=== PATIENT | female | born 1970 | race Caucasian/White ===

== ENCOUNTER 2022-07-22 11:01 | Outpatient (CLI) | payer OTHER, SELFPAY ==
--- OUTSIDE RECORDS SUMMARY | 2022-07-22 11:04 | XMS_ITS | Encounter Summary ---
:1970 Author Organization [facility] Address [address] [place] [address] Care Team Providers Name Role Phone Unavailable Primary Care Provider Unavailable Encounter Details Date Type Department Care Team Description 06/06/2006 Hospital Encounter HX [facility] Sera Musa M.D. Social History Tobacco Use Types Packs/Day Years Used Date Smoking Tobacco: Never Assessed Sex Assigned at Date Recorded Not on file documented as of this encounter Plan of Treatment Not on filedocumented as of this encounter Visit Diagnoses Not on filedocumented in this encounter
--- OUTSIDE RECORDS SUMMARY | 2022-07-22 11:04 | XMS_ITS | Encounter Summary ---
:1970 Author Organization [facility] Address [address] [place] [address] Care Team Providers Name Role Phone Unavailable Primary Care Provider Unavailable Encounter Details Date Type Department Care Team Description 01/13/2006 Hospital Encounter HX [facility] Provider, Historic al Social History Tobacco Use Types Packs/Day Years Used Date Smoking Tobacco: Never Assessed Sex Assigned at Date Recorded Not on file documented as of this encounter Plan of Treatment Not on filedocumented as of this encounter Visit Diagnoses Not on filedocumented in this encounter
--- OUTSIDE RECORDS SUMMARY | 2022-07-22 11:04 | XMS_ITS | Encounter Summary ---
:1970 Author Organization [facility] Address [address] [place] [address] Care Team Providers Name Role Phone Elsewhere, Pcp Primary Care Provider Unavailable Reason for Visit Reason Comments COVID Nurse Line Encounter Details Date Type Department Care Team Description 08/29/2021 Clinical Communication Division of Génesis Moreno Nurse Line Formerly [facility] Internal D, R.N. [facility] [address] [facility] [place] [phone] [place] [address] [place] [address] Social History Tobacco Use Types Packs/Day Years Used Date Smoking Tobacco: Never Sex Assigned at Date Recorded Not on file documented as of this encounter Miscellaneous Notes Telephone Encounter - Alivia Flores - 08/29/2021 10:22 AM CDT Covid appt scheduled for 08/29/21. Telephone Encounter - Génesis Moreno, R.N. - 08/29/2021 9:54 AM CDT COVID-19 Nurse Line Screening ASSESSMENT PLAN Endpoint recommendation: Symptomatic testing indicated, advised to be swabbed for COVID-19 Only , sent to [facility] located at [address]. An appointment is required for testing, please call [phone] Monday- Monday 7am to 6pm and Monday & Monday 9am to 4pm to schedule an appointment. Testing hours are 8am - 4:30pm daily. You can also schedule via your [employer] account., Please avoid using public transportation per CDC recommendation. If you do not havepersonal transportation please self-quarantine until a personal transportation option is available. Standard Care Points -Get a COVID -19 vaccine as soon as you can if not fully vaccinated. -Wash hands frequently with soap and water, use hand pollution control technician if soap and water aren't available. -Wear a mask over your nose and mouth to help protect yourself and others if not fully vaccinated and having no symptoms -Stay 6 feet between yourself and others who don't live with you. -Avoid crowds and poorly ventilated indoor spaces. -Seek emergent care if any of the following occur Trouble breathing Bluish lips or face Persistent pain or pressure in the chest New confusion or inability to rouse. -Notify your regular care provider of any new or worsening symptoms. Symptomatic Carepoints: Stay home and separate yourself from others and stay in a specific sick room if able. Avoid sharing personal or household items. Rest. Hydrate. Take Acetaminophen/Ibuprofen asneeded to control fever and muscles aches. Use over the counter medications as needed for other symptoms. If you have received a negative COVID-19 test result and continue to have new or worsening symptoms after 72 hours please call the COVID Nurse Line to assess if you need repeat testing or reach out to your Primary Care Provider for guidance. Education: Patient/caregiver able to teach back Patient agreeable to plan of care: Yes The following references were used: [facility] novel coronavirus (COVID- 19) resources Nursing judgement documented in this encounter Plan of Treatment Not on filedocumented as of this encounter Visit Diagnoses Not on filedocumented in this encounter Additional Health Concerns Infection Onset Date Last Indicated Resolved Time COVID19 Pending 08/29/2021 08/29/2021 08/30/2021 10:03 PM CDT documented as of this encounter Care Teams Electronics Technician Apprentice Relationship Specialty Start Date End Date Elsewhere, Pcp PCP - General Family Medicine 06/07/21 documented as of this encounter
--- OUTSIDE RECORDS SUMMARY | 2022-07-22 11:04 | XMS_ITS | Encounter Summary ---
:1970 Author Organization [facility] Address [address] [place] [address] Care Team Providers Name Role Phone Unavailable Primary Care Provider Unavailable Encounter Details Date Type Department Care Team Description 09/11/2006 Hospital Encounter HX NO MAPPING Reyes Wood M .D. Social History Tobacco Use Types Packs/Day Years Used Date Smoking Tobacco: Never Assessed Sex Assigned at Date Recorded Not on file documented as of this encounter Plan of Treatment Not on filedocumented as of this encounter Visit Diagnoses Not on filedocumented in this encounter
--- OUTSIDE RECORDS SUMMARY | 2022-07-22 11:04 | XMS_ITS | Clinical Summary ---
:1970 Author Organization [facility] [place] [address] Care Team Providers Name Role Phone Jeanette Cortez Primary Care Provider Zulema Moore RN Unavailable Dania Navarrete RN Unavailable Ramon Menchaca MD Unavailable [phone] Jessica Catherine RN Unavailable Unavailable Allergies Active Allergy Reactions Severity Noted Date Comments Lisinopril Cough 10/26/2018 Medications Medication Sig Dispensed Refills Start End Status Date Date CPAPIndications: MAGGY CPAP machine for 1 Each 06/23/20 Active (obstructive sleep home use at 21 apnea) pressure 4-10 cmw, full face mask x1/3month with a full face cushion x1/mo triamcinolone Apply topically 80 g 1 01/19/20 Active (ARISTOCORT; to affected 22 KENALOG) 0.1 % area(s) 2 times creamIndications: daily. Up to 2 Atopic dermatitis, weeks unspecified type amLODIPine (NORVASC) Take 1 Tablet 90 Tablet 0 06/01/20 Active 10 mg (10 mg) by mouth 22 tabletIndications: once daily. Essential hypertension omeprazole Take 1 Capsule 90 Capsule 0 06/01/20 Act ryan (PRILOSEC) 40 mg (40 mg) by mouth 22 Delayed-Release once daily capsuleIndications: before a meal. Gastroesophageal reflux disease with esophagitis without hemorrhage losartan (COZAAR) 25 Take 1 Tablet 90 Tablet 0 06/08/20 Active mg (25 mg) by mouth 22 tabletIndications: once daily. Essential hypertension atorvastatin Take 1 Tablet 90 Tablet 1 06/08/20 Act ryan (Lipitor) 20 mg (20 mg) by mouth 22 tabletIndications: at bedtime. Mixed dyslipidemia Blood Pressure Diagnosis: 1 Each 0 06/08/20 Acti ve Monitor (Blood hypertension Use 22 Pressure Kit) as directed KitIndications: OMRON Essential hypertension escitalopram oxalate Take 1 Tablet 90 Tablet 3 06/08/20 Active (LEXAPRO) 10 mg (10 mg) by mouth 22 tabletIndications: every morning. Generalized anxiety disorder LORazepam (ATIVAN) Take 1 Tablet 15 Tablet 0 06/16/20 Active 0.5 mg (0.5 mg) by 22 tabIndications: mouth once daily Panic attack if needed for Anxiety. lancets (Accu-Chek Dispense item 100 Each 1 06/22/20 Active Softclix covered by pt 22 Lancets)Indications: ins. E11.9 NIDDM Type 2 diabetes type II - Test 1 mellitus without time/day complication, without long-term current use of insulin (HC) trimethoprim-sulfame Take 1 tab 30 Tablet 2 06/28/20 Active thoxazole, 160-800 Monday, 22 mg, (Bactrim DS) Monday and tabIndications: Fridays Sarcoidosis predniSONE Take 2 Tablets 112 Tablet 0 06/28/20 Act ryan (DELTASONE) 20 mg (40 mg) by mouth 22 022 tabletIndications: once daily. Sarcoidosis insulin NPH Inject 38 units 15 mL 1 06/29/20 Ac tive isophane, U-100, subcutaneous 22 (HumuLIN N NPH before bedtime. Insulin KwikPen) 100 unit/mL (3 mL) penIndications: Type 2 diabetes mellitus without complication, without long-term current use of insulin (HC) Insulin Beattie, As directed. 100 Each 0 06/29/20 Active Disposable, (Pen Remove the 2 22 Needle) 32 gauge x covers on the Indications: insulin pen Type 2 diabetes needle before mellitus without administering complication, insulin dose.Use without long-term once daily with current use of insulin insulin (HC) glucose 4 gram Chew 4 Tablets 100 Tablet 5 06/29/20 Active chewable (16 g) by mouth 22 tabletIndications: each time if Type 2 diabetes needed for Blood mellitus without Gluc < (For complication, glucose less without long-term than 70). current use of insulin (HC) insulin NPH Inject 38 units 20 mL 06/30/20 Ac tive isophane, U-100, subcutaneous 22 (NovoLIN N NPH U-100 before Insulin) 100 unit/mL breakfast. susp injectionIndications : Type 2 diabetes mellitus without complication, without long-term current use of insulin (HC) Insulin For 100 Each 06/30/20 Active Syringe-Needle U-100 administering 22 (Easy Touch) 0.3 mL insulin at home. 30 gauge x 04/04Indications: Type 2 diabetes mellitus without complication, without long-term current use of insulin (HC) FreeStyle Colleen 2 To be used to 2 Each 07/04/20 Active SensorIndications: read blood 22 Type 2 diabetes sugars per mellitus without application engineer's complication, with directions. long-term current Change every 14 use of insulin (HC) days blood sugar Dispense item 200 Each 07/06/20 Acti ve diagnostic covered by pt 22 (Accu-Chek Guide ins. - Test 4 test strips) time/day now on stripIndications: insulin Type 2 diabetes mellitus without complication, without long-term current use of insulin (HC) Dexcom G6 To be used to 1 Each 4 07/11/20 Active Transmitter for read blood 22 continuous blood sugars, follow glucose monitor application engineer (CGM)Indications: directions. Type 2 diabetes Change every 90 mellitus without days complication, unspecified whether nursing home insulin use (HC) Dexcom G6 Sensor for To be used to 9 Each 3 07/14/20 Active continuous blood read blood 22 glucose monitor sugars, follow (CGM)Indications: application engineer Type 2 diabetes directions. mellitus without Change sensor complication, every 10 days unspecified whether nursing home insulin use (HC) cefdinir (OMNICEF) Take 300 mg by 0 05/29/20 Discontinued 300 mg capsule mouth. 22 022 (*Med complete/R egime n complete/L evel of care margarito) blood sugar Dispense item 100 Each 1 06/22/20 Disc ontinued diagnostic covered by pt 22 022 (Reor angela (Accu-Chek Guide ins. E11.9 NIDDM (E-cancel not test strips) type II - Test 1 sent)) stripIndications: time/day Type 2 diabetes mellitus without complication, without long-term current use of insulin (HC) diazePAM (Valium) 5 Take 1 Tablet (5 1 Tablet 0 06/28/2007/22 mg mg) by mouth one 22 022 tabletIndications: time for 1 dose. Sarcoidosis Dexcom G6 Sensor for To be used to 9 Each 3 07/11/2007/14 Discontinued continuous blood read blood 22 022 (R eorder glucose monitor sugars, follow (E-cancel not (CGM)Indications: application engineer sent)) Type 2 diabetes directions. mellitus without Change sensor complication, every 10 days unspecified whether rn long term care insulin use (HC) Active Problems Problem Noted Date Sarcoidosis 06/29/2022 Overview: Extensive sarcoidosis. Elevated LFTs 06/01/2022 Type 2 diabetes mellitus without complication, without long-term current 06/01/2022 use of insulin Colon polyp 03/03/2022 Overview: Colonoscopy 02/2022 2-TA, repeat in 7 yea rs Mixed dyslipidemia 06/16/2021 Overview: ASCVD 10 year risk 3.3%. Hyperuricemia 06/16/2021 Overview: Patient stopped allopurinol. Generalized anxiety disorder 05/23/2021 Chronic cough 05/23/2021 Gastroesophageal reflux disease with esophagitis witho ut hemorrhage 05/23/2021 Essential hypertension 11/05/2018 Dyspepsia 03/09/2018 NADIRA III (cervical intraepithelial neoplasia grade III) with severe 05/15/2015 dysplasia Overview: 05/15/2015 LSIL cannot exclude HSIL (no follow up colp noted) 01/11/2019 ASCUS/HPV+ 02/12/2019 Total Hysterectomy, Cervix re moved: NADIRA 2-3 01/20/2020 NIL/HPV negative 06/16/2021 LSIL/HPV+, HPV 16/18 negative 01/18/22 LSIL/HPV+, 16/18 negative. [place]:n ormal, no biopsy taken Provider plan 01/18/22: Pap/HPV due 01/2023 Obesity (BMI 30-39.9) 01/17/2012 MAGGY (obstructive sleep apnea) Pelvic pain Resolved Problems Problem Noted Date Resolved Date LGSIL (low grade squamous intraepithelial dysplasia) 01/17/2019 Overview: colp advised Encounters Date Type Specialty Care Team Description 07/21/2022 Travel 07/14/2022 Refill Jeanette Cortez, Refill R equest DO 07/11/2022 Patient Outreach Jessica Catherine, RN Jhonatan s (New CGM placement) 07/11/2022 Travel 07/06/2022 Patient Outreach Jessica Catherine RN Diabete s (Colleen start) 07/06/2022 Travel 07/05/2022 Hospital Encounter Ramon Menchaca MD 07/05/2022 Travel 07/04/2022 Telephone Leyda Hess RN MRI 06/30/2022 Telephone Jeanette Cortez Medicati on Management DO 06/29/2022 Emergency Janet Adorno Hyperglyc emia (Primary Yonny, PA Dx) 06/29/2022 Patient Outreach Jessica Catherine RN Diabete s (Insulin start) 06/29/2022 Telephone NurseTee High Blood Suga r 06/29/2022 Nurse Triage Jeanette Cortez, High Blo od Sugar (260 DO mg/dL) 06/29/2022 Travel 06/29/2022 Telephone Jeanette Cortez, Diabetes DO 06/29/2022 E-Visit Diane, Provider 06/28/2022 Refill Ramon Menchaca Refill Requ est MD [place] (Prednisone) 06/27/2022 Refill Ramon Menchaca MD 06/27/2022 Telephone Dania Navarrete, RN Medicat ion Management (Black seed oil ) 06/23/2022 Office Visit Ramon Menchaca Consult (Judith zac Mets ~ MD [place] Biopsy 06/20) 06/23/2022 Travel 06/22/2022 Orders Only Lab, Appv Lab 06/22/2022 Patient Outreach Jessica Catherine, RN Diabete s (New Dx Assessment) 06/22/2022 Travel 06/22/2022 Orders Only Ramon Menchaca <No scans a ttached> MD [place] 06/20/2022 Hospital Encounter Jeanette Cortez Li ver metastasis (HC) DO 06/20/2022 Travel 06/16/2022 Travel 06/16/2022 Nurse Triage Jeanette Cortez, Chest Pa in DO 06/14/2022 Telephone Christiana Haynes Consult (Holger Dean MD up/Appointments ) 06/13/2022 Telephone Jeanette Cortez, Form (H & P form ) DO 06/10/2022 Telephone Jeanette Cortez, Referral (oncology) DO 06/10/2022 Telephone Jeanette Cortez, Results DO 06/09/2022 Hospital Encounter Jeanette Cortez, Pe lvic lymphadenopathy; DO Multiple lung n odules; Abnormal liver CT 06/08/2022 Office Visit Jeanette Cortez, Medicati on Management; DO Diabetes; Blood Pressure 06/08/2022 Travel 06/06/2022 Travel 06/01/2022 Office Visit Jeanette Cortez, ER Follo w up DO 05/31/2022 Refill Jeanette Cortez, Refill R equest DO (Omeprazole, Am lodipine) 05/31/2022 Travel from Last 3 Months Immunizations Name Administration Dates Next Due Hepatitis B (Adult) 06/24/2014, 05/19/2014 Influenza, IIV4 01/20/2020 Tdap 06/01/2022, 01/17/2012 Family History Medical History Relation Name Comments Cancer Maternal Aunt lung Cancer-breast Maternal Aunt age unknown Cancer Maternal Grandmother breast in h er 50's or 60's Cancer-breast Maternal Grandmother age unknown Heart Disease Maternal Grandmother Cancer Maternal Uncle lung CA Cancer Mother lung Good Health Sister Relation Name Status Comments Father Other unknown Maternal Aunt Maternal Grandmother Maternal Uncle Mother (Age 52) Sister Social History Tobacco Use Types Packs/Day Years Used Date Passive Smoke Exposure - Never Smoker Smokeless Tobacco: Never Used Tobacco Cessation: Counseling Given: Yes Alcohol Use Standard Drinks/Week Comments Yes 0 (1 standard drink = 0.6 oz pure alcoho l) socially Alcohol Habits Answer Date Recorded How often do you have a drink containing alcohol? 2-4 times a month 08/14/2020 How many drinks containing alcohol do you have on a 3 or 4 08/14/2020 typical day when you are drinking? How often do you have six or more drinks on one Less than mo nthly 08/14/2020 occasion? Comment: socially 08/14/2020 Sex Assigned at Date Recorded Not on file COVID-19 Exposure Response Date Recorded In the last 10 days, have you been in contact with No / Unsu re 07/21/2022 2:23 PM CDT someone who was confirmed or suspected to have Coronavirus/COVID-19? Obstetrics History Para Term AB IAB SAB Ectopic Multiple Living Live Births 2 2 Date Outcome GA Total Labor/2nd/3rd Weight Sex Delivery Anes PTL Bianka A 1 A5 Name Clin Labor Para Para Last Filed Vital Signs Vital Sign Reading Time Taken Comments Blood Pressure 149/82 06/29/2022 7:31 PM CDT Pulse 96 06/29/2022 7:31 PM CDT Temperature 36.7 ??C (98 ??F) 06/29/2022 7:31 PM CDT Respiratory Rate 18 06/29/2022 7:31 PM CDT Oxygen Saturation 92% 06/29/2022 7:31 PM CDT Inhaled Oxygen Concentration - - Weight 96.6 kg (212 lb 15.4 oz) 06/29/2022 7:31 PM CDT Height 165.1 cm (5' 5) 06/29/2022 7:31 PM CDT Body Mass Index 35.44 06/29/2022 7:31 PM CDT Plan of Treatment Upcoming Encounters Date Type Specialty Care Team Description 08/03/2022 Office Visit Dylan Obrien, OD [address] [place] [address] (Wo rk) Health Maintenance Due Date Last Done Comments Pneumococcal series for age 19-64 1976 (1 - PCV) Zoster (shingles) series for age 0112/20/1989 50+ (1 of 2) Hepatitis B series for Diabetes (3 10/24/2014 06/24/2014, 0 05/19/2014 of 3 - Risk 3-dose series) COVID-19 vaccine series (2 - 03/11/2022 02/11/2022 Moderna risk series) Influenza for age 50-64 07/21/2022 01/20/2020 Pap test for age 21-65 01/18/2023 01/18/2022, 01/18/2022, 06/16/2021, Additional history exists Mammogram for age 45-75 03/02/2023 03/02/2022, 11/05/2020, 11/04/2019, Additional history exists Depression screening for age 12+ 06/01/2023 06/01/2022, 10/2022, 06/16/2021, Additional history exists BMI (ht and wt on same day) for 06/23/2023 06/23/2022, 03/0 11/2021, age 18+ 06/23/2021, Additional history exists Lipids for age 45-75 06/01/2027 06/01/2022, 06/16/2021, 10/12/2020, Additional history exists Colonoscopy through age 75 03/01/2032 03/01/2022, 2, 03/01/2022 Tetanus booster 06/01/2032 06/01/2022, 01/17/2012 Hepatitis C screening for age Completed 06/01/2022 18-79 Tdap Completed 06/01/2022, 01/17/2012 Procedures Procedure Name Priority Date/Time Associated Diagnosis Comme nts MR CARDIAC WWO SWETHA 07/05/2022 3:46 Sarcoidosis Results fo r this PM CDT procedure are i n the results section. HEMATOCRIT/HGB,ISTAT Routine 07/05/2022 2:58 Resu lts for this PM CDT procedure are i n the results section. PATH URINE CYTOLOGY STAT 06/22/2022 11:26 Disseminated Resu lts for this AM CDT malignancy of procedure are in unknown primary (HC) the res ults section. CBC WITH AUTO Routine 06/22/2022 11:26 Disseminated Results fo r this DIFFERENTIAL AM CDT malignancy of procedure are in unknown primary (HC) the res ults section. BETA 2 Routine 06/22/2022 11:26 Disseminated Results for this MICROGLOBULIN,SER AM CDT malignancy of procedure are in unknown primary (HC) the res ults section. LD,TOTAL Routine 06/22/2022 11:26 Disseminated Results for this AM CDT malignancy of procedure are in unknown primary (HC) the res ults section. IMMUNOFIXATION,SERUM STAT 06/22/2022 11:26 Disseminated Res ults for this AM CDT malignancy of procedure are in unknown primary (HC) the res ults section. PROTEIN ELP,SERUM Routine 06/22/2022 11:26 Disseminated Result s for this AM CDT malignancy of procedure are in unknown primary (HC) the res ults section. CALCITRIOL(1 25 DI OH Routine 06/22/2022 11:26 Disseminated Re sults for this VIT D) AM CDT malignancy of procedure are in unknown primary (HC) the res ults section. VITAMIN D 25 Routine 06/22/2022 11:26 Disseminated Results for this (DEFICIENCY) AM CDT malignancy of procedure are in unknown primary (HC) the res ults section. ANGIOTENSIN CONVERTING Routine 06/22/2022 11:26 Disseminated R esults for this ENZYME AM CDT malignancy of procedure are in unknown primary (HC) the res ults section. C-REACTIVE PROTEIN Routine 06/22/2022 11:26 Disseminated Resul ts for this AM CDT malignancy of procedure are in unknown primary (HC) the res ults section. SEDIMENTATION RATE Routine 06/22/2022 11:26 Disseminated Resul ts for this AM CDT malignancy of procedure are in unknown primary (HC) the res ults section. COMP METABOLIC PANEL Routine 06/22/2022 11:26 Disseminated Res ults for this AM CDT malignancy of procedure are in unknown primary (HC) the res ults section. CBC WITH AUTO Routine 06/22/2022 11:26 Disseminated Results fo r this DIFFERENTIAL AM CDT malignancy of procedure are in unknown primary (HC) the res ults section. CA 125 Routine 06/22/2022 11:26 Disseminated Results for this AM CDT malignancy of procedure are in unknown primary (HC) the res ults section. CA 19-9 Routine 06/22/2022 11:26 Disseminated Results for this AM CDT malignancy of procedure are in unknown primary (HC) the res ults section. CEA Routine 06/22/2022 11:26 Disseminated Results for this AM CDT malignancy of procedure are in unknown primary (HC) the res ults section. US BIOPSY LIVER STAT 06/20/2022 9:05 Liver metastasis Resul ts for this AM CDT (HC) procedure are i n the results section. PATH FNA CYTOLOGY ASP Timed 06/20/2022 8:37 Res ults for this CYTOLOGY AM CDT procedure are i n the results section. HEMOGLOBIN STAT 06/20/2022 7:15 Results for this AM CDT procedure are i n the results section. PLATELET COUNT STAT 06/20/2022 7:15 Results fo r this AM CDT procedure are i n the results section. PROTIME-INR STAT 06/20/2022 7:15 Results for this AM CDT procedure are i n the results section. US ABDOMEN LIMITED SWETHA 06/09/2022 11:[address] Results for this LIVER AM CDT procedure are i n the results section. PET CT SKULL BASE TO SWETHA 06/09/2022 10:58 Pelvic Res ults for this MID THIGH INITIAL AM CDT lymphadenopath y procedure are in TREAT Multiple lung the results nodules section. URINE ALBUMIN TO Routine 06/08/2022 11:58 Type 2 diabetes Resu lts for this CREATININE RATIO, AM CDT mellitus without proced ure are in RANDOM complication, the results without long-term section. current use of insulin (HC) WI ECG ROUTINE ECG Routine 06/08/2022 12:00 Atypical chest marky n W/LEAST 12 LDS W/I&R AM CDT CBC WITH AUTO Routine 06/01/2022 9:54 Pelvic Results for this DIFFERENTIAL AM CDT lymphadenopathy procedure are in Multiple lung the results nodules section. FERRITIN Routine 06/01/2022 9:[address] Results for this AM CDT procedure are i n the results section. HBSAG (HBS) Routine 06/01/2022 9:[address] Results for this AM CDT procedure are i n the results section. ANTI HCV Routine 06/01/2022 9:[address] Results for this AM CDT procedure are i n the results section. GAMMA GT Routine 06/01/2022 9:54 Pelvic Results for this AM CDT lymphadenopathy procedure are in Abnormal liver CT the result s section. CBC WITH AUTO Routine 06/01/2022 9:54 Pelvic Results for this DIFFERENTIAL AM CDT lymphadenopathy procedure are in Multiple lung the results nodules section. HEMOGLOBIN A1C Routine 06/01/2022 9:54 Diabetes mellitus Resul ts for this SCREENING AM CDT screening procedure are i n the results section. COMP METABOLIC PANEL Routine 06/01/2022 9:54 Pelvic Resu lts for this AM CDT lymphadenopathy procedure are in Abnormal liver CT the result s section. LIPID PANEL W REFLEX Routine 06/01/2022 9:54 Mixed dyslipidemi a Results for this MEASURED LDL AM CDT procedure are i n the results section. from Last 3 Months Results MR CARDIAC WWO (07/05/2022 3:46 PM CDT) Anatomical Region Laterality Modality HEART, THORAX Magnetic Resonance Specimen (Source) Anatomical Collection Method Collection Time Re ceived Time Location / / Volume Laterality 07/05/2022 3:42 PM CDT Narrative 07/06/2022 12:30 AM CDT ?[facility] ? CMR Report ??MRN: ?[id number] ?Name: ?BRITTANY DOMINGUEZ ?: ?1971-0 1-31 ?Scan Date: ?? 2022-07-05 15:42:55 ? Electronically signed by Eduar Simpson 00:30:15 VITALS HEIGHT: 65.00 in ?(165.10 cm) WEIGHT: 214.00 lbs ?(97.07 kgs) BSA: 2.04 m^2 FINAL IMPRESSION 1. No evidence of cardiac sarcoidosis. 2. No myocardial infarction, myocarditis , focal fibrosis, or amyloidosis noted on late gadolinium enhancement imaging. ??No diffuse fibros is noted on extracellular volume (ECV) measures. No siderosis or Fabry? s disease. No edema. 3. Quantitative LVEF 75 %. LV systolic f unction is hyperdynamic. LV cavity size is normal. LV wall thickness is normal. 4. Quantitative RVEF 55 %. RV systolic f unction is normal. RV cavity size is normal. 5. No significant valve disease. ?? 6. No pericardial or pleural effusions. 7. Mediastinal and hilar adenopathy note d consistent with clinical diagnosis of sarcoidosis. Defer to prior imaging for further characterization of extracardiac pathology. SUMMARY LEFT VENTRICLE: Quantitative LVEF 75 %. LV systolic function is hyperdynamic. LV cavity size is normal. LV wall thickness is normal. VIABILITY: No evidence of cardiac sarcoi dosis. No myocardial infarction, myocarditis, focal fibrosis, or amyloidosis noted on late gadolinium enhancement ylndon ging. ??No diffuse fibrosis noted on extracellular volume (ECV) measures. No siderosis or Fabry? s disease. No edema. RIGHT VENTRICLE: Quantitative RVEF 55 %. RV systolic function is normal. RV cavity size is normal. LEFT ATRIUM: LA cavity size is normal. RIGHT ATRIUM: RA cavity size is normal. PERICARDIUM: There is no pericardial eff usion. PLEURAL EFFUSION: There is no pleural ef fusion. AORTIC VALVE: Aortic valve is trileaflet . There is no aortic regurgitation. Aortic regurgitant volume 0 ml. MITRAL VALVE: Mitral valve is mildly thi ckened. There is no mitral regurgitation. TRICUSPID VALVE: Tricuspid valve leaflet s are normal. There is no tricuspid regurgitation. AORTIC ROOT: The aortic root is normal. OTHER FINDINGS: Mediastinal and hilar ad enopathy noted consistent with clinical diagnosis of sarcoidosis. CORE EXAM MEASUREMENTS -------- ?VOLUMETRIC ANALYSIS ? . . ? LV ?? Refe rence RV ?? Reference +------+ +------+ +-- ----+ + EDV ?? ml ?110 ??(86-16 6) ??110 ??(81-166) ? ml/m^2 ? 54 ??(56- 90) ? 54 ??(53-90) ?? ESV ?? ml ? 28 ??(22-59 ) ? 49 ??(15-68) ? ml/m^2 ? 14 ??(14- 33) ? 24 ??(11-37) ?? CO ?? L/min ? 5.25 ? 3.90 ? L/min/m^2 2.58 ? 1.92 ? MASS g ? 93 ??(72-14 4) ? g/m^2 ? 46 ??(48- 78) ? SV ?? ml ? 82 ??(57-11 3) ?? 61 ??(56-108) ? ml/m^2 ? 40 ??(37- 62) ? 30 ??(36-60) ?? EF ?? % ? 75 ??(59-7 7) ? 55 ??(55-79) ?? '------+ +------+ +-- ----+ ' ?CARDIAC OUTPUT HR: ??64 BPM ?EXTRACELLULAR VOLUME MEASUREMENT ?PRE-CONTRAST T1 MYOCARDIUM: ??1022 msec ?ECV: ??23.1 % ?IRON QUANTIFICATION ?MYOCARDIAL T2*: ??32 msec ?LIVER T2*: ??31 msec 17 SEGMENT -------- . . Segments ? Wall Motion ?? Hyperenhancement Stress Perfusion Interpretation + + + + +----- + Base Anterior ? Normal/Hyper None ? Base Anteroseptal ?? Normal/Hyper N one ? Base Inferoseptal ?? Normal/Hyper N one ? Base Inferior ? Normal/Hyper None ? Base Inferolateral Normal/Hyper No ne ? Base Anterolateral Normal/Hyper No ne ? Mid Anterior ? Normal/Hyper None ? Mid Anteroseptal ?? Normal/Hyper N one ? Mid Inferoseptal ?? Normal/Hyper N one ? Mid Inferior ? Normal/Hyper None ? Mid Inferolateral ?? Normal/Hyper N one ? Mid Anterolateral ?? Normal/Hyper N one ? Apical Anterior ? Normal/Hyper None ? Apical Septal ? Normal/Hyper None ? Apical Inferior ? Normal/Hyper None ? Apical Lateral ? Normal/Hyper None ? [place] ? Normal/Hyp er None ? + + + + +----- + RV Segments ? Wall Motion ? ? Hyperenhancement Stress Perfusion Interpretation + + + + +----- + RV Basal Anterior ? RV Basal Inferior ? RV Mid ? RV Apical ? ' + + + +----- ' ?FINDINGS ?LV SCAR SIZE (17 SEGMENT): ? ?0 % SCAN INFO GENERAL -------- ?SCANNER ?ACCOUNTING SUPPORT SPECIALIST: ??SIEMENS ?MODEL: ??Avanto_fit ?CONTRAST AGENT ?GD CONCENTRATION: ??1.0 M ?VOLUME ADMINISTERED: ??10 ml ?DOSAGE: ??0.10 mmol/kg ?SETUP ?REFERRING PHYSICIAN: ??KARLA MENCHACA ?ATTENDING PHYSICIAN: ??KARLA MENCHACA BILLING Patient Account ?[id number] ICD10 Codes ?D86.9 Report generated by marcial Palacios of [employer] Procedure Note Eduar Simpson MD - 07/06/2022 ormatting of this note might be different from the original. [facility] CMR Report Name: BRITTANY DOMINGUEZ DOB: 1970 Scan Date: 2022-07-05 15:42:55 Electronically signed by Eduar Simpson 00:30:15 VITALS HEIGHT: 65.00 in (165.10 cm) WEIGHT: 214.00 lbs (97.07 kgs) BSA: 2.04 m^2 FINAL IMPRESSION 1. No evidence of cardiac sarcoidosis. 2. No myocardial infarction, myocarditis , focal fibrosis, or amyloidosis noted on late gadolinium enhancement imaging. No diffuse fibrosis noted on extracellular volume (ECV) measures. No siderosis or Fabry? s disease. No edema. 3. Quantitative LVEF 75 %. LV systolic f unction is hyperdynamic. LV cavity size is normal. LV wall thickness is normal. 4. Quantitative RVEF 55 %. RV systolic f unction is normal. RV cavity size is normal. 5. No significant valve disease. 6. No pericardial or pleural effusions. 7. Mediastinal and hilar adenopathy note d consistent with clinical diagnosis of sarcoidosis. Defer to prior imaging for further characterization of extracardiac pathology. SUMMARY LEFT VENTRICLE: Quantitative LVEF 75 %. LV systolic function is hyperdynamic. LV cavity size is normal. LV wall thickness is normal. VIABILITY: No evidence of cardiac sarcoi dosis. No myocardial infarction, myocarditis, focal fibrosis, or amyloidosis noted on late gadolinium enhancement lyndon ging. No diffuse fibrosis noted on extracellular volume (ECV) measures. No siderosis or Fabry? s disease. No edema. RIGHT VENTRICLE: Quantitative RVEF 55 %. RV systolic function is normal. RV cavity size is normal. LEFT ATRIUM: LA cavity size is normal. RIGHT ATRIUM: RA cavity size is normal. PERICARDIUM: There is no pericardial eff usion. PLEURAL EFFUSION: There is no pleural ef fusion. AORTIC VALVE: Aortic valve is trileaflet . There is no aortic regurgitation. Aortic regurgitant volume 0 ml. MITRAL VALVE: Mitral valve is mildly thi ckened. There is no mitral regurgitation. TRICUSPID VALVE: Tricuspid valve leaflet s are normal. There is no tricuspid regurgitation. AORTIC ROOT: The aortic root is normal. OTHER FINDINGS: Mediastinal and hilar ad enopathy noted consistent with clinical diagnosis of sarcoidosis. CORE EXAM MEASUREMENTS -------- VOLUMETRIC ANALYSIS ------- . . LV Reference RV Reference +------+ +------+ +-- ----+ + EDV ml 110 (86-166) 110 (81- 166) ml/m^2 54 (56-90) 54 (53-90) ESV ml 28 (22-59) 49 (15-68) ml/m^2 14 (14-33) 24 (11-37) CO L/min 5.25 3.90 L/min/m^2 2.58 1.92 MASS g 93 (72-144) g/m^2 46 (48-78) SV ml 82 (57-113) 61 (56-108 ) ml/m^2 40 (37-62) 30 (36-60) EF % 75 (59-77) 55 (55-79) '------+ +------+ +-- ----+ ' CARDIAC OUTPUT HR: 64 BPM EXTRACELLULAR VOLUME MEASUREMENT ------- PRE-CONTRAST T1 MYOCARDIUM: 1022 msec ECV: 23.1 % IRON QUANTIFICATION ------- MYOCARDIAL T2*: 32 msec LIVER T2*: 31 msec 17 SEGMENT -------- . . Segments Wall Motion Hyperenhancem ent Stress Perfusion Interpretation + + + + +----- + Base Anterior Normal/Hyper None Base Anteroseptal Normal/Hyper Non e Base Inferoseptal Normal/Hyper Non e Base Inferior Normal/Hyper None Base Inferolateral Normal/Hyper No ne Base Anterolateral Normal/Hyper No ne Mid Anterior Normal/Hyper None Mid Anteroseptal Normal/Hyper None Mid Inferoseptal Normal/Hyper None Mid Inferior Normal/Hyper None Mid Inferolateral Normal/Hyper Non e Mid Anterolateral Normal/Hyper Non e Apical Anterior Normal/Hyper None Apical Septal Normal/Hyper None Apical Inferior Normal/Hyper None Apical Lateral Normal/Hyper None [place] Normal/Hyper None + + + + +----- + RV Segments Wall Motion Hyperenhan cement Stress Perfusion Interpretation + + + + +----- + RV Basal Anterior RV Basal Inferior RV Mid RV Apical ' + + + +----- ' FINDINGS ------- LV SCAR SIZE (17 SEGMENT): 0 % SCAN INFO GENERAL -------- SCANNER ------- ACCOUNTING SUPPORT SPECIALIST: SIEMENS MODEL: Avanto_fit CONTRAST AGENT ------- GD CONCENTRATION: 1.0 M VOLUME ADMINISTERED: 10 ml DOSAGE: 0.10 mmol/kg SETUP ------- REFERRING PHYSICIAN: RAMON MENCHACA ATTENDING PHYSICIAN: RAMON MENCHACA BILLING Patient Account [id number] ICD10 Codes D86.9 Report generated by marcial Palacios of [employer] Ramon Menchaca MD MR HEMATOCRIT/HGB,ISTAT (07/05/2022 2:58 PM CDT) athologist Signature HEMATOCRIT, 44.0 33.0 - 07/05/2022 [facility] POCT 51.0 % 3:01 PM CDT LABORATORY HEMOGLOBIN, 15.0 12.0 - 07/05/2022 [facility] POCT 16.0 g/dL 3:01 PM CDT LABORATORY Specimen Anatomical Collection Method Collection Time Receive d Time (Source) Location / / Volume Laterality Blood BLOOD SPECIMEN / 07/05/2022 2:58 PM 07/05 3:01 Unknown CDT PM CDT Ramon Menchaca MD CHEMISTRY Performing Organization Address City/State/ZIP Code Phon e Number [facility] LABORATORY SENDOUT INTERNAL ZIP [place] [id number] [place] [address] (ABNORMAL) SEDIMENTATION RATE (06/22/2022 11:26 AM CDT) Patholo gist Method Time Signature SEDIMENTATION RATE 44 (H) <30 mm/hr 06/22/2022 [facility]ON[facility] L[facility] 9:19 PM CDT LABORATORY-MANDEEP TRAL LABORATORY Specimen Anatomical Collection Method / Collection Time Recei cayla Time (Source) Location / Volume Laterality Blood BLOOD SPECIMEN / Venipuncture / 06/22/2022 11:26 06/22 Unknown Unknown AM CDT 11:36 AM CDT Ramon Menchaca MD HEMATOLOGY Performing Organization Address City/State/ZIP Code Phon e Number [facility] [place] [address] [place] [address] LABORATORY-CENTRAL 2000 LABORATORY (ABNORMAL) CALCITRIOL(1 25 DI [place] VIT D) (06/22/2022 11:26 AM CDT) [facility] Time Signature Vit D 1,25 di 82.4 (H) 24.8 - 06/24/2022 [facility] [place] 81.5 pg/mL 1:09 PM CDT [facility] ESOTERIC TESTING (CET) Comment: Please note reference interv al change Specimen Anatomical Collection Method / Collection Time Recei cayla Time (Source) Location / Volume Laterality Blood BLOOD SPECIMEN / Venipuncture / 06/22/2022 11:26 06/22 Unknown Unknown AM CDT 11:36 AM CDT [facility] FOR ESOTERIC TESTING (CET) - 06/24/2022 1:09 PM CDT Performed at: ??01 - [address] ??[id number] [employer] Team Member: Luann Puente MD, Phone: ??[phone] Ramon Menchaca MD SEND OUTS Performing Organization Address City/State/ZIP Code Phon e Number [address] 2 [address] ESOTERIC TESTING (CET) (ABNORMAL) ANGIOTENSIN CONVERTING ENZYME (06/22/2022 11:26 AM CDT) athologist Signature KARSON 92 (H) 14 - 82 U/L 06/24/2022 [facility] 2:07 PM CDT [facility] FOR ESOTERIC TESTING (CET) Specimen Anatomical Collection Method / Collection Time Recei cayla Time (Source) Location / Volume Laterality Blood BLOOD SPECIMEN / Venipuncture / 06/22/2022 11:26 06/22 Unknown Unknown AM CDT 11:[address] [facility] FOR ESOTERIC TESTING (CET) - 06/24/2022 2:07 PM CDT Performed at: ??01 - [facility] [address] [place] [address] ??[id number] Flow Team Member: Luann Puente MD, Phone: ??[phone] Ramon Menchaca MD SEND OUTS Performing Organization Address City/State/ZIP Code Phon e Number [facility] FOR [address] [place] [address] 2 8315 ESOTERIC TESTING (CET) (ABNORMAL) CBC WITH AUTO DIFFERENTIAL (06/22/2022 11:26 AM CDT)Only the most recent of2 resultswithin the time period is included. Analysis Performed At Patho logist Time Signature WHITE BLOOD 8.1 4.5 - 11.0 06/22/2022 [facility] COUNT thou/cu mm 12:06 PM CDT [facility] RED BLOOD COUNT 4.88 4.00 - 06/22/2022 [facility] 5.20 12:06 PM CDT [place] [facility] mil/cu mm [facility]ICAL CLINIC HEMOGLOBIN 14.9 12.0 - 06/22/2022 [facility] 16.0 g/dL 12:06 PM CDT [facility] HEMATOCRIT 43.1 33.0 - 06/22/2022 [facility] 51.0 % 12:06 PM CDT [facility] MCV 88 80 - 100 06/22/2022 [facility] fL 12:06 PM CDT [facility] MCH 30.5 26.0 - 06/22/2022 [facility] 34.0 pg 12:06 PM CDT [facility] MCHC 34.6 32.0 - 06/22/2022 [facility] 36.0 g/dL 12:06 PM CDT [facility] RDW 12.0 11.5 - 06/22/2022 [facility] 15.5 % 12:06 PM CDT [facility] PLATELET COUNT 356 140 - 440 06/22/2022 [facility] thou/cu mm 12:06 PM CDT [facility] MPV 9.4 6.5 - 11.0 06/22/2022 [facility] fL 12:06 PM CDT [facility] NRBC 0.0 % 06/22/2022 [facility] 12:06 PM CDT [facility] ABS NRBC 0.0 thou /cu 06/22/2022 [facility] mm 12:06 PM CDT [facility] NEUTROPHILS 45.6 % 06/22/2022 [facility] 12:06 PM CDT [facility] LYMPHOCYTES 20.6 % 06/22/2022 [facility] 12:06 PM CDT [facility] MONOCYTES 10.8 % 06/22/2022 [facility] 12:06 PM CDT [facility] EOSINOPHILS 21.6 % 06/22/2022 [facility] 12:06 PM CDT [facility] BASOPHILS 0.9 % 06/22/2022 [facility] 12:06 PM CDT [facility] IMMATURE 0.5 % 06/22/2022 [facility] GRANULOCYTES(MET 12:06 PM CDT [facility] ABSOLUTE 3.7 1.7 - 7.0 06/22/2022 [facility] NEUTROPHILS thou/cu mm 12:06 PM CDT [facility] ABSOLUTE 1.7 0.9 - 2.9 06/22/2022 [facility] LYMPHOCYTES thou/cu mm 12:06 PM CDT [facility] ABSOLUTE 0.9 (H) <0.9 06/22/2022 [facility] MONOCYTES thou/cu mm 12:06 PM CDT [facility] ABSOLUTE 1.8 (H) <0.5 06/22/2022 [facility] EOSINOPHILS thou/cu mm 12:06 PM CDT [facility] ABSOLUTE 0.1 <0.3 06/22/2022 [facility] BASOPHILS thou/cu mm 12:06 PM CDT [facility] ABSOLUTE 0.0 <0.3 06/22/2022 [facility] IMMATURE thou/cu mm 12:06 PM CDT [place] GRANULOCYTES(MET MEDICAL ,MYELOS,PROS) CLINIC Specimen Anatomical Collection Method / Collection Time Recei cayla Time (Source) Location / Volume Laterality Blood BLOOD SPECIMEN / Venipuncture / 06/22/2022 11:26 06/22 Unknown Unknown AM CDT 11:36 AM CDT Narrative [facility] - 06/22/2022 12:06 PM CDT This procedure was originally ordered at [facility]. Ramon Menchaca MD HEMATOLOGY Performing Organization Address [facility]/ZIP [place] Phon e Number [facility] [address] [address] [employer], [place] [address] MEDICAL CLINIC (ABNORMAL) VITAMIN D 25 (DEFICIENCY) (06/22/2022 11:26 AM CDT) Analysis [facility] At [facility] Time Signature VITAMIN D 16.5 (L) 30.0 - 06/23/2022 [facility] TOTAL 80.0 ng/mL 10:27 PM CDT LABORATORY-MANDEEP TRAL LABORATORY Specimen Anatomical Collection Method / Collection Time Recei cayla Time (Source) Location / Volume Laterality Blood BLOOD SPECIMEN / Venipuncture / 06/22/2022 11:26 06/22 Unknown Unknown AM CDT 11:36 AM CDT Narrative [facility] LABORATORY-CENTRAL LABORAT ORY - 06/23/2022 10:27 PM CDT Deficiency: ? <20 ng/mL Insufficiency: ?20-29 ng/mL Sufficiency: ?30-80 ng/mL Possible Toxicity: ??>80 ng/mL Based on [facility] recommend ations Ramon Menchaca MD SEND OUTS Performing Organization Address City/State/ZIP Code Phon e Number [facility] [address] [place] [address] LABORATORY-CENTRAL 2000 LABORATORY PATH URINE CYTOLOGY (06/22/2022 11:26 AM CDT) Component Value Ref Test Analysis Performed At [facility] gist Range Method Time Signature Case Report Medical Cytology Report ? Case: [id number] ? 06/23/2022 [facility] Authorizing Provider: ??Christiana Killian MD ??Collected: ? 06/22/2022 1126 ? 12:46 PM HEALTH Ordering Location: ? [facility] ? Received: ?06/22/2022 1230 ? CDT LABOR ATORY-C ? [facility] ? ENTRAL Pathologist: ? Shruthi Monson ? LABORATORY ? MD Yancy ? Specimen: ?Urine Void ? Final URINE FOR 06/23/2022 [facility] Godwin mary Diagnosis CYTOLOGY: 12:46 PM HEALTH signed by Negative for CDT LABORATORY-C Roshan Abraham, high grade ENTRAL Shruthi Haines, urothelial LABORATORY on 06/23/2022 carcinoma at 12:46 P M Comment According to the 06/23/2022 [facility] system of 12:46 PM HEALTH reporting CDT LABORATORY-C urinary tract ENTRAL cytology, the LABORATORY diagnosis of negative for high grade urothelial carcinoma indicates the sample is composed of benign urothelial cells and that cells that could remotely raise the suspicion of high grade urothelial carcinoma are absent. This does not and cannot exclude the possibility of a low grade urothelial neoplasm. Clinical The patient is a 06/23/2022 [facility] 51 y.o. female 12:46 PM HEALTH with cancer of CDT LABORATORY-C unknown primary, ENTRAL blood on LABORATORY urinalysis Gross A) SOURCE: Urine, Voided 06/23/2022 [facility] Description 12:46 PM HEALTH The specimen consists of 35 cc of yellow hazy fluid from which the following is prepared: CDT LABORATORY-C ? -1 Papanicolaou stained ThinPrep slide ENTRAL LABORATORY Microscopic All slides were reviewed microscopically. 06/23/2022 [facility] Description 12:46 PM HEALTH Specimen adequacy: Adequate for interpretation. CDT LABORATORY-C ENTRAL The microscopic appearance substantiates the diagnosis. LABORATORY Additional Cytology is screened at [facility] Laboratory, Central Laboratory - [address], [place] [address] and [facility] Laboratory - [address], [place] [address] and 06/23/2022 [facility] Laboratory - [address] [place] [address] 12:46 PM HEALTH CDT LABORATORY-C ENTRAL Interpreted at [facility] Laboratory, Central Laboratory - [address], [place] [address] LABORATORY Specimen Anatomical Collection Method Collection Time Receive d Time (Source) Location / / Volume Laterality Urine URINE SPECIMEN / Non-Blood / 06/22/2022 11:26 022 Unknown Unknown AM CDT 12:30 PM CDT Comment: This procedure was originally o rdered at [facility]. Christiana Haynes MD PATHOLOGY/CYTOLOGY Performing Organization Address City/State/ZIP Code Phon e Number [facility] [address] [place] [address] LABORATORY-CENTRAL 1999 LABORATORY IMMUNOFIXATION,SERUM (06/22/2022 11:26 AM CDT) Component Value Ref Test Analysis Performed At [facility] gist Range Method Time Signature IGG 1,543.70 610.30 - 06/23/2022 [facility] 1,616.00 4:52 PM CDT LABORATORY-CE mg/dL N[facility] LABORATORY IGA 491.88 84.50 - 06/23/2022 [facility] 499.00 4:52 PM CDT LABORATORY-CE mg/dL [facility] LABORATORY IGM 109.99 35.00 - 06/23/2022 [facility] 242.00 4:52 PM CDT LABORATORY-CE mg/dL N[facility] LABORATORY IFIX Immunofixation on serum show s no monoclonal protein detected and no free light chains detected. 06/23/2022 [facility] INTERP,SERUM 4:52 PM CDT LABORATORY-CE Interpreted and electronically signed by: YNES Leggett MD LABORATORY Specimen Anatomical Collection Method / Collection Time Recei cayla Time (Source) Location / Volume Laterality Blood BLOOD SPECIMEN / Venipuncture / 06/22/2022 11:26 06/22 Unknown Unknown AM CDT 11:36 AM CDT Ramon Menchaca MD CHEMISTRY Performing Organization Address City/State/ZIP Code Phon e Number [facility] [place] [address] [place] [address] LABORATORY-CENTRAL 2000 LABORATORY LD,TOTAL (06/22/2022 11:26 AM CDT) P athologist Signature LD,TOTAL 215 125 - 220 06/24/2022 [facility] IU/L 3:06 AM CDT LABORATORY-CENTR AL LABORATORY Specimen Anatomical Collection Method / Collection Time Recei cayla Time (Source) Location / Volume Laterality Blood BLOOD SPECIMEN / Venipuncture / 06/22/2022 11:26 06/22 Unknown Unknown AM CDT 11:36 AM CDT Ramon Menchaca MD CHEMISTRY Performing Organization Address City/State/ZIP Code Phon e Number [facility] [place] [address] [place] [address] LABORATORY-CENTRAL 2000 LABORATORY (ABNORMAL) BETA 2 MICROGLOBULIN,SER (06/22/2022 11:26 AM CDT) Analysis Performed At Patho logist Time Signature Beta 2 3.30 (H) 0.80 - 06/24/2022 [facility] Microglobulin, 2.34 ug/mL 11:35 AM CDT LABORATORY- MANDEEP Serum TRAL LABORATORY Specimen Anatomical Collection Method / Collection Time Recei cayla Time (Source) Location / Volume Laterality Blood BLOOD SPECIMEN / Venipuncture / 06/22/2022 11:26 06/22 Unknown Unknown AM CDT 11:36 AM CDT Ramon Menchaca MD CHEMISTRY Performing Organization Address [facility] e Number [facility] [address] [place] [address] LABORATORY-CENTRAL 2000 LABORATORY CA 125 (06/22/2022 11:26 AM CDT) athologist Signature CA 125 25.1 <=35.0 U/mL 06/23/2022 [facility] 10:27 PM CDT LABORATORY-CENTR AL LABORATORY Specimen Anatomical Collection Method / Collection Time Recei cayla Time (Source) Location / Volume Laterality Blood BLOOD SPECIMEN / Venipuncture / 06/22/2022 11:26 06/22 Unknown Unknown AM CDT 11:36 AM CDT Narrative [facility] LABORATORY-CENTRAL LABORAT [facility] - 06/23/2022 10:27 PM CDT [employer] CA 125 assay is a Chemiluminescent Microparticle Immunoassay (CMIA). Assay values obtained with different assay methods cannot be used i nterchangeably due to differences in assay methods and reagent specificity. ?? Christiana Haynes MD CHEMISTRY Performing Organization Address [facility] e Number [facility] [address] [place] [address] LABORATORY-CENTRAL 2000 LABORATORY CA 19-9 (06/22/2022 11:26 AM CDT) athologist Signature CA 19-9 4 <=37 IU/mL 06/23/2022 [facility] 10:42 PM CDT LABORATORY-CENTR AL LABORATORY Specimen Anatomical Collection Method / Collection Time Recei cayla Time (Source) Location / Volume Laterality Blood BLOOD SPECIMEN / Venipuncture / 06/22/2022 11:26 06/22 Unknown Unknown AM CDT 11:36 AM CDT Narrative [facility] LABORATORY-CENTRAL LABORAT ORY - 06/23/2022 10:42 PM CDT [employer] CA 19-9 assay is a Chemiluminescent Microparticle Immunoassay (CMIA). Assay values obtained with the [facility] assay methods cannot be used interchangeably due to differences in as say methods and reagent specificity. Christiana Haynes MD SEND OUTS Performing Organization Address [facility]/ZIP [place] Phon e Number [employer] [address] [place] [address] LABORATORY-CENTRAL 1999 LABORATORY (ABNORMAL) C-REACTIVE PROTEIN (06/22/2022 11:26 AM CDT) Analysis Performed At [facility] Time Signature C-REACTIVE 0.67 (H) <0.50 06/24/2022 [facility] PROTEIN mg/dL 3:05 AM CDT LABORATORY-MANDEEP TRAL LABORATORY Specimen Anatomical Collection Method / Collection Time Recei cayla Time (Source) Location / Volume Laterality Blood BLOOD SPECIMEN / Venipuncture / 06/22/2022 11:26 06/22 Unknown Unknown AM CDT 11:36 AM CDT Ramon Menchaca MD CHEMISTRY Performing Organization Address [facility] Phon e Number [employer] [address] [place], [place] [address] [place] [place] [address] LABORATORY-CENTRAL 1999 LABORATORY (ABNORMAL) PROTEIN ELP,SERUM (06/22/2022 11:26 AM CDT) Component Value Ref Test Analysis Performed At [facility] gist Range Method Time Signature PROTEIN,TOT 8.0 6.0 - 06/23/2022 [facility] 8.0 2:11 PM HEALTH g/dL CDT LABORATORY-C [facility] LABORATORY ELP,ALBUMIN 4.25 3.31 - 06/23/2022 [facility] 5.31 2:11 PM HEALTH g/dL CDT LABORATORY-C [facility] LABORATORY ELP,ALPHA 1 0.30 0.19 - 06/23/2022 [facility] 0.42 2:11 PM HEALTH g/dL CDT LABORATORY-C [facility] LABORATORY ELP,ALPHA 2 0.78 0.44 - 06/23/2022 [facility] 1.03 2:11 PM HEALTH g/dL CDT LABORATORY-C [facility] LABORATORY ELP,GAMMA 1.63 (H) 0.59 - 06/23/2022 [facility] 1.46 2:11 PM HEALTH g/dL CDT LABORATORY-C ENTRNE LABORATORY ELP,BETA 1.05 0.52 - 06/23/2022 [facility] 1.05 2:11 PM HEALTH g/dL CDT LABORATORY-C [facility] LABORATORY ELP Mild polyclonal hypergammagl obulinemia may be seen in chronic liver disease, inflammatory or autoimmune disease. No monoclonal protein detected. 06/23/2022 [facility] INTERP,SERU 2:11 PM HEALTH M Interpreted and electronically signed by: CDT LABORATORY-C Miracle Leggett MD ENTRNE LABORATORY Specimen Anatomical Collection Method / Collection Time Recei cayla Time (Source) Location / Volume Laterality Blood BLOOD SPECIMEN / Venipuncture / 06/22/2022 11:26 06/22 Unknown Unknown AM CDT 11:36 AM CDT Ramon Menchaca MD CHEMISTRY Performing Organization Address City/State/ZIP Code Phon e Number [facility] [address] [place] [address] LABORATORY-CENTRAL 2000 LABORATORY CEA (06/22/2022 11:26 AM CDT) P athologist Signature CEA <2.0 ng/mL 06/24/2022 [facility] [place] 3:51 AM CDT LABORATORY-CENTR AL LABORATORY Specimen Anatomical Collection Method / Collection Time Recei cayla Time (Source) Location / Volume Laterality Blood BLOOD SPECIMEN / Venipuncture / 06/22/2022 11:26 06/22 Unknown Unknown AM CDT 11:36 AM CDT Narrative [facility] LABORATORY-CENTRAL LABORAT ORY - 06/24/2022 3:51 AM CDT ?Expected Values for: ? Healthy Non-Smoker ? (<=3. 0) ? Healthy Smoker ? (<= 5.0) [employer] CEA assay is a Chem iluminescent Microparticle Immunoassay (CMIA). Assay values obtained with different assay methods cannot be used i nterchangeably due to differences in assay methods and reagent specificity. ?Expected Values for: ? Healthy Non-Smoker ? (<=3. 0) ? Healthy Smoker ? (<= 5.0) [employer] CEA assay is a Chem iluminescent Microparticle Immunoassay (CMIA). Assay values obtained with different assay methods cannot be used i nterchangeably due to differences in assay methods and reagent specificity. Christiana Haynes MD CHEMISTRY Performing Organization Address City/State/ZIP Code Phon e Number [employer] [address] [place] [address] LABORATORY-CENTRAL 2000 LABORATORY (ABNORMAL) COMP METABOLIC PANEL (06/22/2022 11:26 AM CDT)Only the most recent of 2 resultswithin the time period is included. [facility] Method Time Signature SODIUM 139 135 - 145 06/24/2022 [facility] mmol/L 3:08 AM CDT LABORATORY-MANDEEP TRAL LABORATORY POTASSIUM 4.7 3.5 - 5.0 06/24/2022 [facility] mmol/L 3:08 AM CDT LABORATORY-MANDEEP TRAL LABORATORY CHLORIDE 104 98 - 110 06/24/2022 [facility] mmol/L 3:08 AM CDT LABORATORY-MANDEEP TRAL LABORATORY CO2,TOTAL 25 21 - 31 06/24/2022 [facility] mmol/L 3:08 AM CDT LABORATORY-MANDEEP TRAL LABORATORY ANION GAP 10 5 - 18 06/24/2022 [facility] 3:08 AM CDT LABORATORY-MANDEEP TRAL LABORATORY GLUCOSE 106 (H) 65 - 100 06/24/2022 [facility] mg/dL 3:08 AM CDT LABORATORY-MANDEEP TRAL LABORATORY CALCIUM 9.8 8.5 - 10.5 06/24/2022 [facility] mg/dL 3:08 AM CDT LABORATORY-MANDEEP TRAL LABORATORY BUN 14 8 - 25 06/24/2022 [facility] mg/dL 3:08 AM CDT LABORATORY-MANDEEP TRAL LABORATORY CREATININE 0.92 0.57 - 06/24/2022 [facility] 1.11 mg/dL 3:08 AM CDT LABORATORY-MANDEEP TRAL LABORATORY BUN/CREAT RATIO 15 10 - 20 06/24/2022 [facility] 3:08 AM CDT LABORATORY-MANDEEP TRAL LABORATORY ALBUMIN 4.3 3.5 - 5.2 06/24/2022 [facility] g/dL 3:08 AM CDT LABORATORY-MANDEEP TRAL LABORATORY PROTEIN,TOTAL 8.1 (H) 6.0 - 8.0 06/24/2022 [facility] g/dL 3:08 AM CDT LABORATORY-MANDEEP TRAL LABORATORY GLOBULIN 3.8 (H) 2.0 - 3.7 06/24/2022 [facility] g/dL 3:08 AM CDT LABORATORY-MANDEEP TRAL LABORATORY A/G RATIO 1.1 1.0 - 2.0 06/24/2022 [facility] 3:08 AM CDT LABORATORY-MANDEEP TRAL LABORATORY BILIRUBIN,TOTAL 0.6 0.2 - 1.2 06/24/2022 [facility] mg/dL 3:08 AM CDT LABORATORY-MANDEEP TRAL LABORATORY ALK PHOSPHATASE 62 50 - 136 06/24/2022 [facility] IU/L 3:08 AM CDT LABORATORY-MANDEEP TRAL LABORATORY ALT (SGPT) 37 8 - 45 06/24/2022 [facility] IU/L 3:08 AM CDT LABORATORY-MANDEEP TRAL LABORATORY AST (SGOT) 40 2 - 40 06/24/2022 [facility] IU/L 3:08 AM CDT LABORATORY-MANDEEP TRAL LABORATORY eGFR 76 (L) >90 06/24/2022 [employer] mL/min/1.7 3:08 AM CDT LABORATORY-[place] 3m2 TRAL LABORATORY Comment: As of 2022, eGFR is calcu lated by the CKD-EPI creatinine equation without race adjustment. eGFR can be inf luenced by muscle mass, exercise, and diet. The reported eGFR is an estimation only and is only applicable if the renal function is stable. Specimen Anatomical Collection Method / Collection Time Recei cayla Time (Source) Location / Volume Laterality Blood BLOOD SPECIMEN / Venipuncture / 06/22/2022 11:26 06/22 Unknown Unknown AM CDT 11:36 AM CDT Ramon Menchaca MD CHEMISTRY Performing Organization Address City/State/ZIP Code Phon e Number [employer] [address] [place] [address] LABORATORY-CENTRAL 2000 LABORATORY US BIOPSY LIVER (06/20/2022 9:05 AM CDT) Anatomical Region Laterality Modality Abdomen Ultrasound, Other Specimen (Source) Anatomical Collection Method Collection Time Re ceived Time Location / / Volume Laterality 06/20/2022 9:05 AM CDT Impressions 06/20/2022 9:15 AM CDT Status post ultrasound-guided biopsy lef t liver. Narrative 06/20/2022 9:15 AM CDT For Patients: As a result of the Cures Act, medical imaging exams and procedure reports are released immediately into your [facility] medical record. You may view this report before your referring provider. If you have questions, please contact your health care provider. EXAM: 1. PERCUTANEOUS BIOPSY LEFT LIVER 2. ULTRASOUND GUIDANCE 3. CONSCIOUS SEDATION LOCATION: [facility] MEDICAL IMAGING DATE/TIME: 06/20/2022 9:05 AM INDICATION: Liver Metastasis (hc) PROCEDURE: Planning images demonstrate d iffuse heterogeneity of liver parenchyma with a few more focal areas of hypoechogenicity in the left hepatic lobe corresponding to areas of FDG activity on PET/CT 06/09/2022. These areas were targeted fo r biopsy. Informed consent obtained. Site marked. Prior images reviewed. Required items made available. Patient identity confirmed verbally and with arm band. Pat ient reevaluated immediately before [facility] sedation. Dayhoit protocol was followed. Time out performed. The site was prepped and draped in sterile fashion. 10 mL of 1% lidocaine was infused int o the local soft tissues. Using standard technique and under direct ultrasound guidance, a 18 gauge biopsy needle was used to make 8 core biopsies. Tissue was submitted to Pathology. The patient tolerated the procedure well . No complications. SEDATION: Versed 2 mg. Fentanyl 125 mcg. The procedure was performed with administration intravenous conscious sedation with appropriate preoperative, intraoperative, and postoperative evaluation. 28 minutes of supervised face to face co nscious sedation time was provided by a radiology nurse under my direct supervision. Procedure Note Jose Martin Dawson MD - 06/20/2022Fo rmatting of this note might be different from the original. For Patients: As a result of the Cures Act, medical imaging exams and procedure reports are released immediately into your electronic medical record. You may view this report before your referring provider. If you have questions, please contact [facility] health care provider. EXAM: 1. PERCUTANEOUS BIOPSY LEFT LIVER 2. ULTRASOUND GUIDANCE 3. CONSCIOUS SEDATION LOCATION: [facility] MEDICAL IMAGING DATE/TIME: 06/20/2022 9:05 AM INDICATION: Liver Metastasis (hc) PROCEDURE: Planning images demonstrate d iffuse heterogeneity of liver parenchyma with a few more focal areas of hypoechogenicity in the left hepatic lobe corresponding to areas of FDG activity on PET/CT 06/09/2022. These areas were targeted for biopsy. In formed consent obtained. Site marked. Prior images reviewed. Required items made available. Patient identity confirmed verbally and with arm band. Patient reevaluated immediately before administering sedatio n. Dayhoit protocol was followed. Time out performed. The site was prepped and draped in sterile fashion. 10 mL of 1% lidocaine was infused into the local soft tissues. Using standard technique and under dire t ultrasound guidance, a 18 gauge biopsy needle was used to make 8 core biopsies. Tissue was submitted to Pathology. The patient tolerated the procedure well . No complications. SEDATION: Versed 2 mg. Fentanyl 125 mcg. The procedure was performed with administration intravenous conscious sedation with appropriate preoperative, intraoperative, and postoperative evaluation. 28 minutes of supervised face to face co nscious sedation time was provided by a radiology nurse under my direct supervision. IMPRESSION: Status post ultrasound-guided biopsy lef t liver. Jeanette Ashley Diego DO US PATH FNA Cytology ASP Cytology (06/20/2022 8:37 AM CDT) Component Value Ref Test Analysis Performed Pathologis t Range Method Time At Signature Case Report Medical Cytology Report ? Case: [id number] ? BEVINA Authorizing Provider: ??Jose Martin Rogers MD ??Collected: ? 06/20/2022 0837 ? 2 4:13 PM HEALTH Ordering Location: ? [facility] ?Received: ?06/20/2022 0924 ? CDT ZULEYKA MADSEN- Pathologist: ? Sarmad Carson, ? CENTRAL ? LABORATORY Specimen: ?Liver, left h epatic lobe heterogeneity / mass ? Final A) LIVER, LEFT, LESION, ULTRASOUND NEEDLE BIOPSY: [facility] Electronically Diagnosis 1. Extensive granulomatous i nflammation without significant necrosis, with fibrosis 2 4:13 PM HEALTH signed by 2. Steatohepatitis, featuring: CDT LABORATORY- Yamileth, ?? a. Moderate steatosis (35%) MARIFER Bañuelos ?? b. Mild necroinflammatory activity (grade 1 of 3) LABORATORY MD Jalen on ?? c. 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 Mild nodular regenerative hyperplasia 4:13 PM 4. Negative for malignancy 5. See comment Comment The histologic findings and negative organism stains are most suggestive of sarcoidosis, although an infectious etiology cannot be entirely excluded. [facility] 2 4:13 PM HEALTH The steatohepatitis appears separate from the granulomatous process. The presence of significant Lesa's hyaline and fibrosis may favor alcohol as the cause of steatohepatitis, but is not definitive. CDT LABORATORY- CENTRAL LABORATORY Clinical Ms. Dominguez is a 51 y.o. who presented to the ED in [place] on 05/29/22 with complaints of dysuria and flank pain. [facility] Information 2 4:[address] scan findings: CDT LABORATORY- 1. Mild circumferential wall thickening of the urinary bladder which could be seen with acute CENTRAL cystitis. No obstructing nephroureterolithiasis. LABORATORY 2. Nodular appearance of the liver concerning for underlying cirrhosis. MR elastography could be helpful for further evaluation 3. Diffuse pelvic, retroperitoneal and posterior media stinal lymphadenopathy 3. Innumerable solid pulmona ry nodules throughout both lung bases, incompletely visualized. The constellation of findings ar e concerning for a neoplastic process. Dedicated imaging of the chest, abdomen and pelvis and/or PET/CT would be helpful for furthe r evaluation. PET demonstrated hypermetabolic lesions as described above. Gross [facility] Description A) Received identified as L eft Liver Mass is a radiologic guided biopsy specimen. 2 4:13 PM [facility] CDT LABORATORY- The core biopsy sampling measures 1.0 cm x 0.7 cm in aggrega te. CENTRAL LABORATORY The specimen consists of: ? -8 Air dried slides ? -1 Formalin vial ? -1 RPMI vials The following were prepared from the specimen submitted: ? -8 Diff-Quik stained slides ? -0 Papanicolaou stained ThinPrep slides ? -2 H&E stained cell block slides The biopsy material is entirely submitted in 2 cassettes. A2- Cell block material was removed from the patient and placed directly in formalin at 0903 on 06/20/22 and fixed in formalin at least 6 hours and no more than 72 hours. A3- Cell block material was placed in formalin at 1040 on 06/20/22 and fixed in formalin at least 6 hours and no more than 72 hours. Adequacy A) CAM assessed [facility] Assessment adequacy from the 2 4:13 PM [facility] air-dried smears at CDT LABORATORY the time of the procedure with an impression of Adequate. Microscopic Specimen adequacy: Adequate for interpretation. [facility] Description 2 4:13 PM [facility] All slides were reviewed. Th e microscopic appearance substantiates the diagnosis. An iron stain is negative. Trichrome stain confirms significant steatohepatitis fibrosis, although without septae format CDT LABORATORY- ion or cirrhosis. A reticuli n stain shows early nodular regenerative hyperplasia. An AFB stain is negative. A GMS is negative. A mycobacteria immunohistochemical stain is negative. CE NTRAL Support for the interpretati on of this case may have included the use of immunohistochemistry and/or in situ hybridization tests that were performed by [facility] and whose performance LABORATORY characteristics were evaluat ed by pathologists from [facility]. These tests have not been cleared or approved by the U.S. Food and Drug Administration. The FDA has determined that suc h clearance or approval is n ot necessary. These tests are used for clinical purposes and should not be regarded as investigational or for research. This laboratory is certified under the Clinical Labora tory Improvement Amendments of 1988 (CLIA) as qualified to perform high complexity clinical laboratory testing. Additional Cytology is screened at [facility], Central Laboratory - [address] [facility] [[email or web address] [address], [place] [address] and [facility] - [address], [place] [address] and [facility] Laboratory - [address] [facility], [place] [address] 2 4:13 PM HEALTH CDT LABORATORY- Interpreted at [facility], Central Laboratory - [address] [facility] [[email or web address] [address], [place] [address] CENTRAL LABORATORY Specimen Anatomical Collection Method Collection Time Receive d Time (Source) Location / / Volume Laterality Aspirate SPECIMEN FROM 06/20/2022 8:37 AM 06/20/20 22 9:24 LIVER / Unknown CDT AM CDT Jose Martin aDwson MD PATHOLOGY/CYTOLOGY Performing Organization Address City/State/ZIP Code Phon e Number [facility] [address] [place] [address] LABORATORY-CENTRAL 2000 LABORATORY [facility] LABORATORY SENDOUT INTERNAL ZIP [place], [place] [phone] [place] [address] Platelet Count (06/20/2022 7:15 AM CDT) P athologist Signature PLATELET COUNT 351 140 - 440 06/20/2022 [facility] L thou/cu mm 7:24 AM CDT LABORATORY MPV 9.2 6.5 - 11.0 06/20/2022 [facility] fL 7:24 AM CDT LABORATORY Specimen Anatomical Collection Method / Collection Time Recei cayla Time (Source) Location / Volume Laterality Blood BLOOD SPECIMEN / Venipuncture / 06/20/2022 7:15 2021 7:15 Unknown Unknown AM CDT AM CDT Kali Andrews MD HEMATOLOGY Performing Organization Address City/State/ZIP Code Phon e Number [facility] LABORATORY [facility] INTERNAL [place] [phone] [facility] Hemoglobin (06/20/2022 7:15 AM CDT) P athologist Signature HEMOGLOBIN 14.3 12.0 - 16.0 06/20/2022 [facility] g/dL 7:24 AM CDT LABORATORY MCV 90 80 - 100 fL 06/20/2022 [facility] 7:24 AM CDT LABORATORY Specimen Anatomical Collection Method / Collection Time Recei cayla Time (Source) Location / Volume Laterality Blood BLOOD SPECIMEN / Venipuncture / 06/20/2022 7:15 2021 7:15 Unknown Unknown AM CDT AM CDT Kali Andrews MD HEMATOLOGY Performing Organization Address [facility] Phon e Number [facility] LABORATORY [facility] INTERNAL [place] [phone] [place] [address] Protime-INR (06/20/2022 7:15 AM CDT) P athologist Signature INR 1.1 <1.3 06/20/2022 [facility] 7:27 AM CDT LABORATORY PROTIME 13.6 12.0 - 13.8 06/20/2022 [facility] sec 7:27 AM CDT LABORATORY Specimen Anatomical Collection Method / Collection Time Recei cayla Time (Source) Location / Volume Laterality Blood BLOOD SPECIMEN / Venipuncture / 06/20/2022 7:15 2021 7:15 Unknown Unknown AM CDT AM CDT Narrative [facility] LABORATORY - 06/20/2022 7:27 AM CDT ?Therapeutic Range 2.0-3.0 for most anticoagulated patients 2.5-3.5 or 4.0 for high risk patients The INR is only used for patients on sta ble oral anticoagulant therapy. It makes no significant contribution to the diagnosis or treatment of patients whose Protime is prolonged f or other reasons. INR results are increased when heparin l evels exceed 1.0 U/mL, which corresponds to an aPTT >125 seconds if the patient is on UFH. Kali Andrews MD HEMATOLOGY Performing Organization Address [facility] Phon e Number [facility] LABORATORY [facility] [place] [place] [phone] [address] [facility] US ABDOMEN LIMITED LIVER (06/09/2022 11:23 AM CDT) Anatomical Region Laterality Modality LIVER Ultrasound Specimen (Source) Anatomical Collection Method Collection Time Re ceived Time Location / / Volume Laterality 06/10/2022 9:38 AM CDT Narrative 06/10/2022 9:38 AM CDT For Patients: ??As a result of the Cures Act, medical imaging exams and procedure report s are released immediately into your [facility]. ??You may view this report before your referring provider. ??If you have questions, please contact your health care provider. INDICATION: Abnormal liver CT and PET-CT. TECHNIQUE: ultrasound abdomen, limited liver. Findings : Liver texture is extremely coarse with n umerous asymmetrical hyperechoic distorting densities within the liver texture. When correlated with the PET-CT the findings would be consistent with multiple dif fuse liver metastasis. No apparent obstr uction of the bile ducts or ascites. Impression : Diffuse liver metastasis. Dictated by Lida Bustamante MD @ 06/10/2022 9:38: 56 AM (Electronically Signed) Procedure Note Jalen Bustamante MD - 06/10/2022F ormatting of this note might be different from the original. For Patients: As a result of the Cures Act, medical imaging exams and procedure reports are released immediately into your electronic medical record. You may view this report before your referring provider. If you have questions, please contact [facility] health care provider. INDICATION: Abnormal liver CT and PET-CT. TECHNIQUE: ultrasound abdomen, limited liver. Findings : Liver texture is extremely coarse with n umerous asymmetrical hyperechoic distorting densities within the liver texture. When correlated with the PET-CT the findings would be consistent with multiple diffuse liver metastasis. No apparent obstruction of t he bile ducts or ascites. Impression : Diffuse liver metastasis. Dictated by Lida Bustamante MD @ 06/10/2022 9:38: 56 AM (Electronically Signed) Jeanette Cortez DO US PET CT SKULL BASE TO MID THIGH INITIAL TREAT (06/09/2022 10:58 AM CDT) Anatomical Region Laterality Modality Positron Emission To mography (PET) Specimen (Source) Anatomical Collection Method Collection Time Re ceived Time Location / / Volume Laterality 06/10/2022 8:37 AM CDT Impressions 06/10/2022 8:37 AM CDT 1. Pattern findings are consistent with an advanced malignancy. 2. Hypermetabolic bilateral hilar/perihi lar activity is noted. 3. There are numerous abnormal pulmonary nodules some of which demonstrate increased activity consistent with pulmonary metastatic disease. 4. Hypermetabolic mediastinal lymph node s noted. 5. Extensive abnormal hypermetabolic act ivity is identified throughout the liver, greatest activity is on the left. 6. Numerous skeletal metastases identifi ed. 7. Hypermetabolic retroperitoneal and il iac lymph nodes are identified. 8. Nonspecific heterogeneous activity wi thin the spleen noted. Intermediate activity within small axillary lymph nodes noted. 9. If tissue diagnosis is desired, the b est location would either be a ultrasound-guided liver biopsy or a bronchoscopic biopsy. Dictated by Leighton Beth MD @ 06/10/2022 8:3 7:08 AM (Electronically Signed) Narrative 06/10/2022 8:37 AM CDT For Patients: ??As a result of the Cures Act, medical imaging exams and procedure report s are released immediately into your [facility] medical record. ??You may view this report before your referring provider. ??If you have questions, please contact your health care provider. INDICATION: Pelvic lymphadenopathy and pulmonary nod ules on recent CT. Exam is being performed for staging. TECHNIQUE: Patient received 11.6 millicuries of 18 FDG (18 fluorodeoxyglucose) intravenously. PET-CT imaging has been performed the mid skull to mid thigh level [address] images have been obtained for attenuation correction and localization only. Blood glucose level: 110 mg/dL. COMPARISON: Outside CT scan [facility] 05/29/2022. FINDINGS: Within the chest there are small mildly prominent mediastinal lymph nodes. There is increased activity in the right paratracheal lymph node with a SUV max of 4.7. Increased activity within a left paratr acheal lymph node near the arch of the a kristi, SUV max is 5.5. Bilateral increased activity in the hilar/perihilar region is noted. On the right the SUV max 11.3 and on the left 9.7. The lungs demonstrat e numerous small pulmonary nodules some of which are hypermetabolic. SUV max within a 0.8 cm nodule right upper lobe is 4.6. ??2 adjacent nodules in the posterior hilar region on the right are noted, STARK V max is 5.6. Numerous other scattered n odules are identified with low to intermediate activity. No significant hypermetabolic breast lesion is noted. There are small bilateral axillary lymph nodes. The re is increased activity identified in a small left axillary lymph node with an SUV max of 2.7. The neck demonstrates no suspicious hypermetabolic soft tissue metastases. The skullbase is unremarkable. Diffuse heterogeneous pattern of infiltr ative abnormal hypermetabolic activity is identified throughout the liver. Greatest activity is in the anterior left lobe of the liver with a SUV max of 12.5. Num erous other ill-defined hypermetabolic l esions throughout the right and left lobe liver are noted. The spleen has a mildly heterogeneous pattern of activity with a normal length of 10.6 cm. The SUV max is 4.8. The pancreas and bilateral adren al glands are within normal limits. Scattered hypermetabolic retroperitoneal lymph nodes are identified. The largest is 1.9 x 1.3 cm in the left periaortic region with a SUV max of 5.0. Other scattered hypermetabolic lymph nodes are identified. AP window lymph node SUV max is 5.4. Mildly prominent external iliac lymph node on the left is identified with a SUV ma x of 5.5. There are bilateral lateral pe lvic lymph nodes posteriorly with low to immediate activity. The SUV max is 2.5. Patient status post hysterectomy. Residual right ovary noted. Numerous scattered hypermetabolic skelet al lesions are noted. Multiple lesions in the proximal right femur are noted, SUV max is 6.3. Hypermetabolic lesions in the medial iliac bone on the left are note d, SUV max is 6.5. Other scattered iliac lesions noted. Scattered spinal lesions are noted greatest activity in the T7 vertebral body with a SUV max of 9.1. Hypermetabolic sternal lesion is identified, SUV max 12.6. Hypermetabolic humeral les ions are noted with a SUV max is 7.0. Hypermetabolic medial clavicle lesion on the right is noted, SUV max 7.3. Numerous other scattered hypermetabolic skeletal lesions are noted. Procedure Note Leighton Beth MD - 06/10/2022Format ting of this note might be different from the original. For Patients: As a result of the nt[place] Cures Act, medical imaging exams and procedure reports are released immediately into your electronic medical record. You may view this report before your referring provider. If you have questions, please contact yo health care provider. INDICATION: Pelvic lymphadenopathy and pulmonary nod ules on recent CT. Exam is being performed for staging. TECHNIQUE: Patient received 11.6 millicuries of 18 FDG (18 fluorodeoxyglucose) intravenously. PET-CT imaging has been performed the mid skull to mid thigh level [address] images have been obtained for attenuation correction and localizat ion only. Blood glucose level: 110 mg/dL. COMPARISON: Outside CT scan [facility] 05/29/2022. FINDINGS: Within the chest there are small mildly prominent mediastinal lymph nodes. There is increased activity in the right paratracheal lymph node with a SUV max of 4.7. Increased activity within a left paratracheal lymph node near the arch of the aorta, SUV max is 5 .5. Bilateral increased activity in the hilar/perihilar region is noted. On the right the SUV max 11.3 and on the left 9.7. The lungs demonstrate numerous small pulmonary nodules some of which are hypermetabolic. SUV ma x within a 0.8 cm nodule right upper lobe is 4.6. 2 adjacent nodules in the posterior hilar region on the right are noted, SUV max is 5.6. Numerous other scattered nodules are identified with low to intermediate acti vity. No significant hypermetabolic breast lesion is noted. There are small bilateral axillary lymph nodes. There is increased activity identified in a small left axillary lymph node with an SUV max of 2 .7. The neck demonstrates no suspicious hypermetabolic soft tissue metastases. The skullbase is unremarkable. Diffuse heterogeneous pattern of infiltr ative abnormal hypermetabolic activity is identified throughout the liver. Greatest activity is in the anterior left lobe of the liver with a SUV max of 12.5. Numerous other ill-defined hypermetabolic lesions throu ghout the right and left lobe liver are noted. The spleen has a mildly heterogeneous pattern of activity with a normal length of 10.6 cm. The SUV max is 4.8. The pancreas and bilateral adrenal glands are within norm al limits. Scattered hypermetabolic retroperitoneal lymph nodes are identified. The largest is 1.9 x 1.3 cm in the left periaortic region with a SUV max of 5.0. Other scattered hypermetabolic lymph nodes are identified. AP window lymph node SUV max is 5.4. Mildly prominent external iliac lymph node on the left is identified with a SUV max of 5.5. There are bilateral lateral pelvic lymph nodes posteriorly with low to immediate activity. The SUV max is 2.5. Patient status post hysterectomy. Residual right ovary noted. Numerous scattered hypermetabolic skelet al lesions are noted. Multiple lesions in the proximal right femur are noted, SUV max is 6.3. Hypermetabolic lesions in the medial iliac bone on the left are noted, SUV max is 6.5. Other scattered iliac lesion s noted. Scattered spinal lesions are noted greatest activity in the T7 vertebral body with a SUV max of 9.1. Hypermetabolic sternal lesion is identified, SUV max 12.6. Hypermetabolic humeral lesions are noted with a SUV max is 7.0. Hypermetabolic medial clavicle lesion on the right is noted, SUV max 7.3. Numerous other scattered hypermetabolic skeletal lesions are noted. IMPRESSION: 1. Pattern findings are consistent with an advanced malignancy. 2. Hypermetabolic bilateral hilar/perihi lar activity is noted. 3. There are numerous abnormal pulmonary nodules some of which demonstrate increased activity consistent with pulmonary metastatic disease. 4. Hypermetabolic mediastinal lymph node s noted. 5. Extensive abnormal hypermetabolic act ivity is identified throughout the liver, greatest activity is on the left. 6. Numerous skeletal metastases identifi ed. 7. Hypermetabolic retroperitoneal and il iac lymph nodes are identified. 8. Nonspecific heterogeneous activity wi thin the spleen noted. Intermediate activity within small axillary lymph nodes noted. 9. If tissue diagnosis is desired, the b est location would either be a ultrasound-guided liver biopsy or a bronchoscopic biopsy. Dictated by Leighton Beth MD @ 06/10/2022 8:3 7:08 AM (Electronically Signed) Jeanette Ashley Diego WALKER PET URINE ALBUMIN TO CREATININE RATIO, RANDOM (06/08/2022 11:58 AM CDT) P athologist Signature ALB RAND URINE 13.7 mg/L 06/08/2022 [facility] 5:29 PM CDT LABORATORY-CENT RAL LABORATORY CREATININE,URIN 1.09 g/L 06/08/2022 [facility] [place] 5:29 PM CDT LABORATORY-CENT RAL LABORATORY ALBUMIN TO 12.6 <30.0 mg/g 06/08/2022 [facility] CREATININE creat 5:29 PM CDT LABORATORY-CENT RATIO,RAND UR RAL LABORATORY Specimen Anatomical Collection Method Collection Time Receive d Time (Source) Location / / Volume Laterality Urine URINE SPECIMEN / Non-Blood / 06/08/2022 11:58 022 Unknown Unknown AM CDT 11:58 AM CDT Narrative [facility] 06/08/2022 5:29 PM CDT If Albumin to Creatinine Ratio is elevated, consider the following: ? Elevations seen with incipient nephr opathy associated ?? with diabetes mellitus or hypertensi on. Stress, exercise, ?? hematuria, and urinary tract infecti on may also produce ?? elevated results. If clinically lelia cated, confirm with ?? 24 Hour Albumin to Creatinine Ratio. Jeanette Cortez DO URINE Performing Organization Address City/State/ZIP Code Phon e Number [facility] [address] [place] [address] LABORATORY-CENTRAL [address] LAB[place]ATORY [place] ECG ROUTINE ECG W/LEAST 12 LDS W/I&R (06/08/2022 12:00 AM CDT) Narrative This result has an attachment that is no t available. Jeanette Cortez DO PB - CARDIOVASCULAR SYSTEM S ERVICES (ABNORMAL) HEMOGLOBIN A1C SCREENING (06/01/2022 9:54 AM CDT) Analysis Performed At Path logist Time Signature HEMOGLOBIN A1C 6.5 (H) <=6.4 % 06/01/2022 [facility] [place] SCREENING 6:27 PM CDT LABORATORY-MANDEEP TRAL LABORATORY Specimen Anatomical Collection Method / Collection Time Recei cayla Time (Source) Location / Volume Laterality Blood BLOOD SPECIMEN / Venipuncture / 06/01/2022 9:54 2021 9:54 Unknown Unknown AM CDT AM CDT Narrative [facility] 06/01/2022 6:27 PM CDT ? (<5.7%) ?Normal ? (5.7% to 6.4%) ? Indicates pr ediabetes ? (>=6.5%) ? Confirms diabetes Falsely low levels may be seen with: Recent Transfusion, Recent Significant B lood Loss, Hemolytic Diseases, or Falsely elevated levels may be seen with : Untreated Anemias, Splenectomy Jeanette Cortez DO CHEMISTRY Performing Organization Address City/State/ZIP Code Phon e Number [facility] [address] [place] [address] LABORATORY-CENTRAL 2000 LABORATORY (ABNORMAL) LIPID PANEL W REFLEX MEASURED LDL (06/01/2022 9:54 AM CDT) [facility] gist Method Time Signature CHOLESTEROL,TOTAL 220 (H) 100 - 199 06/01/2022 [facility] mg/dL 9:41 PM CDT LABORATORY-MANDEEP TRAL LABORATORY TRIGLYCERIDES 171 (H) <150 06/01/2022 [facility] mg/dL 9:41 PM CDT LABORATORY-MANDEEP TRAL LABORATORY HDL CHOLESTEROL 38 (L) >40 mg/dL 06/01/2022 [facility] 9:41 PM CDT LABORATORY-MANDEEP TRAL LABORATORY NON-HDL 182 (H) <145 06/01/2022 [facility] CHOLESTEROL mg/dl 9:41 PM CDT LABORATORY-MANDEEP TRAL LABORATORY CHOL/HDL RATIO 5.79 (H) <4.50 06/01/2022 [facility] 9:41 PM CDT LABORATORY-MANDEEP TRAL LABORATORY LDL CHOLESTEROL 148 (H) <=130 06/01/2022 [facility] mg/dL 9:41 PM CDT LABORATORY-MANDEEP TRAL LABORATORY VLDL CHOLESTEROL 34 (H) <=30 06/01/2022 [facility] mg/dL 9:41 PM CDT LABORATORY-MANDEEP TRAL LABORATORY PROVIDER ORDERED RANDOM 06/01/2022 [facility] STATUS 9:41 PM CDT LABORATORY-MANDEEP TRAL LABORATORY Specimen Anatomical Collection Method / Collection Time Recei cayla Time (Source) Location / Volume Laterality Blood BLOOD SPECIMEN / Venipuncture / 06/01/2022 9:54 2021 9:54 Unknown Unknown AM CDT AM CDT Jeanette Cortez DO CHEMISTRY Performing Organization Address [facility] Phon e Number [facility] [address] [place] [address] LABORATORY-CENTRAL 2000 LABORATORY HBSAG (HBS) (06/01/2022 9:54 AM CDT) [facility] Method Time Signature HBSAG Nonreactive Nonreactive 06/01/2022 [facility] 10:46 PM CDT LABORATORY-MANDEEP TRAL LABORATORY Specimen Anatomical Collection Method / Collection Time Recei cayla Time (Source) Location / Volume Laterality Blood BLOOD SPECIMEN / Venipuncture / 06/01/2022 9:54 2021 9:54 Unknown Unknown AM CDT AM CDT Jeanette Cortez DO SEND OUTS Performing Organization Address [facility] Phon e Number [facility] [address] [place] [address] LABORATORY-CENTRAL 2000 LABORATORY ANTI HCV (06/01/2022 9:54 AM CDT) [facility] Method Time Signature HEPATITIS C Non-Reacti Non-Reacti 06/01/2022 [facility] ANTIBODY ve ve 9:35 PM CDT LABORATORY-MANDEEP TRAL LABORATORY Comment: Antibodies to HCV not detected; does not exclude the possibility of exposure to HCV. Specimen Anatomical Collection Method / Collection Time Recei cayla Time (Source) Location / Volume Laterality Blood BLOOD SPECIMEN / Venipuncture / 06/01/2022 9:54 2021 9:54 Unknown Unknown AM CDT AM CDT Jeanette Cortez DO SEND OUTS Performing Organization Address [facility] Phon e Number [facility] [address] [place] [address] LABORATORY-CENTRAL 2000 LABORATORY (ABNORMAL) GAMMA GT (06/01/2022 9:54 AM CDT) athologist Signature GAMMA GT 153 (H) 9 - 36 IU/L 06/01/2022 [facility] 11:17 PM CDT LABORATORY-CENT RAL LABORATORY Specimen Anatomical Collection Method / Collection Time Recei cayla Time (Source) Location / Volume Laterality Blood BLOOD SPECIMEN / Venipuncture / 06/01/2022 9:54 2021 9:54 Unknown Unknown AM CDT AM CDT Jeanette Cortez DO CHEMISTRY Performing Organization Address City/State/ZIP Code Phon e Number [employer] [address] [place] [address] LABORATORY-CENTRAL 2000 LABORATORY FERRITIN (06/01/2022 9:54 AM CDT) P athologist Signature FERRITIN 151.4 15.0 - 06/01/2022 [facility] 205.0 ng/mL 9:38 PM CDT LABORATORY-CENTR AL LABORATORY Specimen Anatomical Collection Method / Collection Time Recei cayla Time (Source) Location / Volume Laterality Blood BLOOD SPECIMEN / Venipuncture / 06/01/2022 9:54 2021 9:54 Unknown Unknown AM CDT AM CDT Jeanette Cortez DO CHEMISTRY Performing Organization Address City/State/ZIP Code Phon e Number [employer] [address] [place] [address] LABORATORY-CENTRAL 2000 LABORATORY from Last 3 Months Insurance Payer Benefit Plan / Subscriber ID Effective Dates Phone Addre ss Type Group [facility] [id number] 2022-Present [address] [facility] [id number] [employer] [place] BL[employer]OSS OF 2015-Present [address] [place] [address] A PT 4 M (Home) [address] [phone] [employer] , [place] [address] Brittany Dominguez Personal/Family Self 1970 A PT 4 M (Home[address] [phone] [employer] , [place]) [place] [address] [place] [employer] [facility] 11/20/2000 [address] [address] (Home) [facility] [phone] [place] [address] (Work) Advance Directives Latest Code Status on File Code Status Date Activated Date Inactivated Comments Full Code 02/12/2019 6:55 AM 02/12/2019 10:02 PM Care Teams Re[employer] Tub[employer] Machine Operator Relationship Specialty Start Date End Date Jeanette Cortez, PCP - General Family Practice 12/23/19 [address] [place] [address] Zulema Moore, RN Nurse Navigator - Registered Nurse 06/14/22 [address] [place], [place] [id number] Dania Navarrete RN Nurse Navigator - Registered Nurse 06/14/[address] [place] [address] Ramon Menchaca, Oncology 06/14/[address] [place], [place] [id number] Jessica Catherine, boring machine operator helper Registered Nurse 07/07/22 [address] [place] [address]
--- OUTSIDE RECORDS SUMMARY | 2022-07-22 11:04 | XMS_ITS | Encounter Summary ---
:1970 Author Organization [facility] Address [address] [place] [address] Care Team Providers Name Role Phone Unavailable Primary Care Provider Unavailable Encounter Details Date Type Department Care Team Description 03/06/2007 Hospital Encounter HX NO MAPPING Reyes Wood M .D. Social History Tobacco Use Types Packs/Day Years Used Date Smoking Tobacco: Never Assessed Sex Assigned at Date Recorded Not on file documented as of this encounter Progress Notes Reyes Wood M.D. - 03/06/2007 12:00 [place] [address] Name: KARIN DOMINGUEZ MR#: [id number] : 70 Dictating Provider: Reyes Wood MD Serv Date: 03/06/07 CLINIC NOTE S: Karin comes in today because of dizziness which she describes as kind of being off balance. Back in November she fell down some stairs. She broke her left ankle. She banged her head. She did not lose consciousness. She was seen in the emergency department. Her ankle was diagnosed. She was on crutches. About a month later she started having this dizziness. It came out of the blue. She just feels off balance. She has not fallen. It lasts about 10 seconds and cleared. It just felt as though she was woozy. She denied any headache, nausea, vomiting. It just has not seemed to go away. It does not seem to be in relation to any type of position or turning her head. Nothing seems to bring it on. It just comes from out of the blue. O: Blood pressure 130/80. Pulse 72. Respirations 20. Temperature 36.9 C. Weight 97.7 kg. Range of motion of the had and neck are normal. Ears - Tympanic membranes normal. Canals clear. Eyes - Pupils are equal, round, and react to light and accommodation. Extraocular motions are normal. Turner full. Fundi benign. Chest - Clear to auscultation and percussion. Heart - Regular rate and rhythm, no murmur, gallop, or rub. Pulses intact. Neuro - Strength and sensation are normal. Deep tendon reflexes are intact and symmetrical. Babinski's downgoing bilaterally. Cerebellar signs negative. Cranial nerves II-XII are grossly intact. Romberg negative. A: VERTIGO. P: Meclizine 25 mg 3 times a day. If not better in 7 days, have her recheck because it seemed to happen after a fall. If it does not get any better, may want to proceed with a CT scan of the head. Reyes Wood MD /[facility] Authenticated by Reyes Wood MD on 03/11/2007 10:09:01 Authorized physician signature on file [facility] NAME: KARIN DOMINGUEZ [facility] MR#: [id number] [place] [address] : 1970 PHYSICIAN: Reyes Wood MD VISIT DATE: 03/06/2007 CLINIC PROGRESS NOTE [facility] Name: KARIN DOMINGUEZ CLINIC PROGRESS NOTE Source: [facility] ISJHXDICTAPHONESYS Document Id: [id number] Electronically signed by Conversion, [facility] Metal Bonding Press Operator [id number] at 04/24/2017 8:15 AM CDT documented in this encounter Plan of Treatment Not on filedocumented as of this encounter Visit Diagnoses Not on filedocumented in this encounter
--- OUTSIDE RECORDS SUMMARY | 2022-07-22 11:04 | XMS_ITS | Encounter Summary ---
:1970 Author Organization [facility] Address [address] [place] [address] Care Team Providers Name Role Phone Unavailable Primary Care Provider Unavailable Encounter Details Date Type Department Care Team Description 09/04/2006 Hospital Encounter HX NO MAPPING Reyes Wood M .D. Social History Tobacco Use Types Packs/Day Years Used Date Smoking Tobacco: Never Assessed Sex Assigned at Date Recorded Not on file documented as of this encounter Plan of Treatment Not on filedocumented as of this encounter Visit Diagnoses Not on filedocumented in this encounter
--- OUTSIDE RECORDS SUMMARY | 2022-07-22 11:04 | XMS_ITS | Encounter Summary ---
:1970 Author Organization [facility] Address [address] [place] [address] Care Team Providers Name Role Phone Unavailable Primary Care Provider Unavailable Encounter Details Date Type Department Care Team Description 03/02/2006 Hospital Encounter HX [facility] [address], M.D. Social History Tobacco Use Types Packs/Day Years Used Date Smoking Tobacco: Never Assessed Sex Assigned at Date Recorded Not on file documented as of this encounter Plan of Treatment Not on filedocumented as of this encounter Visit Diagnoses Not on filedocumented in this encounter
--- OUTSIDE RECORDS SUMMARY | 2022-07-22 11:04 | XMS_ITS | Encounter Summary ---
:1970 Author Organization [facility] Address [address] [place] [address] Care Team Providers Name Role Phone Unavailable Primary Care Provider Unavailable Encounter Details Date Type Department Care Team Description 03/20/2008 Hospital Encounter HX NO MAPPING Provider, Historical Social History Tobacco Use Types Packs/Day Years Used Date Smoking Tobacco: Never Assessed Sex Assigned at Date Recorded Not on file documented as of this encounter Progress Notes Conversion, Historical Provider Ser - 03/20/2008 12:00 [place] [address] Name: KARIN DOMINGUEZ MR#: [id number] : [birth year] Dictating Provider: Augusto Clarke Serv Date: 03/20/08 CLINIC NOTE S: She is a 37-year-old lady who comes in with a history of a runny nose, stuffy nose, and fever which has been going on for the last 3 weeks and has been increasingly getting worse. She also complains of cough which is worse in the morning. REVIEW OF SYSTEMS: No headaches, no difficulty with breathing. No chest pain. Mild facial pressure. PAST MEDICAL HISTORY: Noncontributory. ALLERGIES: No known drug allergies. SOCIAL HISTORY: Does not use tobacco. O: Blood pressure is 132/78. Pulse is 76. Respiratory rate is 18. Temperature is 36. She appears comfortable not in any distress. She is normocephalic and atraumatic. Pupils are equal and reactive. Mouth - Moist buccal mucosa, congested nasal mucosa, mild facial pressure. Lung sounds clear to auscultation. A: ACUTE SINUSITIS. P: Amoxicillin 500 mg 1 tablet 3 times a day No. 30. The patient verbalizes understanding and agreement to plan. Augusto Clarke MD /[facility] Authenticated by Augusto Clarke MD on 03/28/2008 08:23:04 Authorized physician signature on file Doc#: [id number] [facility] NAME: KARIN DOMINGUEZ [facility] MR#: [id number] [place] [address] : 1970 PHYSICIAN: Augusto Clarke MD VISIT DATE: 03/20/2008 CLINIC PROGRESS NOTE [facility] Name: KARIN DOMINGUEZ CLINIC PROGRESS NOTE Source: [facility] ISJHXDICTAPHONESYS Document Id: [id number] documented in this encounter Plan of Treatment Not on filedocumented as of this encounter Visit Diagnoses Not on filedocumented in this encounter
--- OUTSIDE RECORDS SUMMARY | 2022-07-22 11:04 | XMS_ITS | Encounter Summary ---
:1970 Author Organization [facility] Address [address] [place] [address] Care Team Providers Name Role Phone Elsewhere, Pcp Primary Care Provider Unavailable Encounter Details Date Type Department Care Team Description 06/08/2021 Clinical Communication Department of Family [facility], Pcp Medicine, [facility], in [address] [phone] Social History Tobacco Use Types Packs/Day Years Used Date Smoking Tobacco: Never Sex Assigned at Date Recorded Not on file documented as of this encounter Miscellaneous Notes Telephone Encounter - Morena Molina Nam - 06/08/2021 8:29 AM CDT Marcianoantonia Karin JaycechrisChristiana Pieter E, P.A.-C. has put in a request for you to schedule a POST ED VISIT with family medicine, at your earliest convenience. To secure an appointment, please respond with your appointment time preferences (e.g. day of week, time of day, etc.) that would be close to the expected date that was requested. You can also reach us at your clinics appointment line if you would prefer to schedule this over the phone between 7 am-6 pm, Monday-Monday. [place]: [phone] [place]: [phone] [place]: [phone] [place]: [phone] [place]: [phone] [place]: [phone] [facility]: [phone] Rainer Gamble [place], [place], or [facility]: [phone] [place]:[phone] [facility]: [phone] Thank you for trusting your health care to [facility]. documented in this encounter Plan of Treatment Not on filedocumented as of this encounter Visit Diagnoses Not on filedocumented in this encounter Care Teams Treer Relationship Specialty Start Date End Date Elsewhere, Pcp PCP - General Family Medicine 06/07/21 documented as of this encounter
--- OUTSIDE RECORDS SUMMARY | 2022-07-22 11:04 | XMS_ITS | Encounter Summary ---
:1970 Author Organization [facility] Address [address] [place] [address] Care Team Providers Name Role Phone Unavailable Primary Care Provider Unavailable Encounter Details Date Type Department Care Team Description 09/07/2006 Hospital Encounter HX [facility] Humera Wood M.D. Social History Tobacco Use Types Packs/Day Years Used Date Smoking Tobacco: Never Assessed Sex Assigned at Date Recorded Not on file documented as of this encounter Plan of Treatment Not on filedocumented as of this encounter Visit Diagnoses Not on filedocumented in this encounter
--- OUTSIDE RECORDS SUMMARY | 2022-07-22 11:04 | XMS_ITS | Encounter Summary ---
:1970 Author Organization [facility] Address [address] [place] [address] Care Team Providers Name Role Phone Elsewhere, Pcp Primary Care Provider Unavailable Reason for Visit Reason Comments Dysuria Encounter Details Date Type Department Care Team Description 05/29/2022 Emergency [facility] Domi Lindsey APRN, RDelNDel [address] [place] [address] Nodule Pulmonary (Primary Dx); Department Gurwinder Magallanes, C.N.P. [address] [place] [address] Lymphadenopathy; [address] [place] [address] [place] [id number] Social History Tobacco Use Types Packs/Day Years Used Date Smoking Tobacco: Never Sex Assigned at Date Recorded Not on file documented as of this encounter Last Filed Vital Signs Vital Sign Reading Time Taken Comments Blood Pressure 168/109 05/29/2022 8:00 AM CDT Pulse 81 05/29/2022 8:00 AM CDT Temperature 37.1 ??C (98.8 ??F) 05/29/2022 6:34 AM CDT Respiratory Rate 16 05/29/2022 8:00 AM CDT Oxygen Saturation 95% 05/29/2022 8:00 AM CDT Inhaled Oxygen Concentration - - Weight 101 kg (221 lb 9 oz) 05/29/2022 6:36 AM CDT Height - - Body Mass Index - - documented in this encounter Discharge Instructions Discharge InstructionsGurwinder Magallanes, C.N.P. - 05/29/2022 8:01 AM CDT The pyridium will help with your bladder pain, but will make your urine orange. This is normal. You do have incidental finding of a nodule to your liver, lung, as multiple lymph node in the pelvicarea. It is recommended you follow-up with your primary care providers in the coming weeks to consider outpatient imaging to rule out Cirrhosis or any cancerous process. I recommend decreasing or complete cessation of alcohol intake as it can cause further damage to theliver. If you develop fever, nausea vomiting that you cannot control, unable to eat or drink, increasing weakness, or worsening symptoms, go to the emergency department for further evaluation. AttachmentsThe following attachments cannot be sent through Care Everywhere. Urinary Tract Infection Adult [id number] (Citizen Of [place])Lymphadenopathy (Citizen [place]) What is a Lung Nodule? (Citizen Of [place])documented in this encounter Medications at Time of Discharge Medication Sig Dispensed Refills Start Date End Date allopurinoL (ZYLOPRIM) 100 Take 1 tablet by 0 mg tablet mouth daily. amLODIPine (NORVASC) 5 mg Take 1 tablet by 0 10/21 tablet mouth daily. cefdinir (OMNICEF) 300 mg Take 1 capsule (300 14 capsule 0 0 05/29/2022 capsule mg total) by mouth every 12 (twelve) hours. fluticasone propionate Administer 1 spray 0 05/21 (FLONASE) 50 mcg/actuation into nostril(s). nasal spray miscellaneous medical CPAP machine for 0 05/01/20 18 supply [facility] [place] home use at pressure: 5-20 cms, nasal mask with cushion x 1, humidifier chamber x 1, humidifier x 1 montelukast (SINGULAIR) 10 Take 10 mg by mouth. 0 05/21/2021 mg tablet omeprazole (PriLOSEC) 40 Take 40 mg by mouth. 0 0 05/21/[address] capsule phenazopyridine (PYRIDIUM) Take 1 tablet (100 6 tablet 0 0 05/29/2022 100 mg tablet mg total) by mouth 3 (three) times a day as needed for painful urination. triamcinolone (KENALOG) Apply topically. 0 2019 0.1 % cream documented as of this encounter ED Notes Gurwinder Magallanes C.NDelP. - 05/29/2022 6:57 AM CDT SIGN OUT NOTE Karin Dominguez is a 51 y.o. female signed out to me by Selena Calles CNP at 7:00 AM CDT. For a complete history and physical exam please see their note. In brief, this patient presented to the emergency department for flank pain and dysuria. Labs and imaging pending at this time and will be followedby myself. This is a patient presents to the ED concerning for dysuria and flank pain. Patient reports since she has been having dysuria with symptoms of urgency and frequency. The next day she developedpain to the left flank that she described as dull, 9/10. Pain has not relief. She denies any fever, chills, chest pain, shortness of breath, or abdominal pain. Does endorse having hematuria. She deniesbeing . BRIEF PHYSICAL EXAM: On exam, noted tenderness to the left flank. No abdominal tenderness on palpation. No pulsatile mass. LABORATORY: Labs Reviewed URINALYSIS WITH MICROSCOPIC - Abnormal Result Value Source Urine, Urine, Midstream Clarity Clear Color Yellow Blood Large (*) Nitrite Negative Leukocyte Esterase Small (*) Protein Negative Glucose Negative Ketones, QI(U) Negative Bilirubin Negative pH 7.0 Specific Gunpowder 1.010 Urobilinogen 0.2 White Blood Cells 21-30 (*) Red Blood Cells Occ-2 Dysmorphic Red Blood Cells <=25 Bacteria Present (*) CBC WITH DIFFERENTIAL, B - Abnormal Hemoglobin 14.6 Hematocrit 43.5 Erythrocytes 4.71 MCV 92.4 RBC Distrib Width 12.0 (*) Platelet Count 309 Leukocytes 11.6 (*) Neutrophils 7.16 (*) Lymphocytes 1.39 Monocytes 1.14 (*) Eosinophils 1.86 (*) Basophils 0.03 BASIC METABOLIC PANEL, S/P - Abnormal Potassium, P 4.1 Sodium, P 134 (*) Chloride, P 99 Bicarbonate, P 26 Anion Gap, P 9 BUN (Blood Urea Nitrogen), P 10 Creatinine, P 0.84 eGFR-Black/ >90 eGFR Non-Black/ 81 Calcium, Total, P 9.3 Glucose, P 134 BACTERIAL CULTURE, AEROBIC + SUSC, URINE INTERVENTIONS: Medications ketorolac injection 15 mg (TORADOL) (15 mg intravenous Given 05/29/22 0714) ASSESSMENT AND PLAN: I reviewed previous medical records including lab results. I personally reviewed the lab result(s) and my interpretation is abnormal. Differential diagnosis of mesenteric ischemia, abdominal aortic aneurysm, aortic dissection, acute pyelonephritis, nephrolithiasis, ureterolithiasis, cystitis, lower lobe pneumonia, pancreatitis, bowel obstruction, and others considered. On exam, noted tenderness to the left flank. Blood work does shows mild leukocytosis. Urinalysis does shows evidence of UTI. CT reassuring with no evidence of renal stone. However, incidental lymphadenopathy along with pulmonary nodule. Also nodular appearance of liver concerning for underlying cirrhosis. After considering the context of the patient's history, exam, and diagnostic results, my impression is lymphadenopathy, pulmonary nodule, liver nodule, UTI. Plan: Given the flank pain, will treat for possible pyelo with cefdinir and Pyridium for symptom relief. Discussed the incidental finding of the CT result with the patient including recommendation for outpatient follow-up to consider MR elastography and dedicated imaging of the chest abdomen pelvis. Strict return precaution given. Patient states understanding. DIAGNOSIS: Final diagnoses: [R91.1] Nodule Pulmonary [R59.1] Lymphadenopathy [N39.0] Infection Urinary Tract ED DISCHARGE MEDS: ED Prescriptions Medication Sig Dispense Start Date End Date Auth. Provider cefdinir (OMNICEF) 300 mg capsule (Status: Discontinued) Take 1 capsule (300 mg total) by mouth 2 (two) times a day before breakfast and dinner for 7 days. 14 capsule 05/29/2022 05/29/2022 Gurwinder Magallanes N, C.N.P. phenazopyridine (PYRIDIUM) 100 mg tablet (Status: Discontinued) Take 1 tablet (100 mg total) by mouth 3 (three) times a day as needed for painful urination for up to 10 days. 10 tablet 05/29/2022 05/29/2022 Gurwinder Magallanes N, C.N.P. cefdinir (OMNICEF) 300 mg capsule Take 1 capsule (300 mg total) by mouth every 12 (twelve) hours. 14 capsule 05/29/2022 Gurwinder Magallanes N, C.N.P. phenazopyridine (PYRIDIUM) 100 mg tablet Take 1 tablet (100 mg total) by mouth 3 (three) times a day as needed for painful urination. 6 tablet 05/29/2022 Gurwinder Magallanes, C.N.P. VITAL SIGNS BP (!) 168/109 Pulse 81 Temp 37.1 ??C (Temporal) Resp 16 Wt 101 kg SpO2 95% ED Course as of 05/29/22811 Sun May 29, 2022 0728 Bacteria(!): Present 0728 White Blood Cell Count(!): 11.6 0728 Leukocyte Esterase(!): Small 0728 White Blood Cells(!): 21-[address] Abdomen Pelvis without IV Contrast IMPRESSION: ?? 1. Mild circumferential wall thickening of the urinary bladder which could be seen with acute cystitis. No obstructing nephroureterolithiasis. 2. Nodular appearance of the liver concerning for underlying cirrhosis. MR elastography could be helpful for further evaluation 3. Diffuse pelvic, retroperitoneal and posterior mediastinal lymphadenopathy 3. Innumerable solid pulmonary nodules throughout both lung bases, incompletely visualized. The constellation of findings are concerning for a neoplastic process. Dedicated imaging of the chest, abdomen and pelvis and/or PET/CT would be helpful for further evaluation. Aidan Aguila M.D. Final Diagnoses: as of 05/29/22811 Nodule Pulmonary Lymphadenopathy Infection Urinary Tract Gurwinder Magallanes, C.N.P. 05/29/22 0801 Gurwinder Magallanes, C.N.P. 05/29/22 0804 Gurwinder Magallanes, C.N.P. 05/29/2212 Gurwinder Magallanes, C.N.P. 05/29/22 0816 Domi Calles APRN, RDelN. - 05/29/2022 6:35 AM CDT SUBJECTIVE CHIEF COMPLAINT/REASON FOR VISIT Dysuria HISTORY OF PRESENT ILLNESS History provided by: Patient and EMS personnel Karin Dominguez is a very pleasant 51 y.o. female with past medical history of anxiety, MAGGY, chronic cough, GERD, hypertension who arrived by private vehicle and presents for evaluation of dysuria. Patient states onset was 3 days ago when she began having dysuria, urgency and frequency. Describes a burning type sensation when she urinates. 2 days ago she felt an ache type feeling in her left flank/ back area. Today that pain has become severe. She describes it as a shooting pain from her left flank around to her left groin area. Some chills this morning but otherwise no fever. Tolerating fluids. No nausea vomiting or diarrhea. REVIEW OF SYSTEMS Constitutional: Positive for chills. Negative for fever. HENT: Negative for congestion and sore throat. Respiratory: Negative for chest tightness and shortness of breath. Cardiovascular: Negative for chest pain and palpitations. Gastrointestinal: Negative for diarrhea, nausea and vomiting. Genitourinary: Positive for dysuria, flank pain, frequency and urgency. Negative for hematuria. Musculoskeletal: Positive for back pain. Skin: Negative for rash. Neurological: Negative for dizziness and weakness. Psychiatric/Behavioral: The patient is not nervous/anxious. OBJECTIVE Initial Vitals Temperature Pulse Rate Heart Rate Resp Rate Blood Pressure SpO2 05/29/22 0634 05/29/22 0634 -- 05/29/22 0634 05/29/22 0634 05/29/22 0634 (!) 31.1 ??C 90 20 (!) 188/108 99 % Pain Score 05/29/22 0635 9 PHYSICAL EXAMINATION Constitutional: Nursing note and vitals reviewed. Non-toxic appearance. She does not have a sickly appearance. She does not appear ill. She appears distressed (crying). HENT: Head: Atraumatic. Mouth/Throat: Oropharynx is clear and moist. Mucous membranes are moist. Eyes: Conjunctivae are normal. Neck: Neck supple. No tracheal deviation present. Pulmonary/Chest: Effort normal. No respiratory distress. Abdominal: Soft. There is abdominal tenderness in the left flank. There is no CVA tenderness. Musculoskeletal: General: Normal range of motion. Cervical back: Neck supple. Neurological: Alert and oriented to person, place, and time. Skin: Skin is warm and dry. No rash noted. Psychiatric: She has a normal mood and affect. Behavior is normal. ASSESSMENT/PLAN IMPRESSION AND PLAN Karin Dominguez is a very pleasant 51 y.o. female who presents for left flank pain, dysuria, hematuria, frequency. See HPI/ED Course. DIFFERENTIAL DIAGNOSIS Ddx: cystitis, pyelonephritis, urethritis, kidney stones I reviewed previous medical records including documentation from previous visits.CPR: No CPR performed. ED Course as of 05/29/22 0701 Sun May 29, 2022 0645 Concern for kidney stone /pyelonephritis per history/exam. UA pending. Transfer of care to Gurwinder Magallanes [employer] for continued evaluation and treatment. Domi Calles APRN RDelN. 05/29/22 07 Jaden Leon R.N. - 05/29/2022 6:31 AM CDT C/O burning, ugency and frequency with urination. Associated symptoms of left flank pain and scant hematuria. Onset . Jaden Leon R.N. 05/29/22632 documented in this encounter Plan of Treatment Not on filedocumented as of this encounter Procedures Procedure Name Priority Date/Time Associated Comments Diagnosis CT ABDOMEN PELVIS RAD - Semiurgent 05/29/2022 7:27 Res ults for this WITHOUT IV CONTRAST (Fast; most ED AM CDT proced ure are in patients; some the results inpatients) section. CBC WITH STAT 05/29/2022 7:15 Results for this DIFFERENTIAL, B AM CDT procedure ar e in the results section. BASIC METABOLIC STAT 05/29/2022 7:15 Results f or this PANEL, S/P AM CDT procedure are i n the results section. BACTERIAL CULTURE, STAT 05/29/2022 6:44 Result s for this AEROBIC + SUSC, AM CDT procedure ar e in URINE the results section. URINALYSIS WITH STAT 05/29/2022 6:44 Results f or this MICROSCOPIC AM CDT procedure are i n the results section. documented in this encounter Results CT Abdomen Pelvis without IV Contrast (05/29/2022 7:27 AM CDT) Anatomical Region Laterality Modality Abdomen, Pelvis, Abdominal RST LOS, Abdominal ARZ LOS, N/A Computed Tomography Abdominal FLA LOS Specimen (Source) Anatomical Collection Method Collection Time Re ceived Time Location / / Volume Laterality 05/29/2022 7:31 AM CDT Impressions 05/29/2022 7:42 AM CDT 1. Mild circumferential wall thickening of the urinary bladder which could be seen with acute cystitis. No obstructing nephroureteroli thiasis. 2. Nodular appearance of the liver dunia rning for underlying cirrhosis. MR elastography could be helpful for further evaluation 3. Diffuse pelvic, retroperitoneal and p osterior mediastinal lymphadenopathy 3. Innumerable solid pulmonary nodules t hroughout both lung bases, incompletely visualized. The constellation of findings are concerning for a neoplastic process. Dedicated imaging of the chest, abdomen and pelvis and/or PET/CT would b e helpful for further evaluation. Narrative 05/29/2022 7:42 AM CDT EXAM: CT ABDOMEN PELVIS WITHOUT IV CONTRAST COMPARISON: None FINDINGS: Nodular contour of the liver. No obstructing nephroureterolithiasis. Diffuse hepatic steatosis. The liver, spleen, pancreas, adrenal glands and kidneys are otherwise normal. Scattered colonic diverticulosis. Hysterectomy. No drainable fluid collections. Mild surgical ventral wall thickening of the urinary bladder. Multiple enlarged pelvic and retroperito sofi lymph nodes, for example a left para-aortic node (series 2 image 155) measures 14 mm in s hort axis and a node near the diaphragmatic hiatus (series 2 image 89) measures 10 mm in short axis. Multiple enlarged posterior mediastinal lymph nodes, for example a paraesophageal node (series 2 image 38) measures 11 mm in short axis. Some of the enlarged nodes are mildly hyperdense centrally. Innumerable solid pulmonary nodules thro ughout both lower lungs, for example a 6 mm node in the left lower lobe (series 3 image 43) and a 5 m m node (series 3 image 2) in the right lower lobe. Procedure Note Aidan Aguila M.D. - 05/29/2022Form atting of this note might be different from the original. EXAM: CT ABDOMEN PELVIS WITHOUT IV CONTR AST COMPARISON: None FINDINGS: Nodular contour of the liver. No obstructing nephroureterolithiasis. Diffuse hepatic steatosis. The liver, spleen, pancreas, adrenal glands and kidneys are otherwise normal. Scattered colonic diverticulosis. Hysterectomy. No drainable fluid collections. Mild surgical ventral wall thickening of the urinary bladder. Multiple enlarged pelvic and retroperito sofi lymph nodes, for example a left para-aortic node (series 2 image 155) measures 14 mm in s hort axis and a node near the diaphragmatic hiatus (series 2 image 89) measures 10 mm in short axis. Multiple enlarged posterior mediastinal lymph nodes, for example a paraesophageal node (series 2 image 38) measures 11 mm in short axis. Some of the enlarged nodes are mildly hyperdense centrally. Innumerable solid pulmonary nodules thro ughout both lower lungs, for example a 6 mm node in the left lower lobe (series 3 image 43) and a 5 m m node (series 3 image 2) in the right lower lobe. IMPRESSION: 1. Mild circumferential wall thickening of the urinary bladder which could be seen with acute cystitis. No obstructing nephroureteroli thiasis. 2. Nodular appearance of the liver dunia rning for underlying cirrhosis. MR elastography could be helpful for further evaluation 3. Diffuse pelvic, retroperitoneal and p osterior mediastinal lymphadenopathy 3. Innumerable solid pulmonary nodules t hroughout both lung bases, incompletely visualized. The constellation of findings are concerning for a neoplastic process. Dedicated imaging of the chest, abdomen and pelvis and/or PET/CT would b e helpful for further evaluation. Purdy N Magallanes C.N.P. IMG CT PROCEDURES (ABNORMAL) Basic Metabolic Panel (05/29/2022 7:15 AM CDT) P athologist Signature Potassium, P 4.1 3.6 - 5.2 05/29/2022 CN[facility] mmol/L 7:36 AM CDT Sodium, P 134 (L) 135 - 145 05/29/2022 [facility] mmol/L 7:36 AM CDT Chloride, P 99 98 - 107 05/29/2022 [facility] mmol/L 7:36 AM CDT Bicarbonate, P 26 22 - 29 05/29/2022 [facility] mmol/L 7:36 AM CDT Anion Gap, P 9 7 - 15 05/29/2022 [facility] 7:36 AM CDT BUN (Blood Urea 10 6 - 21 05/29/2022 [facility] Nitrogen), P mg/dL 7:36 AM CDT Creatinine 0.84 0.59 - 05/29/2022 [facility] 1.04 mg/dL 7:36 AM CDT eGFR-Black/Afri >90 >=60 05/29/2022 [facility] can Israeli mL/min/BSA 7:36 AM CDT Comment: ----ADDITIONAL INFORMATION---- Estimated GFR calculated using the 2009 CKD_EPI creatinine equation. eGFR Non-Black/ 81 >=60 mL/min/BSA 7:36 AM CDT CN[facility] Comment: ----ADDITIONAL INFORMATION---- Estimated GFR calculated using the 2009 CKD_EPI creatinine equation. Calcium, Total, P 9.3 8.6 - 10.0 mg/dL 05/29/2022 7:36 AM CDT CN[facility] Glucose, P 134 70 - 140 mg/dL 05/29/2022 7:36 AM CDT C NFL Specimen Anatomical Collection Method Collection Time Receive d Time (Source) Location / / Volume Laterality Blood (Blood, 05/29/2022 7:15 AM 05/29/20 7:17 Venous) CDT AM CDT Gurwinder Magallanes C.N.PDel LAB BLOOD ADD-ON Performing Organization Address City/State/ZIP Code Phon e Number [facility] [address] [place] [phone] [facility] [place] [address] System in [address] (ABNORMAL) CBC with Differential, Blood (05/29/2022 7:15 AM CDT) [facility] Method Time Signature Hemoglobin 14.6 11.6 - 05/29/2022 [facility] 15.0 g/dL 7:25 AM CDT Hematocrit 43.5 35.5 - 05/29/2022 [facility] 44.9 % 7:25 AM CDT Erythrocytes 4.71 3.92 - 05/29/2022 CN[facility] 5.13 7:25 AM CDT x10(12)/L MCV 92.4 78.2 - 05/29/2022 [facility] 97.9 fL 7:25 AM CDT RBC Distrib Width 12.0 (L) 12.2 - 05/29/2022 [facility] 16.1 % 7:25 AM CDT Platelet Count 309 157 - 371 05/29/2022 [facility] x10(9)/L 7:25 AM CDT Leukocytes 11.6 (H) 3.4 - 9.6 05/29/2022 [facility] x10(9)/L 7:25 AM CDT Neutrophils 7.16 (H) 1.56 - 05/29/2022 CN[facility] 6.45 7:25 AM CDT x10(9)/L Lymphocytes 1.39 0.95 - 05/29/2022 CN[facility] 3.07 7:25 AM CDT x10(9)/L Monocytes 1.14 (H) 0.26 - 05/29/2022 [facility] 0.81 7:25 AM CDT x10(9)/L Eosinophils 1.86 (H) 0.03 - 05/29/2022 CN[facility] 0.48 7:25 AM CDT x10(9)/L Basophils 0.03 0.01 - 05/29/2022 CN[facility] 0.08 7:25 AM CDT x10(9)/L Specimen Anatomical Collection Method Collection Time Receive d Time (Source) Location / / Volume Laterality Blood (Blood, 05/29/2022 7:15 AM 05/29/20 7:17 Venous) CDT AM CDT Gurwinder N Magallanes C.N.P. LAB BLOOD ADD-ON Performing Organization Address City/State/[facility] Code Phon e Number [address] [id number] [facility] [place] [address] [address] (ABNORMAL) Bacterial Culture, Aerobic + Susc, Urine (05/29/2022 6:44 AM CDT) [facility] gist Method Time Signature Urine Culture ESCHERICHIA COLI 05/31/2022 ECLR 10,000-100,000 cfu/mL 7:27 AM CDT (A) Specimen Anatomical Collection Method Collection Time Receive d Time (Source) Location / / Volume Laterality Urine (Urine, 05/29/2022 6:44 AM 05/29/20 9:27 Midstream) CDT PM CDT Comment: Specimen Source Site: Urine Organism Antibiotic Method Susceptibility Escherichia coli Ampicillin SUSCEPTIBILITY, CHRISTIANO >=32 mcg/mL : Resistant (MCG/ML) Escherichia coli Ampicillin + Sulbactam SUSCEPTIBILITY, CHRISTIANO 16 m cg/mL: Intermediate (MCG/ML) Escherichia coli Piperacillin + Tazobactam SUSCEPTIBILITY, CHRISTIANO < =4 mcg/mL: Susceptible (MCG/ML) Escherichia coli Cefazolin SUSCEPTIBILITY, CHRISTIANO <=4 mcg/mL: Susceptible (MCG/ML) Comment: The interpretation applies t o uncomplicated urinary tract infections only. It al so applies to these oral cephalosporins: cefuroxime, cephalexin, and cefprozil. Escherichia coli Ceftazidime SUSCEPTIBILITY, CHRISTIANO <=1 mcg/mL: (MCG/ML) Susceptible Escherichia coli Ceftriaxone SUSCEPTIBILITY, CHRISTIANO <=1 mcg/mL: (MCG/ML) Susceptible Escherichia coli Cefepime SUSCEPTIBILITY, CHRISTIANO <=1 mcg/mL: (MCG/ML) Susceptible Escherichia coli Aztreonam SUSCEPTIBILITY, CHRISTIANO <=1 mcg/mL: (MCG/ML) Susceptible Escherichia coli Ertapenem SUSCEPTIBILITY, CHRISTIANO <=0.5 mcg/m L: (MCG/ML) Susceptible Escherichia coli Meropenem SUSCEPTIBILITY, CHRISTIANO <=0.25 mcg/ mL: (MCG/ML) Susceptible Escherichia coli Gentamicin SUSCEPTIBILITY, CHRISTIANO >=16 mcg/mL : (MCG/ML) Resistant Escherichia coli Tobramycin SUSCEPTIBILITY, CHRISTIANO 8 mcg/mL: (MCG/ML) Intermediate Escherichia coli Levofloxacin SUSCEPTIBILITY, CHRISTIANO <=0.12 mcg/ mL: (MCG/ML) Susceptible Escherichia coli Nitrofurantoin SUSCEPTIBILITY, CHRISTIANO <=16 mcg/mL : (MCG/ML) Susceptible Escherichia coli Trimethoprim + SUSCEPTIBILITY, CHRISTIANO >=320 mcg/m L: Sulfamethoxazole (MCG/ML) Resistant Gurwinder CalabreseNAlex LAB MICROBIOLOGY - GENERAL O RDERABLES Performing Organization Address City/State/ZIP Code Phon e Number [facility]- [address] [place] [phone] [facility] [place] [address] System [address] (ABNORMAL) Urinalysis with Microscopic: Urine, Midstream (05/29/2022 6:44 AM CDT) [facility] Time Signature Source Urine, Urine, 05/29/2022 CN[facility] Midstream 6:57 AM CDT Clarity Clear Clear 05/29/2022 CN[facility] 7:24 AM CDT Color Yellow 05/29/2022 CNFL 7:24 AM CDT Comment: ----REFERENCE VALUE---- Colorless Yellow Kia Blood Large (A) Negative 05/29/2022 7:24 AM CDT CNFL Nitrite Negative Negative 05/29/2022 7:24 AM CDT CN[facility] Leukocyte Esterase Small (A) Negative 05/29/2022 7:24 AM CD T CNFL Protein Negative mg/dL 05/29/2022 7:24 AM CDT CNFL Comment: ----REFERENCE VALUE---- Negative Trace Glucose Negative Negative mg/dL 05/29/2022 7:24 AM CDT CN FL Ketones, QI(U) Negative Negative mg/dL 05/29/2022 7:24 AM C DT CNFL Bilirubin Negative Negative 05/29/2022 7:24 AM CDT CNFL pH 7.0 5.0 - 8.0 05/29/2022 7:24 AM CDT CN[facility] Specific Gunpowder 1.010 1.001 - 1.035 05/29/2022 7:24 AM CDT CNFL Urobilinogen 0.2 0.2 - 1.0 mg/dL 05/29/2022 7:24 AM CD T CNFL White Blood Cells 21-30 (A) /hpf 05/29/2022 7:24 AM CDT CNFL Comment: ----REFERENCE VALUE---- Males: 0-3 Females: 0-10 Unknown: 0-10 Red Blood Cells Occ-2 0 - 2 /hpf 05/29/2022 7:24 AM CDT CNFL Dysmorphic Red Blood Cells <=25 <=25 % 05/29/2022 7: 24 AM CDT CNFL Bacteria Present (A) None Seen 05/29/2022 7:24 AM CDT CNFL Specimen Anatomical Collection Method Collection Time Receive d Time (Source) Location / / Volume Laterality Urine (Urine, 05/29/2022 6:44 AM 05/29/20 6:57 Midstream) CDT AM CDT Domi Calles APRN, R.N. LAB URINE ORDERABLES Performing Organization Address City/State/ZIP Code Phon e Number [facility]- [address] [place] [phone] [place] [address] [address] documented in this encounter Visit Diagnoses Diagnosis Nodule Pulmonary - Primary Lymphadenopathy Infection Urinary Tract documented in this encounter Administered Medications Inactive Administered Medications - up to 3 most recent administrations Medication Order MAR Action Action Date Dose Rate Site ketorolac injection 15 mg (TORADOL) Given 05/29/2022 7:14 AM CDT 15 mg 15 mg, intravenous, Once, On 05/29/22 at 0657, For 1 dose, Adult IV push rate: Over 15 seconds. Peds IV push rate: Over 1 minute. 60 mg dose only for IM, not recommended for IV. documented in this encounter Active and Recently Administered Medications Times are shown in CDT. Scheduled Medication Order 05/27/2022 05/28/2022 05/29/2022 ketorolac injection 15 mg (TORADOL) (COMPLETED) 0714 (Given - Provider: Giulia Ahmadi R.N.) 15 mg, intravenous, Once, On 05/29/22 at 0657, For 1 dose, Adult IV push rate: Over 15 seconds. Peds IV push rate: Over 1 minute. 60 mg dose only for IM, not recommended for IV. documented in this encounter Care Teams Nuclear Medicine Technician Relationship Specialty Start Date End Date Elsewhere, Pcp PCP - General Family Medicine 06/07/21 documented as of this encounter
--- OUTSIDE RECORDS SUMMARY | 2022-07-22 11:04 | XMS_ITS | Encounter Summary ---
:1970 Author Organization [facility] Address [address] [place] [address] Care Team Providers Name Role Phone Unavailable Primary Care Provider Unavailable Encounter Details Date Type Department Care Team Description 10/21/2020 Admin Visit Department of Family Medicine[facility] in [place], [place] [address] [place] [address] Social History Tobacco Use Types Packs/Day Years Used Date Smoking Tobacco: Never Assessed Sex Assigned at Date Recorded Not on file documented as of this encounter Plan of Treatment Not on filedocumented as of this encounter Visit Diagnoses Not on filedocumented in this encounter Additional Health Concerns Infection Onset Date Last Indicated Resolved Time COVID19 Pending 10/21/2020 10/21/2020 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
--- OUTSIDE RECORDS SUMMARY | 2022-07-22 11:04 | XMS_ITS | Encounter Summary ---
:1970 Author Organization [facility] Address [address] [place] [address] Care Team Providers Name Role Phone Unavailable Primary Care Provider Unavailable Encounter Details Date Type Department Care Team Description 08/21/2006 Hospital Encounter HX [facility] Pozo M.D. Social History Tobacco Use Types Packs/Day Years Used Date Smoking Tobacco: Never Assessed Sex Assigned at Date Recorded Not on file documented as of this encounter Plan of Treatment Not on filedocumented as of this encounter Visit Diagnoses Not on filedocumented in this encounter
--- OUTSIDE RECORDS SUMMARY | 2022-07-22 11:04 | XMS_ITS | Encounter Summary ---
:1970 Author Organization [facility] Address [address] [place] [address] Care Team Providers Name Role Phone Elsewhere, Pcp Primary Care Provider Unavailable Reason for Visit Reason Comments Chest Pain Pt presents to ED with left sided chest pain that started 06/03/21. Encounter Details Date Type Department Care Team Description 06/06/2021 - Emergency [facility] Akira Brice Pain Chest Atypical 06/07/2021 Emergency Department E, P.A.-C. (Primary Dx) [id number] [place] [address] [address] [place], [place] [phone] Social History Tobacco Use Types Packs/Day Years Used Date Smoking Tobacco: Never Sex Assigned at Date Recorded Not on file documented as of this encounter Last Filed Vital Signs Vital Sign Reading Time Taken Comments Blood Pressure 138/87 06/07/2021 12:20 AM CDT Pulse 72 06/07/2021 12:25 AM CDT Temperature 36 ??C (96.8 ??F) 06/06/2021 9:40 PM CDT Respiratory Rate 18 06/06/2021 10:00 PM CDT Oxygen Saturation 94% 06/07/2021 12:25 AM CDT Inhaled Oxygen Concentration - - Weight 99.1 kg (218 lb 7.6 oz) 06/06/2021 9:39 PM CDT Height - - Body Mass Index - - documented in this encounter Discharge Instructions Discharge InstructionsVer Akira Brice, P.A.-C. - 06/07/2021 12:02 AM CDT Karin Dominguez - as we discussed, - resume your amlodipine - follow up with your primary doctor in the next 5-7 days for recheck and ongoing evaluation - continue your other home medications - return for worsening symptoms, fevers, vomiting, trouble breathing or other concerns AttachmentsThe following attachments cannot be sent through Care Everywhere. Nonspecific Chest Pain Adult (Bulgarian)documented in this encounter Medications at Time of Discharge Medication Sig Dispensed Refills Start Date End Date allopurinoL (ZYLOPRIM) Take 1 tablet by mouth 0 1 12/14/2019 100 mg tablet daily. amLODIPine (NORVASC) 5 mg Take 1 tablet by mouth 0 11/12/2020 tablet daily. fluticasone propionate Administer 1 spray 0 05/21 (FLONASE) 50 into nostril(s). mcg/actuation nasal spray miscellaneous medical CPAP machine for home 0 10/2018 supply misc use at pressure: 5-20 cms, nasal mask with cushion x 1, humidifier chamber x 1, humidifier x 1 montelukast (SINGULAIR) Take 10 mg by mouth. 0 10 mg tablet omeprazole (PriLOSEC) 40 Take 40 mg by mouth. 0 0 05/21/[address] capsule triamcinolone (KENALOG) Apply topically. 0 2019 0.1 % cream documented as of this encounter ED Notes Akira Tinajero P.A.-C. - 06/06/2021 9:49 PM CDT SUBJECTIVE CHIEF COMPLAINT/REASON FOR VISIT Chest Pain (Pt presents to ED with left sided chest pain that started 06/03/21. ) HISTORY OF PRESENT ILLNESS Karin Dominguez is a 50 y.o. female with a history of gastroesophageal reflux disease, sleep apnea,seasonal allergies, hypertension who presents ambulatory to the Emergency Department by private car for evaluation of chest pain. Patient states that on she developed the chest pain which is on the left side of her chest.Intermittently radiates into the left arm. It is typically 1/10 but she can have short bouts of sharp increasing pain. She cannot identify any exacerbating or provoking factors. It is not made worse with exertion. She has not had cough or fever or chills or nausea or vomiting. She does not feel short of breath. No leg swelling calf pain or redness. No prior history DVT or PE. No recent prolonged immobilization surgeries or hospitalizations. No abdominal pain or back pain. She is nonsmoker. No changein leaning forward or positional changes. Not made worse with palpation. REVIEW OF SYSTEMS Constitutional: Negative for chills and fever. HENT: Negative for congestion, ear pain and sore throat. Eyes: Negative for pain and visual disturbance. Respiratory: Negative for cough and shortness of breath. Cardiovascular: Positive for chest pain. Negative for palpitations. Gastrointestinal: Negative for abdominal pain, blood in stool, constipation, diarrhea, nausea and vomiting. Endocrine: Negative. Genitourinary: Negative for dysuria, flank pain, frequency and urgency. Musculoskeletal: Negative for neck pain and neck stiffness. Skin: Negative for lesions and rash. Allergic/Immunologic: Negative. Neurological: Negative for dizziness, syncope, weakness and numbness. Hematological: Negative. Psychiatric/Behavioral: Negative for confusion. OBJECTIVE Initial Vitals Temperature Pulse Rate Heart Rate Resp Rate Blood Pressure SpO2 06/06/21 2140 06/06/21 2140 -- 06/06/21 2140 06/06/21 2145 06/06/21 214 36 ??C 82 20 (!) 186/113 96 % Pain Score 06/06/212140 1 PHYSICAL EXAMINATION Constitutional: Nursing note and vitals reviewed. She appears not lethargic. No distress. HENT: Head: Atraumatic. Mouth/Throat: Oropharynx is clear and moist. Mucous membranes are moist. Eyes: Conjunctivae and EOM are normal. Pupils are equal, round, and reactive to light. Neck: Neck supple. No JVD present. No tracheal deviation present. Cardiovascular: Normal rate and regular rhythm. Pulses are palpable. Capillary refill: takes less than 3 seconds, Pulmonary/Chest: Effort normal and breath sounds normal. There is normal air entry. Abdominal: Soft. exhibits no distension. There is no abdominal tenderness. There is no rebound and no guarding. Musculoskeletal: General: No edema. Normal range of motion. Cervical back: Normal range of motion and neck supple. Comments: No calf tenderness, swelling or redness bilaterally. Neurological: Alert and oriented to person, place, and time. Skin: Skin is warm and dry. She is not diaphoretic. Psychiatric: She has a normal mood and affect. Behavior is normal. ASSESSMENT/PLAN MDM: The patient is a 50 y.o. female who presents for chest pain. Given patient's history and presentation, Ddx includes but is not limited to: ACS, gerd, pneumonia, less likely PE, [place], chest wall pain, dissection, others considered. She presents with stable vitals and no acute distress. She is hypertensive but has not taken her medicine in the few days she admits. Will obtain ECG as well as labs and an x-ray. ECG indicates normal sinus rhythm with nonspecific T-wave abnormality and prolonged QT. no STEMI or equivalent. There is no old for comparison. Her serum laboratory studies are unremarkable, initial troponin less than 6. These were reviewed with the patient. We will trend her troponin. She did take aspirin prior to arrival she reports 2 full strength aspirin. We did trial GI cocktail as well. Recheck turn informed her of results. Her troponins are flat, feel this rules out ACS. Other labs within normal limits. Her pain actually was gone after GI cocktail. We discussed possible etiologies including esophageal spasm esophagitis gastroesophageal reflux disease, and less likely to be ACS with l ikelihood 1% or so. She will follow-up with her primary doctor given her paucity of risk factors foracute coronary syndrome, she will reach out for an appointment tomorrow. Patient remained stable in the ED. All questions were answered to the best of my ability. Indications to return to the emergency department were discussed with the patient and they verbalized understanding of these. IMAGING: DX Chest Portable 1 View Final Result Linear scarring in the right midlung. No focal consolidation. No pneumothorax or pleural effusion. Normal cardiac size and pulmonary vascularity. DISPOSITION: Discharge. Routine return precautions discussed in everyday language. Consults and Follow-ups to Schedule POST ED VISIT Family Medicine Jun 13, 2021 (Approximate) [facility] you to schedule an appointment. Region: [facility] ED Visit F/U Specialty?: Family Medicine Urgent: unstable condition requiring immediate care to avoid medical harm Semi urgent: stable condition but with short term risk to progress to urgent Elective: stable condition with low risk of acuity progression Proc / rad likely: patient likely to require procedure (eg. Endoscopy) or advanced imaging (eg. MRIupon return) Surgery likely: patient likely to require surgery upon return Contact Information for Follow-ups [facility] Specialty: Emergency Medicine [address] [place] [id number] Next Steps: Follow up Primary Care Provider Next Steps: Follow up in 1 week(s) Instructions: For recheck and ongoing evaluation Medications prescribed for after the encounter: ED Prescriptions None HEART Pathway Score Does this patient have STEMI, ischemic ECG changes, coronary artery disease?: No Age: 45-64 Age Score: 1 Symptoms: Pain is middle or left sided chest, Sharp pain, Non-exertional, Radiation to arms/jaw/neck, No Nausea or vomiting, No Diaphoresis Symptoms Score: 0 Risk Factors: Hypertension, BMI > 30 kg/m2 Risk Factors Score: 1 ECG: Non-specific ST changes ECG Score: 1 HEART Pathway Score: 3 Wells' Criteria PE Clinical signs and symptoms of DVT: No PE is #1 diagnosis, or equally likely: No Heart rate >100: No Immobilization at least 3 days, or surgery in the previous 4 weeks: No Previous, objectively diagnosed PE or DVT: No Hemoptysis: No Malignancy with treatment within 6 months, or palliative: No Wells' PE Points: 0 ED Course as of Jun 07 18 Sun Jun 06, [id number] She reports she has not been taking her antihypertensives lately Blood Pressure(!): 186/113 2155 Temperature: 36 ??C 2155 Pulse Rate: 94 2155 Resp Rate: 20 2155 SpO2: 96 % 2155 ECG 12 Lead 2221 Troponin T, Baseline, 5th gen: <6 2235 Lipase: Lipase, P 45 2235 Comprehensive Metabolic Panel(!): Potassium, P 3.8 Sodium, P 138 Chloride, P 103 Bicarbonate, P 24 Anion Gap, P 11 BUN (Blood Urea Nitrogen), P 16 Creatinine, P 1.05(!) eGFR-Black/ 72 eGFR Non-Black/ 62 Calcium, Total, P 9.5 Glucose, P 105 Protein, Total, P 7.7 Albumin, P 4.1 Aspartate Aminotransferase (AST), P 32 Alkaline Phosphatase, P 61 Alanine Aminotransferase (ALT), P 35 Bilirubin, Total, P 0.4 2235 CBC with Differential, Blood(!): Hemoglobin 13.2 Hematocrit 38.3 Erythrocytes 4.18 MCV 91.6 RBC Distrib Width 12.0(!) Platelet Count 341 White Blood Cell Count 7.7 Neutrophils 4.15 Lymphocytes 1.90 Monocytes 0.83(!) Eosinophils 0.80(!) Basophils 0.05 Final Diagnoses: as of Jun 07 18 Pain Chest Atypical Akira Tinajero P.A.-C. 06/07/2118 documented in this encounter Plan of Treatment Not on filedocumented as of this encounter Procedures Procedure Name Priority Date/Time Associated Comments Diagnosis TROPONIN T, 2H/6H, Timed 06/06/2021 11:52 Resul ts for 5TH GEN, P PM CDT this procedure are in the results section. DX CHEST PORTABLE 1 RAD - Semiurgent 06/06/2021 10:12 Results for VIEW (Fast; most ED PM CDT this procedur e patients; some are in the inpatients) results section. TROPONIN T, STAT 06/06/2021 9:48 Results for BASELINE, 5TH GEN, P PM CDT this pr ocedure are in the results section. CBC WITH STAT 06/06/2021 9:48 Results for DIFFERENTIAL, B PM CDT this procedu re are in the results section. LIPASE, S/P STAT 06/06/2021 9:48 Results for PM CDT this procedure are in the results section. COMPREHENSIVE STAT 06/06/2021 9:48 Results for METABOLIC PANEL, S/P PM CDT this pr ocedure are in the results section. ECG STAT 06/06/2021 9:42 Results for PM CDT this procedure are in the results section. documented in this encounter Results Troponin T, 2H/6H, 5th Gen (06/06/2021 11:52 PM CDT) P athologist Signature Troponin T, 2 <6 <=10 ng/L 06/07/2021 CNFL hr, 5th gen 12:15 AM CDT Comment: Biotin has been identified by the teetee reaves as a potential interfering substance. ??Higher concentr ations of biotin may be found in multivitamins, hair/nail supple ments, and workout supplements. ??If the result does not [facility] clinical observations, repeat testing after patient refrains fr om the use of supplements for at least 12 hours. 2H Delta 0 ng/L 06/07/2021 12:15 AM CDT CNFL 2H Delta Interp Not Changing 06/07/2021 12:15 AM C DT CNFL Troponin T, 6 hr, 5th gen CANCELED ng/L 06/07/2021 12: 15 AM CDT CNFL Comment: Result canceled by the ancmyra y. Specimen Anatomical Collection Method Collection Time Receive d Time (Source) Location / / Volume Laterality Blood (Blood, 06/06/2021 11:52 06/06/2021 Venous) PM CDT 11:54 PM CDT Narrative [facility] - 06/07/2021 12:15 AM CDT Specimen Information: Specimen ID: [id number] Specimen Type: Blood Specimen Collection Start Date: 06/06/20 11:52 PM Specimen Received Date: 06/06/2021 11:54 PM Specimen ID: [id number] Specimen Type: Blood Akira Brice P.A.-C. LAB BLOOD TROPONIN Performing Organization Address City/State/[facility] Code Phon e Number [facility]- [address] [place] [phone] [facility] [place] [address] System [address] DX Chest Portable 1 View (06/06/2021 10:12 PM CDT) Anatomical Region Laterality Modality Chest, Thoracic RST LOS, Thoracic ARZ LOS, Thoracic N/A Computed Radiography FLA LOS Specimen (Source) Anatomical Collection Method Collection Time Re ceived Time Location / / Volume Laterality 06/06/2021 10:38 PM CDT Impressions 06/06/2021 10:38 PM CDT Linear scarring in the right midlung. No focal consolidation. No pneumothorax or pleural effusion. Normal cardiac size and pulmonary vascularity. Narrative 06/06/2021 10:38 PM CDT EXAM: DX CHEST PORTABLE 1 VIEW Procedure Note Aidan Aguila M.D. - 06/06/2021Form atting of this note might be different from the original. EXAM: DX CHEST PORTABLE 1 VIEW IMPRESSION: Linear scarring in the right midlung. No focal consolidation. No pneumothorax or pleural effusion. Normal cardiac size and pulmonary vascularity. Akira Brice P.A.-C. [facility]AG[facility] PROC EDURES Troponin T, Baseline, 5th gen (06/06/2021 9:48 PM CDT) P athologist Signature Troponin T, <6 <=10 ng/L 06/06/2021 CNFL Baseline, 5th 10:20 PM CDT gen Comment: Biotin has been identified by the teetee reaves as a potential interfering substance. ??Higher concentr ations of biotin may be found in multivitamins, hair/nail supple ments, and workout supplements. ??If the result does not [facility] clinical observations, repeat testing after patient refrains fr om the use of supplements for at least 12 hours. Specimen Anatomical Collection Method Collection Time Receive d Time (Source) Location / / Volume Laterality Blood (Blood, 06/06/2021 9:48 PM 06/06/20 9:53 Venous) CDT PM CDT Akira Brice P.A.-C. LAB BLOOD TROPONIN Performing Organization Address [facility]/State/[facility] Code Phon e Number [address] LAB CNFL [place] [phone] System in [address] (ABNORMAL) CBC with Differential, Blood (06/06/2021 9:48 PM CDT) Patholo gist Method Time Signature Hemoglobin 13.2 11.6 - 06/06/2021 CNFL 15.0 g/dL 9:59 PM CDT Hematocrit 38.3 35.5 - 06/06/2021 CNFL 44.9 % 9:59 PM CDT Erythrocytes 4.18 3.92 - 06/06/2021 CNFL 5.13 9:59 PM CDT x10(12)/L MCV 91.6 78.2 - 06/06/2021 CNFL 97.9 fL 9:59 PM CDT RBC Distrib Width 12.0 (L) 12.2 - 06/06/2021 CNFL 16.1 % 9:59 PM CDT Platelet Count 341 157 - 371 06/06/2021 CNFL x10(9)/L 9:59 PM CDT Leukocytes 7.7 3.4 - 9.6 06/06/2021 CNFL x10(9)/L 9:59 PM CDT Neutrophils 4.15 1.56 - 06/06/2021 CNFL 6.45 9:59 PM CDT x10(9)/L Lymphocytes 1.90 0.95 - 06/06/2021 CNFL 3.07 9:59 PM CDT x10(9)/L Monocytes 0.83 (H) 0.26 - 06/06/2021 CNFL 0.81 9:59 PM CDT x10(9)/L Eosinophils 0.80 (H) 0.03 - 06/06/2021 CNFL 0.48 9:59 PM CDT x10(9)/L Basophils 0.05 0.01 - 06/06/2021 CNFL 0.08 9:59 PM CDT x10(9)/L Specimen Anatomical Collection Method Collection Time Receive d Time (Source) Location / / Volume Laterality Blood (Blood, 06/06/2021 9:48 PM 06/06/20 9:54 Venous) CDT PM CDT Akira Brice P.A.-C. LAB BLOOD ADD-ON Performing Organization Address City/State/ZIP Code Phon e Number [facility]- [address] [place] [phone] [facility] [place] [address] System [address] (ABNORMAL) Comprehensive Metabolic Panel (06/06/2021 9:48 PM CDT) Analysis Performed At Patho logist Time Signature Potassium, P 3.8 3.6 - 5.2 06/06/2021 CNFL mmol/L 10:24 PM CDT Sodium, P 138 135 - 145 06/06/2021 CNFL mmol/L 10:24 PM CDT Chloride, P 103 98 - 107 06/06/2021 CNFL mmol/L 10:24 PM CDT Bicarbonate, P 24 22 - 29 06/06/2021 CNFL mmol/L 10:24 PM CDT Anion Gap, P 11 7 - 15 06/06/2021 CNFL 10:24 PM CDT BUN (Blood Urea 16 6 - 21 06/06/2021 CNFL Nitrogen), P mg/dL 10:24 PM CDT Creatinine 1.05 (H) 0.59 - 06/06/2021 CNFL 1.04 mg/dL 10:24 PM CDT eGFR-Black/Afri 72 >=60 06/06/2021 CNFL can [place] mL/min/BSA 10:24 PM CDT Comment: ----ADDITIONAL INFORMATION---- Estimated GFR calculated using the 2009 CKD_EPI creatinine equation. eGFR Non-Black/ 62 >=60 mL/min/BSA 06/06/2021 10:24 PM CDT CNFL Comment: ----ADDITIONAL INFORMATION---- Estimated GFR calculated using the 2009 CKD_EPI creatinine equation. Calcium, Total, P 9.5 8.6 - 10.0 mg/dL 06/06/2021 10:2 4 PM CDT CNFL Glucose, P 105 70 - 140 mg/dL 06/06/2021 10:24 PM CDT CNFL Protein, Total, P 7.7 6.3 - 7.9 g/dL 06/06/2021 10:24 PM CDT CNFL Albumin, P 4.1 3.5 - 5.0 g/dL 06/06/2021 10:24 PM CDT CNFL Aspartate Aminotransferase 32 8 - 43 U/L 06/06/2021 1 0:24 PM CDT CNFL (AST), P Alkaline Phosphatase, P 61 35 - 104 U/L 06/06/2021 10 :24 PM CDT CNFL Alanine Aminotransferase (ALT), 35 7 - 45 U/L 021 10:24 PM CDT CNFL P Bilirubin, Total, P 0.4 <=1.2 mg/dL 06/06/2021 10:24 P M CDT CNFL Specimen Anatomical Collection Method Collection Time Receive d Time (Source) Location / / Volume Laterality Blood (Blood, 06/06/2021 9:48 PM 06/06/20 9:54 Venous) CDT PM CDT Akira Brice P.A.-C. LAB BLOOD ADD-ON Performing Organization Address City/State/ZIP Code Phon e Number [facility]- [address] [place] [address] [place] [address] [facility] [place] [address] System in [place] [address] [address] Lipase (06/06/2021 9:48 PM CDT) P athologist Signature Lipase, P 45 13 - 60 U/L 06/06/2021 CNFL 10:24 PM CDT Specimen Anatomical Collection Method Collection Time Receive d Time (Source) Location / / Volume Laterality Blood (Blood, 06/06/2021 9:48 PM 06/06/20 9:54 Venous) CDT PM CDT Akira Brice P.A.-C. LAB BLOOD ADD-ON Performing Organization Address City/[facility]/ZIP Code Phon e Number [facility]- [address] [place] [phone] [place] [address] System in [place] [address] [address] ECG 12 Lead (06/06/2021 9:42 PM CDT) P athologist Signature Ventricular Rate 87 BPM MUSE ECG/Min WV Interval 186 ms MUSE QRSD Interval 84 ms MUSE QT Interval 420 ms MUSE QTC Interval 505 ms MUSE P [place] 27 degrees MUSE R [place] -3 degrees MUSE T Wave [place] 2 degrees MUSE Specimen Anatomical Collection Method Collection Time Receive d Time (Source) Location / / Volume Laterality 06/06/2021 9:42 PM 9:45 CDT PM CDT Impressions MUSE - 06/06/2021 9:45 PM CDT Normal sinus rhythm Nonspecific T wave abnormality Prolonged QT No previous ECGs available Reviewed by GURWINDER Solis Narrative This result has an attachment that is no t available. Procedure Note Rich Dao M.D. - 06/06/2021Format ting of this note might be different from the original. IMPRESSION: Normal sinus rhythm Nonspecific T wave abnormality Prolonged QT No previous ECGs available Reviewed by GURWINDER Solis Akira Farmer-C. ECG ORDERABLES Performing Organization Address City/State/ZIP Code Phon e Number MUSE MUSE NA documented in this encounter Visit Diagnoses Diagnosis Pain Chest Atypical - Primary documented in this encounter Administered Medications Inactive Administered Medications - up to 3 most recent administrations Medication Order MAR Action Action Date Dose Rate Site lidocaine viscous 2 % 15 mL, Given 06/06/2021 9:52 PM CDT 45 mL alum-mag hydroxide-simeth 30 mL suspension 45 mL, oral, Once, On 06/06/21 at 2151, For 1 dose, Mix ingredients prior to administration documented in this encounter Active and Recently Administered Medications Times are shown in CDT. Scheduled Medication Order 06/05/2021 06/06/2021 06/07/2021 lidocaine viscous 2 % 15 mL, alum-mag hy droxide-simeth 30 mL suspension (COMPLETED) 2151 (Given - Provider: Maribell Roque) 45 mL, oral, Once, On 06/06/21 at 215 1, For 1 dose, Mix ingredients prior to administration documented in this encounter Care Teams Financial Services Professional Relationship Specialty Start Date End Date Elsewhere, Pcp PCP - General Family Medicine 06/07/21 documented as of this encounter
--- OUTSIDE RECORDS SUMMARY | 2022-07-22 11:04 | XMS_ITS | Encounter Summary ---
:1970 Author Organization [facility] Address [address] [place] [address] Care Team Providers Name Role Phone Elsewhere, Pcp Primary Care Provider Unavailable Encounter Details Date Type Department Care Team Description 08/29/2021 Admin Visit Department of Family Terrance Alarcon, Medicine, [facility] in [place], [facility] [address] [facility] [address] [place] [address] [place] [address] [phone] Social History Tobacco Use Types Packs/Day Years [...] documented as of this encounter Care Teams Apartment Assistant Manager Relationship Specialty Start Date End Date Elsewhere, Pcp PCP - General Family Medicine 06/07/21 documented as of this encounter
--- OUTSIDE RECORDS SUMMARY | 2022-07-22 11:04 | XMS_ITS | Encounter Summary ---
:1970 Author Organization [facility] Address [address] [place] [address] Care Team Providers Name Role Phone Unavailable Primary Care Provider Unavailable Reason for Visit Reason Comments COVID Inquiry Encounter Details Date Type Department Care Team Description 10/21/2020 Clinical Communication Central Appointment JEOVANNY Alatorre Office in [facility] [address] [place] [address] Social History Tobacco Use Types Packs/Day Years Used Date Smoking Tobacco: Never Assessed Sex Assigned at Date Recorded Not on file documented as of this encounter Miscellaneous Notes Telephone Encounter - Susana Medrano - 10/21/2020 2:40 PM CST COVID DOS/PASS Screening What is the patient requesting?: COVID-19 Testing Only (End screening - follow local process) Plan: Endpoint recommendation: Testing indicated, sent patient to [facility] located at [address] You must call [phone] for an appointment time. Testing hours are Daily 9 am to 7 pm. When you arrive at the testing site: Remain in your vehicle and check-in by phone using the same appointment line number. and Please avoid using public transportation per CDC recommendation. If you do nothave personal transportation please self-quarantine until a personal transportation option is available. *Reminder if sending patient for testing in T or [facility], an email notification is required. L STAMPER documented in this encounter Plan of Treatment Not on filedocumented as of this encounter Visit Diagnoses Not on filedocumented in this encounter
--- OUTSIDE RECORDS SUMMARY | 2022-07-22 11:04 | XMS_ITS | Clinical Summary ---
:1970 Author Organization [facility] Address [address] [place] [address] Care Team Providers Name Role Phone Elsewhere, Pcp Primary Care Provider Unavailable Source Comments Patient records contain information from all sites at [facility]. For routine questions regarding patient records, call [phone] during business hours, M-F 8:00 AM - 5:00 PM Central Time. Record requests for emergency care only can be directed to [phone] at any time.[facility] Allergies Active Allergy Reactions Severity Noted Date Comments Lisinopril Cough 10/26/2018 Medications Medication Sig Dispensed Refills Start Date End Date Status triamcinolone Apply topically. 0 09/14/2020 Active (KENALOG) 0.1 % cream omeprazole (PriLOSEC) Take 40 mg by 0 05/21/[address] capsule mouth. montelukast Take 10 mg by 0 05/21/2021 Act ryan (SINGULAIR) 10 mg mouth. tablet fluticasone propionate Administer 1 0 05/21/2021 Active (FLONASE) 50 spray into mcg/actuation nasal nostril(s). spray amLODIPine (NORVASC) 5 Take 1 tablet by 0 11/12/2020 Active mg tablet mouth daily. allopurinoL (ZYLOPRIM) Take 1 tablet by 0 10/14/2020 Active 100 mg tablet mouth daily. miscellaneous medical CPAP machine for 0 05/01/2018 Active supply [facility] home use at pressure: 5-20 cms, nasal mask with cushion x 1, humidifier chamber x 1, humidifier x 1 cefdinir (OMNICEF) 300 Take 1 capsule 14 capsule 0 05/29/2022 Active mg capsule (300 mg total) by mouth every 12 (twelve) hours. phenazopyridine Take 1 tablet 6 tablet 0 05/29/2022 Active (PYRIDIUM) 100 mg (100 mg total) by tablet mouth 3 (three) times a day as needed for painful urination. Active Problems Problem Noted Date Apnea Sleep Obstructive 05/29/2022 Pelvic And Perineal Pain 05/29/2022 Polyp Colon 03/03/2022 Overview: Formatting of this note might be differe nt from the original. Colonoscopy 02/2022 2-TA, repeat in 7 yea rs Dyslipidemia NOS 06/16/2021 Overview: Formatting of this note might be differe nt from the original. ASCVD 10 year risk 3.3%. Hyperuricemia 06/16/2021 Overview: Formatting of this note might be differe nt from the original. Patient stopped allopurinol. Anxiety Generalized Disorder 05/23/2021 Chronic Cough 05/23/2021 Gastro-Esophageal Reflux Disease With Esophagitis With out Bleeding 05/23/2021 Hypertension Essential Primary 11/05/2018 Dyspepsia 03/09/2018 Cancer Cervix In Situ (Severe Dysplasia) 05/15/2015 Overview: Formatting of this note might be differe nt from the original. 05/15/2015 LSIL cannot exclude HSIL (no follow up colp noted) 01/11/2019 ASCUS/HPV+ 02/12/2019 Total Hysterectomy, Cervix re moved: NADIRA 2-3 01/20/2020 NIL/HPV negative 06/16/2021 LSIL/HPV+, HPV 16/18 negative 01/18/22 LSIL/HPV+, 16/18 negative. [place]:n ormal, no biopsy taken Provider plan 01/18/22: Pap/HPV due 01/2023 Obesity Body Mass Index 30-39.9 Adult 01/17/2012 Encounters Date Type Specialty Care Team Description 05/29/2022 Emergency Emergency Medicine Domi Barreto A, Nodule Pulmonary (Primary Dx); MATERIALS AND CORROSION ENGINEER, R.N. Lymphadenopathy; Gurwinder Magallanes N, C.N.P. Infectio n Urinary Tract from Last 3 Months Immunizations Name Administration Dates Next Due HepB Adult 06/24/2014, 05/19/2014 Tdap 01/17/2012 influenza vaccine quad (FLUZONE/FLUARIX) (6 months 0 and older)(PF) Social History Tobacco Use Types Packs/Day Years Used Date Smoking Tobacco: Never Sex Assigned at Date Recorded Not on file Last Filed Vital Signs Vital Sign Reading [...] - - Body Mass Index - - Plan of Treatment Health Maintenance Due Date Last Done Comments CT Colonography 1970 Cologuard 1970 HIV Screening 1970 Hepatitis C Screening 1970 Mammogram 1970 Office Visit for Blood 1970 Pressure Check / Re-check Hepatitis B Vaccines (3 of 09/08/2014 06/24/2014, 4 3 - 3-dose series) Zoster Vaccines (1 of 2) 2020 Depression Screening 11/20/2021 (Annual PHQ-2) COVID-19 Vaccine (2 - 03/11/2022 02/11/2022 Moderna series) Influenza Vaccine (#1) 2022 01/20/2020 Lipid (Cholesterol) 06/01/2023 06/01/2022, 06/16/2021, Screening 10/12/2020 Fasting Glucose for 05/29/2025 05/29/2022, 06/06/2021, Diabetes Screening 08/14/2020, Additional history exists Colonoscopy 03/01/2027 03/01/2022 Colorectal Cancer 03/01/2027 Surveillance DTaP,Tdap,and Td Vaccines 06/01/2032 06/01/2022, 01/17/2012 (3 - Td or Tdap) Pneumococcal vaccine (0-64 Aged Out No lo nger eligible years) based on patient 's age to complete this topic Procedures Procedure Name Priority Date/Time Associated Comments Diagnosis CT ABDOMEN PELVIS RAD - Semiurgent 05/29/2022 7:27 Res ults for this WITHOUT IV CONTRAST (Fast; most ED AM CDT proced ure are in patients; some the results inpatients) section. BASIC METABOLIC STAT 05/29/2022 7:15 Results f or this PANEL, S/P AM CDT procedure are i n the results section. CBC WITH STAT 05/29/2022 7:15 Results for this DIFFERENTIAL, B AM CDT procedure ar e in the results section. URINALYSIS WITH STAT 05/29/2022 6:44 Results f or this MICROSCOPIC AM CDT procedure are i n the results section. BACTERIAL CULTURE, STAT 05/29/2022 6:44 Result s for this AEROBIC + SUSC, AM CDT procedure ar e in URINE the results section. from Last [address] Abdomen Pelvis without IV Contrast [...] helpful for further evaluation. Purdy N Magallanes C.NAlex IMG CT PROCEDURES (ABNORMAL) CBC with Differential, Blood (05/29/2022 7:15 AM CDT) [facility] Method Time Signature Hemoglobin 14.6 11.6 [...] Laterality Blood (Blood, 05/29/2022 7:15 AM 05/29/20 22 7:17 Venous) CDT AM CDT Gurwinder CalabreseNAlex LAB BLOOD ADD-ON Performing Organization Address City/State/ZIP Code Phon e Number [facility]- [address] [place] [address] [place] [address] [facility] [place] [address] System [address] (ABNORMAL) Basic Metabolic Panel (05/29/2022 7:15 AM [...] CDT eGFR-Black/Afri >90 >=60 05/29/2022 CNFL can [place] mL/min/BSA 7:36 AM CDT Comment: ----ADDITIONAL INFORMATION---- [...] 7:17 Venous) CDT AM CDT Gurwinder Magallanes C.N.P. LAB BLOOD ADD-ON Performing Organization Address City/State/ZIP Code Phon e Number [facility]- [address] [place] [phone] [facility] [address] System in [address] (ABNORMAL) Bacterial Culture, Aerobic + Susc, Urine (05/29/2022 6:44 AM CDT) Patholo gist Method Time Signature Urine Culture ESCHERICHIA [...] >=320 mcg/m L: Sulfamethoxazole (MCG/ML) Resistant Gurwinder Magallanes C.N.P. LAB MICROBIOLOGY - GENERAL O RDERABLES Performing Organization Address City/State/ZIP Code Phon e Number [facility]- [address] [place] [phone] [place] [address] System in [address] (ABNORMAL) Urinalysis with Microscopic: Urine, Midstream (05/29/2022 6:44 AM CDT) Analysis Performed At [facility] Time Signature Source Urine, Urine, 05/29/2022 CNFL [...] 8.0 05/29/2022 7:24 AM CDT CNFL Specific [place] 1.010 1.001 - 1.035 05/29/2022 7:24 AM [...] Laterality Urine (Urine, 05/29/2022 6:44 AM 05/29/20 22 6:57 Midstream) CDT AM CDT Domi Barreto APRN, R.N. LAB URINE ORDERABLES Performing Organization Address City/State/ZIP Code Phon e Number [facility]- [address] [place] [phone] [facility] [place] [address] [address] from Last 3 Months Insurance Payer Benefit Plan / Subscriber ID Effective Phone Address T ype Group Dates [facility] [id number] 2022-Prese [address] Medicaid [place] [place] [address] [place] [address] [place] [address] Care Teams Junior Project Coordinator Relationship Specialty Start Date End Date Elsewhere, Pcp PCP - General Family Medicine 06/07/21
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
--- OUTSIDE RECORDS SUMMARY | 2022-07-22 11:04 | XMS_ITS | Encounter Summary ---
:1970 Author Organization [facility] Address [address] [place] [address] Care Team Providers Name Role Phone Unavailable Primary Care Provider Unavailable Encounter Details Date Type Department Care Team Description 03/17/2021 Orders Only [facility] PCP [facility] Sa cliff Taveras M.D. [address] [place], [place] [phone] (Wo rk) Social History Tobacco Use Types Packs/Day Years Used Date Smoking Tobacco: Never Assessed Sex Assigned at Date Recorded Not on file documented as of this encounter Plan of Treatment Not on filedocumented as of this encounter Visit Diagnoses Not on filedocumented in this encounter
--- OUTSIDE RECORDS SUMMARY | 2022-07-22 11:04 | XMS_ITS | Encounter Summary ---
:1970 Author Organization [facility] Address [address] [place] [address] Care Team Providers Name Role Phone Unavailable Primary Care Provider Unavailable Encounter Details Date Type Department Care Team Description 11/27/2017 Abstract Department of Family Medicine, Provider, Historical [facility], in [address] [address] Social History Tobacco Use Types Packs/Day Years Used Date Smoking Tobacco: Never Assessed Sex Assigned at Date Recorded Not on file documented as of this encounter Plan of Treatment Not on filedocumented as of this encounter Visit Diagnoses Not on filedocumented in this encounter
--- OUTSIDE RECORDS SUMMARY | 2022-07-22 11:04 | XMS_ITS | Encounter Summary ---
:[address] [facility] Address [address] [place] [address] Care Team Providers Name Role Phone Unavailable Primary Care Provider Unavailable Encounter Details Date Type Department Care Team Description 03/25/2008 Hospital Encounter HX NO MAPPING Twin Whitten M.D. Social History Tobacco Use Types Packs/Day Years Used Date Smoking Tobacco: Never Assessed Sex Assigned at Date Recorded Not on file documented as of this encounter Progress Notes Twin Whitten M.D. - 03/25/2008 12:00 [place] [address] Name: KARIN GARCIA MR#: [id number] : [birth year] Dictating Provider: Twin Whitten Serv Date: 03/25/08 CLINIC NOTE S: She is a 37-year-old female who presents to the clinic in care of left ear plugging. No pain, positive decreased hearing. No fevers. No chills. No difficulty swallowing or sore throat. PAST MEDICAL HISTORY: Unremarkable. MEDICATIONS: Currently amoxicillin for sinusitis. ALLERGIES: No allergies to medications. No tobacco use. O: She is alert and in no acute distress. Blood pressure 120/82. Pulse 68. Respiratory rate is at 20. Temperature of 36.6. Weight of 96.8. Examination of the right ear is unremarkable. Left ear shows cerumen impaction. Ear wash was performed with a large piece of cerumen extracted. A: LEFT SIDED CERUMEN IMPACTION WITH EAR WASH. P: Standard post procedure care. Follow up as needed. Twin Whitten MD /sabino Authenticated by Twin Whitten MD on 03/31/2008 10:49:05 Authorized physician signature on file Doc#: [id number] [facility] NAME: KARIN GARCIA [facility] MR#: [id number] [place] [address] : 1970 PHYSICIAN: Twin Whitten MD VISIT DATE: 03/25/2008 CLINIC PROGRESS NOTE [facility] Name: KARIN GARCIA [facility] PROGRESS NOTE Source: [facility] ISJHXDICTAPHONESYS Document Id: [id number] Electronically signed by Conversion, [facility] Outdoor Advertising Leasing Agent [id number] at 04/24/2017 5:20 AM CDT documented in this encounter Plan of Treatment Not on filedocumented as of this encounter Visit Diagnoses Not on filedocumented in this encounter
--- OUTSIDE RECORDS SUMMARY | 2022-07-22 11:04 | XMS_ITS | Encounter Summary ---
:1970 Author Organization [facility] Address [address] [place] [address] Care Team Providers Name Role Phone Unavailable Primary Care Provider Unavailable Encounter Details Date Type Department Care Team Description 08/06/2007 Hospital Encounter HX NO MAPPING Bennett Cowan, P.A.-C. [address] [place] [phone] (Wo rk) Social History Tobacco Use Types Packs/Day Years Used Date Smoking Tobacco: Never Assessed Sex Assigned at Date Recorded Not on file documented as of this encounter Plan of Treatment Not on filedocumented as of this encounter Visit Diagnoses Not on filedocumented in this encounter
--- OUTSIDE RECORDS SUMMARY | 2022-07-22 11:04 | XMS_ITS | Encounter Summary ---
:1970 Author Organization [facility] Address [address] [place] [address] Care Team Providers Name Role Phone Unavailable Primary Care Provider Unavailable Encounter Details Date Type Department Care Team Description 11/23/2017 Nurse Triage Department of Abi Alexander, Medicine, [facility], R.N. in [place], [place] [address] [place] [address] Social History Tobacco Use Types Packs/Day Years Used Date Smoking Tobacco: Never Assessed Sex Assigned at Date Recorded Not on file documented as of this encounter Plan of Treatment Not on filedocumented as of this encounter Visit Diagnoses Not on filedocumented in this encounter
== END 2022-07-22 11:02 | disposition home or self-care (01) ==
PROVIDERS: PCP Nurse Practitioner Family; Visit Provider Nurse Practitioner Family
DX: R01.1 Cardiac murmur, unspecified (principal); I51.7 Cardiomegaly; I34.0 Nonrheumatic mitral (valve) insufficiency
CPT/HCPCS: 93306

== ENCOUNTER 2022-10-10 10:54 | Outpatient (CLI) | payer OTHER, SELFPAY ==
--- OUTSIDE RECORDS SUMMARY | 2022-10-10 10:56 | XMS_ITS | Encounter Summary ---
:1970 Author Organization [facility] Address [address] [place] [address] Care Team Providers Name Role Phone Elsewhere, Pcp Primary Care Provider Unavailable Reason for Visit Reason Comments Dysuria Encounter Details Date Type Department Care Team Description 05/29/2022 Emergency [place] [facility] de Domi Lindsey APRN, C.N.P., R.N. [address] [place] [address] Nodule Pulmonary (Primary Dx); Department Gurwinder Magallanes, C.N.P. [address] [place] [address] Lymphadenopathy; [address] [place] [address] BLVD [place] [phone] Social History Tobacco Use Types Packs/Day Years [...] through Care Everywhere. Urinary Tract Infection Adult Veew-fg-Twqa (Kazakh)Lymphadenopathy (Kazakh) What is a Lung Nodule? (Kazakh)documented in this encounter Medications at Time of [...] CPAP machine for 0 05/01/20 18 supply [facility] use at pressure: 5-20 cms, nasal [...] left flank that she described as dull, /10. Pain has not relief. She denies any [...] QI(U) Negative Bilirubin Negative pH 7.0 Specific [place] 1.010 Urobilinogen 0.2 White Blood Cells 21-30 [...] kg SpO2 95% ED Course as of 05/29/22 0812 Sun May 29, 2022 07 Bacteria(!): Present 727 White Blood Cell Count(!): 11.6 0728 Leukocyte [...] Magallanes, C.N.P. 05/29/22 0804 Gurwinder Magallanes, C.N.P. 05/29/22 0812 Gurwinder Magallanes, C.N.P. 05/29/22 0816 Domi Calles [...] pending. Transfer of care to Gurwinder Magallanes SANITARIAN AIDE for continued evaluation and treatment. Domi Calles APRN, RDelN. 05/29/22 07 Jaden Leon R.N. - 05/29/2022 6:31 AM CDT C/O burning, ugency and frequency with urination. Associated symptoms of left flank pain and scant hematuria. Onset . Jaden Leon R.N. 05/29/22 0633 documented in this encounter Plan of Treatment [...] CDT eGFR-Black/Afri >90 >=60 05/29/2022 CNFL can Kenyan mL/min/BSA 7:36 AM CDT Comment: ----ADDITIONAL INFORMATION---- [...] C.N.P. LAB BLOOD ADD-ON Performing Organization Address City/State/[facility] Code Phon e Number [address] [place] [address] System in [address] (ABNORMAL) CBC with Differential, Blood (05/29/2022 7:15 AM CDT) [facility] Method Time Signature Hemoglobin 14.6 11.6 [...] 22 7:17 Venous) CDT AM CDT Gurwinder N Magallanes C.N.P. LAB BLOOD ADD-ON Performing Organization Address City/State/ZIP Code Phon e Number [address] [address] [place] [address] System in [address] (ABNORMAL) Bacterial Culture, Aerobic + Susc, Urine (05/29/2022 6:44 AM CDT) [facility] gist Method Time Signature Urine Culture ESCHERICHIA COLI 05/31/2022 ECLR 10,000-100,000 cfu/mL 7:27 AM CDT (A) Specimen Anatomical Collection Method Collection Time Receive d Time (Source) Location / / Volume Laterality Urine (Urine, 05/29/2022 6:44 AM 05/29/20 22 9:27 Midstream) CDT PM CDT Comment: Specimen [...] >=320 mcg/m L: Sulfamethoxazole (MCG/ML) Resistant Gurwinder Faustin.N.PDel LAB MICROBIOLOGY - GENERAL O RDERABLES Performing Organization Address City/State/ZIP Code Phon e Number [facility]- [address] [place] [address] [phone] [facility] [place] [address] System [address] (ABNORMAL) Urinalysis with Microscopic: Urine, Midstream (05/29/2022 6:44 AM CDT) [facility] Source Urine, Urine, 05/29/2022 CNFL [...] 8.0 05/29/2022 7:24 AM CDT CNFL Specific [place] 1.010 1.001 - 1.035 05/29/2022 7:24 AM [...] 6:57 Midstream) CDT AM CDT Domi Calles APRN CDelN.P., R.N. LAB URINE ORDER POORNIMA Performing Organization Address City/State/ZIP Code Phon e Number [address] [address] [place] [address] System in [address] documented in this encounter Visit Diagnoses [...] IV. documented in this encounter Care Teams Crop And Soil Scientist Relationship Specialty Start Date End Date Elsewhere, Pcp PCP - General Family Medicine 06/07/21 documented as of this encounter
--- OUTSIDE RECORDS SUMMARY | 2022-10-10 10:56 | XMS_ITS | Clinical Summary ---
:1970 Author Organization [facility] Address [address] [place] [address] Care Team Providers Name Role Phone Elsewhere, Pcp Primary Care Provider Unavailable Source Comments Patient records contain information from all sites at [facility]. For routine questions regarding patient records, call [phone] during business hours, M-F 8:00 AM - 5:00 PM Central Time. Record requests for emergency care only can be directed to [phone] at any time.[facility] Allergies Active Allergy Reactions Severity Noted [...] CPAP machine for 0 05/01/2018 Active supply misc home use at pressure: 5-20 cms, nasal [...] HPV 16/18 negative 01/18/22 LSIL/HPV+, 16/18 negative. [place]:n ormal, no biopsy taken Provider plan 01/18/22: Pap/HPV due 01/2023 Obesity Body Mass Index 30-39.9 Adult 01/17/2012 Immunizations Name Administration Dates Next Due HepB [...] / Re-check Hepatitis B Vaccines (3 of 11/24/2014 06/24/2014, 4 3 - 19+ 3-dose series) Zoster Vaccines (1 of 2) 2020 Depression Screening 11/20/2021 (Annual PHQ-2) COVID-19 Vaccine (2 - 03/11/2022 02/11/2022 Moderna series) Influenza Vaccine (#1) 2022 01/20/2020 Lipid (Cholesterol) 06/01/2023 06/01/2022, 06/16/2021, Screening 10/12/2020 Fasting Glucose for 05/29/2025 05/29/2022, 06/06/2021, Diabetes Screening 08/14/2020, Additional history exists Colonoscopy 03/01/2027 03/01/2022 Colorectal Cancer 03/01/2027 Surveillance DTaP,Tdap,and Td Vaccines 06/01/2032 06/01/2022, 01/17/2012 (3 - Td or Tdap) Cervical Cancer Screening Discontinued 06/16/2021 Pneumococcal vaccine (0-64 Aged Out No lo nger eligible years) based on patient 's age to complete this topic Insurance Payer Benefit Plan / Subscriber ID Effective Phone Address T ype Group Dates [facility] [id number] 2022-Prese [address] Medicaid [place] [address] [place] [id number] [place] [id number] Care Teams Iron Miner Blasting Relationship Specialty Start Date End Date Elsewhere, Pcp PCP - General Family Medicine 06/07/21
--- OUTSIDE RECORDS SUMMARY | 2022-10-10 10:56 | XMS_ITS | Encounter Summary ---
:1970 Author Organization [facility] Address [address] [place] [address] Care Team Providers Name Role Phone Elsewhere, Pcp Primary Care Provider Unavailable Reason for Visit Reason Onset Date Comments Testing For Upper Respiratory Virus Symptoms 08/29/2021 Encounter Details Date Type Department Care Team Description 08/29/2021 External Outreach Department of [facility] Michael Alarcon ntact With And MedicineTerrance, (Suspected) Exp osure Professional and P.A.-C. To COVID-19 ([facility] in [address] [place] [address] lvd Dx) [place], [place] [address] [address] [place], [place] [phone] [address] (Work) [phone] Social History Tobacco Use Types Packs/Day Years Used Date Smoking Tobacco: Never Sex Assigned at Date Recorded Not on file documented as of this encounter Progress Notes Maria Del Carmen Alexander RYolande. - 08/29/2021 10:17 AM CDT Encounter created for symptomatic infectious disease screening with possible COVID, Influenza, RSV, and/or Group A Strep testing. documented in this encounter Miscellaneous Notes Result Encounter Note - Dylan Chand R.N. - 08/31/2021 7:57 AM CDT The patient will be contacted if they are eligible for Monoclonal Antibody Infusion (MASS 1 or greater) and/or Remote Patient Monitoring (MASS 3 or greater). The [place] Covid Care Team (MWCCT) sends general guidance about COVID-19 to all patients by letter or portal, except when a patient is hospitalized or resides in a fpc. [facility] will call all adult patients at highest risk for severe complications of COVID-19 (MASS 3 or greater), those without an online services account, and those who require an point of care technician. Any patient with a MASS score 1 or greater or a COVID-19 score 1 or greater may be at higher risk ofsevere disease. These patients will follow up directly with primary care. The primary care team willdecide if the patient needs a phone call or a follow up portal message to assess symptom severity, provide individualized guidance on symptom monitoring or symptom management, or to reinforce when to se ek care. [facility] encourages patients to follow up with their PCP with questions, worsening symptoms, or for symptom management. For questions, contact the [place] Covid Care Team ([facility]): Pager: [phone] In basket: P RST/[facility] COVID-19 POSITIVE Covid Care e-consult Components of the Monoclonal Antibody Selection Score (MASS) Compromised Immune System/Transplant = 4 points Chronic Kidney Disease on Dialysis = 4 points Age greater than or equal to 55 and chronic pulmonary disease = 3 points Age greater than or equal to 65 = 2 points Age greater than or equal to = 2 points Diabetes = 2 points Age greater than or equal to 55 AND cardiovascular disease = 2 points Age greater than or equal to 55 and hypertension = 1 point NOTE: At the time of testing, patients are instructed to obtain the result by calling the [facility] result line or by checking the online services account. documented in this encounter Plan of Treatment Not on filedocumented as of this encounter Procedures Procedure Name Priority Date/Time Associated Diagnosis Comme nts SARS CORONAVIRUS-2 Routine 08/29/2021 12:20 PM Contact With An d Results for this RNA, V CDT (Suspected) Exposure procedu re are in To COVID-19 the results section. documented in this encounter Results (ABNORMAL) SARS Coronavirus-2 RNA, V Symptomatic (08/29/2021 12:20 PM CDT) [facility] Method Time Signature SARS-CoV-2 Swab, 08/30/2021 ECLR Specimen Nasopharynx 10:03 PM Source CDT SARS CoV-2 Detected (A) Undetected 08/30/2021 ECLR RNA, TMA 10:03 PM CDT Comment: SARS-CoV-2 RNA present. ----ADDITIONAL INFORMATION---- This molecular amplification test was pe rformed using the Aptima SARS-CoV-2 assay ([employer] on the [employer] tem under emergency use authorization (EUA) by the U.S. Food and Drug Administ ration. Fact sheets for this EUA assay can be fo und at the following links: For Healthcare Providers: https://www.[employer] a.gov/media/625764/download For Patients: https://www.fda.gov/media/ 129872/download Specimen Anatomical Collection Method Collection Time Receive d Time (Source) Location / / Volume Laterality Varies 08/29/2021 12:20 08/29/2021 3:13 (Nasopharynx) PM CDT PM CDT Terrance Alarcon P.A.-C. LAB MICROBIOLOGY - GENERAL O RDERABLES Performing Organization Address City/State/ZIP Code Phon e Number [facility]- [address] [place] [phone] [facility] [place] [address] System [address] documented in this encounter Visit Diagnoses Diagnosis Contact With And (Suspected) Exposure To COVID-19 - Primary documented in this encounter Additional Health Concerns Infection Onset Date Last Indicated Resolved Time COVID19 Pending 08/29/2021 08/29/2021 08/30/2021 10:03 PM CDT documented as of this encounter Care Teams Multifocal Button Inspector Relationship Specialty Start Date End Date Elsewhere, Pcp PCP - General Family Medicine 06/07/21 documented as of this encounter
--- OUTSIDE RECORDS SUMMARY | 2022-10-10 10:57 | XMS_ITS | Encounter Summary ---
:[address] [facility] Address [address] [place] [address] Care Team Providers Name Role Phone Unavailable Primary Care Provider Unavailable Encounter Details Date Type Department Care Team Description 11/27/2017 Abstract Department of Family Medicine, Provider, Historical [facility], in [address] [address] Social History Tobacco Use Types Packs/Day Years Used Date Smoking Tobacco: Never Assessed Sex Assigned at Date Recorded Not on file documented as of this encounter Plan of Treatment Not on filedocumented as of this encounter Visit Diagnoses Not on filedocumented in this encounter
--- OUTSIDE RECORDS SUMMARY | 2022-10-10 10:57 | XMS_ITS | Encounter Summary ---
:1970 Author Organization [facility] Address [address] [place] [address] Care Team Providers Name Role Phone Unavailable [...] Wood M.D. - 03/06/2007 12:00 [place] [address] Name: KARIN DOMINGUEZ MR#: [id number] : 70 Dictating Provider: Reyes Wood MD [...] scan of the head. Reyes Wood MD /[facility] Authenticated by Reyes Wood MD on 03/11/2007 10:09:01 Authorized physician signature on file [facility] NAME: KARIN DOMINGUEZ [facility] MR#: [id number] [place] [id number] : 1970 PHYSICIAN: Reyes Wood MD VISIT DATE: 03/06/2007 CLINIC PROGRESS NOTE [facility] Name: KARIN DOMINGUEZ [facility] PROGRESS NOTE Source: [facility] ISJHXDICTAPHONESYS Document Id: [id number] documented in this encounter Plan of Treatment Not on filedocumented as of this encounter Visit Diagnoses Not on filedocumented in this encounter
--- OUTSIDE RECORDS SUMMARY | 2022-10-10 10:57 | XMS_ITS | Encounter Summary ---
:1970 Author Organization [facility] Address [address] [place] [address] Care Team Providers Name Role Phone Elsewhere, Pcp Primary Care Provider Unavailable Reason for Visit Reason Comments Chest Pain Pt presents to ED with left sided chest pain that started 06/03/21. Encounter Details Date Type Department Care Team Description 06/06/2021 - Emergency [place] [facility] Akira Brice Pain Chest Atypical 06/07/2021 Emergency Department E, P.A.-C. (Primary Dx) [address] [place] [address] [address], [place] [phone] Social History Tobacco Use Types Packs/Day Years [...] through Care Everywhere. Nonspecific Chest Pain Adult (Japanese)documented in this encounter Medications at Time of [...] 20 (!) 186/113 96 % Pain Score 06/06/21 2141 1 PHYSICAL EXAMINATION Constitutional: Nursing note and [...] Family Medicine Jun 13, 2021 (Approximate) [facility] contact you to schedule an appointment. Region: [facility] ED Visit F/U Specialty?: Family Medicine [...] surgery upon return Contact Information for Follow-ups [place] [facility] Specialty: Emergency Medicine [address] [place] [phone] Next Steps: Follow up Primary Care Provider [...] 2H/6H, 5th Gen (06/06/2021 11:52 PM CDT) athologist Signature Troponin T, 2 <6 <=10 ng/L 06/07/2021 CNFL hr, 5th gen 12:15 AM CDT Comment: Biotin has been identified by the teetee reaves as a potential interfering substance. ??Higher concentr ations of biotin may be found in multivitamins, hair/nail supple ments, and workout supplements. ??If the result does not [facility] clinical observations, repeat testing after patient refrains fr om the use of supplements for at least 12 hours. 2H Delta 0 ng/L 06/07/2021 12:15 AM CDT CNFL 2H Delta Interp Not Changing 06/07/2021 12:15 AM C DT CNFL Troponin T, 6 hr, 5th gen CANCELED ng/L 06/07/2021 12: 15 AM CDT CNFL Comment: Result canceled by the jesus yDel Specimen Anatomical Collection Method Collection Time Receive d Time (Source) Location / / Volume Laterality Blood (Blood, 06/06/2021 11:52 06/06/2021 Venous) PM CDT 11:54 PM CDT Narrative [facility] - 06/07/2021 12:15 AM CDT Specimen Information: Specimen ID: [id number] Specimen Type: Blood Specimen Collection Start Date: 06/06/20 11:52 PM Specimen Received Date: 06/06/2021 11:54 PM Specimen ID: [id number] Specimen Type: Blood Akira Brice P.A.-C. LAB BLOOD TROPONIN Performing Organization Address City/State/ZIP Code Phon e Number [facility]- [address] [place] [address] [place] [address] System [address] DX Chest Portable 1 View (06/06/2021 [...] size and pulmonary vascularity. Akira Brice P.A.-C. [facility] EDURES Troponin T, Baseline, [...] supplements. ??If the result does not [facility] clinical observations, repeat testing after patient refrains fr om the use of supplements for at least 12 hours. Specimen Anatomical Collection Method Collection Time Receive d Time (Source) Location / / Volume Laterality Blood (Blood, 06/06/2021 9:48 PM 06/06/20 9:53 Venous) CDT PM CDT Akira Brice P.A.-C. LAB BLOOD TROPONIN Performing Organization Address City/State/[facility] Code Phon e Number [address] [address] [place] [address] (ABNORMAL) CBC with Differential, Blood (06/06/2021 9:48 PM CDT) [facility] Method Time Signature Hemoglobin 13.2 11.6 [...] Organization Address City/State/ZIP Code Phon e Number [facility]- [address] [place] [address] [place] [address] System in [address] (ABNORMAL) Comprehensive Metabolic Panel (06/06/2021 9:48 [...] CDT eGFR-Black/Afri 72 >=60 06/06/2021 CNFL can Luxembourger mL/min/BSA 10:24 PM CDT Comment: ----ADDITIONAL INFORMATION---- [...] Organization Address City/State/ZIP Code Phon e Number [facility]- [address] [place] [address] [place] [address] System in [place] [address] Bl Lipase (06/06/2021 9:48 PM CDT) P athologist Signature Lipase, P 45 13 - 60 U/L 06/06/2021 [facility] 10:24 PM CDT Specimen Anatomical Collection Method Collection Time Receive d Time (Source) Location / / Volume Laterality Blood (Blood, 06/06/2021 9:48 PM 06/06/20 9:54 Venous) CDT PM CDT Akira Brice P.A.-C. LAB BLOOD ADD-ON Performing Organization Address City/State/ZIP Code Phon e Number [facility]- [address] [place] [address] [place] [address] System [address] ECG 12 Lead (06/06/2021 9:42 PM CDT) P athologist Signature Ventricular Rate 87 BPM MUSE ECG/Min SC Interval 186 ms MUSE QRSD Interval 84 ms MUSE QT Interval 420 ms MUSE QTC Interval 505 ms MUSE P [place] 27 degrees MUSE R [place] -3 degrees MUSE T Wave [place] 2 degrees MUSE Specimen Anatomical Collection Method [...] ECGs available Reviewed by GURWINDER Solis Akira WildADel-C. ECG ORDERABLES Performing Organization Address City/State/ZIP Code [...] administration documented in this encounter Care Teams Excellence Consultant Relationship Specialty Start Date End Date Elsewhere, Pcp PCP - General Family Medicine 06/07/21 documented as of this encounter
--- OUTSIDE RECORDS SUMMARY | 2022-10-10 10:57 | XMS_ITS | Encounter Summary ---
:1970 Author Organization [facility] Address [address] [place] [address] Care Team Providers Name Role Phone Unavailable Primary Care Provider Unavailable Encounter Details Date Type Department Care Team Description 09/07/2006 Hospital Encounter [facility] RADIOLOGY Humera Wood M.D. Social History Tobacco Use Types Packs/Day Years Used Date Smoking Tobacco: Never Assessed Sex Assigned at Date Recorded Not on file documented as of this encounter Plan of Treatment Not on filedocumented as of this encounter Visit Diagnoses Not on filedocumented in this encounter
--- OUTSIDE RECORDS SUMMARY | 2022-10-10 10:57 | XMS_ITS | Encounter Summary ---
:1970 Author Organization [facility] Address [address] [place] [address] Care Team Providers Name Role Phone Unavailable Primary Care Provider Unavailable Encounter Details Date Type Department Care Team Description 11/14/2018 Hospital Encounter Department of Tracey Callahan Admin istrative Purpose Laboratory Medicine E, P.A.-C. Exam in [address] [address] [facility] [phone] [place], [place] (Work) [phone] Social History Tobacco Use Types Packs/Day Years Used Date Smoking Tobacco: Never Assessed Sex Assigned at Date Recorded Not on file documented as of this encounter Medications at Time of Discharge Medication Sig Dispensed Refills Start Date End Date miscellaneous medical CPAP machine for home 0 10/2018 supply misc use at pressure: 5-20 cms, nasal mask with cushion x 1, humidifier chamber x 1, humidifier x 1 documented as of this encounter Plan of Treatment Not on filedocumented as of this encounter Visit Diagnoses Diagnosis Administrative Purpose Exam documented in this encounter
--- OUTSIDE RECORDS SUMMARY | 2022-10-10 10:57 | XMS_ITS | Encounter Summary ---
:1970 Author Organization [facility] Address [address] [place] [address] Care Team Providers Name Role Phone Elsewhere, Pcp Primary Care Provider Unavailable Encounter Details Date Type Department Care Team Description 08/29/2021 Admin Visit Department of Family Terrance Alarcon, Medicine, [facility] in [place], [facility] [address] [facility] [address] [place] [address] [place] [address] [phone] Social History Tobacco Use Types Packs/Day Years [...] documented as of this encounter Care Teams Route Rider Supervisor Relationship Specialty Start Date End Date Elsewhere, Pcp PCP - General Family Medicine 06/07/21 documented as of this encounter
--- OUTSIDE RECORDS SUMMARY | 2022-10-10 10:57 | XMS_ITS | Encounter Summary ---
:1970 Author Organization [facility] Address [address] [place] [address] Care Team Providers Name Role Phone Unavailable Primary Care Provider Unavailable Reason for Visit Reason Onset Date Comments Outpatient COVID-19 Testing 10/21/2020 Encounter Details Date Type Department Care Team Description 10/21/2020 External Outreach Department of Clau Nguyen Infection [facility] Medicine, [place] Sameera Fregoso Respiratory (Primary Clinic, in [place], [address] D[address]) [place], [place] [address] [address] [place], [place] [phone] (Work) [phone] Social History Tobacco Use Types Packs/Day Years Used Date Smoking Tobacco: Never Assessed Sex Assigned at Date Recorded Not on file documented as of this encounter Progress Notes Jose Elias Canela RYolande. - 10/21/2020 2:45 PM CST Encounter created for the drive-through COVID-19 testing. MARKER documented in this encounter Plan of Treatment Not on filedocumented as of this encounter Procedures Procedure Name Priority Date/Time Associated Diagnosis Comme nts SARS CORONAVIRUS-2 Routine 10/21/2020 2:49 PM Infection Upper Results for this RNA, V ROAD MARKER Respiratory procedure are i n the results section. documented in this encounter Results SARS Coronavirus-2 RNA, V Symptomatic (10/21/2020 2:[address]) [facility] Method Time Signature SARS-CoV-2 Swab, 10/22/2020 ECLR Specimen Nasopharynx 12:[address] MARKER SARS CoV-2 Undetected Undetected 10/22/2020 ECLR RNA, TMA 12:[address] MARK[address] Comment: SARS-CoV-2 RNA absent. This result does not rule out COVID-19 in the patient, as the sensitivity of the test depends o n the timing of the specimen collection and the quality of the specim en. Result should be correlated with patient's history and clinical presentat ion. ----ADDITIONAL INFORMATION---- This test is performed using the Aptima SARS-CoV-2 assay ([employer] which has received Emergency Use Authori zation (EUA) by the U.S. Food and Drug Administration. Fact sheets for this Emergency Use Autho rization (EUA) assay can be found at the following links: For Healthcare Providers: https://www.Yassets a.gov/media/779314/download For Patients: https://www.fda.gov/media/ 868099/download Specimen Anatomical Collection Method Collection Time Receive d Time (Source) Location / / Volume Laterality Varies 10/21/2020 2:49 PM 0 9:56 (Nasopharynx) ROAD MARKER PM ROAD MARKER Terrance Alarcon P.A.-C. LAB MICROBIOLOGY - GENERAL O RDERABLES Performing Organization Address City/State/ZIP Code Phon e Number [facility]- [address] [place] [address] 10 [address] [facility] [place] [address] [address] documented in this encounter Visit Diagnoses Diagnosis Infection Upper Respiratory - Primary documented in this encounter Additional Health Concerns Infection Onset Date Last Indicated Resolved Time COVID19 Pending 10/21/2020 10/21/2020 10/22/2020 12:[address] MARKER documented as of this encounter
--- OUTSIDE RECORDS SUMMARY | 2022-10-10 10:57 | XMS_ITS | Encounter Summary ---
:1970 Author Organization [facility] Address [address] [place] [address] Care Team Providers Name Role Phone Unavailable Primary Care Provider Unavailable Encounter Details Date Type Department Care Team Description 03/25/2008 Hospital Encounter HX NO MAPPING Tiwn Whitten M.D. Social History Tobacco Use Types Packs/Day Years Used Date Smoking Tobacco: Never Assessed Sex Assigned at Date Recorded Not on file documented as of this encounter Progress Notes Twin Whitten M.D. - 03/25/2008 12:00 [place] [address] Name: KARIN GARCIA MR#: [id number] : [birth year] Dictating Provider: Twin Whitten Serv [...] 10:49:05 Authorized physician signature on file Doc#: [id number] [facility] NAME: KARIN GARCIA [facility] MR#: [id number] [place] [address] : 1970 PHYSICIAN: Twin Whitten MD VISIT DATE: 03/25/2008 CLINIC PROGRESS NOTE [facility] Name: KARIN GARCIA [facility] PROGRESS NOTE Source: [facility] ISJHXDICTAPHONESYS Document Id: [id number] Electronically signed by Conversion, [facility] Brass Finisher [id number] at 04/24/2017 5:20 AM CDT documented in this encounter Plan of Treatment Not on filedocumented as of this encounter Visit Diagnoses Not on filedocumented in this encounter
--- OUTSIDE RECORDS SUMMARY | 2022-10-10 10:57 | XMS_ITS | Encounter Summary ---
:1970 Author Organization [facility] Address [address] [place] [address] Care Team Providers Name Role Phone Unavailable Primary Care Provider Unavailable Encounter Details Date Type Department Care Team Description 03/17/2021 Orders Only [facility] PCP [facility] Sa cliff Taveras M.D. [address] [place], [place] [phone] (Wo rk) Social History Tobacco Use Types Packs/Day Years Used Date Smoking Tobacco: Never Assessed Sex Assigned at Date Recorded Not on file documented as of this encounter Plan of Treatment Not on filedocumented as of this encounter Visit Diagnoses Not on filedocumented in this encounter
--- OUTSIDE RECORDS SUMMARY | 2022-10-10 10:57 | XMS_ITS | Encounter Summary ---
:1970 Author Organization [facility] Address [address] [place] [address] Care Team Providers Name Role Phone Unavailable Primary Care Provider Unavailable Encounter Details Date Type Department Care Team Description 01/13/2006 Hospital Encounter HX [facility] Provider, Historic al Social History Tobacco Use Types Packs/Day Years Used Date Smoking Tobacco: Never Assessed Sex Assigned at Date Recorded Not on file documented as of this encounter Plan of Treatment Not on filedocumented as of this encounter Visit Diagnoses Not on filedocumented in this encounter
--- OUTSIDE RECORDS SUMMARY | 2022-10-10 10:57 | XMS_ITS | Encounter Summary ---
:1970 Author Organization [facility] Address [address] [place] [address] Care Team Providers Name Role Phone Elsewhere, Pcp Primary Care Provider Unavailable Encounter Details Date Type Department Care Team Description 06/08/2021 Clinical Communication Department of Family [facility], Pcp Medicine, [facility] [place], in [address] [phone] Social History Tobacco Use Types Packs/Day Years Used Date Smoking Tobacco: Never Sex Assigned at Date Recorded Not on file documented as of this encounter Miscellaneous Notes Telephone Encounter - Morena Molina - 06/08/2021 8:29 AM CDT Jovani KarinChristiana Steele Pieter E, P.A.-C. has put in a [...] the phone between 7 am-6 pm, Monday-Monday. [place]: [phone] [place]: [phone] [place]: [phone] [place]: [phone] [place]: [phone] [place]: [phone] [facility]: [phone] [place], [place], or [facility]: [phone] [place]:[phone] [place]: [phone] Thank you for trusting your health care to [facility]. documented in this encounter Plan of Treatment Not on filedocumented as of this encounter Visit Diagnoses Not on filedocumented in this encounter Care Teams Flight Coordinator Relationship Specialty Start Date End Date Elsewhere, Pcp PCP - General Family Medicine 06/07/21 documented as of this encounter
--- OUTSIDE RECORDS SUMMARY | 2022-10-10 10:57 | XMS_ITS | Encounter Summary ---
:1970 Author Organization [facility] Address [address] [place] [address] Care Team Providers Name Role Phone Unavailable [...]
--- OUTSIDE RECORDS SUMMARY | 2022-10-10 10:57 | XMS_ITS | Encounter Summary ---
:1970 Author Organization [facility] Address [address] [place] [address] Care Team Providers Name Role Phone Unavailable Primary Care Provider Unavailable Encounter Details Date Type Department Care Team Description 11/23/2017 Nurse Triage Department of Abi Alexander Medicine, [facility] in [place], [place] [address] [place] [address] Social History Tobacco Use Types Packs/Day Years Used Date Smoking Tobacco: Never Assessed Sex Assigned at Date Recorded Not on file documented as of this encounter Plan of Treatment Not on filedocumented as of this encounter Visit Diagnoses Not on filedocumented in this encounter
--- OUTSIDE RECORDS SUMMARY | 2022-10-10 10:57 | XMS_ITS | Encounter Summary ---
:1970 Author Organization [facility] Address [address] [place] [address] Care Team Providers Name Role Phone Unavailable Primary Care Provider Unavailable Encounter Details Date Type Department Care Team Description 03/02/2006 Hospital Encounter HX [facility] [address], M.D. Social History Tobacco Use Types Packs/Day Years Used Date Smoking Tobacco: Never Assessed Sex Assigned at Date Recorded Not on file documented as of this encounter Plan of Treatment Not on filedocumented as of this encounter Visit Diagnoses Not on filedocumented in this encounter
--- OUTSIDE RECORDS SUMMARY | 2022-10-10 10:57 | XMS_ITS | Encounter Summary ---
:1970 Author Organization [facility] Address [address] [place] [address] Care Team Providers Name Role Phone Unavailable Primary Care Provider Unavailable Encounter Details Date Type Department Care Team Description 06/06/2006 Hospital Encounter [facility] Sera Musa M.D. Social History Tobacco Use Types Packs/Day Years Used Date Smoking Tobacco: Never Assessed Sex Assigned at Date Recorded Not on file documented as of this encounter Plan of Treatment Not on filedocumented as of this encounter Visit Diagnoses Not on filedocumented in this encounter
--- OUTSIDE RECORDS SUMMARY | 2022-10-10 10:57 | XMS_ITS | Encounter Summary ---
:1970 Author Organization [facility] Address [address] [place] [address] Care Team Providers Name Role Phone Unavailable Primary Care Provider Unavailable Reason for Visit Reason Comments COVID Inquiry Encounter Details Date Type Department Care Team Description 10/21/2020 Clinical Communication Central Appointment JEOVANNY Alatorre Office in [facility] [address] [place] [address] Social History Tobacco Use Types Packs/Day Years Used Date Smoking Tobacco: Never Assessed Sex Assigned at Date Recorded Not on file documented as of this encounter Miscellaneous Notes Telephone Encounter - Susana Medrano - 10/21/2020 2:40 PM CST COVID DOS/PASS Screening What is the patient requesting?: COVID-19 Testing Only (End screening - follow local process) Plan: Endpoint recommendation: Testing indicated, sent patient to [facility] located at [address] You must call [phone] for an appointment time. Testing hours are [...] sending patient for testing in T or [facility], an email notification is required. MANAGER documented in this encounter Plan of Treatment Not on filedocumented as of this encounter Visit Diagnoses Not on filedocumented in this encounter
--- OUTSIDE RECORDS SUMMARY | 2022-10-10 10:57 | XMS_ITS | Encounter Summary ---
:1970 Author Organization [facility] Address [address] [place] [address] Care Team Providers Name Role Phone Elsewhere, Pcp Primary Care Provider Unavailable Reason for Visit Reason Comments COVID Nurse Line Encounter Details Date Type Department Care Team Description 08/29/2021 Clinical Communication Division of Génesis Moreno Nurse Line [facility] [address] [facility] in [facility] [phone] [place] [address] [place] [phone] Social History Tobacco Use Types Packs/Day Years [...] swabbed for COVID-19 Only , sent to [facility] located at [address]. An appointment is required for testing, please call [phone] Monday- Monday 7am to 6pm and Monday [...] frequently with soap and water, use hand mason tender restoration labor if soap and water aren't available. -Wear [...] The following references were used: [facility] novel coronavirus (COVID- 19) resources Nursing judgement documented in this encounter Plan of Treatment Not on filedocumented as of this encounter Visit Diagnoses Not on filedocumented in this encounter Additional Health Concerns Infection Onset Date Last Indicated Resolved Time COVID19 Pending 08/29/2021 08/29/2021 08/30/2021 10:03 PM CDT documented as of this encounter Care Teams Compliance Attorney Relationship Specialty Start Date End Date Elsewhere, Pcp PCP - General Family Medicine 06/07/21 documented as of this encounter
--- OUTSIDE RECORDS SUMMARY | 2022-10-10 10:57 | XMS_ITS | Encounter Summary ---
:1970 Author Organization [facility] Address [address] [place] [address] Care Team Providers Name Role Phone Unavailable Primary Care Provider Unavailable Encounter Details Date Type Department Care Team Description 10/21/2020 Admin Visit Department of Family Medicine, [facility] [place] in [place], [place] [address] [place] [address] Social History Tobacco Use Types Packs/Day Years Used Date Smoking Tobacco: Never Assessed Sex Assigned at Date Recorded Not on file documented as of this encounter Plan of Treatment Not on filedocumented as of this encounter Visit Diagnoses Not on filedocumented in this encounter Additional Health Concerns Infection Onset Date Last Indicated Resolved Time COVID19 Pending 10/21/2020 10/21/2020 10/22/2020 12:45 PM CLERICAL SUPERVISOR documented as of this encounter
--- OUTSIDE RECORDS SUMMARY | 2022-10-10 10:57 | XMS_ITS | Encounter Summary ---
:1970 Author Organization [facility] Address [address] [place] [address] Care Team Providers Name Role Phone Unavailable Primary Care Provider Unavailable Encounter Details Date Type Department Care Team Description 08/06/2007 Hospital Encounter HX NO MAPPING Bennett Cowan, P.A.-C. [address] [place] [phone] (Wo rk) Social History Tobacco Use Types Packs/Day Years Used Date Smoking Tobacco: Never Assessed Sex Assigned at Date Recorded Not on file documented as of this encounter Plan of Treatment Not on filedocumented as of this encounter Visit Diagnoses Not on filedocumented in this encounter
--- OUTSIDE RECORDS SUMMARY | 2022-10-10 10:57 | XMS_ITS | Encounter Summary ---
:1970 Author Organization [facility] Address [address] [place] [address] Care Team Providers Name Role Phone Unavailable [...] Ser - 03/20/2008 12:00 [place] [address] Name: KARIN DOMINGUEZ MR#: [id number] : [birth year] Dictating Provider: Augusto Clarke Serv [...] 08:23:04 Authorized physician signature on file Doc#: [id number] [facility] NAME: KARIN DOMINGUEZ [facility] [place] [facility] MR#: [id number] [place] [address] : 1970 PHYSICIAN: Augusto Clarke MD VISIT DATE: 03/20/2008 CLINIC PROGRESS NOTE [facility] Name: KARIN DOMINGUEZ [facility] PROGRESS NOTE Source: [facility] ISJHXDICTAPHONESYS Document Id: [id number] documented in this encounter Plan of Treatment Not on filedocumented as of this encounter Visit Diagnoses Not on filedocumented in this encounter
--- OUTSIDE RECORDS SUMMARY | 2022-10-10 10:57 | XMS_ITS | Encounter Summary ---
:1970 Author Organization [facility] Address [address] [place] [address] Care Team Providers Name Role Phone Unavailable Primary Care Provider Unavailable Encounter Details Date Type Department Care Team Description 08/05/[address] [facility] ED Bennett Cowan P.A.-C. [address] [place] [phone] (Wo rk) Social History Tobacco Use Types Packs/Day Years Used Date Smoking Tobacco: Never Assessed Sex Assigned at Date Recorded Not on file documented as of this encounter ED Notes Jaspal Cowan P.A.-C. - 08/05/2007 12:00 [place] [address] Name: KARIN DOMINGUEZ MR#: [id number] : [birth year] Dictating Provider: Jaspal Cowan Adm/Serv [...] get hold of whoever was at the constitution party that night if she needed to. [...] on file rks RE: KARIN DOMINGUEZ MR#: [id number] PAGE: 2 [facility] NAME: [facility] KARIN [facility] EMERGENCY ROOM NOTE [facility] NAME: RADHA KARIN [facility] MR#: [id number] [place] [address] : 1970 AGE: 36Y PHYSICIAN: Jaspal Cowan PA-C DATE: 08/05/2007 EMERGENCY DEPARTMENT NOTE [facility] EMERGENCY ROOM NOTE [facility] Name: KARIN DOMINGUEZ EMERGENCY DEPARTMENT NOTE Source: [facility] ISJHXDICTAPHONESYS Document Id: [id number] documented in this encounter Plan of Treatment Not on filedocumented as of this encounter Visit Diagnoses Not on filedocumented in this encounter
--- OUTSIDE RECORDS SUMMARY | 2022-10-10 10:57 | XMS_ITS | Encounter Summary ---
:1970 Author Organization [facility] Address [address] [place] [address] Care Team Providers Name Role Phone Unavailable Primary Care Provider Unavailable Encounter Details Date Type Department Care Team Description 03/27/2007 Hospital Encounter HX [facility] Baeza, JUSTIN, C.N.P., [place], R.N. Social History Tobacco Use Types Packs/Day Years Used Date Smoking Tobacco: Never Assessed Sex Assigned at Date Recorded Not on file documented as of this encounter Plan of Treatment Not on filedocumented as of this encounter Visit Diagnoses Not on filedocumented in this encounter
--- OUTSIDE RECORDS SUMMARY | 2022-10-10 10:57 | XMS_ITS | Encounter Summary ---
:1970 Author Organization [facility] Address [address] [place] [address] Care Team Providers Name Role Phone Unavailable [...]
--- OUTSIDE RECORDS SUMMARY | 2022-10-10 10:57 | XMS_ITS | Encounter Summary ---
:1970 Author Organization [facility] Address [address] [place] [address] Care Team Providers Name Role Phone Unavailable Primary Care Provider Unavailable Encounter Details Date Type Department Care Team Description 05/22/2006 Hospital Encounter HX [facility] Hilton Rodriguez M.D. [address] [place], [place] [address] (Wo rk) Social History Tobacco Use Types Packs/Day Years Used Date Smoking Tobacco: Never Assessed Sex Assigned at Date Recorded Not on file documented as of this encounter Plan of Treatment Not on filedocumented as of this encounter Visit Diagnoses Not on filedocumented in this encounter
--- OUTSIDE RECORDS SUMMARY | 2022-10-10 10:57 | XMS_ITS | Encounter Summary ---
:1970 Author Organization [facility] Address [address] [place] [address] Care Team Providers Name Role Phone Unavailable [...]
[2022-10-10 14:29] LABS: SARS PCR* Negative SARS-CoV-2 (Negative)
== END 2022-10-10 10:55 | disposition home or self-care (01) ==
LOC: KYNREF 10:54
PROVIDERS: PCP Nurse Practitioner Family; Visit Provider Nurse Practitioner Family
DX: Z20.822 Contact with and (suspected) exposure to COVID-19 (principal); J06.9 Acute upper respiratory infection, unspecified
CPT/HCPCS: 87635

== ENCOUNTER 2022-11-25 11:31 | Outpatient (CLI) | payer OTHER, SELFPAY ==
[2022-11-25 16:06] LABS: Chloride* 100 mmol/L (96-114); Potassium* 3.7 mmol/L (3.6-5.1); Sodium* 140 mmol/L (135-149)
[2022-11-25 16:08] LABS: Cholesterol* 156 mg/dL (90-199)
[2022-11-25 16:09] LABS: Blood Urea Nitrogen* 17 mg/dL (7-30); Carbon Dioxide* 30 mmol/L (20-32); Glucose* 122 mg/dL (60-115)
[2022-11-25 16:10] LABS: Calcium* 10.4 mg/dL (8.4-10.6); HDL Cholesterol* 38 mg/dL (>=50); LDL Cholesterol Calculated 73 mg/dL (<100); Triglycerides* 225 mg/dL (40-149)
[2022-11-25 16:12] LABS: C Reactive Protein* 0.6 mg/dL (0.5-1.0)
[2022-11-25 16:36] LABS: NT Pro B Type NatriureticPept* < 20 pg/mL
[2022-11-25 16:44] LABS: Erythrocyte SedimentationRate* 16 mm/hr (2-20)
[2022-11-25 17:10] LABS: Creatinine* 1.1 mg/dL (0.5-1.5); Estimated Glomerular Filt Rate 61 ml/min
== END 2022-11-25 11:32 | disposition home or self-care (01) ==
PROVIDERS: PCP Nurse Practitioner Family; Visit Provider Nurse Practitioner Family
DX: M25.50 Pain in unspecified joint (principal); R60.0 Localized edema; E11.9 Type 2 diabetes mellitus without complications; E78.5 Hyperlipidemia, unspecified; I10 Essential (primary) hypertension; R79.89 Other specified abnormal findings of blood chemistry
CPT/HCPCS: 80048; 80061; 83036; 83880; 85651; 86140

== ENCOUNTER 2023-03-07 17:52 | Outpatient (CLI) | payer OTHER, SELFPAY ==
[2023-03-07 21:59] LABS: Cholesterol* 202 mg/dL (90-199); HDL Cholesterol* 58 mg/dL (>=50); LDL Cholesterol Calculated 111 mg/dL (<100); Triglycerides* 163 mg/dL (40-149)
== END 2023-03-07 17:53 | disposition home or self-care (01) ==
LOC: KYNREF 17:54
PROVIDERS: PCP Nurse Practitioner Family; Visit Provider Nurse Practitioner Family
DX: Z13.6 Encounter for screening for cardiovascular disorders (principal)
CPT/HCPCS: 80061

== ENCOUNTER 2023-06-15 15:00 | Outpatient (CLI) | payer OTHER, SELFPAY | END 2023-06-15 15:01 | disposition home or self-care (01) | PROVIDERS: PCP Nurse Practitioner Family; Visit Provider Nurse Practitioner Family | DX: R79.89 Other specified abnormal findings of blood chemistry (principal); D86.9 Sarcoidosis, unspecified | CPT/HCPCS: 85651; 86140 ==

== ENCOUNTER 2023-06-20 15:26 | Outpatient (CLI) | payer OTHER, SELFPAY ==
--- NOTE | 2023-06-20 15:20 | CRLHL7_ITS ---
For Patients: As a result of the Century Cures Act, medical imaging exams and procedure reports are released immediately into your electronic medical record. You may view this report before your referring provider. If you have questions, please contact your health care provider. BILATERAL SCREENING MAMMOGRAM WITH COMPUTER-AIDED DETECTION TECHNIQUE: CC and MLO views were obtained. These mammographic images have been obtained using full-field digital technique. These mammographic images were interpreted with the benefit of computer-aided detection. COMPARISON FILM: 06/20/23, 10/17/22, 03/02/22, 11/05/20. FINDINGS: There are scattered areas of fibroglandular density IMPRESSION: There is no radiographic evidence for malignancy. ASSESSMENT: BI-RADS Category 2: Benign RECOMMENDATION: Routine screening mammogram in 1 year. A lay language report of this examination will be provided to the patient. Micheal Harper M.D. Diagnostic Radiologist [email or web address] OXANA/delano / be/Dictated by: Micheal Harper MD @ 06/26/2023 8:16:00 AM (Electronically Signed)
== END 2023-06-20 15:27 | disposition home or self-care (01) ==
PROVIDERS: PCP Nurse Practitioner Family; Visit Provider Nurse Practitioner Family
DX: Z12.31 Encounter for screening mammogram for malignant neoplasm of breast (principal)
CPT/HCPCS: 77067

== ENCOUNTER 2023-11-07 13:05 | Outpatient (CLI) | payer BC, MEDICAID, SELFPAY | END 2023-11-07 13:06 | disposition home or self-care (01) | PROVIDERS: PCP Nurse Practitioner Family; Visit Provider Nurse Practitioner Family | DX: E11.9 Type 2 diabetes mellitus without complications (principal); I10 Essential (primary) hypertension; E78.5 Hyperlipidemia, unspecified; R79.89 Other specified abnormal findings of blood chemistry; E79.0 Hyperuricemia without signs of inflammatory arthritis and tophaceous disease; Z79.4 Long term (current) use of insulin | CPT/HCPCS: 80053; 80061; 82043; 82570; 84443 ==

== ENCOUNTER 2023-11-21 15:16 | Outpatient (CLI) | payer BC, MEDICAID, SELFPAY | END 2023-11-21 15:17 | disposition home or self-care (01) | LOC: KYNREF 15:16 | PROVIDERS: PCP Nurse Practitioner Family; Visit Provider Nurse Practitioner Family | DX: E87.6 Hypokalemia (principal) | CPT/HCPCS: 84132 ==

== ENCOUNTER 2024-02-20 16:18 | Outpatient (CLI) | payer MEDICAID, SELFPAY | END 2024-02-20 16:19 | disposition home or self-care (01) | PROVIDERS: PCP Nurse Practitioner Family; Visit Provider Nurse Practitioner Family | DX: R53.83 Other fatigue (principal); E11.9 Type 2 diabetes mellitus without complications; R39.9 Unspecified symptoms and signs involving the genitourinary system | CPT/HCPCS: 80053; 81001; 82306; 83001; 84443; 85025; 87086 ==

== ENCOUNTER 2024-08-13 10:48 | Outpatient (CLI) | payer OTHER, SELFPAY ==
--- OUTSIDE RECORDS SUMMARY | 2024-08-13 10:50 | XMS_ITS ---
Author Organization [facility] Address [address] [place] [address] Care Team Providers Care Master Ocean Name Role Phone Unavailable Unavailable Unavailable Surgery Details Not on file Complications Check Surgery Details section. Procedure Estimated Blood Loss Check Surgery Details section. Procedure Findings Check Surgery Details section. Procedure Specimens Taken Check Surgery Details section.
--- OUTSIDE RECORDS SUMMARY | 2024-08-13 10:50 | XMS_ITS | Clinical Summary ---
Author Organization [employer] [facility] Address [place], [place] [address] Care Team Providers Care Seismometer Operator Name Role Phone Zulema Moore RN Unavailable [phone] Christina Menchaca MD Unavailable [phone] Jessica Catherine RN Unavailable Unavailable Gail Souza NP Primary Care Provider [phone] Allergies Active Allergy Reactions Criticality Noted Date Comments Lisinopril Cough 10/26/2018 Medications Medication Sig Dispensed Refills Start Date End Date Status CPAPIndications:OS A (obstructive sleep apnea) CPAP machine for home use at pressure 4-10 cmw, full face mask x1/3month with a full face cushion x1/mo 1 Each 11 06/23/2021 Active triamcinolone (ARISTOCORT; KENALOG) 0.1 % creamIndications:A topic dermatitis, unspecified type Apply topically to affected area(s) 2 times daily. Up to 2 weeks 80 g 1 01/18/2022 Active atorvastatin (Lipitor) 20 mg tabletIndications: Mixed dyslipidemia Take 1 Tablet (20 mg) by mouth at bedtime. 90 Tablet 1 06/08/2022 Active Blood Pressure Monitor (Blood Pressure Kit) KitIndications:Ess ential hypertension Diagnosis: hypertension Use as directed OMRON 1 Each 06/08/2022 Active LORazepam (ATIVAN) 0.5 mg tabIndications:Damon ic attack Take 1 Tablet (0.5 mg) by mouth once daily if needed for Anxiety. 15 Tablet 06/16/2022 Active lancets (Accu-Chek Softclix Lancets)Indication s:Type 2 diabetes mellitus without complication, without long-term current use of insulin (HC) Dispense item covered by pt ins. E11.9 NIDDM type II - Test 1 time/day 100 Each 1 06/22/2022 Active trimethoprim-sulfa methoxazole, 160-800 mg, (Bactrim DS) tabIndications:Danii coidosis Take 1 tab Monday, Monday and Fridays 30 Tablet 2 06/28/2022 Active blood sugar diagnostic (Accu-Chek Guide test strips) stripIndications:T ype 2 diabetes mellitus without complication, without long-term current use of insulin (HC) Dispense item covered by pt ins. - Test 4 time/day now on insulin 200 Each 1 07/06/2022 Active Dexcom G6 Transmitter for continuous blood glucose monitor (CGM)Indications:T ype 2 diabetes mellitus without complication, unspecified whether oysterman insulin use (HC) To be used to read blood sugars, follow it instructor directions. Change every 90 days 1 Each 4 07/11/2022 Active amLODIPine (NORVASC) 10 mg tabletIndications: Essential hypertension TAKE ONE TABLET BY MOUTH EVERY DAY 90 Tablet 09/17/2022 Active predniSONE (DELTASONE) 2.5 mg tabletIndications: Sarcoidosis,Dissem inated malignancy of unknown primary (HC) Take 1 Tablet (2.5 mg) by mouth once daily with a meal. 7 Tablet 10/27/2022 Active Insulin Syringe-Needle U-100 (UltiCare) 0.5 mL 30 gauge x 1/2Indications:Ty pe 2 diabetes mellitus without complication, without long-term current use of insulin (HC) USE FOR ADMINISTERING INSULIN AT HOME 100 Each 3 11/24/2022 Active losartan (COZAAR) 25 mg tabletIndications: Essential hypertension TAKE 1 TABLET (25 MG) BY MOUTH ONCE DAILY 90 Tablet 1 11/26/2022 Active NovoLIN N NPH U-100 Insulin 100 unit/mL susp injectionIndicatio ns:Type 2 diabetes mellitus without complication, without long-term current use of insulin (HC) INJECT 38 UNITS UNDER THE SKIN ONCE DAILY BEFORE BREAKFAST 30 mL 11/26/2022 Active Lantus Solostar U-100 Insulin 100 unit/mL (3 mL) penIndications:Typ e 2 diabetes mellitus without complication, unspecified whether oysterman insulin use (HC) Inject 38 units subcutaneous before bedtime. 15 mL 5 01/05/2023 Active Insulin [place], Disposable, (Pen Needle) 32 gauge x Indications:T ype 2 diabetes mellitus without complication, unspecified whether oysterman insulin use (HC) As directed. Remove the 2 covers on the insulin pen needle before administering insulin dose. 100 Each 01/05/2023 Active Mercateo G7 Animal Damage Control Agent for continuous blood glucose monitor (CGM)Indications:T ype 2 diabetes mellitus without complication, unspecified whether alf insulin use (HC) To be used to read blood sugars follow it instructor directions. Change every 10 days 3 Each 01/06/2023 Active omeprazole (PRILOSEC) 40 mg Delayed-Release capsuleIndications :Gastroesophageal reflux disease with esophagitis without hemorrhage TAKE ONE CAPSULE BY MOUTH EVERY DAY BEFORE A MEAL 90 Capsule 06/16/2023 Active escitalopram oxalate (LEXAPRO) 10 mg tabletIndications: Generalized anxiety disorder Take 1 Tablet (10 mg) by mouth every morning. No refills 30 Tablet 07/02/2023 Active Active Problems Problem Noted Date Diagnosed Date Sarcoidosis 06/29/2022 Overview (06/29/2022): Extensive sarcoidosis. Elevated LFTs 06/01/2022 Type 2 diabetes mellitus wit hout complication, without long-term current use of insulin 06/01/2022 Colon polyp 03/03/2022 Overview (03/03/2022): Colonoscopy 02/2022 2-TA, repeat in 7 years Mixed dyslipidemia 06/16/2021 Overview (06/16/2021): ASCVD 10 year risk 3.3%. Hyperuricemia 06/16/2021 Overview (06/16/2021): Patient stopped allopurinol. Generalized anxiety disorder 05/23/2021 Chronic cough 05/23/2021 Gastroesophageal reflux dise ase with esophagitis without hemorrhage 05/23/2021 Essential hypertension 11/05/2018 Dyspepsia 03/09/2018 NADIRA III (cervical intraepith elial neoplasia grade III) with severe dysplasia 05/15/2015 Overview (01/28/2022): 05/15/2015 LSIL cannot exclude HSIL (no follow up colp noted) 01/11/2019 ASCUS/HPV+ 02/12/2019 Total Hysterectomy, Cervix removed: NADIRA 2-3 01/20/2020 NIL/HPV negative 06/16/2021 LSIL/HPV+, HPV 16/18 negative 01/18/22 LSIL/HPV+, 16/18 negative. Beccaria:normal, no biopsy taken Provider plan 01/18/22: Pap/HPV due 01/2023 Obesity (BMI 30-39.9) 01/17/2012 MAGGY (obstructive sleep apnea) Pelvic pain Resolved Problems Problem Noted Date Diagnosed Date Resolved Date LGSIL (low grade squamous in traepithelial dysplasia) 01/17/2019 Overview (05/26/2015): colp advised Encounters Date Type Department Care Team Description 06/28/2024 Refill [facility] [id number] [place] [id number] Jeanette Cortez, Refill Request (Dexcom G6 Sensor) from Last 3 Months Immunizations Name Administration Dates Next Due Hepatitis B (Adult) 06/24/2014,05/19/2014 Influenza, IIV4 01/20/2020 Tdap 06/01/2022,01/17/2012 Family History Medical History Relation Name Comments Cancer Maternal Aunt lung Cancer-breast Maternal Aunt age unknown Cancer Maternal Grandmother breast in her 50's or 60's Cancer-breast Maternal Grandmother age un known Heart Disease Maternal Grandmother Cancer Maternal Uncle lung CA Cancer Mother lung Good Health Sister Relation Name Status Comments Father Other unknown Maternal Aunt Maternal Grandmother Maternal Uncle Mother (Age 52) Sister Social History Tobacco Use Types Packs/Day Years Used Date Smoking Tobacco: Passive Smo ke Exposure - Never Smoker Smokeless Tobacco: Never Tobacco Cessation:Counseling Given: Yes Alcohol Use Standard Drinks/Week Comments Yes 0 (1 standard drink = 0.6 oz pur e alcohol) socially PHQ-2 Answer Date Recorded PHQ-2 TOTAL SCORE 0 06/01/2022 Social Connections Answer Date Recorded Frequency of Communication with Friends and Fami ly Not on file 06/01/2023 Financial Resource Strain Answer Date R ecorded Difficulty of Paying Living Expenses 3 05/31/2022 Difficulty of Paying Living Expenses Not on file 05/31/2022 Food Insecurity Answer Date Recorded Worried About Running Out of Food in the Last Ye ar 1 05/31/2022 Transportation Needs Answer Date Record ed Lack of Transportation (Medical) 1 05/31/2022 Housing Stability Answer Date Recorded Unable to Pay for Housing in the Last Year 1 05/31/2022 Sex and Gender Information Value Date Recorded Sex Assigned at Not on file Gender Identity Not on file Sexual Orientation Not on file Obstetrics History Para Term AB IAB SAB Ectopic Multiple Livin g Live Births 2 2 Date Outcome GA Total Labor Labor/2nd/3rd Weight Sex Type Anes PTL Bianka A1 A5 Name Clin Para Para Last Filed Vital Signs Vital Sign Reading Time Taken Comments Blood Pressure 123/61 10/27/2022 11:12 AM [employer] Pulse 82 10/27/2022 11:12 AM [employer] Temperature 35.8 ??C (96.4 ??F) 10/27/2022 11:[address] Respiratory Rate 16 10/27/2022 11:12 AM [employer] Oxygen Saturation 96% 10/27/2022 11:12 AM [employer] Inhaled Oxygen Concentration - - Weight 109 kg (240 lb 4.8 oz) 10/27/2022 11:12 A M [employer] Height 165.1 cm (5' 5) 06/29/2022 7:31 PM CDT Body Mass Index 39.99 06/29/2022 7:31 PM CDT Plan of Treatment Health Maintenance Due Date Last Done Comments Pneumococcal series for age 6-64 (1 of 2 - PCV) 1976 Zoster (shingles) series for age 50+ (1 of 2) 2020 Depression screening for age 12+ 06/01/2023 06/01/2022, 05/31/2022, 06/16/2021, Additional history exists BMI (ht and wt on same day) for age 18+ 06/23/2023 06/23/2022, 01/18/2022, 06/23/2021, Additional history exists Mammogram for age 45-75 10/17/2023 10/17/20 22, 03/02/2022, 11/05/2020, Additional history exists Pap test for age 21-65 04/10/2024 , 04/10/2023, 01/18/2022, Additional history exists COVID-19 vaccine series ( season) 2024 02/11/2022 Influenza for age 50-64 07/21/2024 01/20/2020 Lipids for age 45-75 06/01/2027 06/01/2022, 06/16/2021, 10/12/2020, Additional history exists Colonoscopy through age 75 03/01/203203/01, 03/01/2022, 03/01/2022 Tetanus booster 06/01/2032 06/01/2022, 01/17/2012 HIV for age 15-65 Completed 08/14/2020 Hepatitis C screening for ag e 18-79 Completed 06/01/2022 Tdap Completed 06/01/2022, 01/17/2012 Procedures Procedure Name Priority Date/Time Associated Diagnosis Comments HPV HIGH RISK Routine 04/10/2023 9:30 AM CDT XR MAMMO ARNULFO UNI DIAG LEFT SWETHA 10/17/2022 10:45 AM [employer] Mass of left breast, unspecified quadrant ANTI HCV Routine 06/01/2022 9:54 AM CDT Abnormal liver CT LIPID PANEL W REFLEX MEASURED LDL Routine 06/01/2022 9:54 AM CDT Mixed dyslipidemia COLONOSCOPY DIAGNOSTIC Routine 03/01/2022 7:28 AM CDT Positive FIT (fecal immunochemical test) ANTI HIV 1/2 Routine 08/14/2020 2:22 PM CDT Routine screening for STI (sexually transmitted infection) from Last 3 Months or Most Recently Relevant to Health Maintenance Results * (ABNORMAL) HPV HIGH RISK (04/10/2023 9:30 AM CDT) TYPE 16 Negative Negative 04/13/2023 11:33 AM CDT [facility] TYPE 18 Negative Negative 04/13/2023 11:33 AM CDT [facility] OTHER HIGH RISK TYPES Positive(A) Negative 04/13/2023 11:33 AM CDT [facility] Other VAGINAL SWAB / Unknown 04/10/2023 9:30 AM CDT 04/11/2023 11:45 AM CDT Narrative [facility] - 04/13/2023 11:33 AM CDT Specimen is positive for the DNA of any one of, or combination of, the following high risk HPV types: 31, 33, 35, 39, 45, 51, 52, 56, 58, 59, 66, 68. HPV types 16 and 18 DNA were undetectable or below the pre-set threshold. ? Methodology: [facility] 4800 HPV Test Gail Souza NP MICROBIOLOGY [facility] [address] [place] [address], [place] * XR MAMMO ARNULFO UNI DIAG LEFT (10/17/2022 10:45 AM [employer]) Anatomical Region Laterality Modality BREASTS, Breast Left Mammography , Radiographic Imaging 10/17/2022 10:4 5 AM [employer] Impressions 10/17/2022 12:10 PM [employer] ACR BI-RADS Category 2: Benign. Results given to the patient who should resume annual screening mammography. The patient has 2 adjacent masses at the 3:00 position of the left breast, 7 cm from the nipple. The more posterior mass is unchanged in size when compared with the 2018 ultrasound. The more anterior mass is unchanged when compared with the previous ultrasound from 2015. The more anterior mass is slightly more irregular but has been clearly biopsied twice. 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 At this time, given there is no difference in size and imaging characteristics of the left breast masses, no further biopsy is recommended. However, if clinically indicated, based on the PET scan, tissue sampling is recommended, given this area has already been biopsied twice and found to be benign, surgical excision would be the next most logical step. These findings were discussed at length with the patient. The patient is scheduled to see Dr. Menchaca tomorrow. PATIENTS: You will also receive a letter with your examination results in an easy to read format. If you have questions about your results, please contact your referring provider. Narrative 10/17/2022 12:10 PM [employer] For Patients: As a result of the Cures Act, medical imaging exams and procedure reports are released immediately into your electronic medical record. You may view this report before your referring provider. If you have questions, please contact your health care provider. EXAM: XR MAMMO ARNULFO UNI DIAG LEFT, US BREAST UNILATERAL LEFT LIMITED LOCATION: [facility] DATE/TIME: 10/17/2022 10:45 AM INDICATION: Mass Of Left Breast, Unspecified Quadrant. The patient has sarcoidosis. The patient had a left breast ultrasound-guided core biopsy in 2014 which demonstrated a fibroadenoma with no atypia and no malignancy. The patient had a repeat biopsy of the same mass in 2017. Again, this demonstrated fibroadenoma with no evidence of atypia or malignancy. The patient had a PET scan in May of 2022 which demonstrated no breast abnormalities. The patient had a repeat PET scan in September 2022 which demonstrated an FDG avid left breast mass. COMPARISON: Mammograms dated 03/02/2022, 11/05/2020, 11/04/2019, 04/06/2018, 05/28/2015 and 05/15/2015 MAMMOGRAPHIC FINDINGS: Left full-field digital diagnostic mammogram performed. There are scattered areas of fibroglandular density. Images evaluated with the assistance of CAD. Breast tomosynthesis was used in interpretation. Two adjacent breast masses are identified within the left breast, 7 cm from the nipple at the 3:00 position. Two tissue marker clips are identified within the mass. This is the more anterior mass. The posterior mass does not appear to have a tissue marker clip within it. When compared with the previous mammograms, the size appears to be unchanged. No new dominant masses, areas of asymmetry, or suspicious clustered calcifications are identified. ULTRASOUND FINDINGS: Comparison is made with the ultrasound dated 04/06/2018, 04/04/2018, 05/20/2015 and 05/28/2015. Ultrasound of the left breast was performed at the 3:00 position of the left breast, 7 cm from the nipple. This demonstrates 2 adjacent masses. The more posterior mass is very smoothly marginated. This is hypoechoic parallel. This measures 1.2 x 0.9 x 1.1 cm in size. When compared with the March 2018 study, this mass measured 1.3 x 0.8 x 1.3 cm in size. On the May 2015 study, this mass measured 9 x 7 x 6 mm. A second mass is identified more anterior to this measuring 9 x 8 x 8 mm in size. The second mass was not clearly measured or identified on the 2017 study. However, on the 2014 study, the smaller mass measured 7 x 6 x 9 mm. This more anterior mass is slightly more irregular. At least one tissue marker clip is identified within the more anterior mass and potentially both tissue marker clips are present. Procedure Note Rosa Downing MD - 10/17/2022 For Patients: As a result of the Cures Act, medical imagingexams and procedure reports are released immediately into your electronicmedical record. You may view this report before your referring provider.If you have questions, please contact your health care provider. EXAM: XR MAMMO ARNULFO UNI DIAG LEFT, US BREAST UNILATERAL LEFT LIMITED LOCATION: [facility] DATE/TIME: 10/17/2022 10:45 AM INDICATION: Mass Of Left Breast, Unspecified Quadrant. The patient hassarcoidosis. The patient had a left breast ultrasound-guided core biopsyin 2014 which demonstrated a fibroadenoma with no atypia and nomalignancy. The patient had a repeat biopsy of the same mass in 2017.Again, this demonstrated fibroadenoma with no evidence of atypia ormalignancy. The patient had a PET scan in May of 2022 which demonstratedno breast abnormalities. The patient had a repeat PET scan in September2022 which demonstrated an FDG avid left breast mass. COMPARISON: Mammograms dated 03/02/2022, 11/05/2020, 11/04/2019,04/06/2018, 05/28/2015 and 05/15/2015 MAMMOGRAPHIC FINDINGS: Left full-field digital diagnostic mammogramperformed. There are scattered areas of fibroglandular density. Imagesevaluated with the assistance of CAD. Breast tomosynthesis was used ininterpretation. Two adjacent breast masses are identified within the leftbreast, 7 cm from the nipple at the 3:00 position. Two tissue marker clipsare identified within the mass. This is the more anterior mass. Theposterior mass does not appear to have a tissue marker clip within it.When compared with the previous mammograms, the size appears to beunchanged. No new dominant masses, areas of asymmetry, or suspiciousclustered calcifications are identified. ULTRASOUND FINDINGS: Comparison is made with the ultrasound dated04/06/2018, 04/04/2018, 05/20/2015 and 05/28/2015. Ultrasound of the left breast was performed at the 3:00 position of theleft breast, 7 cm from the nipple. This demonstrates 2 adjacent masses. The more posterior mass is very smoothly marginated. This is hypoechoicparallel. This measures 1.2 x 0.9 x 1.1 cm in size. When compared with theMay 2018 study, this mass measured 1.3 x 0.8 x 1.3 cm in size. On the May2015 study, this mass measured 9 x 7 x 6 mm. A second mass is identifiedmore anterior to this measuring 9 x 8 x 8 mm in size. The second mass wasnot clearly measured or identified on the 2017 study. However, on the 2014study, the smaller mass measured 7 x 6 x 9 mm. This more anterior mass isslightly more irregular. At least one tissue marker clip is identifiedwithin the more anterior mass and potentially both tissue marker clips arepresent. IMPRESSION: ACR BI-RADS Category 2: Benign. Results given to the patient who should resume annual screeningmammography. The patient has 2 adjacent masses at the 3:00 position of the left breast,7 cm from the nipple. The more posterior mass is unchanged in size whencompared with the 2018 ultrasound. The more anterior mass is unchangedwhen compared with the previous ultrasound from 2014. The more anteriormass is slightly more irregular but has been clearly biopsied twice. Bothtimes this was demonstrated to be a fibroadenoma. At this time, giventhere is no difference in size and imaging characteristics of the leftbreast masses, no further biopsy is recommended. However, if clinicallyindicated, based on the PET scan, tissue sampling is recommended, giventhis area has already been biopsied twice and found to be benign, surgicalexcision would be the next most logical step. These findings werediscussed at length with the patient. The patient is scheduled to see tomorrow. PATIENTS: You will also receive a letter with your examination results inan easy to read format. If you have questions about your results, pleasecontact your referring provider. Rachna Westbrook [employer] MAMMO * (ABNORMAL) LIPID PANEL W REFLEX MEASURED LDL (06/01/2022 9:54 AM CDT) CHOLESTEROL,TOTAL 220(H) 100 - 199 mg/dL 06/01/2022 9:41 PM CDT [facility] TRIGLYCERIDES 171(H) <150 mg/dL 06/01/2022 9:41 PM CDT [facility] HDL CHOLESTEROL 38(L) >40 mg/dL 9:41 PM CDT [facility] NON-HDL CHOLESTEROL 182(H) <145 mg/dl 06/01/2022 9:41 PM CDT [facility] CHOL/HDL RATIO 5.79(H) <4.50 06/01/2022 9:41 PM CDT [facility] LDL CHOLESTEROL 148(H) <=130 mg/dL 06/01/2022 9:41 PM CDT [facility] VLDL CHOLESTEROL 34(H) <=30 mg/dL 06/01/2022 9:41 PM CDT [facility] PROVIDER ORDERED STATUS RANDOM 06/01/2022 9:41 PM CDT [facility] Blood BLOOD SPECIMEN / Unknown Venipuncture / Unknown 06/01/2022 9:54 AM CDT 06/01/2022 9:54 AM CDT Jeanette Cortez DO CHEMISTRY [facility] [address] [place] [address], [place] * ANTI HCV (06/01/2022 9:54 AM CDT) HEPATITIS C ANTIBODY Non-React ryan Non-React ryan 06/01/2022 9:35 PM CDT [facility] Comment:Antibodies to HCV no t detected; does not exclude the possibility of exposure to HCV. Blood BLOOD SPECIMEN / Unknown Venipuncture / Unknown 06/01/2022 9:54 AM CDT 06/01/2022 9:54 AM CDT Jeanette Cortez DO SEND OUTS [facility] [address] [place] [address], [place] * COLONOSCOPY (03/01/2022 7:38 AM CDT) 03/01/2022 7:38 AM CDT Narrative Transcriptions Lul Howard MD - 03/01/2022 8:41 AM CDT Patient Name: Karin Dominguez Procedure Date: 03/01/2022 Gender: Female Date of : 1970 Admit Type: Outpatient Procedure: Colonoscopy Proceduralist: Lul Howard MD , Ana Baker RN(Nurse) Referring MD: Jeanette Cortez Indications/Pre-Op Diagnosis: Positive fecal immunochemical test, This isthe patient's first colonoscopy Medications: Fentanyl 100 micrograms IV, Midazolam 4 mgIV, The level of sedation administered wasmoderate Procedure Description: The patient had risks, benefits and alternatives explained to andgave informed consent. The patient had a stable cardiopulmonary status and judged an adequate candidate for conscious sedation. The [id number] was passed through the anus and advanced tothe cecum, identified by appendiceal orifice and ileocecal valve. The colonoscopy was performed without difficulty. The patient toleratedthe procedure well. The quality of the bowel preparation was good. The ileocecal valve, appendiceal orifice, and rectum were photographed. Complications: No immediate complications. Estimated Blood Loss & Specimen: Estimated blood loss: none. Specimen collected - Yes and sent to Laboratory Findings: The perianal and digital rectal examinations were normal. A 3 mm polyp was found in the transverse colon. The polyp wassessile. The polyp was removed with a cold snare. Resection and retrieval were complete. A 5 mm polyp was found in the descending colon. The polyp was semi-pedunculated. The polyp was removed with a hot snare. Resectionand retrieval were complete. A 2 mm polyp was found in the descending colon. The polyp wassessile. The polyp was removed with a cold snare. Resection and retrieval were complete. A 3 mm polyp was found in the rectum. The polyp was sessile. Thepolyp was removed with a cold snare. Resection and retrieval werecomplete. A 3 mm polyp was found in the anus. The polyp was sessile. The polypwas removed with a cold snare. Resection and retrieval were complete. The exam was otherwise without abnormality on direct and retroflexion views. Impressions/Post-Op Diagnosis: - One 3 mm polyp in the transverse colon, removed with a cold snare. Resected and retrieved. - One 5 mm polyp in the descending colon, removed with a hot snare. Resected and retrieved. - One 2 mm polyp in the descending colon, removed with a cold snare. Resected and retrieved. - One 3 mm polyp in the rectum, removed with a cold snare. Resectedand retrieved. - One 3 mm polyp at the anus, removed with a cold snare. Resected and retrieved. - The examination was otherwise normal on direct and retroflexionviews. Recommendation: - Patient has a contact number available for emergencies. The signsand symptoms of potential delayed complications were discussed with the patient. Return to normal activities tomorrow. Written discharge instructions were provided to the patient. - Resume previous diet. - Continue present medications. - Await pathology results. - Repeat colonoscopy is recommended. The colonoscopy date will be determined after pathology results from today's exam become available for review. Moderate Sedation: Moderate (conscious) sedation was administered by the endoscopy nurse and supervised by the endoscopist. The following parameters were monitored: oxygen saturation, heart rate, respiratory rate, blood pressure, adequacy of pulmonary ventilation and reponse to care. Please refer to the patient's medical record flowsheets and nursing notes for moderate sedation details. Total physician intraservice time was 23 minutes. Lul Howard MD 03/01/2022 8:41:20 AM This report has been signed electronically. Note Initiated On: 03/01/2022 7:38 AM Scope In: 8:10:42 AM Scope Withdrawal Time 0 hours 17 minutes 9 seconds Scope Out: 8:31:20 AM Lul Howard MD PROCEDURE ORD * ANTI HIV 1/2 (08/14/2020 2:22 PM CDT) HIV-1/HIV-2 ANTIBODY Non-Reacti ve Non-Reacti ve 08/14/2020 7:16 PM CDT [facility] Comment:HIV-1 p24 and HIV-1/ HIV-2 Ab not detected. Blood BLOOD SPECIMEN / Unknown Venipuncture / Unknown 08/14/2020 2:22 PM CDT 08/14/2020 2:23 PM CDT Ruby ROGERS SEND OUTS [facility] [address] [place] [address], [place] from Last 3 Months or Most Recently Relevant to Health Maintenance Advance Directives * Full Code (Latest Code Status on File) Date Activated Date Inactivated Comments 02/12/2019 6:55 AM 02/12/2019 10:02 PM Care Teams Seismometer Operator Relationship Specialty Start Date End Date Gail Souza, TOWER CLEANER [address] [place] [id number] PCP - General Emergency Medicine 12/28/22 Zulema Moore, MIKE Nurse Navigator - Oncology Registered Nurse 06/14/22 Christina Menchaca MD [address] [facility] [address] [place] [address] Oncology 06/14/22 Jessica Catherine, RN [address] [facility] [address] Commissioning Specialist Registered Nurse 07/07/22
--- OUTSIDE RECORDS SUMMARY | 2024-08-13 10:50 | XMS_ITS | Encounter Summary ---
Author Organization [facility] Address [address] [place] [address] Care Team Providers Care Internet Programmer Name Role Phone Elsewhere, Pcp Primary Care Provider Unavailabl e Encounter Details Date Type Department Care Team (Late st Contact Info) Description 08/12/2024 12:15 AM CDT Ancillary Procedure Department of Nursing Arrived Social History Tobacco Use Types Packs/Day Years Used Date Smoking Tobacco: Never [facility] Utilities Answer Date Recorded In the past 12 months has th e electric, gas, oil, or water company threatened to shut off services in your home? No 08/11/2024 Humiliation, Afraid, Rape, and Kick questionnair e Answer Date Recorded Within the last year, have y ou been afraid of your partner or ex-partner? No 08/11/2024 Within the last year, have y ou been humiliated or emotionally abused in other ways by your partner or ex-partner? No Within the last year, have y ou been kicked, hit, slapped, or otherwise physically hurt by your partner or ex-partner? No 08/11/2024 Within the last year, have y ou been raped or forced to have any kind of sexual activity by your partner or ex-partner? No 08/11/2024 Hunger Vital Sign Answer Date Recorded Within the past 12 months, y ou worried that your food would run out before you got the money to buy more. Never true 08/11/20 24 Within the past 12 months, t he food you bought just didn't last and you didn't have money to get more. Never true 08/11/2024 PRAPARE - Transportation Answer Date Re corded In the past 12 months, has l ack of transportation kept you from medical appointments or from getting medications? No 07/22 In the past 12 months, has l ack of transportation kept you from meetings, work, or from getting things needed for daily living? No 08/11/2024 Nutrition Answer Date Recorded Nutrition: EVOO Fat Source 13 06/16 Nutrition: Servings of Fruits/Vegetables per Day Not on file 06/16/2020 Dental Answer Date Recorded Dental: Regular Dentist Unknown 01/22/20 21 Housing Stability Answer Date Recorded What is your living situation today? I have a [facility] to live 08/11/2024 Sex and Gender Information Value Date Recorded Sex Assigned at Not on file Gender Identity Not on file Sexual Orientation Not on file documented as of this encounter Plan of Treatment Not on file documented as of this encounter Procedures Procedure Name Priority Date/Time Associated Diagnosis Comments NURSING IMAGE EXAM Routine 08/12/2024 12 :13 AM CDT documented in this encounter Results * Hands-Nursing Image Exam (08/12/2024 12:13 AM CDT) 08/12/2024 12:1 1 AM CDT Narrative [facility] - 08/12/2024 12:13 AM CDT This order has been created and auto-finalized to support the import of images acquired without order. The clinical documentation to support these images can be found on the encounter that produced images. Provider Not In System IMG NON RAD IMAGI NG PROCEDURES [facility] NA documented in this encounter Visit Diagnoses Not on filedocumented in this encounter Additional Health Concerns Infection Onset Date Last Indicated Resolved Time Protective Environment 08/11/2024 08/11/2024 documented as of this encounter Care Teams Internet Programmer Relationship Specialty Start Date End Date Elsewhere, Pcp PCP - General Family Medicine 06/07/21 documented as of this encounter
--- OUTSIDE RECORDS SUMMARY | 2024-08-13 10:50 | XMS_ITS | Clinical Summary ---
Author Organization [facility] er Address [address] [place] [address] Care Team Providers Care Compliance Manager Name Role Phone Unavailable Primary Care Provider Unavailabl e Social History Tobacco Use Types Packs/Day Years Used Date Smoking Tobacco: Never Assessed Sex and Gender Information Value Date Recorded Sex Assigned at Not on file Gender Identity Not on file Sexual Orientation Not on file Plan of Treatment Upcoming Encounters Date Type Department Care Team (Late Contact Info) Description 08/23/2024 8:30 AM CDT Office Visit [facility] [address] [place] [address] [phone] Kyra Parsons MD [address] [place], [place] [id number] Health Maintenance Due Date Last Done Comments CT Colonography 1970 Colonoscopy 1970 Colorectal Cancer Screening 1970 FIT-DNA 1970 Mammogram 1970 Pap Smear 1970 Sigmoidoscopy 1970 iFOBT 1970 Zoster Vaccines (1 of 2) 2020 COVID-19 Vaccine (2 - 2023-2 5 season) 2024 02/11/2022 Influenza Vaccine (#1) 2024 01/20/2020 DTaP,Tdap,and Td Vaccines (3 - Td or Tdap) 06/01/2032 06/01/2022, 01/17/2012 HPV Vaccines Aged Out No longer eligi ble based on patient's age to complete this topic Pneumococcal Vaccine: Pediatrics (0 to 5 Years) and At-Risk Patients (6 to 64 Years) Aged Out No longer eligible b ased on patient's age to complete this topic
--- OUTSIDE RECORDS SUMMARY | 2024-08-13 10:50 | XMS_ITS | Encounter Summary ---
Author Organization [facility] Address [address] [place] [address] Care Team Providers Care Cloth Sponger Name Role Phone Elsewhere, Pcp Primary Care Provider Unavailabl e Encounter Details Date Type Department Care Team (Late st Contact Info) Description 08/12/2024 12:20 AM CDT Ancillary Procedure Department of Nursing Arrived Social History Tobacco Use Types Packs/Day Years Used Date Smoking Tobacco: Never [facility] Utilities Answer Date Recorded In the past [...] your living situation today? I have a [facility] place to live 08/11/2024 Sex and Gender [...] CDT documented in this encounter Results * Leg, left-Nursing Image Exam (08/12/2024 12:13 AM CDT) 08/12/2024 [...] documented as of this encounter Care Teams Cloth Sponger Relationship Specialty Start Date End Date Elsewhere, Pcp PCP - General Family Medicine 06/07/21 documented as of this encounter
--- OUTSIDE RECORDS SUMMARY | 2024-08-13 10:50 | XMS_ITS | Clinical Summary ---
Author Organization [facility] Address [address] [place] [address] Care Team Providers Care [employer] Name Role Phone Elsewhere, Pcp Primary Care Provider Unavailabl e Source Comments Patient records contain information from all sites at [facility]. For routine questions regarding patient records, call [phone] during business hours, M-F 8:00 AM - 5:00 PM Central Time. Record requests for emergency care only can be directed to [phone] at any time.[facility] Allergies Active Allergy Reactions Criticality Noted Date Comments Lisinopril Cough Low 10/26/2018 [place] Pollen Itching Medium 08/11/2024 Seasonal Allergies: Allergic Rhinitis, Itchy watery eyes, Sneezing Medications Medication Sig Dispensed Refills Start Date End Date Status miscellaneous medical supply misc CPAP machine for home use at pressure: 5-20 cms, nasal mask with cushion x 1, humidifier chamber x 1, humidifier x 1 8 Active amLODIPine (Norvasc) 10 mg tablet Take 10 mg by mouth at bedtime. 4 Active atorvastatin (Lipitor) 20 mg tablet Take 20 mg by mouth at bedtime. 4 Active albuterol 90 mcg/actuation inhaler Inhale 2 puffs every 4 (four) hours as needed for shortness of breath. 3 Active escitalopram (Lexapro) 10 mg tablet Take 10 mg by mouth at bedtime. 3 Active losartan (Cozaar) 25 mg tablet Take 25 mg by mouth at bedtime. 4 Active omeprazole (PriLOSEC) [address] capsule Take 40 mg by mouth daily before morning meal. 3 Active predniSONE (Deltasone) 2.5 mg tablet Take 7.5 mg by mouth daily. 2 Active insulin detemir U-100 (Levemir FlexPen) 100 unit/mL (3 mL) pen Inject 30 Units under the skin at bedtime. Active ondansetron ODT (Zofran-ODT) 4 mg disintegrating tablet Dissolve 4 mg in the mouth every 8 (eight) hours as needed for nausea or vomiting. Active traMADoL (Ultram) 50 mg tablet Take 25 mg by mouth every 6 (six) hours as needed for pain. 25-50 mg c0utmht PRN Active triamcinolone (Kenalog) 0.1 % cream Apply 1 Application topically as needed for rash. 2 Active Dexcom G6 Transmitter device 1 each as directed. 4 Active Dexcom G6 Sensor device Place 1 each on the skin every 10 (ten) days. 4 Active folic acid 1 mg tablet Take 1 mg by mouth at bedtime. 4 Active hydroxychloroquine (PlaqueniL) 200 mg tablet Take 200 mg by mouth 2 (two) times a day. 4 Active predniSONE (Deltasone) 5 mg tablet Take 5 mg by mouth daily. With 2.5 mg = 7.5 mg 4 Active Ozempic 2 mg/dose (8 mg/3 mL) injection Inject 2 mg under the skin every 7 (seven) days. 4 Active methotrexate (TrexalL) 2.5 mg tablet Take 20 mg by mouth once a week. 4 Active chlorthalidone (Hygroton) 50 mg tablet Take 1 tablet (50 mg total) by mouth daily. Hold till seen by PCP 4 Active potassium chloride (K-Tab) 20 mEq ER tablet Take 2 tabs twice daily x 2 days then 1 tab twice daily 4 Active triamcinolone (KENALOG) 0.1 % cream Apply 1 Application topically 2 (two) times a day as needed for irritation or rash. 0 024 Discontinued(Du plicate order) omeprazole (PriLOSEC) [address] capsule Take 40 mg by mouth. 1 024 Discontinued(Du plicate order) montelukast (SINGULAIR) 10 mg tablet Take 10 mg by mouth. 1 Discontinued(Di scontinued by another clinician) fluticasone propionate (FLONASE) 50 mcg/actuation nasal spray Administer 1 spray into nostril(s). 1 024 Discontinued(Di scontinued by another clinician) amLODIPine (NORVASC) 5 mg tablet Take 1 tablet by mouth daily. 0 024 Discontinued(Du plicate order) allopurinoL (ZYLOPRIM) 100 mg tablet Take 1 tablet by mouth daily. 0 024 Discontinued(Di scontinued by another clinician) cefdinir (OMNICEF) 300 mg capsule Take 1 capsule (300 mg total) by mouth every 12 (twelve) hours. 14 capsule 2 Discontinued(Di scontinued by another clinician) phenazopyridine (PYRIDIUM) 100 mg tablet Take 1 tablet (100 mg total) by mouth 3 (three) times a day as needed for painful urination. 6 tablet 2 Discontinued(Di scontinued by another clinician) chlorthalidone (Hygroton) 50 mg tablet Take 50 mg by mouth daily. 4 Discontinued mupirocin 2 % ointment kit Apply 1 Application topically 3 (three) times a day as needed. 3 Discontinued(Th erapy completed) semaglutide (Ozempic) 0.25 mg or 0.5 mg (2 mg/3 mL) injection Inject 2 mg under the skin every 7 (seven) days. 4 Discontinued(Do se adjustment) cyclobenzaprine (FlexeriL) 10 mg tablet Take 10 mg by mouth 3 (three) times a day as needed for muscle spasms. Discontinued(Th erapy completed) potassium chloride (K-Tab) 20 mEq ER tablet Take 20 mEq by mouth daily. 4 Discontinued insulin glargine U-300 conc (Toujeo Max SoloStar) 300 unit/mL (3 mL) injection Inject 44 Units under the skin every morning. 4 024 Discontinued(Al ternate therapy) sulfamethoxazole-t rimethoprim (Bactrim DS) 800-160 mg per tablet Take 1 tablet by mouth 3 (three) times a week. Mon-Mon-Mon 2 024 Discontinued( erapy completed) Ozempic 1 mg/dose (4 mg/3 mL) injection Inject 1 mg under the skin every 7 (seven) days. 4 024 Discontinued(Do se adjustment) azaTHIOprine (Imuran) 50 mg tablet Take 50 mg by mouth daily. 3 024 Discontinued(Al ternate therapy) insulin NPH (NovoLIN N NPH U-100 Insulin) 100 unit/mL vial Inject 38 Units under the skin every morning. 3 024 Discontinued(Al ternate therapy) Active Problems Problem Noted Date Diagnosed Date Hypokalemia 08/12/2024 Failure Renal Acute (Acute Kidney Injury) 2023 Infectious Gastroenteritis And Colitis Unspecifi ed 08/11/2024 Sarcoidosis 06/29/2022 Overview (08/11/2024): Extensive sarcoidosis. Apnea Sleep Obstructive 05/29/2022 Pelvic And Perineal Pain 05/29/2022 Polyp Colon 03/03/2022 Overview (05/29/2022): Colonoscopy 02/2022 2-TA, repeat in 7 years Dyslipidemia NOS 06/16/2021 Overview (05/29/2022): ASCVD 10 year risk 3.3%. Anxiety Generalized Disorder 05/23/2021 Chronic Cough 05/23/2021 Gastro-Esophageal Reflux Dis ease With Esophagitis Without Bleeding 05/23/2021 Hypertension Essential Primary 11/05/2018 Dyspepsia 03/09/2018 Cancer Cervix In Situ (Severe Dysplasia) 06/26/2 015 Overview (05/29/2022): 05/15/2015 LSIL cannot exclude HSIL (no follow up colp noted) 01/11/2019 ASCUS/HPV+ 02/12/2019 Total Hysterectomy, Cervix removed: NADIRA 2-3 01/20/2020 NIL/HPV negative 06/16/2021 LSIL/HPV+, HPV 16/18 negative 01/18/22 LSIL/HPV+, 16/18 negative. [place]:normal, no biopsy taken Provider plan 01/18/22: Pap/HPV due 01/2023 Obesity Body Mass Index 30-39.9 Adult 01/17/2012 Resolved Problems Problem Noted Date Diagnosed Date Resolved Date Prolonged QT Interval 08/11/20242023 Hyperuricemia 06/16/2021 08/11/2024 Overview (05/29/2022): Patient stopped allopurinol. Encounters Date Type Department Care Team Description 08/12/2024 12:25 AM CDT Ancillary Procedure Department of Nursing Arrived 08/12/2024 12:20 AM CDT Ancillary Procedure Department of Nursing Arrived 08/12/2024 12:15 AM CDT Ancillary Procedure Department of Nursing Arrived 08/11/2024 3:34 PM CDT - 08/12/2024 4:57 PM CDT Emergency [facility], Second Floor [address] [place] [phone] Micheal Dimas APRN, C.N.P., D.N.P. Gurwinder Magallanes APRN, C.N.P., M.S.N. Yulisa Mcduffie M.D. Prolonged QT Interval (Primary Dx); Nausea And Vomiting; Diarrhea; Dehydration; Colitis; Failure Renal Acute (Acute Kidney Injury) (HCC); Alkalosis Respiratory; Hypokalemia Discharge Disposition: Home or Self Care 06/14/2024 [facility] [address] [place] [address] Gail Souza, C.N.P. from Last 3 Months Immunizations Name Administration Dates Next Due HepB Adult 06/24/2014,05/19/2014 Tdap 01/17/2012 influenza vaccine quad (FLUZ ONE/FLUARIX) (6 months and older)(PF) 01/20/2020 Social History Tobacco Use Types Packs/Day Years Used Date Smoking Tobacco: Never [facility] Utilities Answer Date Recorded In the past 12 months has e [employer], gas, oil, or water company threatened to [...] your living situation today? [facility] live 08/11/2024 Sex and Gender Information Value Date Recorded Sex Assigned at Not on file Gender Identity Not on file Sexual Orientation Not on file Last Filed Vital Signs Vital Sign Reading Time Taken Comments Blood Pressure 117/76 08/12/2024 4:20 PM CDT Pulse 94 08/12/2024 4:20 PM CDT Temperature 36.8 ??C (98.2 ??F) 08/12/2024 4:20 PM CD T Respiratory Rate 16 08/12/2024 4:20 PM CDT Oxygen Saturation 96% 08/12/2024 4:20 PM CDT Inhaled Oxygen Concentration - - Weight 96.4 kg (212 lb 8.4 oz) 08/11/2024 9:00 P M CDT Height 165.1 cm (5' 5) 08/11/2024 9:00 PM CDT Body Mass Index 35.37 08/11/2024 9:00 PM CDT Plan of Treatment Health Maintenance Due Date Last Done Comments CT Colonography 1970 Cologuard 1970 HIV Screening 1970 Hepatitis C Screening 1970 Office Visit for Blood Press ure Check / Re-check 1970 Pneumococcal vaccine (0-64 y ears) (1 of 2 - PCV) 1976 Zoster Vaccines (1 of 2) 1989 Hepatitis B Vaccines (3 of 3 - 19+ 3-dose series) 11/18/2014 06/24/2014, 05/19/2014 COVID-19 Vaccine (2 - Modern a risk series) 03/11/2022 02/11/2022 Mammogram 10/17/2023 10/17/2022, 09/21, 03/02/2022 Depression Screening (Annual PHQ-2) 11/20/2023 Influenza Vaccine (#1) 2024 01/20/2020 Creatinine Level (Kidney Fun ction Test) 08/12/2025 08/12/2024, 08/12/2024, 08/11/2024, Additional history exists Potassium Level 08/12/2025 08/12/2024, 07/22, 08/11/2024, Additional history exists Sodium Level 08/12/2025 08/12/2024, 07/22, 08/11/2024, Additional history exists Colonoscopy 03/01/2027 03/01/2022 Colorectal Cancer Surveillance 03/01/2027 Lipid (Cholesterol) Screening 06/01/2027, 06/16/2021, 10/12/2020 Fasting Glucose for Diabetes Screening 08/12/2027 08/12/2024, 08/12/2024, 08/12/2024, Additional history exists DTaP,Tdap,and Td Vaccines (3 - Td or Tdap) 06/01/2032 06/01/2022, 01/17/2012 Cervical Cancer Screening Discontinued 2020, 05/15/2015, 01/17/2012 Procedures Procedure Name Priority Date/Time Associated Diagnosis Comments BASIC METABOLIC PANEL, S/P Routine 08/12/2024 3:04 PM CDT GLUCOSE POCT, B Routine 08/12/2024 12:16 PM CDT GLUCOSE POCT, B Routine 08/12/2024 11:38 AM CDT GLUCOSE POCT, B Routine 08/12/2024 7:49 AM CDT GLUCOSE POCT, B Routine 08/12/2024 7:35 AM CDT CBC WITH DIFFERENTIAL, B Routine 08/12/2024 6:45 AM CDT BASIC METABOLIC PANEL, S/P Routine 08/12/2024 6:45 AM CDT NURSING IMAGE EXAM Routine 08/12/2024 12 :13 AM CDT NURSING IMAGE EXAM Routine 08/12/2024 12 :13 AM CDT NURSING IMAGE EXAM Routine 08/12/2024 12 :13 AM CDT GLUCOSE POCT, B Routine 08/11/2024 11:45 PM CDT POTASSIUM, S/P Timed 08/11/2024 8:15 PM CDT LACTATE, B/P STAT 08/11/2024 6:49 PM CDT BACTERIA / ALICIA CULTURE, BLOOD STAT 08/11/2024 6:49 PM CDT METHOTREXATE LEVEL, S Timed 08/11/2024 6:48 PM CDT VBG (VENOUS BLOOD GAS), POCT, B STAT 08/11/2024 6:20 PM CDT ETHANOL, S STAT 08/11/2024 6:20 PM CDT BETA-HYDOXYBUTYRATE, POCT, B STAT 08/11/2024 6:20 PM CDT MAGNESIUM, S STAT 08/11/2024 6:20 PM CDT BACTERIA / ALICIA CULTURE, BLOOD STAT 08/11/2024 6:20 PM CDT ECG STAT 08/11/2024 5:[address] ABDOMEN PELVIS WITH IV CONTRAST RAD - Semiurgent (Fast; most ED patients; some inpatients) 08/11/2024 4:58 PM CDT CBC WITH DIFFERENTIAL, B STAT 08/11/2024 4:09 PM CDT LIPASE, S/P STAT 08/11/2024 3:54 PM CDT LACTATE, B/P STAT 08/11/2024 3:54 PM CDT C-REACTIVE PROTEIN (CRP), S/P STAT 08/11/2024 3:54 PM CDT COMPREHENSIVE METABOLIC PANEL, S/P STAT 08/11/2024 3:54 PM CDT CBC WITHOUT DIFFERENTIAL, B STAT 08/11/2024 3:54 PM CDT HC URINALYSIS AUTO W MICRO STAT 08/11/2024 3:52 PM CDT URINALYSIS WITH MICROSCOPIC IF INDICATED, U STAT 08/11/2024 3:52 PM CDT IFLU A, B, SARS COV-2, PCR, RAPID,V STAT 08/11/2024 3:52 PM CDT from Last 3 Months Results * (ABNORMAL) Basic Metabolic Panel (08/12/2024 3:04 PM CDT) Only the most recent of2 resultswithin the time period is included. Potassium, P 3.1(L) 3.6 - 5.2 mmol/L 08/12/2024 3:30 PM CDT CNFL Sodium, P 134(L) 135 - 145 mmol/L 08/12/2024 3:30 PM CDT CNFL Chloride, P 100 98 - 107 mmol/L 08/12/2024 3:30 PM CDT CNFL Bicarbonate, P 22 22 - 29 mmol/L 08/12/2024 3:30 PM CDT CNFL Anion Gap, P 12 7 - 15 08/12/2024 3:30 PM CDT CNFL BUN (Blood Urea Nitrogen), P 12 6 - 21 mg/dL 08/12/2024 3:30 PM CDT CNFL Creatinine 1.16(H) 0.59 - 1.04 mg/dL 08/12/2024 3:30 PM CDT CNFL Estimated GFR (eGFR) 56(L) >=60 mL/min/BSA 08/12/2024 3:30 PM CDT CNFL Comment: Estimated GFR calculated using the 2020 CKD_EPI creatinine equation. Calcium, Total, P 9.0 8.6 - 10.0 mg/dL 08/12/2024 3:30 PM CDT CNFL Glucose, P 95 70 - 140 mg/dL 08/12/2024 3:30 PM CDT CNFL Blood (Blood, Venous) 08/12/2024 3:04 PM CDT 08/12/2024 3:09 PM CDT Yulisa Mcduffie M.D. LAB BLOOD ADD-ON [facility] [address] [place] [id number], [place] [address] * Glucose, POCT (08/12/2024 12:16 PM CDT) Only the most recent of5 resultswithin the time period is included. Glucose, POCT, B 99 70 - 140 mg/dL 08/12/2024 12:16 PM CDT CNFL Blood 08/12/2024 12:1 6 PM CDT 08/12/2024 12:23 PM CDT Generic Rals LAB POCT ORDERABLES- MANUAL Performing Organization Address City/[facility]/ZIP Co de Phone Number [facility] [address] [place] [phone], [address] [address] * (ABNORMAL) CBC with Differential, Blood (08/12/2024 6:45 AM CDT) Only the most recent of2 resultswithin the time period is included. Hemoglobin 12.6 11.6 - 15.0 g/dL 08/12/2024 7:22 AM CDT CNFL Hematocrit 34.8(L) 35.5 - 44.9 % 08/12/2024 7:22 AM CDT CNFL Erythrocytes 3.69(L) 3.92 - 5.13 x10(12)/L 08/12/2024 7:22 AM CDT CNFL MCV 94.3 78.2 - 97.9 fL 08/12/2024 7:22 AM CDT CNFL RBC Distrib Width 13.1 12.2 - 16.1 % 08/12/2024 7:22 AM CDT CNFL Platelet Count 343 157 - 371 x10(9)/L 08/12/2024 7:22 AM CDT CNFL Leukocytes 7.2 3.4 - 9.6 x10(9)/L 08/12/2024 7:22 AM CDT CNFL Neutrophils 3.81 1.56 - 6.45 x10(9)/L 08/12/2024 7:22 AM CDT CNFL Lymphocytes 2.00 0.95 - 3.07 x10(9)/L 08/12/2024 7:22 AM CDT CNFL Monocytes 1.10(H) 0.26 - 0.81 x10(9)/L 08/12/2024 7:22 AM CDT CNFL Eosinophils 0.23 0.03 - 0.48 x10(9)/L 08/12/2024 7:22 AM CDT CNFL Basophils 0.04 0.01 - 0.08 x10(9)/L 08/12/2024 7:22 AM CDT CNFL Blood (Blood, Venous) 08/12/2024 6:45 AM CDT 08/12/2024 7:06 AM CDT Yulisa Mcduffie M.D. LAB BLOOD ADD-ON [facility] [address] [place] [address], [facility] CNFL [facility] [place] [address] * Feet-Nursing Image Exam (08/12/2024 12:13 AM CDT) Only the most recent of3 resultswithin the time period is included. 08/12/2024 12:1 1 AM CDT Narrative IIMS - 08/12/2024 12:13 AM CDT This order has been created and auto-finalized to support the import of images acquired without order. The clinical documentation to support these images can be found on the encounter that produced images. Provider Not In System IMG NON RAD IMAGI NG PROCEDURES IIMS NA * (ABNORMAL) Potassium (08/11/2024 8:15 PM CDT) Potassium, P 3.1(L) 3.6 - 5.2 mmol/L 08/11/2024 8:38 PM CDT CNFL Blood (Blood, Venous) 08/11/2024 8:15 PM CDT 08/11/2024 8:26 PM CDT Guanakito Quezada APRNNPatrick., M.S.N. LAB BLOO D ADD-ON [facility] [address] [place] [address], [facility] [place] [address] * (ABNORMAL) Lactate (08/11/2024 6:49 PM CDT) Only the most recent of2 resultswithin the time period is included. Lactate, P 2.4(H) 0.5 - 2.2 mmol/L 08/11/2024 7:10 PM CDT CNFL Blood (Blood, Venous) 08/11/2024 6:49 PM CDT 08/11/2024 6:52 PM CDT Guanakito Quezada APRNN.Jas., M.S.N. LAB BLOO D NON ADD-ON Performing Organization Address City/[facility]/ZIP Co de Phone Number [facility] [address] [place] [phone], [facility] in [address] [address] * Methotrexate Level (08/11/2024 6:48 PM CDT) Methotrexate, S <0.04 <0.10 mcmol/L 08/12/2024 3:08 PM CDT ECLR Blood (Blood, Venous) 08/11/2024 6:48 PM CDT 08/12/2024 2:36 PM CDT Guanakito Quezada APRNJt, M.S.N. LAB BLOO D ADD-ON [facility] [address] [place] [address], [facility] ECLR [facility] in [place] [address] [place] [address] * Beta-hydroxybutyrate, Point of Care Testing, Blood (08/11/2024 6:20 PM CDT) Beta-hydroxybut yrate, POCT, B 0.3 0.0 - 0.5 mmol/L 08/11/2024 6:25 PM CDT CNFL Blood (Blood, Venous) 08/11/2024 6:20 PM CDT 08/11/2024 6:22 PM CDT Gurwinder Magallanes APRN, C.N.P., M.S.N. LAB BLOO D NON ADD-ON [facility] [address] [place] [address], [facility] CNFL [facility] in [address] [address] * Ethanol Level, Serum (08/11/2024 6:20 PM CDT) Ethanol, P <10 <10 mg/dL 08/11/2024 6:3 5 PM CDT CNFL Blood (Blood, Venous) 08/11/2024 6:20 PM CDT 08/11/2024 6:22 PM CDT Gurwinder Magallanes APRN, C.N.P., M.S.N. LAB BLOO D NON ADD-ON [address] [address], [facility] CNFL [facility] in [address] [address] * (ABNORMAL) Blood Gas, Venous, POCT, Blood (08/11/2024 6:20 PM CDT) pH, Venous, POCT, B 7.61(CH) 7.32 - 7.43 08/11/2024 6:28 PM CDT CNFL pCO2, Venous, POCT, B 23(L) 41 - 51 mm Hg 08/11/2024 6:28 PM CDT CNFL pO2, Venous, POCT, B 87 Not applicable mm Hg 08/11/2024 6:28 PM CDT CNFL HCO3, Venous, POCT, B 24 Not applicable mmol/L 08/11/2024 6:28 PM CDT CNFL Base Excess, Venous, POCT, B 2 Not applicable mmol/L 08/11/2024 6:28 PM CDT CNFL O2 Saturation, Venous, POCT, B 98 Not applicable % 08/11/2024 6:28 PM CDT CNFL Sample Type, Blood Gas, POCT ARELI 08/11/2024 6:28 PM CDT CNFL Blood (Blood, Venous) 08/11/2024 6:20 PM CDT 08/11/2024 6:22 PM CDT Guanakito Quezada APRNN.Jsa., M.S.N. LAB POCT ORDERABLES - DEVICE Performing Organization Address [facility] Co de Phone Number [facility] [address] [place] [address], [facility] in [address] [address] * Magnesium (08/11/2024 6:20 PM CDT) Magnesium, P 1.8 1.7 - 2.3 mg/dL 08/11/2024 6:35 PM CDT CNFL Blood (Blood, Venous) 08/11/2024 6:20 PM CDT 08/11/2024 6:22 PM CDT Roxie Quezada APRN.NAlex, M.S.N. LAB BLOO D ADD-ON Performing Organization Address City/[facility] Co de Phone Number [facility] [address] [place] [phone], [facility] CNFL [facility] in [address] [address] * ECG 12 Lead (08/11/2024 5:47 PM CDT) Ventricular Rate ECG/Min 88 BPM MUSE NC Interval 162 ms MUSE QRSD Interval 88 ms MUSE QT Interval 440 ms MUSE QTC Interval 532 ms MUSE P [place] -5 degrees MUSE R [place] 12 degrees MUSE T Wave [place] 0 degrees MUSE 08/11/2024 5:47 PM CDT 08/11/2024 5:55 PM CDT Impressions MUSE - 08/11/2024 5:55 PM CDT Sinus rhythm Nonspecific T wave abnormality Prolonged QT When compared with ECG of 06-Jun-2021 21:42, No significant change was found Reviewed by GURWINDER Peralta Narrative Procedure Note Jorge Luis Javier M.D., Ph.D. - 08/11/2024 IMPRESSION: Sinus rhythm Nonspecific T wave abnormality Prolonged QT When compared with ECG of 06-Jun-2021 21:42, No significant change was found Reviewed by GURWINDER Peralta Purdy N Guanakito Magallanes APRNN.P., M.S.N. ECG ALEXANDRAE SONIA Performing Organization Address [facility] Co de Phone Number MUSE NA * CT Abdomen Pelvis with IV Contrast (08/11/2024 4:58 PM CDT) Anatomical Region Laterality Modality Abdomen, Pelvis, Abdominal R ST LOS, Abdominal ARZ LOS, Abdominal FLA LOS N/A Computed Tomography 08/11/2024 4:59 PM CDT Impressions 08/11/2024 5:35 PM CDT A few mildly prominent, fluid-filled loops of small bowel throughout the abdomen without a transition point suggesting acute infectious/inflammatory enteritis. Narrative 08/11/2024 5:35 PM CDT EXAM: CT ABDOMEN PELVIS WITH IV CONTRAST COMPARISON: CT of the abdomen and pelvis without IV contrast from 05/29/2022. FINDINGS: Nodular contour of the liver. The liver, spleen, pancreas, adrenal glands and kidneys are otherwise normal. A few mildly prominent, fluid-filled loops of small bowel throughout the abdomen without a transition point. Normal caliber large bowel. No drainable fluid collections. Hysterectomy. The lung bases are clear. Scattered degenerative disc space narrowing throughout the lumbar spine. Posterior disc osteophyte complexes at L2-3 and L4-5 and L5-S1 mildly narrows the spinal canal. Procedure Note Aidan Aguila M.D. - 08/11/2024 EXAM: CT ABDOMEN PELVIS WITH IV CONTRAST COMPARISON: CT of the abdomen and pelvis without IV contrast from05/29/2022. FINDINGS: Nodular contour of the liver. The liver, spleen, pancreas,adrenal glands and kidneys are otherwise normal. A few mildly prominent,fluid-filled loops of small bowel throughout the abdomen without atransition point. Normal caliber large bowel. No drainable fluid collections. Hysterectomy. The lung bases are clear.Scattered degenerative disc space narrowing throughout the lumbar spine.Posterior disc osteophyte complexes at L2-3 and L4-5 and L5-S1 mildlynarrows the spinal canal. IMPRESSION: A few mildly prominent, fluid-filled loops of small bowel throughout theabdomen without a transition point suggesting acuteinfectious/inflammatory enteritis. Roxie Sanon APRN.N.P., D.N.P. IMG CT PROCEDURES * CBC without Differential (08/11/2024 3:54 PM CDT) Pathologist [facility] Hemoglobin CANCELED 11.6 - 15.0 g/dL 08/11/2024 5:31 PM CDT CNFL Comment: REVISED RESULTS ----PREVIOUSLY REPORTED ---- 15.1, Flagged as: Abnormal_High (Reported 08/11/2024 16:02) Hematocrit CANCELED 35.5 - 44.9 % 08/11/2024 5:31 PM CDT CNFL Comment: REVISED RESULTS ----PREVIOUSLY REPORTED ---- 40.4, Flagged as: Normal (Reported 08/11/2024 16:02) Erythrocytes CANCELED 3.92 - 5.13 x10(12)/L 08/11/2024 5:31 PM CDT CNFL Comment: REVISED RESULTS ----PREVIOUSLY REPORTED ---- 4.48, Flagged as: Normal (Reported 08/11/2024 16:02) MCV CANCELED 78.2 - 97.9 fL 08/11/2024 5:31 PM CDT CNFL Comment: REVISED RESULTS ----PREVIOUSLY REPORTED ---- 90.2, Flagged as: Normal (Reported 08/11/2024 16:02) RBC Distrib Width CANCELED 12.2 - 16.1 % 08/11/2024 5:31 PM CDT CNFL Comment: REVISED RESULTS ----PREVIOUSLY REPORTED ---- 12.4, Flagged as: Normal (Reported 08/11/2024 16:02) Platelet Count CANCELED 157 - 371 x10(9)/L 08/11/2024 5:31 PM CDT CNFL Comment: REVISED RESULTS ----PREVIOUSLY REPORTED ---- 493, Flagged as: Abnormal_High (Reported 08/11/2024 16:02) Leukocytes CANCELED 3.4 - 9.6 x10(9)/L 08/11/2024 5:31 PM CDT CNFL Comment: REVISED RESULTS ----PREVIOUSLY REPORTED ---- 16.9, Flagged as: Abnormal_High (Reported 08/11/2024 16:02) Blood (Blood, Venous) 08/11/2024 3:54 PM CDT 08/11/2024 3:57 PM CDT Narrative [facility] - 08/11/2024 5:31 PM CDT CBC without Differential was cancelled on 08/11/2024 at 17:31; Per provider's request. Micheal Dimas APRN, C.N.P., D.N.P. LAB BLOOD ADD-ON [facility] [address] [address], [facility] CNFL [facility] [place] [address] [address] * CRP (C-Reactive Protein) (08/11/2024 3:54 PM CDT) C-Reactive Protein (CRP), P <3.0 <5.0 mg/L 08/11/2024 4:46 PM CDT CNFL Blood (Blood, Venous) 08/11/2024 3:54 PM CDT 08/11/2024 3:57 PM CDT Roxie Sanon APRN.N.P., D.N.P. LAB BLOOD ADD-ON [facility] [address] [place] [id number], [facility] CNFL [address] [id number] * Lipase (08/11/2024 3:54 PM CDT) Lipase, P 57 13 - 60 U/L 08/11/2024 4: 46 PM CDT CNFL Blood (Blood, Venous) 08/11/2024 3:54 PM CDT 08/11/2024 3:57 PM CDT Roxie Sanon APRN.N.P., D.N.P. LAB BLOOD ADD-ON [facility] [address] [place] [id number], [facility] [address] [id number] * (ABNORMAL) Comprehensive Metabolic Panel (08/11/2024 3:54 PM CDT) Potassium, P 2.5(CL) 3.6 - 5.2 mmol/L 08/11/2024 4:49 PM CDT CNFL Sodium, P 132(L) 135 - 145 mmol/L 08/11/2024 4:46 PM CDT CNFL Chloride, P 93(L) 98 - 107 mmol/L 08/11/2024 4:46 PM CDT CNFL Bicarbonate, P 21(L) 22 - 29 mmol/L 08/11/2024 4:46 PM CDT CNFL Anion Gap, P 18(H) 7 - 15 08/11/2024 4:46 PM CDT CNFL BUN (Blood Urea Nitrogen), P 15 6 - 21 mg/dL 08/11/2024 4:46 PM CDT CNFL Creatinine 1.23(H) 0.59 - 1.04 mg/dL 08/11/2024 4:46 PM CDT CNFL Estimated GFR (eGFR) 53(L) >=60 mL/min/BS A 08/11/2024 4:46 PM CDT CNFL Comment: Estimated GFR calculated using the 2020 CKD_EPI creatinine equation. Calcium, Total, P 10.1(H) 8.6 - 10.0 mg/dL 08/11/2024 4:46 PM CDT CNFL Glucose, P 145(H) 70 - 140 mg/dL 08/11/2024 4:46 PM CDT CNFL Protein, Total, P 7.5 6.3 - 7.9 g/dL 08/11/2024 4:46 PM CDT CNFL Albumin, P 4.7 3.5 - 5.0 g/dL 08/11/2024 4:46 PM CDT CNFL Aspartate Aminotransferase (AST), P 21 8 - 43 U/L 08/11/2024 4:46 PM CDT CNFL Alkaline Phosphatase, P 42 35 - 104 U/L 08/11/2024 4:46 PM CDT CNFL Alanine Aminotransferase (ALT), P 34 7 - 45 U/L 08/11/2024 4:46 PM CDT CNFL Bilirubin, Total, P 1.4(H) 0.0 - 1.2 mg/dL 08/11/2024 4:46 PM CDT CNFL Blood (Blood, Venous) 08/11/2024 3:54 PM CDT 08/11/2024 3:57 PM CDT Micheal Dimas APRN, C.N.P., D.N.P. LAB BLOOD ADD-ON [facility] [address] [place] [address], [facility] in [address] [address] * Influenza A/B, SARS CoV-2, PCR, Rapid Symptomatic (08/11/2024 3:52 PM CDT) Influenza A, PCR, Rapid, V Negative Negative 08/11/2024 4:00 PM CDT CNFL Influenza B, PCR, Rapid, V Negative Negative 08/11/2024 4:00 PM CDT CNFL SARS CoV-2, PCR, Rapid, V Undetected Undetected 08/11/2024 4:00 PM CDT CNFL Infl A/B, SARS CoV-2, PCR, Source Swab, Nasopharynx 08/11/2024 3:57 PM CDT CNFL Swab (Nasopharynx) 08/11/2024 3:52 PM CDT 08/11/2024 3:57 PM CDT Micheal Dimas APRN C.N.P., D.N.P. LAB MICROBIOLOGY - GENERAL ORDERABLES [facility] [address] [place] [address], [facility] in [address] [address] * (ABNORMAL) Urinalysis with Microscopic if Indicated (08/11/2024 3:52 PM CDT) Source Urine, Urine, Midstream 08/11/2024 6:25 PM CDT CNFL Clarity Clear Clear 08/11/2024 6:28 PM CDT CNFL Color Yellow 08/11/2024 6:28 PM CDT CNFL Comment: ----REFERENCE VALUE---- Colorless Yellow Kia Blood Negative Negative 08/11/2024 6:28 PM CDT CNFL Nitrite Negative Negative 08/11/2024 6:28 PM CDT CNFL Leukocyte Esterase Negative Negative 08/11/2024 6:28 PM CDT CNFL Protein 30(A) mg/dL 08/11/2024 6:28 PM CDT CNFL Comment: ----REFERENCE VALUE---- Negative Trace Glucose Negative Negative mg/dL 08/11/2024 6:28 PM CDT CNFL Ketones, QI(U) Negative Negative mg/dL 08/11/2024 6:28 PM CDT CNFL Bilirubin Negative Negative 08/11/2024 6:28 PM CDT CNFL pH 7.0 5.0 - 8.0 08/11/2024 6:28 PM CDT CNFL Specific [place] 1.010 1.001 - 1.035 08/11/2024 6:28 PM CDT CNFL Urobilinogen 0.2 0.2 - 1.0 mg/dL 08/11/2024 6:28 PM CDT CNFL Urine (Urine, Midstream) 08/11/2024 3:52 PM CDT 08/11/2024 6:25 PM CDT Roxie Sanon APRN.N.P., D.N.P. LAB URINE ORDERABLES Performing Organization Address [facility]/State/[facility] Co de Phone Number [facility] [address] [place] [address], [facility] [place] [address] * Microscopic Manual (08/11/2024 3:52 PM CDT) White Blood Cells None Seen /hpf 08/11/2024 6:45 PM CDT CNFL Comment: ----REFERENCE VALUE---- Males: 0-3 Females: 0-10 Unknown: 0-10 Red Blood Cells Occ-2 0 - 2 /hpf 08/11/2024 6:45 PM CDT CNFL Squamous Cells 11-20 /hpf 08/11/2024 6:45 PM CDT CNFL Urine 08/11/2024 3:52 PM CDT 08/11/2024 6:25 PM CDT Micheal Dimas APRN, Roxie.N.P., D.N.P. LAB URINE ORDERABLES [facility] [address] [address], [facility] CNFL [facility] in [place] [address] [facility] [address] [place] [address] from Last 3 Months Additional Health Concerns Infection Onset Date Last Indicated Protective Environment 08/11/2024 Advance Directives For more information, please contact: [phone] * Full Code (Latest Code Status on File) Date Activated Date Inactivated Comments 08/11/2024 10:11 PM 08/12/2024 7:03 PM Question Answer Comments Full Code: Not Discussed Due to: Patient not available Care Teams [employer] Relationship Specialty Start Date End Date Elsewhere, Pcp PCP - General Family Medicine 06/07/21
--- OUTSIDE RECORDS SUMMARY | 2024-08-13 10:50 | XMS_ITS | Referral Summary ---
Author Organization [facility] Address [address] [place] [address] Care Team Providers Care Creche Attendant Name Role Phone Elsewhere, Pcp Primary Care Provider Unavailabl e Source Comments Patient records contain information from all sites at [facility]. For routine questions regarding patient records, call [phone] during business hours, M-F 8:00 AM - 5:00 PM Central Time. Record requests for emergency care only can be directed to [phone] at any time.[facility] Encounters Date Type Department Care Team Description 08/12/2024 12:25 AM CDT Ancillary Procedure Department of Nursing Arrived 08/12/2024 12:20 AM CDT Ancillary Procedure Department of Nursing Arrived 08/12/2024 12:15 AM CDT Ancillary Procedure Department of Nursing Arrived 08/11/2024 3:34 PM CDT - 08/12/2024 4:57 PM CDT Emergency [facility], [facility], Second Floor [address] [place] [phone] Micheal Dimas APRN, C.N.P., D.N.P. Gurwinder Magallanes APRN, C.N.P., M.S.N. Yulisa Mcduffie M.D. Prolonged QT Interval (Primary Dx); Nausea And Vomiting; Diarrhea; Dehydration; Colitis; Failure Renal Acute (Acute Kidney Injury) (HCC); Alkalosis Respiratory; Hypokalemia Discharge Disposition: Home or Self Care 06/14/2024 [facility] [address] [place] [address] Gail Souza, C.N.P. from Last 3 Months Allergies Active Allergy Reactions Criticality Noted Date Comments Lisinopril Cough Low 10/26/2018 Milfay Pollen Itching Medium 08/11/2024 Seasonal Allergies: Allergic Rhinitis, Itchy watery eyes, Sneezing Medications Medication Sig Dispensed Refills Start Date End Date Status miscellaneous medical supply [facility] CPAP machine for home use at pressure: [...] hours as needed for pain. 25-50 mg q1esdpy PRN Active triamcinolone (Kenalog) 0.1 % cream [...] capsule Take 40 mg by mouth. 1 Discontinued(Du plicate order) montelukast (SINGULAIR) 10 mg [...] every 12 (twelve) hours. 14 capsule 2 024 Discontinued(Di scontinued by another clinician) phenazopyridine (PYRIDIUM) [...] (three) times a day as needed. 3 Discontinued( erapy completed) semaglutide (Ozempic) 0.25 mg or 0.5 mg (2 mg/3 mL) injection Inject 2 mg under the skin every 7 (seven) days. 4 Discontinued(Do se adjustment) cyclobenzaprine (FlexeriL) 10 mg tablet Take 10 mg by mouth 3 (three) times a day as needed for muscle spasms. Discontinued( erapy completed) potassium chloride (K-Tab) 20 mEq ER tablet Take 20 mEq by mouth daily. 4 Discontinued insulin glargine U-300 conc (Toujeo Max SoloStar) 300 unit/mL (3 mL) injection Inject 44 Units under the skin every morning. 4 Discontinued(Al ternate therapy) sulfamethoxazole-t rimethoprim (Bactrim DS) 800-160 mg per tablet Take 1 tablet by mouth 3 (three) times a week. Mon-Mon-Mon 2 Discontinued( erapy completed) Ozempic 1 mg/dose (4 mg/3 mL) injection Inject 1 mg under the skin every 7 (seven) days. 4 Discontinued(Do se adjustment) azaTHIOprine (Imuran) 50 mg tablet Take 50 mg by mouth daily. 3 Discontinued(Al ternate therapy) insulin NPH (NovoLIN N NPH U-100 Insulin) 100 unit/mL vial Inject 38 Units under the skin every morning. 3 Discontinued(Al ternate therapy) Active Problems Problem Noted [...] 03/09/2018 Cancer Cervix In Situ (Severe Dysplasia) 015 Overview (05/29/2022): 05/15/2015 LSIL cannot exclude HSIL (no follow up colp noted) 01/11/2019 ASCUS/HPV+ 02/12/2019 Total Hysterectomy, Cervix removed: NADIRA 2-3 01/20/2020 NIL/HPV negative 06/16/2021 LSIL/HPV+, HPV 16/18 negative 01/18/22 LSIL/HPV+, 16/18 negative. Carver:normal, no biopsy taken Provider plan 01/18/22: Pap/HPV due 01/2023 Obesity Body Mass Index 30-39.9 Adult 01/17/2012 Resolved Problems Problem Noted Date Diagnosed Date Resolved Date Prolonged QT Interval 08/11/20242023 Hyperuricemia 06/16/2021 08/11/2024 Overview (05/29/2022): Patient stopped allopurinol. Immunizations Name Administration Dates Next Due HepB Adult 06/24/2014,05/19/2014 Tdap 01/17/2012 influenza vaccine quad (FLUZ ONE/FLUARIX) (6 months and older)(PF) 01/20/2020 Social History Tobacco Use Types Packs/Day Years Used Date Smoking Tobacco: Never [facility] Utilities Answer Date Recorded In the past 12 months has [facility] [employer], gas, oil, or water company threatened to [...] your living situation today? I have a [facility] place to live 08/11/2024 Sex and [...] 08/11/2024 9:00 PM CDT Plan of Treatment Not on file Procedures Procedure Name Priority Date/Time Associated Diagnosis [...] CDT Yulisa Mcduffie M.D. LAB BLOOD ADD-ON Performing Organization Address City/[facility]/ZIP Co de Phone Number [facility] [address] [place] [address], [place] [address] * Glucose, POCT (08/12/2024 12:16 PM CDT) Only the most recent of5 resultswithin the time period is included. Pathologist [facility] Glucose, POCT, B 99 70 - 140 mg/dL 08/12/2024 12:16 PM CDT [facility] Blood 08/12/2024 12:1 6 PM CDT 08/12/2024 12:23 PM CDT Generic Rals LAB POCT ORDERABLES- MANUAL Performing Organization Address City/[facility] Co de Phone Number [facility] [address] [place] [address], [place] [address] * (ABNORMAL) CBC with Differential, Blood (08/12/2024 [...] CDT Yulisa Mcduffie M.D. LAB BLOOD ADD-ON [facility] [address] [place] [address], [facility] CNFL [facility] [place] [address] * Feet-Nursing Image Exam (08/12/2024 12:13 AM [...] 8:15 PM CDT 08/11/2024 8:26 PM CDT Gurwinder Magallanes APRN, C.N.P., M.S.N. LAB BLOO D ADD-ON Performing Organization Address City/[facility]/[place] [address], [place] [address] * (ABNORMAL) Lactate (08/11/2024 6:49 PM CDT) Only the most recent of2 resultswithin the time period is included. Pathologist [facility] Lactate, P 2.4(H) 0.5 - 2.2 mmol/L 08/11/2024 7:10 PM CDT CNFL Blood (Blood, Venous) 08/11/2024 6:49 PM CDT 08/11/2024 6:52 PM CDT Gurwinder Magallanes APRN, C.N.P., M.S.N. LAB BLOO D NON ADD-ON [facility] [address] [place] [address], [place] [address] * Methotrexate Level (08/11/2024 6:48 PM CDT) Methotrexate, S <0.04 <0.10 mcmol/L 08/12/2024 3:08 PM CDT ECLR Blood (Blood, Venous) 08/11/2024 6:48 PM CDT 08/12/2024 2:36 PM CDT Gurwinder Magallanes APRN, C.N.P., M.S.N. LAB BLOO D ADD-ON [facility] [address] [place] [address], [facility] ECLR [facility] [place] [address] * Beta-hydroxybutyrate, Point of Care Testing, Blood (08/11/2024 6:20 PM CDT) Beta-hydroxybut yrate, POCT, B 0.3 0.0 - 0.5 mmol/L 08/11/2024 6:25 PM CDT CNFL Blood (Blood, Venous) 08/11/2024 6:20 PM CDT 08/11/2024 6:22 PM CDT Gurwinder Magallanes APRN, C.N.P., M.S.N. LAB BLOO D NON ADD-ON Performing Organization Address City/[facility]/ZIP Co de Phone Number [address] [address], [facility] CNFL [facility] in [address] [address] * Ethanol Level, Serum (08/11/2024 6:20 PM CDT) Ethanol, P <10 <10 mg/dL 08/11/2024 6:3 5 PM CDT CNFL Blood (Blood, Venous) 08/11/2024 6:20 PM CDT 08/11/2024 6:22 PM CDT Gurwinder Magallanes APRN, C.N.P., M.S.N. LAB BLOO D NON ADD-ON [address] [place] [address], [facility] CNFL [facility] in [address] [address] * (ABNORMAL) Blood Gas, Venous, POCT, Blood [...] CDT 08/11/2024 6:22 PM CDT Roxie Quezada APRN.N.P., M.S.N. LAB POCT ORDERABLES - DEVICE [facility] [address] [place] [address], [facility] CNFL [facility] in [address] [address] * Magnesium (08/11/2024 6:20 PM CDT) Magnesium, P 1.8 1.7 - 2.3 mg/dL 08/11/2024 6:35 PM CDT CNFL Blood (Blood, Venous) 08/11/2024 6:20 PM CDT 08/11/2024 6:22 PM CDT Gurwinder Magallanes APRN, C.N.P., M.S.N. LAB BLOO D ADD-ON Performing Organization Address City/[facility] Co de Phone Number [facility] [address] [place] [address], [facility] CNFL [facility] in [address] [address] * ECG 12 Lead (08/11/2024 5:47 PM CDT) Ventricular Rate ECG/Min 88 BPM MUSE MT Interval 162 ms MUSE QRSD Interval 88 ms MUSE QT Interval 440 ms MUSE QTC Interval 532 ms MUSE P [place] -5 degrees MUSE R [place] 12 degrees MUSE T Wave [place] 0 degrees MUSE 08/11/2024 5:47 PM CDT [...] change was found Reviewed by GURWINDER Peralta Gurwinder Magallanes APRN, C.N.P., M.S.N. ECG ORDE RABLES Performing Organization Address City/[facility]/ZIP Co de Phone Number MUSE NA * [...] without a transition point suggesting acuteinfectious/inflammatory enteritis. Micheal Dimas APRN, C.N.P., D.N.P. IMG CT PROCEDURES * CBC without Differential (08/11/2024 3:54 PM CDT) Hemoglobin CANCELED 11.6 - 15.0 g/dL 08/11/2024 [...] PM CDT 08/11/2024 3:57 PM CDT Narrative [facility] - 08/11/2024 5:31 PM CDT CBC without Differential was cancelled on 08/11/2024 at 17:31; Per provider's request. Micheal Dimas APRN, C.N.P., D.N.P. LAB BLOOD ADD-ON [address] [address], [address] [address] * CRP (C-Reactive Protein) (08/11/2024 3:54 PM CDT) C-Reactive Protein (CRP), P <3.0 <5.0 mg/L 08/11/2024 4:46 PM CDT CNFL Blood (Blood, Venous) 08/11/2024 3:54 PM CDT 08/11/2024 3:57 PM CDT Roxie Sanon APRN.N.P., D.N.P. LAB BLOOD ADD-ON Performing Organization Address City/[facility]/ZIP Co de Phone Number [address] [address], [address] [address] * Lipase (08/11/2024 3:54 PM CDT) Lipase, P 57 13 - 60 U/L 08/11/2024 4: 46 PM CDT CNFL Blood (Blood, Venous) 08/11/2024 3:54 PM CDT 08/11/2024 3:57 PM CDT Roxie Sanon APRN.N.P., D.N.P. LAB BLOOD ADD-ON [address] [address], [address] [address] * (ABNORMAL) Comprehensive Metabolic Panel (08/11/2024 3:54 [...] Dimas APRN, C.N.P., D.N.P. LAB BLOOD ADD-ON Performing Organization Address City/[facility]/ZIP Co de Phone Number [address] [address], [facility] in [address] [address] * Influenza A/B, SARS CoV-2, PCR, Rapid [...] CDT Micheal Dimas APRN, C.N.P., D.N.P. LAB MICROBIOLOGY - GENERAL ORDERABLES Performing Organization Address [facility] Co de Phone Number [address] [address], [facility] in [address] [address] * (ABNORMAL) Urinalysis with Microscopic if Indicated [...] 8.0 08/11/2024 6:28 PM CDT CNFL Specific [place] 1.010 1.001 - 1.035 08/11/2024 6:28 PM CDT CNFL Urobilinogen 0.2 0.2 - 1.0 mg/dL 08/11/2024 6:28 PM CDT CNFL Urine (Urine, Midstream) 08/11/2024 3:52 PM CDT 08/11/2024 6:25 PM CDT Micheal Dimas APRN C.N.P., D.N.P. LAB URINE ORDERABLES Performing Organization Address [facility]/State/[facility] Co de Phone Number [facility] [address] [place] [address], [facility] CNFL [facility] [place] [address] * Microscopic Manual (08/11/2024 3:52 PM CDT) White Blood Cells None Seen /hpf 08/11/2024 6:45 PM CDT CNFL Comment: ----REFERENCE VALUE---- Males: 0-3 Females: 0-10 Unknown: 0-10 Red Blood Cells Occ-2 0 - 2 /hpf 08/11/2024 6:45 PM CDT CNFL Squamous Cells 11-20 /hpf 08/11/2024 6:45 PM CDT CNFL Urine 08/11/2024 3:52 PM CDT 08/11/2024 6:25 PM CDT Guanakito Sanon APRNNDelP., D.N.P. LAB URINE ORDERABLES [facility] [address] [place] [address], [facility] CNFL [facility] in [address] [address] from Last 3 Months Additional Health Concerns Infection Onset Date Last Indicated Protective Environment 08/11/2024 Advance Directives For more information, please contact: [phone] * Full Code (Latest Code Status on File) Date Activated Date Inactivated Comments 08/11/2024 10:11 PM 08/12/2024 7:03 PM Question Answer Comments Full Code: Not Discussed Due to: Patient not available Care Teams Creche Attendant Relationship Specialty Start Date End Date Elsewhere, Pcp PCP - General Family Medicine 06/07/21
--- OUTSIDE RECORDS SUMMARY | 2024-08-13 10:50 | XMS_ITS | Encounter Summary ---
Author Organization [facility] Address [address] [place] [address] Care Team Providers Care Radioisotope Technologist Name Role Phone Elsewhere, Pcp Primary Care Provider Unavailabl e Encounter Details Date Type Department Care Team (Late st Contact Info) Description 08/12/2024 12:25 AM CDT Ancillary Procedure Department of Nursing Arrived Social History Tobacco Use Types Packs/Day Years Used Date Smoking Tobacco: Never [facility] Utilities Answer Date Recorded In the past [...] your living situation today? I have a [facility] place to live 08/11/2024 Sex and [...] CDT documented in this encounter Results * Feet-Nursing Image Exam (08/12/2024 12:13 AM CDT) 08/12/2024 [...] documented as of this encounter Care Teams Radioisotope Technologist Relationship Specialty Start Date End Date Elsewhere, Pcp PCP - General Family Medicine 06/07/21 documented as of this encounter
--- OUTSIDE RECORDS SUMMARY | 2024-08-13 10:51 | XMS_ITS | Encounter Summary ---
Author Organization [facility] Address [address] [place] [address] Care Team Providers Care Wire Hanger Name Role Phone Elsewhere, Pcp Primary Care Provider Unavailabl e Encounter Details Date Type Department Care Team (Late st Contact Info) Description 06/14/2024 [facility] [address] [place] [address] Gail Souza, C.N.P. [address] [place] [phone] Social History Tobacco Use Types Packs/Day Years Used Date Smoking Tobacco: Never Nutrition Answer Date Recorded Nutrition: EVOO Fat Source 13 06/16 Nutrition: Servings of Fruits/Vegetables per Day Not on file 06/16/2020 Dental Answer Date Recorded Dental: Regular Dentist Unknown 01/22/20 Sex and Gender Information Value Date Recorded Sex Assigned at Not on file Gender Identity Not on file Sexual Orientation Not on file documented as of this encounter Plan of Treatment Not on file documented as of this encounter Visit Diagnoses Not on filedocumented in this encounter Care Teams Wire Hanger Relationship Specialty Start Date End Date Elsewhere, Pcp PCP - General Family Medicine 06/07/21 documented as of this encounter
--- OUTSIDE RECORDS SUMMARY | 2024-08-13 10:51 | XMS_ITS | Encounter Summary ---
Author Organization [facility] Address [address] [place] [address] Care Team Providers Care First Cook Name Role Phone Elsewhere, Pcp Primary Care Provider Unavailabl e Reason for Referral * Outpatient (Routine) - Authorized Specialty Diagnoses / Procedures Referred By Sree nevarez Referred To Contact Yulisa Mcduffie M.D. [address] [place] [address] [facility] Referral ID Status Reason Start Date Expiration Date V isits Requested Visits Authorized [id number] Authorized 08/12/2024 02/11/2026 1 1 Scheduling Instructions We will be contacting you with more information on this referral. An appointment will be scheduled for you. More information is listed below. Reason for Visit * Reason Comments Vomiting * Auth/Cert (Routine) Specialty Diagnoses / Procedures Referred By Sree nevarez Referred To Contact Diagnoses Alkalosis Respiratory Hypokalemia Failure Renal Acute (Acute Kidney Injury) (HCC) Nausea And Vomiting Diarrhea Colitis Prolonged QT Interval Dehydration Procedures INPT Referral ID Status Reason Start Date Expiration Date Visits Re quested Visits Authorized [id number] 1 1 Encounter Details Date Type Department Care Team (Late st Contact Info) Description 08/11/2024 3:34 PM CDT - 08/12/2024 4:57 PM CDT Emergency [facility], [facility], Second Floor [address] [place] [phone] Micheal Dimas APRN, C.N.P., D.N.P. [address] [place] [address] Gurwinder Magallanes, JUSTIN, CDelNDelP., M.S.N. [address] [place] [address] Yulisa Mcduffie M.D. [address] [place] [address] Prolonged QT Interval (Primary Dx); Nausea And Vomiting; Diarrhea; Dehydration; Colitis; Failure Renal Acute (Acute Kidney Injury) (HCC); Alkalosis Respiratory; Hypokalemia Discharge Disposition: Home or Self Care Social History Tobacco Use Types Packs/Day Years Used Date Smoking Tobacco: Never [facility] [employer] Answer Date Recorded In the past 12 months has [facility] [employer], gas, oil, or water [employer] threatened to shut off services in your [...] your living situation today? I have a [facility] place to live 08/11/2024 Sex and [...] Mass Index 35.37 08/11/2024 9:00 PM CDT documented in this encounter Discharge Summaries * Yulisa Mcduffie M.D. - 08/12/2024 4:07 PM CDT Karin Dominguez [phone] DATE OF ADMISSION: 08/11/2024 LOS: 0 days DATE OF DISCHARGE: 08/12/24 ADMITTING PROVIDER: Yulisa Mcduffie M.D. ADMITTING DIAGNOSES (All present on admission): PRINCIPAL DIAGNOSIS Infectious Gastroenteritis And Colitis Unspecified SECONDARY DIAGNOSES Principal Problem: Infectious Gastroenteritis And Colitis Unspecified Active Problems: Hypokalemia Failure Renal Acute (Acute Kidney Injury) (HCC) Anxiety Generalized Disorder Apnea Sleep Obstructive Dyslipidemia NOS Gastro-Esophageal Reflux Disease With Esophagitis Without Bleeding Hypertension Essential Primary Obesity Body Mass Index 30-39.9 Adult Resolved Problems: Hyperuricemia Prolonged QT Interval DISCHARGE DIAGNOSIS: #1 Infectious Gastroenteritis And Colitis Unspecified #2 Hypokalemia #3 Failure Renal Acute (Acute Kidney Injury) (HCC) #4 Anxiety Generalized Disorder #5 Apnea Sleep Obstructive #6 Dyslipidemia NOS #7 Gastro-Esophageal Reflux Disease With Esophagitis Without Bleeding #8 Hypertension Essential Primary #9 Obesity Body Mass Index 30-39.9 Adult CODE STATUS: Full Code CONSULTS DURING HOSPITALIZATION: none FOR HISTORY OF PRESENT ILLNESS, PAST MEDICAL HISTORY, ALLERGIES, MEDICATIONS ON ADMISSION, SOCIAL HISTORY AND FAMILY HISTORY: See admission History and Physical. HOSPITAL COURSE : Patient is a 53-year-old white female with history of hypertension ,hyperlipidemia, generalized anxiety disorder, gastroesophageal reflux disease,sarcoidosis on immunosuppressive therapy and obesity presented with nausea vomiting and diarrhea associated with abdominal pain. She describes the pain as periumbilical with not much of radiation. She notes this nausea vomiting and diarrhea has lasted for 4 days and she was getting concerned that she is getting dehydrated. She has had multiple abdominal surgeries including oophorectomy tubal ligation and hysterectomy. She denies any exposure to anybody else who is sick. She says it started with constipation then later leading into this intense diarrhea. Patient was started on IV and orally supplementation of potassium in the ER as well as IV fluids. Patient's nausea, vomiting and diarrhea subsided following admission. Patient also received cefepime and Flagyl for inflammation/colitis of the bowel. 12 hours after admission when I evaluated the patient in the morning, her diarrhea, nausea ,vomiting and patient's abdominal pain had also resolved. Patient felt she was doing well enough to go home and tolerating an oral diet. At this point, I discontinue her antibiotics and continued with the supplementation of potassium as it had not returned tobaseline. Patient also had a mild DYLAN that was improving at discharge. Since her potassium was stable at 3.1 ,I recommended patient increase her oral supplements over the next 2 days and then have itrechecked when she follows up with her PCP. Patient was asymptomatic with no nausea, vomiting, diarrhea or abdominal pain and tolerating a regular diet at discharge. Patient was recommended to avoid fried and fatty foods and cheesy foods for another few days till things improve. During her stay here her hydro chlorthalidone was on hold and I recommended she hold it till she sees her PCP. Patient discharged in a stable state DISCHARGE EXAM BP 111/77 Pulse 88 Temp 37 ??C Resp 16 Ht 165.1 cm Wt 96.4 kg SpO2 98% BMI 35.37 kg/m?? GENERAL: Patient is in no distress. Capable of full communication without difficulty. Patient is polite and cooperative. HEENT: Normocephalic. EOMI, PERRLA, Canals patent, TMs normal. Oropharynx without lesion of mucosa.Pharyngeal rises symmetrically without exudate. NECK: No nodes, no thyromegaly. No bruit auscultated. HEART: Regular rate and rhythm. No murmurs, gallops or rubs noted. LUNGS: Clear to auscultation bilaterally. No expiratory wheeze. No accessary muscles of respirationnoted. EXTREMITIES: No neurovascular compromise. No cyanosis, clubbing or edema Imaging: CT Abdomen Pelvis with IV Contrast Result Date: 08/11/2024 Impression: A few mildly prominent, fluid-filled loops of small bowel throughout the abdomen without a transition point suggesting acute infectious/inflammatory enteritis. Labs: Lab Results Component Value Date WBC 7.2 08/12/2024 HGB 12.6 08/12/2024 HCT 34.8 (L) 08/12/2024 MCV 94.3 08/12/2024 PLT 343 08/12/2024 Lab Results Component Value Date NA 134 (L) 08/12/2024 CL 100 08/12/2024 CREATININE 1.16 (H) 08/12/2024 EGFR 56 (L) 08/12/2024 BUN 12 08/12/2024 ANIONGAP 12 08/12/2024 GLUCOSE 95 08/12/2024 CALCIUM 9.0 08/12/2024 Lab Results Component Value Date INR 1.1 06/20/2022 PT 13.6 06/20/2022 DISCHARGE MEDICATIONS: Refer to AVS Discharge Condition stable DISPOSITION: home ACTIVITY: Up as Tolerated Outpatient Orders Follow-up with ELSEWHERE, PCP IN 3-5 DAYS Follow Up Labs:Labs to be done Prior to appointment :BMP TIME SPENT DISCHARGING PATIENT: More than 30 min On day of discharge I saw and examined the patient and we discussed the follow up plan. The patientexpressed understanding and agreement of it. On the date of discharge I spent more than 30 minutes on a face to face encounter with the patient and answer all the questions to her satisfaction. Discharge instructions were provided to the patient and caregiver(s). Yulisa Mcduffie M.D. 44:07 PM CDT documented in this encounter Discharge Instructions * Attachments The following attachments cannot be sent through Care Everywhere. * Action Plan to Manage Nausea (Vietnamese) documented in this encounter Medications at Time of Discharge Medication Sig Dispensed Refills Start Date End Date amLODIPine (Norvasc) 10 mg tablet Take 10 mg by mouth at bedtime. 11/30/2023 atorvastatin (Lipitor) 20 mg tablet Take 20 mg by mouth at bedtime. 11/21/2023 chlorthalidone (Hygroton) 50 mg tablet Take 1 tablet (50 mg total) by mouth daily. Hold till seen by PCP 08/12/[address] 1 each on the skin every 10 (ten) days. 07/30/2024 Dexcom G6 Transmitter device 1 each as directed. 05/16/2024 escitalopram (Lexapro) 10 mg tablet Take 10 mg by mouth at bedtime. 06/30/2023 folic acid 1 mg tablet Take 1 mg by mouth at bedtime. 07/10/2024 hydroxychloroquine (PlaqueniL) 200 mg tablet Take 200 mg by mouth 2 (two) times a day. 07/18/2024 insulin detemir U-100 (Levemir FlexPen) 100 unit/mL (3 mL) pen Inject 30 Units under the skin at bedtime. losartan (Cozaar) 25 mg tablet Take 25 mg by mouth at bedtime. 11/27/2023 methotrexate (TrexalL) 2.5 mg tablet Take 20 mg by mouth once a week. 07/24/2024 omeprazole (PriLOSEC) [address] capsule Take 40 mg by mouth daily before morning meal. 06/14/2023 ondansetron ODT (Zofran-ODT) 4 mg disintegrating tablet Dissolve 4 mg in the mouth every 8 (eight) hours as needed for nausea or vomiting. Ozempic 2 mg/dose (8 mg/3 mL) injection Inject 2 mg under the skin every 7 (seven) days. 08/07/2024 potassium chloride (K-Tab) 20 mEq ER tablet Take 2 tabs twice daily x 2 days then 1 tab twice daily 08/12/2024 predniSONE (Deltasone) 2.5 mg tablet Take 7.5 mg by mouth daily. 10/27/2022 predniSONE (Deltasone) 5 mg tablet Take 5 mg by mouth daily. With 2.5 mg = 7.5 mg 07/18/2024 triamcinolone (Kenalog) 0.1 % cream Apply 1 Application topically as needed for rash. 07/12/2022 albuterol 90 mcg/actuation inhaler Inhale 2 puffs every 4 (four) hours as needed for shortness of breath. 11/07/2023 miscellaneous medical supply [facility] CPAP machine for home use at pressure: 5-20 cms, nasal mask with cushion x 1, humidifier chamber x 1, humidifier x 1 05/01/2018 traMADoL (Ultram) 50 mg tablet Take 25 mg by mouth every 6 (six) hours as needed for pain. 25-50 mg [id number] PRN documented as of this encounter Progress Notes * Jalen Mahmood RDN, DANYA - 08/12/2024 1:48 PM CDT Nutrition Note: Patient admitted with GI issues. Asking questions about Ozempic and dietary interventions for continued weight loss efforts. Reports losing about 40 lbs since December with help of Ozempic. Dosage was increased. May also be experiencing side effects from the medication. Patient has never met with a dietitian. Plans to DC today after some electrolyte corrections. Intervention: Materials reviewed in-depth and provided. Eat Well: Use Plate Method, My Weight Loss Solutions, Increasing Fiber in the Diet; Mediterranean Diet Meal Planning Guide. * Jessica Lopez, Pharm.D., R.Ph., [facility] - 08/12/2024 7:39 AM CDT Images from the original note were not included. Admission Pharmacist Progress Note Reason for admission: Alkalosis Respiratory [E87.3] Hypokalemia [E87.6] Failure Renal Acute (Acute Kidney Injury) (HCC) [N17.9] Nausea And Vomiting [R11.2] Diarrhea [R19.7] Colitis [K52.9] Prolonged QT Interval [R94.31] Dehydration [E86.0] PMH: Past Medical History: Diagnosis Date Hyperuricemia 06/16/2021 Patient stopped allopurinol. Prolonged QT Interval 08/11/2024 OBJECTIVE New Hospital orders - Home medications changed and stopped by provider medication reconciliation: New benzonatate capsule 100 mg (Tessalon Perles) bisacodyL suppository 10 mg (Dulcolax) calcium carbonate chewable tablet 200 mg of calcium (Tums) carboxymethylcellulose 1 % ophthalmic solution 1 drop (Refresh LiquigeL) diphenhydrAMINE capsule 25 mg (BenadryL) enoxaparin injection 40 mg (Lovenox) insulin aspart U-100 injection 0-13 Units (NovoLOG FlexPen) insulin glargine injection 30 Units ipratropium-albuteroL 0.5-2.5 mg/3 mL nebulizer solution 3 mL (DuoNeb) melatonin tablet 6 mg metroNIDAZOLE tablet 500 mg (FlagyL) polyethylene glycol powder packet 1 packet (Miralax) saliva stimulant mucosal spray 1 Application (Biotene Moisturizing Mouth) sennosides-docusate sodium 8.6-50 mg per tablet 2 tablet (Senokot-S) simethicone chewable tablet 80 mg sodium chloride 0.9 % injection 10 mL sodium chloride 0.9 % injection 10 mL sodium chloride 0.9 % injection 3 mL sodium chloride 0.9 % injection 3 mL traZODone tablet 50 mg (DesyreL) Changed pantoprazole DR tablet 40 mg (Protonix) - Medication details are different. potassium chloride ER tablet 20 mEq (Klor-Con M) - Medication details are different. predniSONE tablet 7.5 mg (Deltasone) - Frequency changed from Daily to Daily with morning meal. Stopped albuterol 90 mcg/actuation inhaler chlorthalidone (Hygroton) 50 mg tablet Dexcom G6 Sensor device Dexcom G6 Transmitter device insulin detemir U-100 (Levemir FlexPen) 100 unit/mL (3 mL) pen methotrexate (TrexalL) 2.5 mg tablet miscellaneous medical supply misc Ozempic 2 mg/dose (8 mg/3 mL) injection predniSONE (Deltasone) 5 mg tablet traMADoL (Ultram) 50 mg tablet triamcinolone (Kenalog) 0.1 % cream Medications stopped during pharmacy medication history interview: Discontinued Medications Reason for Discontinue omeprazole (PriLOSEC) [address] capsule Duplicate order amLODIPine (NORVASC) 5 mg tablet Duplicate order allopurinoL (ZYLOPRIM) 100 mg tablet Discontinued by another clinician cefdinir (OMNICEF) 300 mg capsule Discontinued by another clinician fluticasone propionate (FLONASE) 50 mcg/actuation nasal spray Discontinued by another clinician montelukast (SINGULAIR) 10 mg tablet Discontinued by another clinician phenazopyridine (PYRIDIUM) 100 mg tablet Discontinued by another clinician azaTHIOprine (Imuran) 50 mg tablet Alternate therapy cyclobenzaprine (FlexeriL) 10 mg tablet Therapy completed insulin glargine U-300 conc (Toujeo Max SoloStar) 300 unit/mL (3 mL) injection Alternate therapy insulin NPH (NovoLIN N NPH U-100 Insulin) 100 unit/mL vial Alternate therapy mupirocin 2 % ointment kit Therapy completed Ozempic 1 mg/dose (4 mg/3 mL) injection Dose adjustment semaglutide (Ozempic) 0.25 mg or 0.5 mg (2 mg/3 mL) injection Dose adjustment sulfamethoxazole-trimethoprim (Bactrim DS) 800-160 mg per tablet Therapy completed triamcinolone (KENALOG) 0.1 % cream Duplicate order VTE PPX: Lovenox GI PPX: pantoprazole ASSESSMENT / PLAN Infectious Gastroenteritis and Colitis Unspecified * possibly viral, antibiotics discontinued Hypertension- resume amlodipine, losartan DYLAN - creatinine 1.35, Estimated Creatinine Clearance: 55.4 mL/min (A) (by C-G formula based on SCrof 1.35 mg/dL (H)). 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 * Rodger Marquez R.Ph. - 08/11/2024 10:41 PM CDT Images from the original note were not included. Admission Medication History Note Prior to Admission Medications Med List Status: Pharmacy Complete Set By: Rodger Marquez R.Ph. 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 Taking? Last Dose Informant Start Date End Date LT albuterol 90 mcg/actuation inhaler Unknown at PRN Self 11/07/23 -- Inhale 2 puffs every 4 (four) hours as needed for shortness of breath. amLODIPine (Norvasc) 10 mg tablet 08/10/2024 at 1999 Self 11/30/23 -- Take 10 mg by mouth at bedtime. atorvastatin (Lipitor) 20 mg tablet 08/10/2024 at 1999 Self 11/21/23 -- Take 20 mg by mouth at bedtime. chlorthalidone (Hygroton) 50 mg tablet 08/10/2024 at 0800 Self 02/20/24 -- Take 50 mg by mouth daily. Dexcom G6 Sensor device 08/08/2024 at 0800 Self 07/30/24 -- Place 1 each on the skin every 10 (ten) days. Dexcom G6 Transmitter device -- Self 05/16/24 -- 1 each as directed. escitalopram (Lexapro) 10 mg tablet 08/10/2024 at 1999 Self 06/30/23 -- Take 10 mg by mouth at bedtime. folic acid 1 mg tablet 08/10/2024 at 1999 Self 07/10/24 -- Take 1 mg by mouth at bedtime. hydroxychloroquine (PlaqueniL) 200 mg tablet 08/10/2024 at 1999 Self 07/18/24 -- Take 200 mg by mouth 2 (two) times a day. insulin detemir U-100 (Levemir FlexPen) 100 unit/mL (3 mL) pen 08/10/2024 at 1999 Self -- -- Inject 30 Units under the skin at bedtime. losartan (Cozaar) 25 mg tablet 08/10/2024 at 1999 Self 11/27/23 -- Take 25 mg by mouth at bedtime. methotrexate (TrexalL) 2.5 mg tablet 08/05/2024 at 0800 Self 07/24/24 -- Take 20 mg by mouth once a week. Notes: Mondays miscellaneous medical supply [facility] -- Self 05/01/18 -- CPAP machine for home use at pressure: 5-20 cms, nasal mask with cushion x 1, humidifier chamber x 1, humidifier x 1 omeprazole (PriLOSEC) [address] capsule 08/11/2024 at 0700 Self 06/14/23 -- Take 40 mg by mouth daily before morning meal. ondansetron ODT (Zofran-ODT) 4 mg disintegrating tablet 08/09/2024 Self -- -- Dissolve 4 mg in the mouth every 8 (eight) hours as needed for nausea or vomiting. Ozempic 2 mg/dose (8 mg/3 mL) injection 08/09/2024 at 0800 Self 08/07/24 -- Inject 2 mg under the skin every 7 (seven) days. potassium chloride (K-Tab) 20 mEq ER tablet 08/10/2024 at 1999 Self 11/23/23 -- Take 20 mEq by mouth daily. predniSONE (Deltasone) 2.5 mg tablet 08/10/2024 at 1999 Self 10/27/22 -- Take 7.5 mg by mouth daily. predniSONE (Deltasone) 5 mg tablet 08/10/2024 at 1999 Self 07/18/24 -- Take 5 mg by mouth daily. With 2.5 mg = 7.5 mg traMADoL (Ultram) 50 mg tablet Unknown at PRN Self -- -- Take 25 mg by mouth every 6 (six) hours as needed for pain. 25-50 mg [id number] PRN triamcinolone (Kenalog) 0.1 % cream Past Week at PRN Self 07/12/22 -- Apply 1 Application topically as needed for rash. . 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 Medications Discontinued During This Encounter Medication Reason potassium bicarb-citric acid disintegrating tablet 40 mEq (Effer-K) potassium bicarb-citric acid disintegrating tablet 40 mEq (Effer-K) potassium bicarb-citric acid disintegrating tablet 60 mEq (Effer-K) omeprazole (PriLOSEC) [address] capsule Duplicate order amLODIPine (NORVASC) 5 mg tablet Duplicate order allopurinoL (ZYLOPRIM) 100 mg tablet Discontinued by another clinician cefdinir (OMNICEF) 300 mg capsule Discontinued by another clinician fluticasone propionate (FLONASE) 50 mcg/actuation nasal spray Discontinued by another clinician montelukast (SINGULAIR) 10 mg tablet Discontinued by another clinician phenazopyridine (PYRIDIUM) 100 mg tablet Discontinued by another clinician droPERidoL injection 1.875 mg (Inapsine) azaTHIOprine (Imuran) 50 mg tablet Alternate therapy cyclobenzaprine (FlexeriL) 10 mg tablet Therapy completed insulin glargine U-300 conc (Toujeo Max SoloStar) 300 unit/mL (3 mL) injection Alternate therapy insulin NPH (NovoLIN N NPH U-100 Insulin) 100 unit/mL vial Alternate therapy mupirocin 2 % ointment kit Therapy completed Ozempic 1 mg/dose (4 mg/3 mL) injection Dose adjustment semaglutide (Ozempic) 0.25 mg or 0.5 mg (2 mg/3 mL) injection Dose adjustment sulfamethoxazole-trimethoprim (Bactrim DS) 800-160 mg per tablet Therapy completed triamcinolone (KENALOG) 0.1 % cream Duplicate order Rodger Marquez R.Ph. The information and recommendations contained in this note are based on information available at the time of documentation. documented in this encounter H&P Notes * Yulisa Mcduffie M.D. - 08/12/2024 7:23 AM CDT Images from the original note were not included. SUBJECTIVE CHIEF COMPLAINT/REASON FOR VISIT Abdominal Pain HISTORY OF PRESENT ILLNESS Patient is a 53-year-old white female with history of hypertension ,hyperlipidemia, generalized anxiety disorder, gastroesophageal reflux disease,sarcoidosis on immunosuppressive therapy and obesity presented with nausea vomiting and diarrhea associated with abdominal pain. She describes the pain as periumbilical with not much of radiation. She notes this nausea vomiting and diarrhea has lasted for 4 days and she was getting concerned that she is getting dehydrated. She has had multiple abdominal surgeries including oophorectomy tubal ligation and hysterectomy. She denies any exposure to anybody else who is sick. She says it started with constipation then later leading into this intense diarrhea. This a.m. patient notes she is feeling a lot better. She has not had any nausea vomiting and diarrhea since she has been hospitalized. She has been tolerating a general diet this morning and feels that she is ready to be discharged. CURRENT MEDICATIONS Current Outpatient Medications on File Prior to Encounter Medication Sig Last Dose amLODIPine (Norvasc) 10 mg tablet Take 10 mg by mouth at bedtime. 08/10/2024 at 1999 atorvastatin (Lipitor) 20 mg tablet Take 20 mg by mouth at bedtime. 08/10/2024 at 1999 chlorthalidone (Hygroton) 50 mg tablet Take 50 mg by mouth daily. 08/10/2024 at [address] 1 each on the skin every 10 (ten) days. 08/08/2024 at 0800 Dexcom G6 Transmitter device 1 each as directed. escitalopram (Lexapro) 10 mg tablet Take 10 mg by mouth at bedtime. 08/10/2024 at 1999 folic acid 1 mg tablet Take 1 mg by mouth at bedtime. 08/10/2024 at 1999 hydroxychloroquine (PlaqueniL) 200 mg tablet Take 200 mg by mouth 2 (two) times a day. 08/10/2024 [id number] insulin detemir U-100 (Levemir FlexPen) 100 unit/mL (3 mL) pen Inject 30 Units under the skin at bedtime. 08/10/2024 at 1999 losartan (Cozaar) 25 mg tablet Take 25 mg by mouth at bedtime. 08/10/2024 at 1999 methotrexate (TrexalL) 2.5 mg tablet Take 20 mg by mouth once a week. 08/05/2024 at 0800 omeprazole (PriLOSEC) [address] capsule Take 40 mg by mouth daily before morning meal. 08/11/2024 at 0700 ondansetron ODT (Zofran-ODT) 4 mg disintegrating tablet Dissolve 4 mg in the mouth every 8 (eight) hours as needed for nausea or vomiting. 08/09/2024 Ozempic 2 mg/dose (8 mg/3 mL) injection Inject 2 mg under the skin every 7 (seven) days. 08/09/2024 at 0800 potassium chloride (K-Tab) 20 mEq ER tablet Take 20 mEq by mouth daily. 08/10/2024 at 1999 predniSONE (Deltasone) 2.5 mg tablet Take 7.5 mg by mouth daily. 08/10/2024 at 1999 predniSONE (Deltasone) 5 mg tablet Take 5 mg by mouth daily. With 2.5 mg = 7.5 mg 08/10/2024 at 1999 triamcinolone (Kenalog) 0.1 % cream Apply 1 Application topically as needed for rash. Past Week at PRN albuterol 90 mcg/actuation inhaler Inhale 2 puffs every 4 (four) hours as needed for shortness of breath. Unknown at PRN miscellaneous medical supply [facility] CPAP machine for home use at pressure: 5-20 cms, nasal mask with cushion x 1, humidifier chamber x 1, humidifier x 1 traMADoL (Ultram) 50 mg tablet Take 25 mg by mouth every 6 (six) hours as needed for pain. 25-50 glu3lcyyd PRN Unknown at PRN The following portions of the patient's history were reviewed and updated as appropriate: allergies, current medications, family history, medical history, social history, surgical history and problemlist REVIEW OF SYSTEMS GENERAL: No weight gain, no weight loss, no fever in past month, no chills, no sweats. EENT: No vision changes, no eye pain, no sinus problems, no difficulty swallowing, no hearing difficulty. PULMONARY: No shortness of breath, no cough, no wheezing, no sputum, no hemoptysis. CARDIAC: no chest pain, no chest pressure, no rapid beating, no irregular beating. GI: No abdominal pain, nausea, vomiting, diarrhea, constipation, black or bloody stools. : No burning/pain with urination, no difficulty starting stream, no difficulty emptying bladder, no urgency, no hematuria. MUSCULOSKELETAL: No joint pain or swelling. SKIN: No skin rashes. NEURO: No significant headaches, no slurred speech, no seizures, no dizziness, no loss of consciousness, no memory loss. ENDOCRINE: No excessive thirst, no excessive bruising. OBJECTIVE VITAL SIGNS Vitals: 08/12/24 0447 BP: 111/76 Pulse: 79 Resp: 20 Temp: 36.7 ??C SpO2: 99% PHYSICAL EXAM GENERAL: Patient is in no distress. Alert and oriented. HEENT: Normocephalic. Trachea midline. Oropharynx pink, moist. Sclera white. PERRL. HEART: Regular rate and rhythm. S1S2. No murmurs, gallops or rubs noted. LUNGS: Respirations easy and unlabored. Clear to auscultation bilaterally. No expiratory wheeze. Noaccessory muscles of respiration noted. ABDOMEN: Soft, no abdominal tenderness with palpation. No peritonitis. No mass. Active bowel soundsin all 4 quadrants. NEURO: Cranial nerves II-XII intact. Face symmetrical, speech clear. 5/5 dorsi/plantar flexion. Strong grasp bilaterally. Light touch sensation intact and symmetrical in all extremities. EXTREMITIES: No neurovascular compromise. No cyanosis, clubbing or edema. SKIN: Warm, dry. No rash, bruising, or ulceration. LAB RESULTS Lab Results Component Value Date WBC 7.2 08/12/2024 HGB 12.6 08/12/2024 HCT 34.8 (L) 08/12/2024 MCV 94.3 08/12/2024 PLT 343 08/12/2024 Lab Results Component Value Date NA 132 (L) 08/11/2024 CL 93 (L) 08/11/2024 CREATININE 1.23 (H) 08/11/2024 EGFR 53 (L) 08/11/2024 BUN 15 08/11/2024 ANIONGAP 18 (H) 08/11/2024 GLUCOSE 145 (H) 08/11/2024 CALCIUM 10.1 (H) 08/11/2024 Lab Results Component Value Date URINESOURCE Urine, Urine, Midstream 08/11/2024 CLARITYU Clear 08/11/2024 COLORU Yellow 08/11/2024 NITRITEU Negative 08/11/2024 LEUKOCYTESU Negative 08/11/2024 PROTEINQUALU 30 (A) 08/11/2024 GLUCOSEU Negative 08/11/2024 KETONESU Negative 08/11/2024 BILIRUBINU Negative 08/11/2024 PHURINE 7.0 08/11/2024 SPECGRAV 1.010 08/11/2024 UROBILINOGEN 0.2 08/11/2024 Lab Results Component Value Date ALT 34 08/11/2024 AST 21 08/11/2024 GGT 153 (H) 06/01/2022 ALKPHOS 42 08/11/2024 BILITOT 1.4 (H) 08/11/[address] Abdomen Pelvis with IV Contrast Result Date: 08/11/2024 Impression: A few mildly prominent, fluid-filled loops of small bowel throughout the abdomen without a transition point suggesting acute infectious/inflammatory enteritis. ASSESSMENT / PLAN IMPRESSION: #1 Infectious Gastroenteritis And Colitis Unspecified #2 Hypokalemia #3 Failure Renal Acute (Acute Kidney Injury) (HCC) #4 Anxiety Generalized Disorder #5 Apnea Sleep Obstructive #6 Dyslipidemia NOS #7 Gastro-Esophageal Reflux Disease With Esophagitis Without Bleeding #8 Hypertension Essential Primary #9 Obesity Body Mass Index 30-39.9 Adult PLAN: #1 Infectious Gastroenteritis And Colitis Unspecified Could possibly self limited Viral infection. N,V and Diarrhea- resolved since admission Tolerating a general diet. #2 Anxiety Generalized Disorder Resume meds #3 Apnea Sleep Obstructive #4 Dyslipidemia NOS Resume meds #5 Gastro-Esophageal Reflux Disease With Esophagitis Without Bleeding Resume meds #6 Hypertension Essential Primary Resume Anti HTN meds Monitor BP and adjust meds as needed Low salt diet Monitor Lytes and Creatinine #7 Obesity Body Mass Index 30-39.9 Adult #8 DYLAN- secondary to N,V and D Will trend Correct with IVF #9 Hypokalemia Secondary to Diarrhea Correct with IV and oral supplementation Expected Discharge Date: 08/12/24 . Projected disposition: Home - self care. HOSPITAL CARE ISSUES Code status: Full Code IV fluids: IV and Feeding Tubes Active Currently Name Placement date Placement time Site Days Peripheral IV 08/11/24 20 G Left Antecubital 08/11/24 1556 Antecubital 1 Diet:Current Diet Adult Diet Regular; 60 gm Carbs (per meal) starting at 08/11 2207 VTE PPX: AntiCoag AntiPlatelet Meds IP/OP Low Molecular Weight Heparins Refills Start End enoxaparin injection 40 mg (Lovenox) -- 08/12/2024 -- 40 mg, subcutaneous, Every 24 hours scheduled GI PPX:Pantoprazole PAIN:Tylenol Total time spent with the patient 75 minutes. documented in this encounter Nursing Notes * Flores Willoughby R.N. - 08/12/2024 4:27 PM CDT Shift Goals: Problem: PAIN - ADULT Goal: PT VERBALIZES/DEMONSTRATES ADEQUATE COMFORT LEVEL OR BASELINE Outcome: Completed Problem: KNOWLEDGE DEFICIT Goal: Patient/family/caregiver demonstrates understanding of disease process, treatment plan, medications, and discharge instructions Outcome: Completed Problem: INFECTION - ADULT Goal: Absence of infection during hospitalization Outcome: Completed Problem: SKIN/TISSUE INTEGRITY Goal: Skin/Tissue integrity maintained or improved Outcome: Completed Goal: Oral and Nasal mucous membranes remain intact Outcome: Completed Problem: SAFETY ADULT Goal: Maintain a safe environment Outcome: Completed Problem: DISCHARGE PLANNING Goal: Patient discharge needs identified Outcome: Completed Identify possible barriers to meeting goals/advancing plan of care: End of Shift Summary: Pt discharged this afternoon. She will be going home with support from family. IV was removed. AVS was printed and reviewed with pt. Pt was vitally stable for discharge. * Taryn Foss R.N. - 08/12/2024 5:41 AM CDT Shift Goals: Problem: PAIN - ADULT Goal: PT VERBALIZES/DEMONSTRATES ADEQUATE COMFORT LEVEL OR BASELINE 08/12/2024 05 by Taryn Foss R.N. Outcome: Progressing 08/12/2024 05 by Taryn Foss R.N. Outcome: Progressing 08/12/2024 0541 by Taryn Foss R.N. Outcome: Progressing Problem: SAFETY ADULT Goal: Maintain a safe environment 08/12/2024 05 by Taryn Foss R.N. Outcome: Progressing 08/12/2024 05 by Taryn Foss R.N. Outcome: Progressing Identify possible barriers to meeting goals/advancing plan of care: None End of Shift Summary: Karin arrived on our floor around 2100. Room orientation provided. A&Ox3.Allowed to be up ind in her room. Her daughter came and visited shortly after and brought her some belongings from home. Pt had a lot of questions regarding plan of care, diagnosis, and medications. All questions and concerns addressed. Trousseau Consultant consult placed. Chicken broth and lemon ice offered and accepted. BG stable. She usually wears a dexcom meter, but removed it for her CT scan. Pt deniespain. She mentioned she uses medical marijuana at HS, but understands this will not be an option here tonight. PIV intact. VSS. Uses the call light appropriately. Requesting to shower in the am. documented in this encounter ED Notes * Micheal Dimas, JUSTIN, C.N.P., D.N.P. - 08/11/2024 3:44 PM CDT Images from the original note were not included. CHIEF COMPLAINT/REASON FOR VISIT Vomiting HISTORY OF PRESENT ILLNESS Patient presents to the emergency department with complaints of diffuse abdominal pain but more specifically around the periumbilical area, nausea, vomiting, diarrhea for the last 4 days. Patient states he has felt extremely hot, sweaty, cold. She has not actually checked her temperature but I do not think I have a fever. Patient states she has had a lot of abdominal surgery over the years including oophorectomy, tubal ligation, and hysterectomy. Nobody else is Homans sick. She denies any chest pain, shortness of breath. Again endorses nausea vomiting diarrhea. She was constipated prior to this starting. She does have a history of sarcoidosis, she is on Remicade, prednisone, methotrexate and folate. She is also diabetic. She has had decreased urine output the last few days, and states she is I feel very dehydrated. Patient stAtes she has not kept anything down REVIEW OF SYSTEMS Constitutional: Positive for activity change, appetite change, chills and diaphoresis. Negative forfatigue and fever. HENT: Negative for sinus pressure and sore throat. Respiratory: Negative for cough, chest tightness and shortness of breath. Cardiovascular: Negative for chest pain. Gastrointestinal: Positive for abdominal pain, constipation, diarrhea, nausea and vomiting. Genitourinary: Negative for dysuria, frequency and urgency. Musculoskeletal: Negative for arthralgias and myalgias. Skin: Negative for rash. Allergic/Immunologic: Positive for immunocompromised state. Neurological: Negative for dizziness, weakness and headaches. Hematological: Negative for adenopathy. Does not bruise/bleed easily. All other systems reviewed and are negative. Allergies Reviewed in medical record Current Medications Reviewed in Medical Record. PAST HISTORY Medical History reviewed. No pertinent past medical history. Patient Active Problem List Diagnosis Anxiety Generalized Disorder Apnea Sleep Obstructive Cancer Cervix In Situ (Severe Dysplasia) Chronic Cough Dyslipidemia NOS Dyspepsia Gastro-Esophageal Reflux Disease With Esophagitis Without Bleeding Hypertension Essential Primary Hyperuricemia Obesity Body Mass Index 30-39.9 Adult Pelvic And Perineal Pain Polyp Colon Sarcoidosis Prolonged QT Interval Surgical History reviewed. No pertinent surgical history. Family Reviewed in Medical Record Social History Social History Tobacco Use Smoking status: Never Smokeless tobacco: Not on file Substance Use Topics Alcohol use: Not on file Social History Substance and Sexual Activity Drug Use Yes Types: Marijuana Comment: THC OBJECTIVE Initial Vital Signs / Weights Initial Vitals Temperature 08/11/24 1537 36.5 ??C Pulse Rate 08/11/24 1537 109 Heart Rate 08/11/24 1900 85 Resp Rate 08/11/24 1537 20 Blood Pressure 08/11/24 1537 (!) 139/102 SpO2 08/11/24 1537 98 % Pain Score 08/11/24 1539 4 Wt Readings from Last 3 Encounters: 08/11/24 87.6 kg 05/29/22 101 kg 06/06/21 99.1 kg PHYSICAL EXAMINATION Constitutional: Nursing note and vitals reviewed. She appears distressed (mild distress with tachycardia to 109 range.). HENT: Mouth/Throat: Oropharynx is clear and moist. Mucous membranes are dry. No tonsillar exudate. Eyes: Conjunctivae and EOM are normal. Pupils are equal, round, and reactive to light. Neck: Neck supple. Cardiovascular: Normal rate, regular rhythm, S1 normal, S2 normal and normal heart sounds. Pulses are strong and palpable. No murmur heard.Capillary refill: takes less than 3 seconds Pulmonary/Chest: Effort normal and breath sounds normal. There is normal air entry. No respiratory distress. Abdominal: Soft. Bowel sounds are decreased. There is abdominal tenderness (Periumbilical region.).There is no rebound and no guarding. Musculoskeletal: General: Normal range of motion. Cervical back: Normal range of motion and neck supple. Lymphadenopathy: She has no cervical adenopathy. Neurological: Alert and oriented to person, place, and time. No cranial nerve deficit. Skin: Skin is warm and intact. She is diaphoretic. Psychiatric: She has a normal mood and affect. DIAGNOSTICS Labs Labs Reviewed CBC WITHOUT DIFFERENTIAL, B - Abnormal Result Value Hemoglobin 15.1 (*) Hematocrit 40.4 Erythrocytes 4.48 MCV 90.2 RBC Distrib Width 12.4 Platelet Count 493 (*) Leukocytes 16.9 (*) COMPREHENSIVE METABOLIC PANEL, S/P - Abnormal Potassium, P 2.5 (*) Sodium, P 132 (*) Chloride, P 93 (*) Bicarbonate, P 21 (*) Anion Gap, P 18 (*) BUN (Blood Urea Nitrogen), P 15 Creatinine 1.23 (*) Estimated GFR (eGFR) 53 (*) Calcium, Total, P 10.1 (*) Glucose, P 145 (*) Protein, Total, P 7.5 Albumin, P 4.7 Aspartate Aminotransferase (AST), P 21 Alkaline Phosphatase, P 42 Alanine Aminotransferase (ALT), P 34 Bilirubin, Total, P 1.4 (*) LACTATE, B/P - Abnormal Lactate, P 2.7 (*) CBC WITH DIFFERENTIAL, B - Abnormal Hemoglobin 15.2 (*) Hematocrit 40.7 Erythrocytes 4.51 MCV 90.2 RBC Distrib Width 12.4 Platelet Count 502 (*) Leukocytes 16.9 (*) Neutrophils 12.28 (*) Lymphocytes 2.61 Monocytes 1.87 (*) Eosinophils 0.08 Basophils 0.04 IFLU A, B, SARS COV-2, PCR, RAPID,V Influenza A, PCR, Rapid, V Negative Influenza B, PCR, Rapid, V Negative SARS CoV-2, PCR, Rapid, V Undetected Infl A/B, SARS CoV-2, PCR, Source Swab, Nasopharynx C-REACTIVE PROTEIN (CRP), S/P C-Reactive Protein (CRP), P <3.0 LIPASE, S/P Lipase, P 57 URINALYSIS WITH MICROSCOPIC IF INDICATED, U Radiology CT Abdomen Pelvis with IV Contrast (Results Pending) ED COURSE ED Course as of 08/11/241926 Sun Aug 11, 2024 9595 I performed my initial evaluation of the patient. We discussed Emergency Department course including testing, treatment, and potential disposition based on findings. 1603 Hemoglobin(!): 15.1 Previous hgb 14.6 slight hemoconcentration as compared to past 1604 Leukocytes(!): 16.9 Will add diff 1609 Lab showed me the differential from the machine and there was a left shift. Lab states it will crossover 1620 Influenza A, PCR, Rapid, V: Negative 1621 Influenza B, PCR, Rapid, V: Negative 1621 SARS CoV-2, PCR, Rapid, V: Undetected 1621 Neutrophils(!): 12.28 1630 Hr down from 110 to 80s 1644 Difficulty with labs Crossing over today, total bilirubin is 1.39, rest of her liver function tests are with in normal limits. Her CRP is 2.4, lipase is 57, glucose 144, sodium 132, potassium 2.5, creatinine is 1.23 with a calculated GFR of 45, BUN is 15, CO2 is 21, calcium is 10.1, lactate is2.6 and we will give a 2 L of fluid total. Will also replace her potassium. 1650 Potassium, P(!!): 2.5 Replacing with 60 meq potassium with plan for recheck after fluids and rechecking of lactate 1730 Patient crying again with severe nausea after the potassium. She now thinks she might need to be admitted. Will give her a dose of droperidol for nausea. Report was given to Gurwinder Magallanes CNP at change of shift. See his documentation for further information. Final Diagnoses: as of 08/11/241926 PENDING AT THIS WRITING INTERVENTIONS Medications sodium chloride 0.9 % injection 2-10 mL (has no administration in time range) sodium chloride 0.9 % injection 10 mL (10 mL intravenous Given 08/11/241699) metroNIDAZOLE in NaCl (iso osm) IVPB 500 mg (FlagyL) (500 mg intravenous New Bag 08/11/241925) ondansetron (PF) injection 4 mg (Zofran) (4 mg intravenous Given 08/11/241556) ketorolac injection 15 mg (ToradoL) (15 mg intravenous Given 08/11/241556) NaCl 0.9 % bolus 1,000 mL (0 mL intravenous Stopped 08/11/24 174) iohexoL 300 mg iodine/mL solution 130 mL (Omnipaque) (130 mL intravenous Given 08/11/24 170) sodium chloride 0.9 % flush 83 mL (83 mL intravenous Given 08/11/241700) NaCl 0.9 % bolus 1,000 mL (0 mL intravenous Stopped 08/11/241931) potassium bicarb-citric acid disintegrating tablet 60 mEq (Effer-K) (60 mEq oral Given 08/11/241704) metoclopramide injection 10 mg (Reglan) (10 mg intravenous Given 08/11/241817) potassium chloride IVPB 10 mEq (0 mEq intravenous Stopped 08/11/241930) ceFEPIme injection 2 g (Maxipime) (2 g intravenous Given 08/11/241920) MEDICAL DECISION MAKING Assessment and Plan Patient presents to the emergency department with complaints of nausea, vomiting, diarrhea and periumbilical abdominal pain. Symptoms been present for 4 days. Patient states she is feeling very dehydrated, has not been able to keep anything down. She has decreased urine output. Patient has immunocompromised from sarcoid. Previous abdominal surgeries as listed in the history. DDx includes for patient's symptoms includes but is not limited to the following: gastritis, enteritis, colitis, viral gastroenteritis, or bacterial diarrhea to include C diff, E. Coli, Shigella or others. CBC, CMP, CRP, lactate, UA lipase, COVID and influenza testing were performed in the emergency department. We will get a CT scan of the abdomen. Nausea will be treated with Zofran, her pain will be treated with ketorolac. We will give her a least a L of fluid. Disposition pending workup. Please see ED course. Labs pertinent positives patient has pretty significant hypokalemia, mild hyponatremia, hypochloremia, mild elevation in her calcium all secondary to dehydration as a result of vomiting and diarrhea.Patient's lactate is elevated at 2.7. White count is elevated at 16.9 with a left shift. CRP is normal which is more reassuring. Labs will be replaced with 2 L of fluid, she will be given 60 mEq of effervescent potassium, will recheck her BMP and lactate after fluid resuscitation as complete. Imaging studies show PENDING at a sign out. Stool studies NONE OBTAINED at sign out Most likely cause of patients nausea/vomiting/diarrhea is viral process but with elevated wbc can'trule out bacterial cause at this point. WBC could be from prednisone use but this would be low on differential. \Patient will be signed out to Gurwinder Magallanes CNP at change of shift patient initially hoped to be discharged but it is tenuous at this point. Disposition is pending but patient will probably need ongoing fluids with electrolyte replacement.. DIFFERENTIAL DIAGNOSES As above. PROBLEMS ADDRESSED THIS VISIT As above. Care is significantly affected by the following Social Determinants of Health: none. I reviewed the following external records: primary care records, prior outpatient labs, prior outpatient radiology tests and inpatient records. The following tests were considered but ultimately not performed: none. Escalation of care, including admission/observation, considered: none. DIAGNOSIS PENDING FINAL WORKUP Provisional Diagnosis Hypokalemia Hyponatremia Hypochloremia Lactic acidosis Diarrhea Nausea and vomiting DISPOSITION PENDING Micheal Dimas, L[facility], TRAILER MECHANIC, DRIVER/[employer] WORK[employer]-C, AGACNP-BC, ENP-C Emergency Medicine Micheal Dimas APRN, C.N.P., D.N.P. 08/11/241932 documented in this encounter Plan of Treatment Pending Results Name Type Priority Associated Diagnoses Date /Time Bacteria / Kassandra Culture, Blood #1 Microbiology STAT 08/11/2024 6:2 0 PM CDT Bacteria / Kassandra Culture, Blood #2 Microbiology STAT 08/11/2024 6:4 9 PM CDT Scheduled Referrals Name Type Priority Associated Diagnoses Orde r Schedule Post Hospital Visit Primary Care Outpatient Referral Routine Expected: 08/17/2024 (Approximate), Expires: 08/12/2027 documented as of this encounter Procedures Procedure [...] PANEL, S/P Routine 08/12/2024 6:45 AM CDT GLUCOSE POCT, B Routine 08/11/2024 11:45 PM CDT POTASSIUM, S/P Timed 08/11/2024 8:15 PM CDT BACTERIA / KASSANDRA CULTURE, BLOOD STAT 08/11/2024 6:49 PM CDT LACTATE, B/P STAT 08/11/2024 6:49 PM CDT METHOTREXATE LEVEL, S Timed 08/11/2024 6:48 PM CDT BETA-HYDOXYBUTYRATE, POCT, B STAT 08/11/2024 6:20 PM CDT ETHANOL, S STAT 08/11/2024 6:20 PM CDT VBG (VENOUS BLOOD GAS), POCT, B STAT 08/11/2024 6:20 PM CDT BACTERIA / KASSANDRA CULTURE, BLOOD STAT 08/11/2024 6:20 PM CDT MAGNESIUM, S STAT 08/11/2024 6:20 PM CDT ECG STAT 08/11/2024 5:[address] ABDOMEN PELVIS WITH IV CONTRAST RAD - Semiurgent (Fast; most ED patients; some inpatients) 08/11/2024 4:58 PM CDT CBC WITH DIFFERENTIAL, B STAT 08/11/2024 4:09 PM CDT CBC WITHOUT DIFFERENTIAL, B STAT 08/11/2024 3:54 PM CDT C-REACTIVE PROTEIN (CRP), S/P STAT 08/11/2024 3:54 PM CDT LIPASE, S/P STAT 08/11/2024 3:54 PM CDT LACTATE, B/P STAT 08/11/2024 3:54 PM CDT COMPREHENSIVE METABOLIC PANEL, S/P STAT 08/11/2024 3:54 PM CDT IFLU A, B, SARS COV-2, PCR, RAPID,V STAT 08/11/2024 3:52 PM CDT URINALYSIS WITH MICROSCOPIC IF INDICATED, U STAT 08/11/2024 3:52 PM CDT HC URINALYSIS AUTO W MICRO STAT 08/11/2024 3:52 PM CDT documented in this encounter Results * (ABNORMAL) Basic Metabolic Panel (08/12/2024 3:04 PM CDT) Potassium, P 3.1(L) 3.6 - [...] CDT Yulisa Mcduffie M.D. LAB BLOOD ADD-ON [address] [address], [address] [address] * Glucose, POCT (08/12/2024 12:16 PM CDT) Glucose, POCT, B 99 70 - 140 mg/dL 08/12/2024 12:16 PM CDT CNFL Blood 08/12/2024 12:1 6 PM CDT 08/12/2024 12:23 PM CDT Generic [facility] LAB POCT ORDERABLES- MANUAL [address] [address], [facility] in [address] [address] * Glucose, POCT (08/12/2024 11:38 AM CDT) Glucose, POCT, B 78 70 - 140 mg/dL 08/12/2024 11:38 AM CDT CNFL Blood 08/12/2024 11:3 8 AM CDT 08/12/2024 11:55 AM CDT Generic [facility] LAB POCT ORDERABLES- MANUAL [address] [address], [facility] in [address] [address] * Glucose, POCT (08/12/2024 7:49 AM CDT) Glucose, POCT, B 85 70 - 140 mg/dL 08/12/2024 7:49 AM CDT CNFL Blood 08/12/2024 7:49 AM CDT 08/12/2024 7:58 AM CDT Generic Rals LAB POCT ORDERABLES- MANUAL [facility] [address] [place] [address], [facility] in [address] [address] * Glucose, POCT (08/12/2024 7:35 AM CDT) Glucose, POCT, B 77 70 - 140 mg/dL 08/12/2024 7:35 AM CDT CNFL Blood 08/12/2024 7:35 AM CDT 08/12/2024 7:58 AM CDT Generic [facility] LAB POCT ORDERABLES- MANUAL Performing Organization Address City/[facility]/ZIP Co de Phone Number [address] [address], [address] [address] * (ABNORMAL) CBC with Differential, Blood (08/12/2024 6:45 AM CDT) Hemoglobin 12.6 11.6 - 15.0 g/dL 08/12/2024 [...] M.D. LAB BLOOD ADD-ON Performing Organization Address [facility]/State/[facility] Co de Phone Number [facility] [address] [place] [id number], [facility] in [address] [address] * (ABNORMAL) Basic Metabolic Panel (08/12/2024 6:45 AM CDT) Potassium, P 3.1(L) 3.6 - 5.2 mmol/L 08/12/2024 7:33 AM CDT CNFL Sodium, P 136 135 - 145 mmol/L 08/12/2024 7:33 AM CDT CNFL Chloride, P 99 98 - 107 mmol/L 08/12/2024 7:33 AM CDT CNFL Bicarbonate, P 29 22 - 29 mmol/L 08/12/2024 7:33 AM CDT CNFL Anion Gap, P 8 7 - 15 08/12/2024 7:33 AM CDT CNFL BUN (Blood Urea Nitrogen), P 13 6 - 21 mg/dL 08/12/2024 7:33 AM CDT CNFL Creatinine 1.35(H) 0.59 - 1.04 mg/dL 08/12/2024 7:33 AM CDT CNFL Estimated GFR (eGFR) 47(L) >=60 mL/min/BSA 08/12/2024 7:33 AM CDT CNFL Comment: Estimated GFR calculated using the 2020 CKD_EPI creatinine equation. Calcium, Total, P 8.8 8.6 - 10.0 mg/dL 08/12/2024 7:33 AM CDT CNFL Glucose, P 84 70 - 140 mg/dL 08/12/2024 7:33 AM CDT CNFL Blood (Blood, Venous) 08/12/2024 6:45 AM CDT 08/12/2024 7:05 AM CDT Yulisa Mcduffie M.D. [place] [address], [address] [address] * Glucose, POCT (08/11/2024 11:45 PM CDT) Glucose, POCT, B 90 70 - 140 mg/dL 08/11/2024 11:45 PM CDT CNFL Blood 08/11/2024 11:4 5 PM CDT 08/11/2024 11:52 PM CDT Generic [facility] LAB POCT ORDERABLES- MANUAL [address] [address], [address] [address] * (ABNORMAL) Potassium (08/11/2024 8:15 PM CDT) [facility] Potassium, P 3.1(L) 3.6 - 5.2 mmol/L 08/11/2024 8:38 PM CDT CNFL Blood (Blood, Venous) 08/11/2024 8:15 PM CDT 08/11/2024 8:26 PM CDT Guanakito Quezada APRNNPatrick., M.S.N. [place] [address], [address] [address] * (ABNORMAL) Lactate (08/11/2024 6:49 PM CDT) [facility] Lactate, P 2.4(H) 0.5 - 2.2 mmol/L 08/11/2024 7:10 PM CDT CNFL Blood (Blood, Venous) 08/11/2024 6:49 PM CDT 08/11/2024 6:52 PM CDT Guanakito Quezada APRNNPatrcik., M.S.N. LAB BLOO D NON ADD-ON [address] [address], [address] [address] * Methotrexate Level (08/11/2024 6:48 PM CDT) [facility] Methotrexate, S <0.04 <0.10 mcmol/L 08/12/2024 3:08 PM CDT ECLR Blood (Blood, Venous) 08/11/2024 6:48 PM CDT 08/12/2024 2:36 PM CDT Gurwinder Magallanes APRN, C.N.P., M.S.N. LAB BLOO D ADD-ON [facility] [address] [place] [address], [facility] ECLR [facility] [place] [address] * Ethanol Level, Serum (08/11/2024 6:20 PM CDT) Ethanol, P <10 <10 mg/dL 08/11/2024 6:3 5 PM CDT CNFL Blood (Blood, Venous) 08/11/2024 6:20 PM CDT 08/11/2024 6:22 PM CDT Gurwinder Magallanes APRN, C.N.P., M.S.N. LAB BLOO D NON ADD-ON [facility] [address] [place] [address], [place] [address] * Beta-hydroxybutyrate, Point of Care Testing, Blood (08/11/2024 6:20 PM CDT) Beta-hydroxybut yrate, POCT, B 0.3 0.0 - 0.5 mmol/L 08/11/2024 6:25 PM CDT CNFL Blood (Blood, Venous) 08/11/2024 6:20 PM CDT 08/11/2024 6:22 PM CDT Gurwinder Magallanes APRN, C.N.P., M.S.N. [place] [address], [facility] CNFL [facility] in [address] [address] * (ABNORMAL) Blood Gas, Venous, POCT, Blood [...] CDT 08/11/2024 6:22 PM CDT Guanakito Quezada APRNN.P., M.S.N. LAB POCT ORDERABLES - DEVICE [facility] [address] [place] [address], [facility] CNFL [facility] in [address] [address] * Magnesium (08/11/2024 6:20 PM CDT) Magnesium, P 1.8 1.7 - 2.3 mg/dL 08/11/2024 6:35 PM CDT CNFL Blood (Blood, Venous) 08/11/2024 6:20 PM CDT 08/11/2024 6:22 PM CDT Gurwinder Magallanes APRN, C.N.P., M.S.N. LAB BLOO D ADD-ON Performing Organization Address [facility] Co de Phone Number [facility] [facility] [address] [place] [id number], [facility] CNFL [facility] in [address] [address] * ECG 12 Lead (08/11/2024 5:47 PM CDT) Ventricular Rate ECG/Min 88 BPM MUSE HI Interval 162 ms MUSE QRSD Interval 88 ms MUSE QT Interval 440 ms MUSE QTC Interval 532 ms MUSE P [place] -5 degrees MUSE R [place] 12 degrees MUSE T Wave [place] 0 degrees MUSE 08/11/2024 5:47 PM CDT [...] M.S.N. ECG ORDE RABLES Performing Organization Address City/[facility]/ZIP Co de Phone Number MUSE NA * [...] APRN, C.N.P., D.N.P. IMG CT PROCEDURES * (ABNORMAL) CBC with Differential, Blood (08/11/2024 4:09 PM CDT) Hemoglobin 15.2(H) 11.6 - 15.0 g/dL 08/11/2024 4:15 PM CDT CNFL Hematocrit 40.7 35.5 - 44.9 % 08/11/2024 4:15 PM CDT CNFL Erythrocytes 4.51 3.92 - 5.13 x10(12)/L 08/11/2024 4:15 PM CDT CNFL MCV 90.2 78.2 - 97.9 fL 08/11/2024 4:15 PM CDT CNFL RBC Distrib Width 12.4 12.2 - 16.1 % 08/11/2024 4:15 PM CDT CNFL Platelet Count 502(H) 157 - 371 x10(9)/L 08/11/2024 4:15 PM CDT CNFL Leukocytes 16.9(H) 3.4 - 9.6 x10(9)/L 08/11/2024 4:15 PM CDT CNFL Neutrophils 12.28(H) 1.56 - 6.45 x10(9)/L 08/11/2024 4:15 PM CDT CNFL Lymphocytes 2.61 0.95 - 3.07 x10(9)/L 08/11/2024 4:15 PM CDT CNFL Monocytes 1.87(H) 0.26 - 0.81 x10(9)/L 08/11/2024 4:15 PM CDT CNFL Eosinophils 0.08 0.03 - 0.48 x10(9)/L 08/11/2024 4:15 PM CDT CNFL Basophils 0.04 0.01 - 0.08 x10(9)/L 08/11/2024 4:15 PM CDT CNFL Blood (Blood, Venous) 08/11/2024 4:09 PM CDT 08/11/2024 4:09 PM CDT Micheal Dimas APRN C.N.P., D.N.P. LAB BLOOD ADD-ON [facility] [address] [place] [id number], [facility] CN[facility] in [address] [address] * Lipase (08/11/2024 3:54 PM CDT) Lipase, P 57 13 - 60 U/L 08/11/2024 4: 46 PM CDT CNFL Blood (Blood, Venous) 08/11/2024 3:54 PM CDT 08/11/2024 3:57 PM CDT Micheal Dimas APRN, C.N.P., D.N.P. LAB BLOOD ADD-ON [address] [address], [address] [address] * (ABNORMAL) Lactate (08/11/2024 3:54 PM CDT) Lactate, P 2.7(H) 0.5 - 2.2 mmol/L 08/11/2024 4:46 PM CDT CNFL Blood (Blood, Venous) 08/11/2024 3:54 PM CDT 08/11/2024 3:57 PM CDT Guanakito Sanon APRNN.Jas., D.N.P. LAB BLOOD NON ADD-ON [address] [address], [place] [address] [address] * CRP (C-Reactive Protein) (08/11/2024 3:54 PM CDT) C-Reactive Protein (CRP), P <3.0 <5.0 mg/L 08/11/2024 4:46 PM CDT CNFL Blood (Blood, Venous) 08/11/2024 3:54 PM CDT 08/11/2024 3:57 PM CDT Roxie Sanon APRN.N.P., D.N.P. LAB BLOOD ADD-ON [address] [address], [facility] in [address] [address] * (ABNORMAL) Comprehensive Metabolic Panel (08/11/2024 3:54 PM CDT) [facility] Potassium, P 2.5(CL) 3.6 - 5.2 mmol/L [...] Dimas APRN, C.N.P., D.N.P. LAB BLOOD ADD-ON [facility] [address] [place] [address], [facility] in [address] [address] * CBC without Differential (08/11/2024 3:54 PM [...] PM CDT 08/11/2024 3:57 PM CDT Narrative [facility] - 08/11/2024 5:31 PM CDT CBC without Differential was cancelled on 08/11/2024 at 17:31; Per provider's request. Roxie Sanon APRN.N.P., D.N.P. LAB BLOOD ADD-ON [facility] [address] [place] [address], [facility] [place] [address] * Microscopic Manual (08/11/2024 3:52 PM CDT) White Blood Cells None Seen /hpf 08/11/2024 6:45 PM CDT CNFL Comment: ----REFERENCE VALUE---- Males: 0-3 Females: 0-10 Unknown: 0-10 Red Blood Cells Occ-2 0 - 2 /hpf 08/11/2024 6:45 PM CDT CNFL Squamous Cells 11-20 /hpf 08/11/2024 6:45 PM CDT CNFL Urine 08/11/2024 3:52 PM CDT 08/11/2024 6:25 PM CDT Micheal Dimas APRN, C.N.P., D.N.P. LAB URINE ORDERABLES Performing Organization Address [facility]/ZIP Co de Phone Number [address] [address], [address] [address] * Influenza A/B, SARS CoV-2, PCR, Rapid [...] MICROBIOLOGY - GENERAL ORDERABLES Performing Organization Address [facility] Co de Phone Number [address] [address], [address] [address] * (ABNORMAL) Urinalysis with Microscopic if Indicated [...] 8.0 08/11/2024 6:28 PM CDT CNFL Specific [place] 1.010 1.001 - 1.035 08/11/2024 6:28 PM CDT CNFL Urobilinogen 0.2 0.2 - 1.0 mg/dL 08/11/2024 6:28 PM CDT CNFL Urine (Urine, Midstream) 08/11/2024 3:52 PM CDT 08/11/2024 6:25 PM CDT Mciheal Dimas APRN, C.N.P., D.N.P. LAB URINE ORDERABLES [facility] [address] [place] [address], [facility] [place] [address] documented in this encounter Visit Diagnoses Diagnosis Infectious Gastroenteritis And Colitis Unspecified- Primary Prolonged QT Interval Nausea And Vomiting Diarrhea Dehydration Colitis Failure Renal Acute (Acute Kidney Injury) (HCC) Alkalosis Respiratory Hypokalemia Prolonged QT Interval Anxiety Generalized Disorder Apnea Sleep Obstructive Hypertension Essential Primary Gastro-Esophageal Reflux Disease With Esophagitis Without Bleeding Obesity Body Mass Index 30-39.9 Adult Hyperuricemia Dyslipidemia NOS Hypokalemia Failure Renal Acute (Acute Kidney Injury) (HCC) documented in this encounter Admitting Diagnoses Diagnosis Prolonged QT Interval Infectious Gastroenteritis And Colitis Unspecified Hypokalemia Failure Renal Acute (Acute Kidney Injury) (HCC) documented in this encounter Administered Medications Inactive Administered Medications - up to 3 most recent administrations Medication Order MAR Action Action Date Dose Rate Site amLODIPine tablet 10 mg (Norvasc) 10 mg, oral, Daily at bedtime, First dose on 08/11/24 at 2300 Given 08/11/2024 11:49 PM CDT 10 mg benzonatate capsule 100 mg (Tessalon Perles) 100 mg, oral, 3 times daily PRN, cough, Starting on 08/11/24 at 2325, Swallow whole. Do NOT crush, chew or open capsule. calcium carbonate chewable tablet 200 mg of calcium (Tums) 200 mg of calcium, oral, Daily PRN, heartburn, indigestion, Starting on 08/11/24 at 2325, Doses listed are in mg of elemental calcium. Take with food. 500 mg calcium carbonate contains 200 mg of elemental calcium. carboxymethylcellulose 1 % ophthalmic solution 1 drop (Refresh LiquigeL) 1 drop, both eyes, 3 times daily PRN, dry eyes, Starting on 08/11/24 at 2325 ceFEPIme injection 2 g (Maxipime) 2 g, intravenous, Once, On Mon08/11/24 at 1848, For 1 dose, If needed, reconstitute vial per package insert instructions. See IVAG for administration guidelines., Drug Monitoring Program: Pharmacist to adjust medication dosing based on indication and drug clearance factors., Indications: colitis Given 08/11/2024 7:21 PM CDT 2 g dextrose 40% gel 15 g of dextrose (Glutose) 15 g of dextrose, oral, As needed, low blood sugar, For glucose 54-70 mg/dL, Starting on 08/12/24 at 1152, If patient is conscious and able to swallow safely and has a fuctioning gastrointestinal tract or on Acarbose (Precose??) or Miglitol (Glyset??). May use tablets or gel. For hypoglycemia treatment. 1 g dextrose 40% gel = 0.4 g of dextrose (Example: 37.5 g dextrose 40% gel = 15 g of dextrose). dextrose 40% gel 30 g of dextrose (Glutose) 30 g of dextrose, oral, As needed, low blood sugar, For glucose less than 54 mg/dL, Starting on 08/12/24 at 1152, If no intravenous access is available and the patient is conscious and able to swallow safely and has a fuctioning gastrointestinal tract or on Acarbose (Precose??) or Miglitol (Glyset??). May use tablets or gel. For hypoglycemia treatment. 1 g dextrose 40% gel = 0.4 g of dextrose (Example: 37.5 g dextrose 40% gel = 15 g of dextrose). dextrose 50 % injection 12.5 g 12.5 g, intravenous, As needed, low blood sugar, For glucose 71-90 mg/dL, Starting on Mon08/12/24 at 1152, If the patient has intravenous access available, is not able to take oral feeding safely, does not have a functioning gastrointestinal tract or feeding tube, or is NPO, administer D50W intravenously for hypoglycemia prevention. dextrose 50 % injection 12.5 g 12.5 g, intravenous, As needed, low blood sugar, For glucose 54-70 mg/dL, Starting on Mon08/12/24 at 1152, If the patient has intravenous access available, is not able to take oral feeding safely, does not have a functioning gastrointestinal tract or feeding tube, or is NPO, administer D50W intravenously for hypoglycemia treatment. dextrose 50 % injection 25 g 25 g, intravenous, As needed, low blood sugar, For glucose less than 54 mg/dL, Starting on Mon08/12/24 at 1152, If intravenous access is available, administer D50W intravenously for hypoglycemia treatment. diphenhydrAMINE capsule 25 mg (BenadryL) 25 mg, oral, Every 6 hours PRN, itching, Starting on 08/11/24 at 2325 escitalopram tablet 10 mg (Lexapro) 10 mg, oral, Daily at bedtime, First dose on Mon08/11/24 at 2300 Given 08/11/2024 11:49 PM CDT 10 mg folic acid tablet 1 mg 1 mg, oral, Daily at bedtime, First dose on 08/11/24 at 2300 Given 08/11/2024 11:49 PM CDT 1 mg glucagon injection 1 mg (GlucaGen) 1 mg, subcutaneous, As needed, low blood sugar, For glucose 71-90 mg/dL, Starting on Mon08/12/24 at 1152, If patient is not able to take oral feeding safely, does not have a functioning gastrointestinal tract or feeding tube, or is NPO. Following treatment with Glucagon, a source of glucose should be started to maintain blood glucose level (e.g., patient should eat oral carbohydrates if allowed or prescriber should be contacted to consider starting fluids containing dextrose) Glucagon may only be given once per hypoglycemia prevention episode. glucagon injection 1 mg (GlucaGen) 1 mg, subcutaneous, Once as needed, low blood sugar, For glucose 54-70 mg/dL, Starting on Mon08/12/24 at 1152, For 1 dose, If patient does not have intravenous access available and is not able to take oral feeding safely, does not have a functioning gastrointestinal tract or feeding tube, or is NPO. Following treatment with Glucagon, a source of glucose should be started to maintain blood glucose level (e.g., patient should eat oral carbohydrates if allowed or prescriber should be contacted to consider starting fluids containing dextrose) Glucagon may only be given once per hypoglycemia treatment episode. glucagon injection 1 mg (GlucaGen) 1 mg, subcutaneous, Once as needed, low blood sugar, For glucose less than 54 mg/dL, Starting on Mon08/12/24 at 1152, For 1 dose, If intravenous access not available and patient is not able to take oral feeding safely, does not have a functioning gastrointestinal tract or feeding tube. Following treatment with glucagon a source of glucose should be started to maintain blood glucose level (e.g. patient should eat oral carbohydrates if allowed or prescriber should be contacted to consider starting fluids containing dextrose). Glucagon may only be given once per hypoglycemic treatment episode. glucose chewable tablet 16 g 16 g, oral, As needed, low blood sugar, For glucose 54-70 mg/dL, Starting on Mon08/12/24 at 1152, If patient is conscious and able to swallow safely and has a functioning gastrointestinal tract or on Acarbose (Precose??) or Miglitol (Glyset??). Administer 4 tablets to total 16 grams. May use tablets or gel. For hypoglycemia treatment. glucose chewable tablet 32 g 32 g, oral, As needed, low blood sugar, For glucose less than 54 mg/dL, Starting on Mon08/12/24 at 1152, If no intravenous access is available and the patient is conscious and able to swallow safely and has a functioning gastrointestinal tract or on Acarbose (Precose??) or Miglitol (Glyset??). Administer 8 tablets to total 32 grams. May use tablets or gel. For hypoglycemia treatment. hydroxychloroquine tablet 200 mg (PlaqueniL) 200 mg, oral, 2 times daily, First dose on 08/11/24 at 2300, Indication for use (see above prescribing guidelines for details): Rheumatologic condition Given 08/12/2024 8:39 AM CDT 200 mg Given 08/11/2024 11:49 PM CDT 200 mg insulin glargine injection 30 Units 30 Units, subcutaneous, Daily at bedtime, First dose on 08/11/24 at 2345 Given 08/11/2024 11:50 PM CDT 30 Units Right Upper Abdomen iohexoL 300 mg iodine/mL solution 130 mL (Omnipaque) 130 mL, intravenous, Once in imaging, contrast, Starting on 08/11/24 at 1617, For 1 dose Given 08/11/2024 5:00 PM CDT 130 mL ketorolac injection 15 mg (ToradoL) 15 mg, intravenous, Once, On 08/11/24 at 1547, For 1 dose, Adult IV push rate: Over 15 seconds. Peds IV push rate: Over 1 minute. Doses > 15 mg IV/IM are discouraged due to lack of additional analgesic benefit. Given 08/11/2024 3:57 PM CDT 15 mg melatonin tablet 6 mg 6 mg, oral, Daily at bedtime, First dose on 08/11/24 at 2345 Given 08/11/2024 11:49 PM CDT 6 mg metoclopramide injection 10 mg (Reglan) 10 mg, intravenous, Once, On 08/11/24 at 1756, For 1 dose Given 08/11/2024 6:18 PM CDT 10 mg metroNIDAZOLE in NaCl (iso osm) IVPB 500 mg (FlagyL) 500 mg, intravenous, at 200 mL/hr, Administer over 30 Minutes, Once, On 08/11/24 at 1848, For 1 dose, Drug Monitoring Program: Pharmacist to adjust medication dosing based on indication and drug clearance factors., Indications: colitis New Bag 08/11/2024 7:26 PM CDT 500 mg 200 mL/hr metroNIDAZOLE tablet 500 mg (FlagyL) 500 mg, oral, 3 times daily, First dose on 08/12/24 at 0900, Drug Monitoring Program: Pharmacist to adjust medication dosing based on indication and drug clearance factors., Indications: Intra-abdominal infection, community acquired, Obstetric or gynecological infection Given 08/12/2024 8:39 AM CDT 500 mg NaCl 0.9 % bolus 1,000 mL 1,000 mL, intravenous, at 1,000 mL/hr, Administer over 1 Hours, Once, On Mon08/11/24 at 1558, For 1 dose New Bag 08/11/2024 3:57 PM CDT 1,000 mL 1000 mL/hr NaCl 0.9 % bolus 1,000 mL 1,000 mL, intravenous, at 1,000 mL/hr, Administer over 1 Hours, Once, On Mon08/11/24 at 1647, For 1 dose New 08/11/2024 5:30 PM CDT 1,000 mL 1000 mL/hr NaCl 0.9% infusion 100 mL/hr, intravenous, Continuous, Starting on Mon08/12/24 at 0915 New 08/12/2024 9:22 AM CDT 100 mL/hr 100 mL/hr ondansetron (PF) injection 4 mg (Zofran) 4 mg, intravenous, Once, On Mon08/11/24 at 1547, For 1 dose Given 08/11/2024 3:57 PM CDT [address] tablet 40 mg (Protonix) 40 mg, oral, Daily before morning meal, First dose on Mon08/12/24 at 0700, pantoprazole 40 mg oral daily was interchanged for omeprazole 20 or 40 mg oral daily Swallow whole. Do NOT crush, chew, or split tablet. Given 08/12/2024 6:33 AM CDT 40 mg potassium bicarb-citric acid disintegrating tablet 60 mEq (Effer-K) 60 mEq, oral, Once, On Mon08/11/24 at 1649, For 1 dose, Dissolve per filter helper recommendations. Do NOT chew or swallow tablet. Given 08/11/2024 5:05 PM CDT 60 mEq potassium chloride ER tablet 20 mEq (Klor-Con M) 20 mEq, oral, 2 times daily with meals, First dose on Mon08/12/24 at 0800, potassium chloride orderable was interchanged for potassium chloride tablet/capsule Depending on the filter helper this tablet may be split on score and give as partial tablets, or added to an ounce of water and dispersed into a slurry for drinking. It is not recommended that the microburst tablet be crushed as it may cause stomach upset. Given 08/12/2024 8:39 AM CDT 20 mEq potassium chloride ER tablet 40 mEq (Klor-Con M) 40 mEq, oral, 2 times daily with meals, First dose on Mon08/12/24 at 1100, Depending on the filter helper this tablet may be split on score and give as partial tablets, or added to an ounce of water and dispersed into a slurry for drinking. It is not recommended that the microburst tablet be crushed as it may cause stomach upset. Given 08/12/2024 10:56 AM CDT 40 mEq potassium chloride IVPB 10 mEq 10 mEq, intravenous, at 100 mL/hr, Administer over 60 Minutes, Once, On Mon08/11/24 at 1759, For 1 dose, Peripheral Line: 10 mEq per bag over 1 hour each. New Bag 08/11/2024 6:22 PM CDT 10 mEq 100 mL/hr potassium chloride IVPB 10 mEq 10 mEq, intravenous, at 100 mL/hr, Administer over 60 Minutes, Every 1 hour, First dose on Mon08/12/24 at 0945, For 4 doses, For K 3-3.4 mEq/L - give total of 40 mEq, Monitor the following for replacement: Potassium, Replace Potassium per: Standard Schedule New Bag 08/12/2024 10:12 AM CDT 10 mEq 100 mL/hr predniSONE tablet 7.5 mg (Deltasone) 7.5 mg, oral, Daily with morning meal, First dose on Mon08/12/24 at 0800 Given 08/12/2024 8:39 AM CDT 7.5 mg saliva stimulant mucosal spray 1 Application (Biotene Moisturizing Mouth) 1 Application, mouth/throat, As needed, dry mouth, Starting on Mon08/11/24 at 2325 sennosides-docusate sodium 8.6-50 mg per tablet 2 tablet (Senokot-S) 2 tablet, oral, Bedtime PRN, constipation, Starting on Mon08/11/24 at 2325 simethicone chewable tablet 80 mg 80 mg, oral, 4 times daily PRN, flatulence, Starting on Mon08/11/24 at 2325 sodium chloride 0.9 % flush 83 mL 83 mL, intravenous, Once in imaging, line care, Starting on Mon08/11/24 at 1617, For 1 dose Given 08/11/2024 5:01 PM CDT 83 mL sodium chloride 0.9 % injection 10 mL 10 mL, intravenous, As needed, line care, Starting on Mon08/11/24 at 1617 Given 08/11/2024 5:00 PM CDT 10 mL sodium chloride 0.9 % injection 2-10 mL 2-10 mL, intravenous, As needed, line care, Starting on Mon08/11/24 at 1544 sodium chloride 0.9 % injection 3 mL 3 mL, intravenous, Every 12 hours scheduled, First dose on Mon08/12/24 at 0900, Peripheral Intravenous Catheter and Rapid Infusion Catheter, when no infusion to maintain patency Given 08/12/2024 8:40 AM CDT 3 mL traZODone tablet 50 mg (DesyreL) 50 mg, oral, Bedtime PRN, sleep, Starting on Mon08/11/24 at 2325 documented in this encounter Active and Recently Administered Medications Times are shown in CDT. Scheduled Medication Order 08/10/2024 08/11/2024 08/12/2024 amLODIPine tablet 10 mg (Norvasc) 10 mg, oral, Daily at bedtime, First dose on Mon08/11/24 at 2300 2349 (Given - Provider: Taryn Foss R.N.) atorvastatin tablet 20 mg (Lipitor) 20 mg, oral, Daily at bedtime, First dose on Mon08/12/24 at 2100 ceFEPIme injection 2 g (Maxipime) (COMPLETED) 2 g, intravenous, Once, On Mon08/11/24 at 1848, For 1 dose, If needed, reconstitute vial per package insert instructions. See IVAG for administration guidelines., Drug Monitoring Program: Pharmacist to adjust medication dosing based on indication and drug clearance factors., Indications: colitis 1920 (Given - Provider: Patricia Bailey RCoty) enoxaparin injection 40 mg (Lovenox) 40 mg, subcutaneous, Every 24 hours scheduled, First dose on Mon08/12/24 at 0900 0833 (Not Given - Provider: Eun Maki R.N. - Reason: Patient/family refused - Comment: Ambulatory) escitalopram tablet 10 mg (Lexapro) 10 mg, oral, Daily at bedtime, First dose on Mon08/11/24 at 2300 2349 (Given - Provider: Taryn Foss R.N.) folic acid tablet 1 mg 1 mg, oral, Daily at bedtime, First dose on 08/11/24 at 2300 2349 (Given - Provider: Taryn Foss R.N.) hydroxychloroquine tablet 200 mg (PlaqueniL) 200 mg, oral, 2 times daily, First dose on 08/11/24 at 2300, Indication for use (see above prescribing guidelines for details): Rheumatologic condition 2349 (Given - Provider: Taryn Foss R.N.) 0839 (Given - Provider: Eun Maki R.N.) insulin aspart U-100 injection 0-13 Units (NovoLOG FlexPen) 0-13 Units, subcutaneous, 3 times daily, First dose on Mon08/12/24 at 0800, Insulin Scale: Moderate Correction Scale, 140 - 179: 2 units, 180 - 219: 4 units, 220 - 259: 6 units, 260 - 299: 8 units, 300 - 339: 10 units, 340 - 379: 12 units, 380 - 399: 13 units, Greater than 399: Call service writing Insulin orders 0832 (Not Given - Provider: Eun Maki R.N. - Reason: Order parameters not met)1149 (Not Given - Provider: Flores Willoughby R.N. - Reason: Order parameters not met) insulin glargine injection 30 Units 30 Units, subcutaneous, Daily at bedtime, First dose on 08/11/24 at 2345 2350 (Given - Provider: Taryn Foss R.N.) ketorolac injection 15 mg (ToradoL) (COMPLETED) 15 mg, intravenous, Once, On 08/11/24 at 1547, For 1 dose, Adult IV push rate: Over 15 seconds. Peds IV push rate: Over 1 minute. Doses > 15 mg IV/IM are discouraged due to lack of additional analgesic benefit. 1557 (Given - Provider: Kavitha Faust R.N.) losartan tablet 25 mg (Cozaar) 25 mg, oral, Daily at bedtime, First dose on Mon08/12/24 at 2100 melatonin tablet 6 mg 6 mg, oral, Daily at bedtime, First dose on 08/11/24 at 2345 2349 (Given - Provider: Taryn Foss R.N.) metoclopramide injection 10 mg (Reglan) (COMPLETED) 10 mg, intravenous, Once, On 08/11/24 at 1756, For 1 dose 1818 (Given - Provider: Kavitha Faust R.N.) metroNIDAZOLE in NaCl (iso osm) IVPB 500 mg (FlagyL) (COMPLETED) 500 mg, intravenous, at 200 mL/hr, Administer over 30 Minutes, Once, On 08/11/24 at 1848, For 1 dose, Drug Monitoring Program: Pharmacist to adjust medication dosing based on indication and drug clearance factors., Indications: colitis 192 (New Bag - Provider: Patricia Bailey R.N.)2022 (Stopped - Provider: Patricia Bailey R.N.) metroNIDAZOLE tablet 500 mg (FlagyL) (CANCELED) 500 mg, oral, 3 times daily, First dose on Mon08/12/24 at 0900, Drug Monitoring Program: Pharmacist to adjust medication dosing based on indication and drug clearance factors., Indications: Intra-abdominal infection, community acquired, Obstetric or gynecological infection 0839 (Given - Provid er: Eun Maki R.N.) NaCl 0.9 % bolus 1,000 mL (COMPLETED) 1,000 mL, intravenous, at 1,000 mL/hr, Administer over 1 Hours, Once, On 08/11/24 at 1558, For 1 dose 1557 (New Bag - Provider: Kavitha Faust R.N.)1744 (Stopped - Provider: Kavitha Faust R.N.) NaCl 0.9 % bolus 1,000 mL (COMPLETED) 1,000 mL, intravenous, at 1,000 mL/hr, Administer over 1 Hours, Once, On 08/11/24 at 1647, For 1 dose 1730 (New Bag - Provider: Kavitha Faust R.N.)1932 (Stopped - Provider: Patricia Bailey R.N.) ondansetron (PF) injection 4 mg (Zofran) (COMPLETED) 4 mg, intravenous, Once, On 08/11/24 at 1547, For 1 dose 1557 (Given - Provider: Kavitha Faust R.N.) pantoprazole DR tablet 40 mg (Protonix) 40 mg, oral, Daily before morning meal, First dose on Mon08/12/24 at 0700, pantoprazole 40 mg oral daily was interchanged for omeprazole 20 or 40 mg oral daily Swallow whole. Do NOT crush, chew, or split tablet. 0633 (Given - Provid er: Taryn Foss R.N.) potassium bicarb-citric acid disintegrating tablet 60 mEq (Effer-K) (COMPLETED) 60 mEq, oral, Once, On Mon08/11/24 at 1649, For 1 dose, Dissolve per filter helper recommendations. Do NOT chew or swallow tablet. 1705 (Given - Provider: Kavitha Faust R.N.) potassium chloride ER tablet 20 mEq (Klor-Con M) (CANCELED) 20 mEq, oral, 2 times daily with meals, First dose on Mon08/12/24 at 0800, potassium chloride orderable was interchanged for potassium chloride tablet/capsule Depending on the filter helper this tablet may be split on score and give as partial tablets, or added to an ounce of water and dispersed into a slurry for drinking. It is not recommended that the microburst tablet be crushed as it may cause stomach upset. 0839 (Given - Provid er: Eun Maki RDelN.) potassium chloride ER tablet 40 mEq (Klor-Con M) 40 mEq, oral, 2 times daily with meals, First dose on Mon08/12/24 at 1100, Depending on the filter helper this tablet may be split on score and give as partial tablets, or added to an ounce of water and dispersed into a slurry for drinking. It is not recommended that the microburst tablet be crushed as it may cause stomach upset. 1056 (Given - Provid er: Flores Willoughby R.N.) potassium chloride IVPB 10 mEq (COMPLETED) 10 mEq, intravenous, at 100 mL/hr, Administer over 60 Minutes, Once, On 08/11/24 at 1759, For 1 dose, Peripheral Line: 10 mEq per bag over 1 hour each. 1821 (New Bag - Provider: Kavitha Faust R.N.)1930 (Stopped - Provider: Patricia Bailey R.N.) potassium chloride IVPB 10 mEq (CANCELED) 10 mEq, intravenous, at 100 mL/hr, Administer over 60 Minutes, Every 1 hour, First dose on Mon08/12/24 at 0945, For 4 doses, For K 3-3.4 mEq/L - give total of 40 mEq, Monitor the following for replacement: Potassium, Replace Potassium per: Standard Schedule 1012 (New Bag - Provider: Flores Willoughby R.N.) predniSONE tablet 7.5 mg (Deltasone) 7.5 mg, oral, Daily with morning meal, First dose on Mon08/12/24 at 0800 0839 (Given - Provid er: Eun Maki R.N.) sodium chloride 0.9 % injection 3 mL 3 mL, intravenous, Every 12 hours scheduled, First dose on Mon08/12/24 at 0900, Peripheral Intravenous Catheter and Rapid Infusion Catheter, when no infusion to maintain patency 0840 (Given - Provid er: Eun Maki R.N.) Continuous Medication Order 08/10/2024 08/11/2024 08/12/2024 NaCl 0.9% infusion 100 mL/hr, intravenous, Continuous, Starting on Mon08/12/24 at 0915 0922 (New Bag - Prov ider: Eun Maki R.N.)1612 (Stopped - Provider: Flores Willoughby R.N.) PRN Medication Order 08/10/2024 08/11/2024 08/12/2024 benzonatate capsule 100 mg (Tessalon Perles) 100 mg, oral, 3 times daily PRN, cough, Starting on 08/11/24 at 2325, Swallow whole. Do NOT crush, chew or open capsule. bisacodyL suppository 10 mg (Dulcolax) 10 mg, rectal, Daily PRN, constipation, Starting on 08/11/24 at 2206, Ordered sequence of administration: polyethylene glycol, then bisacodyl until BM achieved. calcium carbonate chewable tablet 200 mg of calcium (Tums) 200 mg of calcium, oral, Daily PRN, heartburn, indigestion, Starting on 08/11/24 at 2325, Doses listed are in mg of elemental calcium. Take with food. 500 mg calcium carbonate contains 200 mg of elemental calcium. carboxymethylcellulose 1 % ophthalmic solution 1 drop (Refresh LiquigeL) 1 drop, both eyes, 3 times daily PRN, dry eyes, Starting on Mon08/11/24 at 2325 dextrose 40% gel 15 g of dextrose (Glutose) 15 g of dextrose, oral, As needed, low blood sugar, For glucose 54-70 mg/dL, Starting on Mon08/12/24 at 1152, If patient is conscious and able to swallow safely and has a fuctioning gastrointestinal tract or on Acarbose (Precose??) or Miglitol (Glyset??). May use tablets or gel. For hypoglycemia treatment. 1 g dextrose 40% gel = 0.4 g of dextrose (Example: 37.5 g dextrose 40% gel = 15 g of dextrose). dextrose 40% gel 30 g of dextrose (Glutose) 30 g of dextrose, oral, As needed, low blood sugar, For glucose less than 54 mg/dL, Starting on Mon08/12/24 at 1152, If no intravenous access is available and the patient is conscious and able to swallow safely and has a fuctioning gastrointestinal tract or on Acarbose (Precose??) or Miglitol (Glyset??). May use tablets or gel. For hypoglycemia treatment. 1 g dextrose 40% gel = 0.4 g of dextrose (Example: 37.5 g dextrose 40% gel = 15 g of dextrose). dextrose 50 % injection 12.5 g 12.5 g, intravenous, As needed, low blood sugar, For glucose 71-90 mg/dL, Starting on Mon08/12/24 at 1152, If the patient has intravenous access available, is not able to take oral feeding safely, does not have a functioning gastrointestinal tract or feeding tube, or is NPO, administer D50W intravenously for hypoglycemia prevention. dextrose 50 % injection 12.5 g 12.5 g, intravenous, As needed, low blood sugar, For glucose 54-70 mg/dL, Starting on Mon08/12/24 at 1152, If the patient has intravenous access available, is not able to take oral feeding safely, does not have a functioning gastrointestinal tract or feeding tube, or is NPO, administer D50W intravenously for hypoglycemia treatment. dextrose 50 % injection 25 g 25 g, intravenous, As needed, low blood sugar, For glucose less than 54 mg/dL, Starting on Mon08/12/24 at 1152, If intravenous access is available, administer D50W intravenously for hypoglycemia treatment. diphenhydrAMINE capsule 25 mg (BenadryL) 25 mg, oral, Every 6 hours PRN, itching, Starting on Mon08/11/24 at 2325 glucagon injection 1 mg (GlucaGen) 1 mg, subcutaneous, As needed, low blood sugar, For glucose 71-90 mg/dL, Starting on Mon08/12/24 at 1152, If patient is not able to take oral feeding safely, does not have a functioning gastrointestinal tract or feeding tube, or is NPO. Following treatment with Glucagon, a source of glucose should be started to maintain blood glucose level (e.g., patient should eat oral carbohydrates if allowed or prescriber should be contacted to consider starting fluids containing dextrose) Glucagon may only be given once per hypoglycemia prevention episode. glucagon injection 1 mg (GlucaGen) 1 mg, subcutaneous, Once as needed, low blood sugar, For glucose 54-70 mg/dL, Starting on Mon08/12/24 at 1152, For 1 dose, If patient does not have intravenous access available and is not able to take oral feeding safely, does not have a functioning gastrointestinal tract or feeding tube, or is NPO. Following treatment with Glucagon, a source of glucose should be started to maintain blood glucose level (e.g., patient should eat oral carbohydrates if allowed or prescriber should be contacted to consider starting fluids containing dextrose) Glucagon may only be given once per hypoglycemia treatment episode. glucagon injection 1 mg (GlucaGen) 1 mg, subcutaneous, Once as needed, low blood sugar, For glucose less than 54 mg/dL, Starting on Mon08/12/24 at 1152, For 1 dose, If intravenous access not available and patient is not able to take oral feeding safely, does not have a functioning gastrointestinal tract or feeding tube. Following treatment with glucagon a source of glucose should be started to maintain blood glucose level (e.g. patient should eat oral carbohydrates if allowed or prescriber should be contacted to consider starting fluids containing dextrose). Glucagon may only be given once per hypoglycemic treatment episode. glucose chewable tablet 16 g 16 g, oral, As needed, low blood sugar, For glucose 54-70 mg/dL, Starting on Mon08/12/24 at 1152, If patient is conscious and able to swallow safely and has a functioning gastrointestinal tract or on Acarbose (Precose??) or Miglitol (Glyset??). Administer 4 tablets to total 16 grams. May use tablets or gel. For hypoglycemia treatment. glucose chewable tablet 32 g 32 g, oral, As needed, low blood sugar, For glucose less than 54 mg/dL, Starting on 08/12/24 at 1152, If no intravenous access is available and the patient is conscious and able to swallow safely and has a functioning gastrointestinal tract or on Acarbose (Precose??) or Miglitol (Glyset??). Administer 8 tablets to total 32 grams. May use tablets or gel. For hypoglycemia treatment. iohexoL 300 mg iodine/mL solution 130 mL (Omnipaque) (COMPLETED) 130 mL, intravenous, Once in imaging, contrast, Starting on Mon08/11/24 at 1617, For 1 dose 1700 (Given - Provider: Kecia Ernandez(R)(CT), RMichael(R)) ipratropium-albuteroL 0.5-2.5 mg/3 mL nebulizer solution 3 mL (DuoNeb) 3 mL, nebulization, Every 6 hours PRN, wheezing, shortness of breath, Starting on Mon08/11/24 at 2206 ondansetron ODT disintegrating tablet 4 mg (Zofran-ODT) 4 mg, oral, Every 8 hours PRN, nausea, vomiting, Starting on Mon08/11/24 at 2204, When splitting ODT at bedside, handle with gloves and a pill splitter to prevent moisture contact. polyethylene glycol powder packet 1 packet (Miralax) 1 packet, oral, Daily PRN, constipation, Starting on Mon08/11/24 at 2206, Ordered sequence of administration: polyethylene glycol, then bisacodyl until BM achieved. Avoid mixing with starch-based thickened liquids. saliva stimulant mucosal spray 1 Application (Biotene Moisturizing Mouth) 1 Application, mouth/throat, As needed, dry mouth, Starting on Mon08/11/24 at 2325 sennosides-docusate sodium 8.6-50 mg per tablet 2 tablet (Senokot-S) 2 tablet, oral, Bedtime PRN, constipation, Starting on Mon08/11/24 at 2325 simethicone chewable tablet 80 mg 80 mg, oral, 4 times daily PRN, flatulence, Starting on Mon08/11/24 at 2325 sodium chloride 0.9 % flush 83 mL (COMPLETED) 83 mL, intravenous, Once in imaging, line care, Starting on 08/11/24 at 1617, For 1 dose 1701 (Given - Provider: Kecia Enrandez(Donna)(CT), RDelTDel(R)) sodium chloride 0.9 % injection 10 mL 10 mL, intravenous, As needed, line care, Starting on 08/11/24 at 1617 1700 (Given - Provider: Kecia Ernandez(R)(CT), R.TDel(R)) sodium chloride 0.9 % injection 10 mL 10 mL, intravenous, As needed, line care, Starting on 08/11/24 at 2207, Peripheral Intravenous Catheter and Rapid Infusion Catheter, prior to blood sampling, post blood transfusion or post blood sampling sodium chloride 0.9 % injection 2-10 mL(Linked Group 1) 2-10 mL, intravenous, As needed, line care, Starting on 08/11/24 at 1544 sodium chloride 0.9 % injection 3 mL 3 mL, intravenous, As needed, line care, Starting on 08/11/24 at 2207, Prior to and following infusion and between multiple consecutive infusions: sodium chloride 0.9 % injection traZODone tablet 50 mg (DesyreL) 50 mg, oral, Bedtime PRN, sleep, Starting on 08/11/24 at 2325 Linked Groups Order Group 1: Place peripheral IV: No upper extremity site restrictions (COMPLETED) Upper extremity site restriction: No upper extremity site restrictions, Quantity of PIVs requested: One, STAT, Once, On 08/11/24 at 1545, For 1 occurrence And sodium chloride 0.9 % injection 2-10 mLJump to med 2-10 mL, intravenous, As needed, line care, Starting on 08/11/24 at 1544 documented in this encounter Additional Health Concerns Infection Onset Date Last Indicated Resolved Time COVID19 Pending 08/11/2024 08/11/2024 08/11/2024 4 :20 PM CDT Protective Environment 08/11/2024 08/11/2024 documented as of this encounter Care Teams First Cook Relationship Specialty Start Date End Date Elsewhere, Pcp PCP - General Family Medicine 06/07/21 documented as of this encounter
== END 2024-08-13 10:49 | disposition home or self-care (01) ==
LOC: KYNREF 10:48
PROVIDERS: PCP Nurse Practitioner Family; Visit Provider Nurse Practitioner Family
DX: E87.6 Hypokalemia (principal)
CPT/HCPCS: 80048

== ENCOUNTER 2024-08-22 16:00 | Outpatient (CLI) | payer OTHER, SELFPAY ==
--- OUTSIDE RECORDS SUMMARY | 2024-08-23 08:57 | XMS_ITS | Clinical Summary ---
Author Organization [facility] er Address [address] [place] [address] Care Team Providers Care Geothermal Technician Name Role Phone Unavailable Primary Care Provider Unavailabl e Allergies Active Allergy Reactions Criticality Noted Date Comments Lisinopril Cough Low 10/26/2018 Medications Medication Sig Dispensed Refills Start Date End Date Status amLODIPine (NORVASC) 10 MG tablet Take 1 tablet (10 mg total) by mouth 11/30/2023 Active atorvastatin (LIPITOR) 20 MG tablet Take 1 tablet (20 mg total) by mouth 11/21/2023 Active Blood Glucose Monitoring Suppl (Accu-Chek Guide Me) w/Device kit See administration instructions 08/13/2024 Active docusate sodium (COLACE) 100 MG capsule Take 1 capsule (100 mg total) by mouth 1 (one) time each day 08/13/2024 Active escitalopram (LEXAPRO) 10 MG tablet 1 tablet (10 mg total) 05/31/2024 Ac tive folic acid (FOLVITE) 1 MG tablet Take 1 tablet (1 mg total) by mouth daily 07/10/2024 Active Hospital, Clinic, or Other Facility Administered Medication Ordered Dose Route Frequency Start Date End Date Status lidocaine-EPINEPHrin e (XYLOCAINE W/EPI) 1 %-1:109143 injection 5 mLIndications:Rash 5 mL INFILTRATION Once 08/23/2024 08/23/2025 Acti ve Encounters Date Type Department Care Team Description 08/23/2024 8:30 AM CDT Office Visit [facility] [address] [place] [address] Kyra Parsons MD Rash (Primary Dx) from Last 3 Months Social History Tobacco Use Types Packs/Day Years Used Date Smoking Tobacco: Never Assessed Sex and Gender Information Value Date Recorded Sex Assigned at Not on file Gender Identity Not on file Sexual Orientation Not on file Last Filed Vital Signs Vital Sign Reading Time Taken Comments Blood Pressure 111/71 08/23/2024 8:07 AM CDT Pulse 83 08/23/2024 8:07 AM CDT Temperature 36.2 ??C (97.2 ??F) 08/23/2024 8:07 AM CD T Respiratory Rate 16 08/23/2024 8:07 AM CDT Oxygen Saturation - - Inhaled Oxygen Concentration - - Weight - - Height - - Body Mass Index - - Plan of Treatment Health Maintenance Due Date Last Done Comments CT Colonography 1970 FIT-DNA 1970 Sigmoidoscopy 1970 iFOBT 1970 Zoster Vaccines (1 of 2) 2020 Mammogram 10/17/2023 10/17/2022, 10/17/2022, 03/02/2022 COVID-19 Vaccine (2 - 2023-2 5 season) 2024 02/11/2022 Influenza Vaccine (#1) 2024 01/20/2020 Pap Smear 04/10/2026 04/10/2023, 06/16/2021 Colonoscopy 03/01/2032 03/01/2022 Colorectal Cancer Screening 03/01/2032 DTaP,Tdap,and Td Vaccines (3 - Td or Tdap) 06/01/2032 06/01/2022, 01/17/2012 HPV Vaccines Aged Out No longer eligi ble based on patient's age to complete this topic Pneumococcal Vaccine: Pediatrics (0 to 5 Years) and At-Risk Patients (6 to 64 Years) Aged Out No longer eligible b ased on patient's age to complete this topic
--- OUTSIDE RECORDS SUMMARY | 2024-08-23 08:57 | XMS_ITS | Encounter Summary ---
Author Organization [facility] er Address [address] [place] [address] Care Team Providers Care Commercial Airline Pilot Name Role Phone Unavailable Primary Care Provider Unavailabl e Reason for Visit * Reason Comments Skin Problem Encounter Details Date Type Department Care Team (Late st Contact Info) Description 08/23/2024 8:30 AM CDT Office Visit [facility] [address] [place] [address] [id number] Kyra Parsons MD [address] [place], [place] [id number] Rash (Primary Dx) Social History Tobacco Use Types Packs/Day Years [...] Index - - documented in this encounter Patient Instructions * Patient Instructions* Sunday Castorena, AMELIA - 08/23/2024 8:30 AM CDT Inc[facility] wound care Keep your wound dry for 24-48 hours. Then remove the bandage. Clean your wound with mild soap and water twice a day. Put on petroleum jelly ointment and a new bandage. Continue doing this twice a day until it is time for your stitches to be removed. If your wound starts to bleed, put gentle but firm continuous pressure for 10-15 minutes. If the bleeding does not stop, call the dermatology department at [phone]. If it is after hours, call the emergency department at [phone]. If you have pain, redness, or drainage that gets worse, call the dermatology department at [phone]. documented in this encounter Plan of Treatment Scheduled Orders Name Type Priority Associated Diagnoses Orde r Schedule [facility] Routine Rash Ordered: 08/23/2024 documented as of this encounter Visit Diagnoses Diagnosis Rash- Primary Rash and other nonspecific skin eruption documented in this encounter
--- OUTSIDE RECORDS SUMMARY | 2024-08-23 08:58 | XMS_ITS | Clinical Summary ---
Author Organization [facility] Address [address] [place] [address] Care Team Providers Care Manager Of Customer Billing Name Role Phone Elsewhere, Pcp Primary Care Provider Unavailabl e Source Comments Patient records contain information from all sites at [facility]. For routine questions regarding patient records, call [phone] during business hours, M-F 8:00 AM - 5:00 PM Central Time. Record requests for emergency care only can be directed to [phone] at any time.[facility] Allergies Active Allergy Reactions Criticality Noted Date Comments Lisinopril Cough Low 10/26/2018 [place] Pollen Itching Medium 08/11/2024 Seasonal Allergies: Allergic [...] hours as needed for pain. 25-50 mg [id number] PRN Active triamcinolone (Kenalog) 0.1 % cream [...] HPV 16/18 negative 01/18/22 LSIL/HPV+, 16/18 negative. [place]:normal, no biopsy taken Provider plan 01/18/22: Pap/HPV due 01/2023 Obesity Body Mass Index 30-39.9 Adult 01/17/2012 Resolved Problems Problem Noted Date Diagnosed Date Resolved Date Prolonged QT Interval 08/11/20242023 Hyperuricemia 06/16/2021 08/11/2024 Overview (05/29/2022): Patient stopped allopurinol. Encounters Date Type Department Care Team Description 08/12/2024 12:25 AM CDT Ancillary Procedure Department of Nursing 08/12/2024 12:20 AM CDT Ancillary Procedure Department of Nursing 08/12/2024 12:15 AM CDT Ancillary Procedure Department of Nursing 08/11/2024 3:34 PM CDT - 08/12/2024 4:57 PM CDT Emergency [facility], [facility], Second Floor [address] [place] [phone] Micheal Dimas APRN, C.N.P., D.N.P. Gurwinder Magallanes APRN, C.N.P., M.S.N. Yulisa Mcduffie M.D. Prolonged QT Interval (Primary Dx); Nausea And Vomiting; Diarrhea; Dehydration; Colitis; Failure Renal Acute (Acute Kidney Injury) (HCC); Alkalosis Respiratory; Hypokalemia Discharge Disposition: Home or Self Care 06/14/2024 [facility] [address] [place] [address] Gail Souza, C.N.P. from Last 3 Months Immunizations Name Administration Dates Next Due HepB Adult 06/24/2014,05/19/2014 Tdap 01/17/2012 influenza vaccine quad (FLUZ ONE/FLUARIX) (6 months and older)(PF) 01/20/2020 Social History Tobacco Use Types Packs/Day Years Used Date Smoking Tobacco: Never [facility] Utilities Answer Date Recorded In the past 12 months has e [employer], gas, oil, or water company threatened to [...] your living situation today? I have a [facility] place to live 08/11/2024 Sex and [...] STAT 08/11/2024 6:49 PM CDT BACTERIA / KASSANDRA CULTURE, BLOOD [...] CDT Yulisa Mcduffie M.D. LAB BLOOD ADD-ON [facility] [address] [place] [address], [facility] CNFL [facility] in [address] [address] * Glucose, POCT (08/12/2024 12:16 PM CDT) Only the most recent of5 resultswithin the time period is included. Glucose, POCT, B 99 70 - 140 mg/dL 08/12/2024 12:16 PM CDT CNFL Blood 08/12/2024 12:1 6 PM CDT 08/12/2024 12:23 PM CDT Generic Rals LAB POCT ORDERABLES- MANUAL Performing Organization Address City/[facility]/ZIP Co de Phone Number [facility] [address] [place] [address], [place] [address] * (ABNORMAL) CBC with Differential, Blood (08/12/2024 [...] CDT Yulisa Mcduffie M.D. LAB BLOOD ADD-ON [facility] [address] [place] [address], [facility] CNFL [facility] [place] [address] * Feet-Nursing Image Exam (08/12/2024 12:13 AM [...] - 5.2 mmol/L 08/11/2024 8:38 PM CDT [facility] Blood (Blood, Venous) 08/11/2024 8:15 PM CDT 08/11/2024 8:26 PM CDT Gurwinder Magallanes APRN, C.N.P., M.S.N. LAB BLOO D ADD-ON Performing Organization Address City/[facility] Co de Phone Number [facility] [address] [place] [address], [facility] in [address] [address] * Bacteria / Kassandra Culture, Blood #2 (08/11/2024 6:49 PM CDT) Only the most recent of2 resultswithin the time period is included. [facility] Bacteria/Lina da Culture, Blood No growth after 5 day/s of incubation. 08/16/2024 8:02 PM CDT [facility] Blood (Blood, Peripheral Draw) 08/11/2024 6:49 PM CDT 08/11/2024 6:53 PM CDT Comment:Specimen Source Site : Blood Gurwinder Magallanes APRN, C.N.P., M.S.N. LAB MICR OBIOLOGY - GENERAL ORDERABLES Performing Organization Address [facility] Co de Phone Number [facility] [address] [place] [address], [facility] in [address] [address] * (ABNORMAL) Lactate (08/11/2024 6:49 PM CDT) Only the most recent of2 resultswithin the time period is included. Lactate, P 2.4(H) 0.5 - 2.2 mmol/L 08/11/2024 7:10 PM CDT [facility] Blood (Blood, Venous) 08/11/2024 6:49 PM CDT 08/11/2024 6:52 PM CDT Gurwinder Magallanes APRN, C.N.P., M.S.N. LAB BLOO D NON ADD-ON [facility] [address] [place] [address], [facility] CNFL [facility] in [address] [address] * Methotrexate Level (08/11/2024 6:48 PM CDT) Methotrexate, S <0.04 <0.10 mcmol/L 08/12/2024 3:08 PM CDT [facility] Blood (Blood, Venous) 08/11/2024 6:48 PM CDT 08/12/2024 2:36 PM CDT Gurwinder Magallanes APRN, C.N.P., M.S.N. LAB BLOO D ADD-ON Performing Organization Address City/[facility]/ZIP Co de Phone Number [facility] [address] [place] [address], [facility] ECLR [facility] [place] [address] * Beta-hydroxybutyrate, Point of Care Testing, Blood (08/11/2024 6:20 PM CDT) Beta-hydroxybut yrate, POCT, B 0.3 0.0 - 0.5 mmol/L 08/11/2024 6:25 PM CDT CNFL Blood (Blood, Venous) 08/11/2024 6:20 PM CDT 08/11/2024 6:22 PM CDT Gurwinder Magallanes APRN, C.N.P., M.S.N. LAB BLOO D NON ADD-ON [address] [address], [facility] CNFL [facility] in [address] [address] * Ethanol Level, Serum (08/11/2024 6:20 PM CDT) Ethanol, P <10 <10 mg/dL 08/11/2024 6:3 5 PM CDT CNFL Blood (Blood, Venous) 08/11/2024 6:20 PM CDT 08/11/2024 6:22 PM CDT Gurwinder Magallanes APRN, C.N.P., M.S.N. LAB BLOO D NON ADD-ON [address] [address], [facility] CNFL [facility] in [address] [address] * (ABNORMAL) Blood Gas, Venous, POCT, Blood [...] 6:20 PM CDT 08/11/2024 6:22 PM CDT Guwrinder Magallanes APRN, C.N.P., M.S.N. LAB POCT ORDERABLES - DEVICE Performing Organization Address [facility] Co de Phone Number [address] [address], [address] [address] * Magnesium (08/11/2024 6:20 PM CDT) Magnesium, P 1.8 1.7 - 2.3 mg/dL 08/11/2024 6:35 PM CDT [facility] Blood (Blood, Venous) 08/11/2024 6:20 PM CDT 08/11/2024 6:22 PM CDT Gurwinder Magallanes APRN, C.N.P., M.S.N. LAB BLOO D ADD-ON Performing Organization Address [facility] Co de Phone Number [address] [address], [address] [address] * ECG 12 Lead (08/11/2024 5:47 PM CDT) Ventricular Rate ECG/Min 88 BPM MUSE [place] Interval 162 ms MUSE QRSD Interval 88 ms MUSE QT Interval 440 ms MUSE QTC Interval 532 ms MUSE P [place] -5 degrees MUSE R [place] 12 degrees MUSE T Wave [place] 0 degrees MUSE 08/11/2024 5:47 PM CDT [...] was found Reviewed by GURWINDER Peralta Purdy Deni Magallanes APRN, C.N.P., M.S.N. ECG ORDE [facility] MUSE NA * CT Abdomen Pelvis with [...] without a transition point suggesting acuteinfectious/inflammatory enteritis. Guanakito Sanon APRNNAlex, ElenaNDelP. IMG CT PROCEDURES * CBC without Differential [...] - 9.6 x10(9)/L 08/11/2024 5:31 PM CDT [place] Comment: REVISED RESULTS ----PREVIOUSLY REPORTED ---- 16.9, Flagged as: Abnormal_High (Reported 08/11/2024 16:02) Blood (Blood, Venous) 08/11/2024 3:54 PM CDT 08/11/2024 3:57 PM CDT Narrative [facility] - 08/11/2024 5:31 PM CDT CBC without Differential was cancelled on 08/11/2024 at 17:31; Per provider's request. Roxie Sanon APRN.N.P., D.N.P. LAB BLOOD ADD-ON Performing Organization Address [facility] Co de Phone Number [facility] [address] [place] [address], [place] [address] * CRP (C-Reactive Protein) (08/11/2024 3:54 PM CDT) [facility] C-Reactive Protein (CRP), P <3.0 <5.0 mg/L 08/11/2024 4:46 PM CDT [facility] Blood (Blood, Venous) 08/11/2024 3:54 PM CDT 08/11/2024 3:57 PM CDT Roxie Sanon APRN.N.P., D.N.P. LAB BLOOD ADD-ON Performing Organization Address City/[facility]/ZIP Co de Phone Number [facility] [address] [place] [address], [address] [address] * Lipase (08/11/2024 3:54 PM CDT) [facility] Lipase, P 57 13 - 60 U/L 08/11/2024 4: 46 PM CDT CNFL Blood (Blood, Venous) 08/11/2024 3:54 PM CDT 08/11/2024 3:57 PM CDT Guanakito Sanon APRNNDelP., D.N.P. LAB BLOOD ADD-ON [facility] [address] [place] [address], [facility] CNFL [facility] [place] [address] * (ABNORMAL) Comprehensive Metabolic Panel (08/11/2024 3:54 [...] Roxie Sanon APRN.N.P., D.N.P. LAB BLOOD ADD-ON [facility] [address] [place] [address], [place] [address] * Influenza A/B, SARS CoV-2, PCR, Rapid [...] 3:52 PM CDT 08/11/2024 3:57 PM CDT Roxie Sanon APRN.N.P., D.N.P. LAB MICROBIOLOGY - GENERAL ORDERABLES [facility] [address] [place] [address], [facility] CNFL [facility] in [address] [address] * (ABNORMAL) Urinalysis with Microscopic if Indicated [...] 8.0 08/11/2024 6:28 PM CDT CNFL Specific [place] 1.010 1.001 - 1.035 08/11/2024 6:28 PM CDT CNFL Urobilinogen 0.2 0.2 - 1.0 mg/dL 08/11/2024 6:28 PM CDT CNFL Urine (Urine, Midstream) 08/11/2024 3:52 PM CDT 08/11/2024 6:25 PM CDT Roxie Sanon APRN.N.P., D.N.P. LAB URINE ORDERABLES Performing Organization Address City/[facility]/ZIP Co de Phone Number [facility] [address] [place] [address], [facility] CNFL [facility] in [address] [address] * Microscopic Manual (08/11/2024 3:52 PM CDT) [...] D.N.P. LAB URINE ORDERABLES Performing Organization Address City/[facility]/ZIP Co de Phone Number [facility] [address] [place] [address], [facility] CNFL [facility] in [address] [address] from Last 3 Months Additional Health Concerns Infection Onset Date Last Indicated Protective Environment 08/11/2024 Advance Directives For more information, please contact: [phone] * Full Code (Latest Code Status on File) Date Activated Date Inactivated Comments 08/11/2024 10:11 PM 08/12/2024 7:03 PM Question Answer Comments Full Code: Not Discussed Due to: Patient not available Care Teams Manager Of Customer Billing Relationship Specialty Start Date End Date Elsewhere, Pcp PCP - General Family Medicine 06/07/21
--- OUTSIDE RECORDS SUMMARY | 2024-08-23 08:58 | XMS_ITS | Referral Summary ---
Author Organization [facility] Address [address] [place] [address] Care Team Providers Care Vibrating Screen Operator Name Role Phone Elsewhere, Pcp Primary Care Provider Unavailabl e Source Comments Patient records contain information from all sites at [facility]. For routine questions regarding patient records, call [phone] during business hours, M-F 8:00 AM - 5:00 PM Central Time. Record requests for emergency care only can be directed to [phone] at any time.[facility] Encounters Date Type Department Care Team Description 08/12/2024 12:25 AM CDT Ancillary Procedure Department of Nursing 08/12/2024 12:20 AM CDT Ancillary Procedure Department of Nursing 08/12/2024 12:15 AM CDT Ancillary Procedure Department of Nursing 08/11/2024 3:34 PM CDT - 08/12/2024 4:57 PM CDT Emergency [facility], [facility], Second Floor [address] [place] [phone] Micheal Dimas APRN, C.N.P., D.N.P. Gurwinder Magallanes APRN, C.N.P., M.S.N. Yulisa Mcduffie M.D. Prolonged QT Interval (Primary Dx); Nausea And Vomiting; Diarrhea; Dehydration; Colitis; Failure Renal Acute (Acute Kidney Injury) (HCC); Alkalosis Respiratory; Hypokalemia Discharge Disposition: Home or Self Care 06/14/[address] [facility] [address] [place] [address] Gail Souza, C.N.P. from Last 3 Months Allergies Active Allergy Reactions Criticality Noted Date Comments Lisinopril Cough Low 10/26/2018 [place] Pollen Itching Medium 08/11/2024 Seasonal Allergies: Allergic Rhinitis, Itchy watery eyes, Sneezing Medications Medication Sig Dispensed Refills Start Date End Date Status miscellaneous medical supply [facility] CPAP machine for home use at pressure: [...] hours as needed for pain. 25-50 mg [id number] PRN Active triamcinolone (Kenalog) 0.1 % cream [...] HPV 16/18 negative 01/18/22 LSIL/HPV+, 16/18 negative. [place]:normal, no biopsy taken Provider plan 01/18/22: Pap/HPV [...] Packs/Day Years Used Date Smoking Tobacco: Never [facility] Utilities Answer Date Recorded In the past 12 months has e [employer], gas, oil, or water company threatened to [...] your living situation today? I have a [facility] place to live 08/11/2024 Sex and [...] M.D. LAB BLOOD ADD-ON Performing Organization Address City/[facility]/ZIP Co de Phone Number [facility] [address] [place] [address], [place] [address] * Glucose, POCT (08/12/2024 12:16 PM CDT) Only the most recent of5 resultswithin the time period is included. Glucose, POCT, B 99 70 - 140 mg/dL 08/12/2024 12:16 PM CDT [facility] Blood 08/12/2024 12:1 6 PM CDT 08/12/2024 12:23 PM CDT Generic Rals LAB POCT ORDERABLES- MANUAL Performing Organization Address [facility] Co de Phone Number [facility] [address] [place] [address], [address] [address] * (ABNORMAL) CBC with Differential, Blood (08/12/2024 [...] CDT Yulisa Mcduffie M.D. LAB BLOOD ADD-ON [facility] [address] [place] [address], [facility] [address] [address] * Feet-Nursing Image Exam (08/12/2024 12:13 AM [...] * (ABNORMAL) Potassium (08/11/2024 8:15 PM CDT) Pathologist [facility] Potassium, P 3.1(L) 3.6 - 5.2 mmol/L 08/11/2024 8:38 PM CDT [facility] Blood (Blood, Venous) 08/11/2024 8:15 PM CDT 08/11/2024 8:26 PM CDT Gurwinder Magallanes APRN, C.N.P., M.S.N. LAB BLOO D ADD-ON Performing Organization Address City/[facility] Co de Phone Number [address] [place] [address] * Bacteria / Kassandra Culture, Blood #2 (08/11/2024 6:49 PM CDT) Only the most recent of2 resultswithin the time period is included. [facility] Bacteria/Lina da Culture, Blood No growth after 5 day/s of incubation. 08/16/2024 8:02 PM CDT [facility] Blood (Blood, Peripheral Draw) 08/11/2024 6:49 PM CDT 08/11/2024 6:53 PM CDT Comment:Specimen Source Site : Blood Gurwinder Magallanes APRN, C.N.P., M.S.N. LAB MICR OBIOLOGY - GENERAL ORDERABLES Performing Organization Address [facility] [place] [address], [facility] [place] [address] * (ABNORMAL) Lactate (08/11/2024 6:49 PM CDT) Only the most recent of2 resultswithin the time period is included. Pathologist [facility] Lactate, P 2.4(H) 0.5 - 2.2 mmol/L 08/11/2024 7:10 PM CDT CNFL Blood (Blood, Venous) 08/11/2024 6:49 PM CDT 08/11/2024 6:52 PM CDT Gurwinder Magallanes APRN, C.N.P., M.S.N. LAB BLOO D NON ADD-ON Performing Organization Address City/[facility]/ZIP Co de Phone Number [facility] [address] [place] [address], [facility] CNFL [place] [address] * Methotrexate Level (08/11/2024 6:48 PM CDT) Pathologist [facility] Methotrexate, S <0.04 <0.10 mcmol/L 08/12/2024 3:08 PM CDT [facility] Blood (Blood, Venous) 08/11/2024 6:48 PM CDT 08/12/2024 2:36 PM CDT Gurwinder Magallanes APRN, C.N.P., M.S.N. LAB BLOO D ADD-ON Performing Organization Address [facility]/ZIP Co de Phone Number [facility] [address] [place] [address], [facility] ECLR [place] [address] * Beta-hydroxybutyrate, Point of Care Testing, Blood (08/11/2024 6:20 PM CDT) Pathologist [facility] Beta-hydroxybut yrate, POCT, B 0.3 0.0 - 0.5 mmol/L 08/11/2024 6:25 PM CDT CN[facility] Blood (Blood, Venous) 08/11/2024 6:20 PM CDT 08/11/2024 6:22 PM CDT Gurwinder Magallanes APRN, C.N.P., M.S.N. LAB BLOO D NON ADD-ON [address] [address], [facility] CNFL [facility] in [address] [address] * Ethanol Level, Serum (08/11/2024 6:20 PM CDT) Ethanol, P <10 <10 mg/dL 08/11/2024 6:3 5 PM CDT CN[facility] Blood (Blood, Venous) 08/11/2024 6:20 PM CDT 08/11/2024 6:22 PM CDT Gurwinder Magallanes APRN, C.N.P., M.S.N. LAB BLOO D NON ADD-ON Performing Organization Address City/[facility]/ZIP Co de Phone Number [address] [address], [place] [address] * (ABNORMAL) Blood Gas, Venous, POCT, Blood [...] CDT Gurwinder Magallanes APRN, C.N.P., M.S.N. LAB POCT ORDERABLES - DEVICE Performing Organization Address [facility] Co de Phone Number [address] [address], [address] [address] * Magnesium (08/11/2024 6:20 PM CDT) Magnesium, P 1.8 1.7 - 2.3 mg/dL 08/11/2024 6:35 PM CDT [facility] Blood (Blood, Venous) 08/11/2024 6:20 PM CDT 08/11/2024 6:22 PM CDT Gurwinder Magallaens APRN, C.N.P., M.S.N. LAB BLOO D ADD-ON Performing Organization Address [facility] Co de Phone Number [address] [address], [address] [address] * ECG 12 Lead (08/11/2024 5:47 PM CDT) Ventricular Rate ECG/Min 88 BPM MUSE [place] Interval 162 ms MUSE QRSD Interval 88 ms MUSE QT Interval 440 ms MUSE QTC Interval 532 ms MUSE P [place] -5 degrees MUSE R [place] 12 degrees MUSE T Wave [place] 0 degrees MUSE 08/11/2024 5:47 PM CDT 08/11/2024 5:55 PM CDT Impressions MUSE - 08/11/2024 5:55 PM CDT Sinus rhythm Nonspecific T wave abnormality Prolonged QT When compared with ECG of 18-Jason-2021 21:42, No significant change was found Reviewed by GURWINDER Peralta Narrative Procedure Note Jorge Luis Javier M.D., Ph.D. - 08/11/2024 IMPRESSION: Sinus rhythm Nonspecific T wave abnormality Prolonged QT When compared with ECG of 06-Jun-2021 21:42, No significant change was found Reviewed by GURWINDER Peralta Purdy N Sona ANDERSON C.N.P., M.S.N. ECG ORDE [facility] Organization Address City/State/ZIP Co de Phone Number MUSE NA * [...] PM CDT 08/11/2024 3:57 PM CDT Narrative [facility] - 08/11/2024 5:31 PM CDT CBC without Differential was cancelled on 08/11/2024 at 17:31; Per provider's request. Roxie Sanon APRN.N.P., D.N.P. LAB BLOOD ADD-ON Performing Organization Address City/[facility] Co de Phone Number [facility] [address] [place] [address], [place] [address] * CRP (C-Reactive Protein) (08/11/2024 3:54 PM CDT) C-Reactive Protein (CRP), P <3.0 <5.0 mg/L 08/11/2024 4:46 PM CDT CNFL Blood (Blood, Venous) 08/11/2024 3:54 PM CDT 08/11/2024 3:57 PM CDT Roxie Sanon APRN.N.P., D.N.P. LAB BLOOD ADD-ON Performing Organization Address City/[facility]/[place]IP [place] [address], [facility] CNFL [address] [place] [address] * Lipase (08/11/2024 3:54 PM CDT) Lipase, P 57 13 - 60 U/L 08/11/2024 4: 46 PM CDT CNFL Blood (Blood, Venous) 08/11/2024 3:54 PM CDT 08/11/2024 3:57 PM CDT Micheal Dimas APRN, C.N.P., D.N.P. LAB BLOOD ADD-ON [facility] [address] [place] [address], [facility] CNFL [place] [address] * (ABNORMAL) Comprehensive Metabolic Panel (08/11/2024 3:54 [...] D.N.P. LAB BLOOD ADD-ON Performing Organization Address City/State/[facility] Co de Phone Number [facility] [address] [place] [address], [facility] in [address] [address] * Influenza A/B, SARS CoV-2, PCR, Rapid [...] 3:52 PM CDT 08/11/2024 3:57 PM CDT Guanakito Sanon APRNNDelP., D.N.P. LAB MICROBIOLOGY - GENERAL ORDERABLES [facility] [address] [place] [address], [facility] CNFL [facility] in [address] [address] * (ABNORMAL) Urinalysis with Microscopic if Indicated [...] 8.0 08/11/2024 6:28 PM CDT CNFL Specific [place] 1.010 1.001 - 1.035 08/11/2024 6:28 PM CDT CNFL Urobilinogen 0.2 0.2 - 1.0 mg/dL 08/11/2024 6:28 PM CDT CNFL Urine (Urine, Midstream) 08/11/2024 3:52 PM CDT 08/11/2024 6:25 PM CDT Roxie Sanon APRN.N.Jas., D.N.P. LAB URINE ORDERABLES Performing Organization Address [facility] Co de Phone Number [address] [address], [address] [address] * Microscopic Manual (08/11/2024 3:52 PM CDT) [...] Dimas APRN, Roxie.N.P., D.N.P. LAB URINE ORDERABLES Performing Organization Address [facility] Co de Phone Number [address] [address], [facility] in [address] [address] from Last 3 Months Additional Health Concerns Infection Onset Date Last Indicated Protective Environment 08/11/2024 Advance Directives For more information, please contact: [phone] * Full Code (Latest Code Status on File) Date Activated Date Inactivated Comments 08/11/2024 10:11 PM 08/12/2024 7:03 PM Question Answer Comments Full Code: Not Discussed Due to: Patient not available Care Teams Vibrating Screen Operator Relationship Specialty Start Date End Date Elsewhere, Pcp PCP - General Family Medicine 06/07/21
--- OUTSIDE RECORDS SUMMARY | 2024-08-23 08:58 | XMS_ITS | Encounter Summary ---
Author Organization [facility] Address [address] [place] [address] Care Team Providers Care Multimedia Production Assistant Name Role Phone Elsewhere, Pcp Primary Care Provider Unavailabl e Encounter Details Date Type Department Care Team (Late st Contact Info) Description 08/12/2024 12:20 AM CDT Ancillary Procedure Department of Nursing Social History Tobacco Use Types Packs/Day Years Used Date Smoking Tobacco: Never [facility] Utilities Answer Date Recorded In [...] your living situation today? [facility] 08/11/2024 Sex and Gender [...] documented as of this encounter Care Teams Multimedia Production Assistant Relationship Specialty Start Date End Date Elsewhere, Pcp PCP - General Family Medicine 06/07/21 documented as of this encounter
--- OUTSIDE RECORDS SUMMARY | 2024-08-23 08:58 | XMS_ITS ---
Author Organization [facility] Address [address] [place] [address] Care Team Providers Care Circular Clerk Name Role Phone Unavailable Unavailable Unavailable Surgery Details Not on file Complications Check Surgery Details section. Procedure Estimated Blood Loss Check Surgery Details section. Procedure Findings Check Surgery Details section. Procedure Specimens Taken Check Surgery Details section.
--- OUTSIDE RECORDS SUMMARY | 2024-08-23 08:58 | XMS_ITS | Clinical Summary ---
Author Organization [facility] Address [place], [place] [address] Care Team Providers Care Elementary [employer] Band Director Name Role Phone Zulema Moore RN Unavailable [phone] Christina Menchaca MD Unavailable [phone] Jessica Catherine RN Unavailable Unavailable Gail Souza NP Primary Care Provider [phone] Allergies Active Allergy Reactions Criticality Noted Date [...] 2 diabetes mellitus without complication, unspecified whether terminal supervisor insulin use (HC) To be used to read blood sugars, follow director market intelligence directions. Change every 90 days 1 Each [...] 2 diabetes mellitus without complication, unspecified whether terminal supervisor insulin use (HC) Inject 38 units subcutaneous before bedtime. 15 mL 5 01/05/2023 Active Insulin Independence, Disposable, (Pen Needle) 32 gauge x Indications:T ype 2 diabetes mellitus without complication, unspecified whether intermediate insulin use (HC) As directed. Remove the 2 covers on the insulin pen needle before administering insulin dose. 100 Each 01/05/2023 Active Cartagenia G7 Special Education Inclusion Teacher for continuous blood glucose monitor (CGM)Indications:T ype 2 diabetes mellitus without complication, unspecified whether terminal supervisor insulin use (HC) To be used to read blood sugars follow director market intelligence directions. Change every 10 days 3 Each [...] HPV 16/18 negative 01/18/22 LSIL/HPV+, 16/18 negative. 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) 01/17/2019 Overview (05/26/2015): colp advised Encounters Date Type Department Care Team Description 06/28/2024 Refill [facility] [id number] [phone] Jeanette Cortez, Refill Request (Dexcom G6 [...] Comments Blood Pressure 123/61 10/27/2022 11:12 AM SUPERVISOR QUALITY CONTROL Pulse 82 10/27/2022 11:12 AM SUPERVISOR QUALITY CONTROL Temperature 35.8 ??C (96.4 ??F) 10/27/2022 11:[address] Respiratory Rate 16 10/27/2022 11:12 AM SUPERVISOR QUALITY CONTROL Oxygen Saturation 96% 10/27/2022 11:12 AM SUPERVISOR QUALITY CONTROL Inhaled Oxygen Concentration - - Weight 109 kg (240 lb 4.8 oz) 10/27/2022 11:12 A M SUPERVISOR QUALITY CONTROL Height 165.1 cm (5' 5) 06/29/2022 7:31 [...] UNI DIAG LEFT SWETHA 10/17/2022 10:45 AM SUPERVISOR QUALITY CONTROL Mass of left breast, unspecified quadrant ANTI [...] 16 Negative Negative 04/13/2023 11:33 AM CDT [facility] TYPE 18 Negative Negative 04/13/2023 11:33 AM [facility] OTHER HIGH RISK TYPES Positive(A) Negative 04/13/2023 11:33 AM CDT [facility] Other VAGINAL SWAB / Unknown 04/10/2023 9:30 AM CDT 04/11/2023 11:45 AM CDT Narrative [facility] - 04/13/2023 11:33 AM CDT Specimen is positive for the DNA of any one of, or combination of, the following high risk HPV types: 31, 33, 35, 39, 45, 51, 52, 56, 58, 59, 66, 68. HPV types 16 and 18 DNA were undetectable or below the pre-set threshold. ? Methodology: BrightTALK Jordi 4800 HPV Test Gail Souza NP MICROBIOLOGY [facility] [address] [place] [address], [place] * XR MAMMO ARNULFO UNI DIAG LEFT (10/17/2022 10:45 AM SUPERVISOR QUALITY CONTROL) Anatomical Region Laterality Modality BREASTS, Breast Left Mammography , Radiographic Imaging 10/17/2022 10:4 5 AM SUPERVISOR QUALITY CONTROL Impressions 10/17/2022 12:10 PM SUPERVISOR QUALITY CONTROL ACR BI-RADS Category 2: Benign. Results given [...] your referring provider. Narrative 10/17/2022 12:10 PM SUPERVISOR QUALITY CONTROL For Patients: As a result of the [...] your health care provider. EXAM: XR MAMMO RANULFO UNI DIAG LEFT, US BREAST UNILATERAL LEFT LIMITED LOCATION: [facility] DATE/TIME: 10/17/2022 10:45 AM INDICATION: Mass Of [...] results, pleasecontact your referring provider. Rachna Westbrook CONSULTANT TEACHER MAMMO * (ABNORMAL) LIPID PANEL W REFLEX MEASURED LDL (06/01/2022 9:54 AM CDT) CHOLESTEROL,TOTAL 220(H) 100 - 199 mg/dL 06/01/2022 9:41 PM CDT [facility] TRIGLYCERIDES 171(H) <150 mg/dL 06/01/2022 9:41 PM CDT [facility] HDL CHOLESTEROL 38(L) >40 mg/dL 9:41 PM CDT [facility] NON-HDL CHOLESTEROL 182(H) <145 mg/dl 06/01/2022 9:41 PM CDT [facility] CHOL/HDL RATIO 5.79(H) <4.50 06/01/2022 9:41 PM CDT [facility] LDL CHOLESTEROL 148(H) <=130 mg/dL 06/01/2022 9:41 PM CDT [facility] VLDL CHOLESTEROL 34(H) <=30 mg/dL 06/01/2022 9:41 PM CDT [facility] PROVIDER ORDERED STATUS RANDOM 06/01/2022 9:41 PM CDT [facility] Blood BLOOD SPECIMEN / Unknown Venipuncture / Unknown 06/01/2022 9:54 AM CDT 06/01/2022 9:54 AM CDT Jeanette Cortez DO CHEMISTRY [facility] [address] [place] [address], [place] * ANTI HCV (06/01/2022 9:54 AM CDT) HEPATITIS C ANTIBODY Non-React ryan Non-React ryan 06/01/2022 9:35 PM CDT [facility] Comment:Antibodies to HCV no t detected; does not exclude the possibility of exposure to HCV. Blood BLOOD SPECIMEN / Unknown Venipuncture / Unknown 06/01/2022 9:54 AM CDT 06/01/2022 9:54 AM CDT Jeanette Cortez DO SEND OUTS [facility] [address] [place] [address], [place] * COLONOSCOPY (03/01/2022 7:38 AM CDT) [...] adequate candidate for conscious sedation. The [id number] was passed through the anus and advanced [...] ve Non-Reacti ve 08/14/2020 7:16 PM CDT [facility] Comment:HIV-1 p24 and HIV-1/ HIV-2 Ab not detected. Blood BLOOD SPECIMEN / Unknown Venipuncture / Unknown 08/14/2020 2:22 PM CDT 08/14/2020 2:23 PM CDT Ruby ROGERS S[facility]S [facility] [address] [place] [address], [place] from Last 3 Months or Most Recently Relevant to Health Maintenance Advance Directives * Full Code (Latest Code Status on File) Date Activated Date Inactivated Comments 02/12/2019 6:55 AM 02/12/2019 10:02 PM Care Teams [employer] Band Director Relationship Specialty Start Date End Date Gail Souza, CONSULTANT TEACHER [address] [place] [id number] PCP - General Emergency Medicine 12/28/22 Zulema Moore, MIKE Nurse Navigator - Oncology Registered Nurse 06/14/22 Christina Menchaca MD [address] [facility] [address] [place] [address] Oncology 06/14/22 Jessica Catherine, RN [address] [facility] [place] [address] Administrative Fellow Registered Nurse 07/07/22
--- OUTSIDE RECORDS SUMMARY | 2024-08-23 08:58 | XMS_ITS | Encounter Summary ---
Author Organization [facility] Address [address] [place] [address] Care Team Providers Care Mule Packer Name Role Phone Elsewhere, Pcp Primary Care Provider Unavailabl e Encounter Details Date Type Department Care Team (Late st Contact Info) Description 08/12/2024 12:15 AM CDT Ancillary Procedure Department of Nursing Social History Tobacco Use Types Packs/Day Years Used Date Smoking Tobacco: Never [facility] Utilities Answer Date Recorded In [...] your living situation today? I have a [facility] place to live 08/11/2024 Sex and Gender [...] documented as of this encounter Care Teams Mule Packer Relationship Specialty Start Date End Date Elsewhere, Pcp PCP - General Family Medicine 06/07/21 documented as of this encounter
--- OUTSIDE RECORDS SUMMARY | 2024-08-23 08:58 | XMS_ITS | Encounter Summary ---
Author Organization [facility] Address [address] [place] [address] Care Team Providers Care Riveter Portable Machine Name Role Phone Elsewhere, Pcp Primary Care Provider Unavailabl e Encounter Details Date Type Department Care Team (Late st Contact Info) Description 08/12/2024 12:25 AM CDT Ancillary Procedure Department of Nursing Social History Tobacco Use Types Packs/Day Years Used Date Smoking Tobacco: Never [facility] Utilities Answer Date Recorded In the [...] documented as of this encounter Care Teams Riveter Portable Machine Relationship Specialty Start Date End Date Elsewhere, Pcp PCP - General Family Medicine 06/07/21 documented as of this encounter
--- OUTSIDE RECORDS SUMMARY | 2024-08-23 08:59 | XMS_ITS | Encounter Summary ---
Author Organization [facility] Address [address] [place] [address] Care Team Providers Care Neurocritical Care Physician Name Role Phone Elsewhere, Pcp Primary Care Provider Unavailabl e Encounter Details Date Type Department Care Team (Late st Contact Info) Description 06/14/2024 [facility] [address] [place] [address] Gail Souza, C.N.P. [address] [place] [phone] Social History Tobacco Use Types Packs/Day Years [...] on filedocumented in this encounter Care Teams Neurocritical Care Physician Relationship Specialty Start Date End Date Elsewhere, Pcp PCP - General Family Medicine 06/07/21 documented as of this encounter
--- OUTSIDE RECORDS SUMMARY | 2024-08-23 08:59 | XMS_ITS | Encounter Summary ---
Author Organization [facility] Address [address] [place] [address] Care Team Providers Care Property Insurance Agent Name Role Phone Elsewhere, Pcp Primary Care Provider Unavailabl e Reason for Referral * Outpatient (Routine) - Authorized Specialty Diagnoses / Procedures Referred By Sree nevarez Referred To Contact Yulisa Mcduffie M.D. [address] [place] [address] [facility] Referral ID Status Reason Start Date Expiration Date V isits Requested Visits Authorized [id number] Authorized 08/12/2024 02/11/2026 1 1 Scheduling Instructions [...] Expiration Date Visits Re quested Visits Authorized [id number] 1 1 Encounter Details Date Type Department Care Team (Late st Contact Info) Description 08/11/2024 3:34 PM CDT - 08/12/2024 4:57 PM CDT Emergency [facility], [employer], Second Floor [address] [place] [phone] Micheal Dimas APRN, C.N.P., D.N.P. [address] [place] [address] Gurwinder Magallanes, JUSTIN, CDelNDelP., M.S.N. [address] [place] [address] Yulisa Mcduffie M.D. [address] [place] [address] Prolonged QT Interval (Primary Dx); Nausea And Vomiting; Diarrhea; Dehydration; Colitis; Failure Renal Acute (Acute Kidney Injury) (HCC); Alkalosis Respiratory; Hypokalemia Discharge Disposition: Home or Self Care Social History Tobacco Use Types Packs/Day Years Used Date Smoking Tobacco: Never [facility] [employer] Answer Date Recorded In the past 12 months has [facility] [employer], gas, oil, or water [employer] threatened to shut off services in your [...] your living situation today? I have a [facility] place to live 08/11/2024 Sex and [...] Everywhere. * Action Plan to Manage Nausea (Persian) documented in this encounter Medications at Time [...] shortness of breath. 11/07/2023 miscellaneous medical supply [facility] CPAP machine for home use at pressure: 5-20 cms, nasal mask with cushion x 1, humidifier chamber x 1, humidifier x 1 05/01/2018 traMADoL (Ultram) 50 mg tablet Take 25 mg by mouth every 6 (six) hours as needed for pain. 25-50 mg [id number] PRN documented as of this encounter Progress [...] Planning Guide. * Jessica Lopez, Pharm.D., R.Ph., [facility] - 08/12/2024 7:39 AM CDT Images from [...] improving- K 3.1 , replacing per protocol FIBER LOCKING SUPERVISOR medications reconciled Hold: chlorthalidone, Levemir, Ozempic, tramadol, [...] 10:36 PM Status Comment 08/11/2024 10:40 PM FIBER LOCKING SUPERVISOR Med Rec completed with patient via Phone. [...] a week. Notes: Mondays miscellaneous medical supply [facility] -- Self 05/01/18 -- CPAP machine for [...] hours as needed for pain. 25-50 mg [id number] PRN triamcinolone (Kenalog) 0.1 % cream Past Week at PRN Self 07/12/22 -- Apply 1 Application topically as needed for rash. . Adherence issues: No concerns: FIBER LOCKING SUPERVISOR Med Rec completed with patient via Phone. [...] mouth 2 (two) times a day. 08/10/2024 [id number] insulin detemir U-100 (Levemir FlexPen) 100 unit/mL [...] breath. Unknown at PRN miscellaneous medical supply [facility] CPAP machine for home use at pressure: 5-20 cms, nasal mask with cushion x 1, humidifier chamber x 1, humidifier x 1 traMADoL (Ultram) 50 mg tablet Take 25 mg by mouth every 6 (six) hours as needed for pain. 25-50 [id number] PRN Unknown at PRN The following portions [...] and medications. All questions and concerns addressed. Mortician Helper consult placed. Chicken broth and lemon ice [...] documented in this encounter ED Notes * Gurwinder Magallanes, JUSTIN, C.N.P., M.S.N. - 08/11/2024 5:51 PM CDT Care of patient transferred to mi by ADRIANE Burton. Disposition pending lab and reassessment. Briefly patient presents concerning for 4 days symptoms of nausea, vomiting, and diarrhea. Subsequently also developed periumbilical pain. No fever. No rectal bleeding. Currently is on Remicade, prednisone, as well as methotrexate for sarcoidosis. On lab work, noted electrolyte derangement with a potassium of 2.5, sodium 132, chloride of 93. In addition, elevated creatinine of 1.2 suggestive for acute kidney injury. Mild elevation in gap of 18. She denies any alcohol use. Glucose mildly elevated at 145. Her symptoms could be suggestive for a viral cause. However, given the abnormal leukocyte and lactate, systemic inflammatory response syndrome is a consideration. In addition, she is also on methotrexate, so toxicity is a consideration as well. Plan: She would benefit from admission for IV hydration and electrolyte monitoring. In addition, will start on cefepime and metronidazole for possible infectious colitis. Dr. Hopkins kindly accepting for admission. VITAL SIGNS BP 136/79 (BP Location: Right arm, Patient Position: Lying) Pulse 84 Temp 37.5 ??C (Temporal) Resp 18 Wt 87.6 kg SpO2 99% ED Course as of 08/15/24 1516 Sun Aug 11, 2024 1757 Pulse Rate: 109 1801 Leukocytes(!): 16.9 While this could be due to her being prednisone, infectious colitis is a consideration, especially with elevated lactate. 1810 Creatinine(!): 1.23 Acute kidney injury suspect from volume depletion 1831 Beta-hydroxybutyrate, POCT, B: 0.3 1832 pH, Venous, POCT, B(!!): 7.61 Respiratory alkalosis 1911 Lactate(!): 2.4 Final Diagnoses: as of 08/15/24 1516 Prolonged QT Interval Nausea And Vomiting Diarrhea Dehydration Colitis Failure Renal Acute (Acute Kidney Injury) (HCC) Alkalosis Respiratory Hypokalemia Gurwinder Magallanes APRN, C.NAlex, M.S.N. 08/15/24 1516 * Micheal Dimas APRN, C.N.Torri, D.N.P. - 08/11/2024 3:44 PM CDT Images [...] ED COURSE ED Course as of 08/11/241926 [place] Aug 11, 2024 4274 I performed my initial evaluation of the [...] injection 10 mL (10 mL intravenous Given 08/11/24 170) metroNIDAZOLE in NaCl (iso osm) IVPB 500 mg (FlagyL) (500 mg intravenous New Bag 08/11/241925) ondansetron (PF) injection 4 mg (Zofran) (4 mg intravenous Given 08/11/241556) ketorolac injection 15 mg (ToradoL) (15 mg intravenous Given 08/11/24 155) NaCl 0.9 % bolus 1,000 mL (0 mL intravenous Stopped 08/11/24 174) iohexoL 300 mg iodine/mL solution 130 mL (Omnipaque) (130 mL intravenous Given 08/11/24 1700) sodium chloride 0.9 % flush 83 mL [...] and vomiting DISPOSITION PENDING Micheal Dimas, [facility], CLERICAL CLERK, CERTIFIED COURT INTERPRETER-C, AGACNP-BC, ENP-C Emergency Medicine Micheal Dimas APRN, C.N.P., D.N.P. 08/11/241932 documented in this encounter Plan of Treatment Scheduled Referrals Name Type Priority Associated Diagnoses [...] - 140 mg/dL 08/12/2024 3:30 PM CDT [place] Blood (Blood, Venous) 08/12/2024 3:04 PM CDT 08/12/2024 3:09 PM CDT Yulisa Mcduffie M.D. LAB BLOOD ADD-ON [address] [address], [address] [address] * Glucose, POCT (08/12/2024 12:16 PM CDT) Glucose, POCT, B 99 70 - 140 mg/dL 08/12/2024 12:16 PM CDT CNAZ Blood 08/12/2024 12:1 6 PM CDT 08/12/2024 12:23 PM CDT Generic [facility] LAB POCT ORDERABLES- MANUAL [address] [address], [address] [address] * Glucose, POCT (08/12/2024 11:38 AM CDT) Glucose, POCT, B 78 70 - 140 mg/dL 08/12/2024 11:38 AM CDT [facility] Blood 08/12/2024 11:3 8 AM CDT 08/12/2024 11:55 AM CDT Generic [facility] LAB POCT ORDERABLES- MANUAL [facility] [address] [place] [address], [address] [address] * Glucose, POCT (08/12/2024 7:49 AM CDT) Glucose, POCT, B 85 70 - 140 mg/dL 08/12/2024 7:49 AM CDT CNFL Blood 08/12/2024 7:49 AM CDT 08/12/2024 7:58 AM CDT Generic [facility] LAB POCT ORDERABLES- MANUAL [address] [address], [address] [address] * Glucose, POCT (08/12/2024 7:35 AM CDT) Glucose, POCT, B 77 70 - 140 mg/dL 08/12/2024 7:35 AM CDT CNFL Blood 08/12/2024 7:35 AM CDT 08/12/2024 7:58 AM CDT Generic [facility] LAB POCT ORDERABLES- MANUAL Performing Organization Address City/[facility] Co de Phone Number [address] [address], [place] [address] * (ABNORMAL) CBC with Differential, Blood (08/12/2024 [...] M.D. LAB BLOOD ADD-ON Performing Organization Address [facility]/State/[facility] Co de Phone Number [facility] [address] [place] [address], [facility] [place] [address] * (ABNORMAL) Basic Metabolic Panel (08/12/2024 6:45 [...] CDT Yulisa Mcduffie M.D. LAB BLOOD ADD-ON [facility] [address] [place] [address], [address] [address] * Glucose, POCT (08/11/2024 11:45 PM CDT) Glucose, POCT, B 90 70 - 140 mg/dL 08/11/2024 11:45 PM CDT CNFL Blood 08/11/2024 11:4 5 PM CDT 08/11/2024 11:52 PM CDT Generic [facility] LAB POCT ORDERABLES- MANUAL Performing Organization Address [facility]/ZIP Co de Phone Number [facility] [address] [place] [address], [place] [address] * (ABNORMAL) Potassium (08/11/2024 8:15 PM CDT) Potassium, P 3.1(L) 3.6 - 5.2 mmol/L 08/11/2024 8:38 PM CDT CNFL Blood (Blood, Venous) 08/11/2024 8:15 PM CDT 08/11/2024 8:26 PM CDT Gurwinder Magallanes APRN, C.N.P., M.S.N. [place] [address], [place] [address] * (ABNORMAL) Lactate (08/11/2024 6:49 PM CDT) Lactate, P 2.4(H) 0.5 - 2.2 mmol/L 08/11/2024 7:10 PM CDT CNFL Blood (Blood, Venous) 08/11/2024 6:49 PM CDT 08/11/2024 6:52 PM CDT Gurwinder Magallanes APRN, C.N.P., M.S.N. LAB BLOO D NON ADD-ON Performing Organization Address City/[facility]/ZIP Co de Phone Number [facility] [address] [place] [address], [place] [address] * Bacteria / Kassandra Culture, Blood #2 (08/11/2024 6:49 PM CDT) Bacteria/Lina da Culture, Blood No growth after 5 day/s of incubation. 08/16/2024 8:02 PM CDT CNFL Blood (Blood, Peripheral Draw) 08/11/2024 6:49 PM CDT 08/11/2024 6:53 PM CDT Comment:Specimen Source Site : Blood Gurwinder Magallanes APRN, C.N.P., M.S.N. LAB MICR OBIOLOGY - GENERAL ORDERABLES [address] [address], [facility] in [address] [address] * Methotrexate Level (08/11/2024 6:48 PM CDT) Methotrexate, S <0.04 <0.10 mcmol/L 08/12/2024 3:08 PM CDT ECLR Blood (Blood, Venous) 08/11/2024 6:48 PM CDT 08/12/2024 2:36 PM CDT Gurwinder Magallanes APRN, C.N.P., M.S.N. LAB BLOO D ADD-ON Performing Organization Address City/[facility]/ZIP Co de Phone Number [facility] [address] [place] [address], [facility] ECLR [facility] [place] [address] * Bacteria / Kassandra Culture, Blood #1 (08/11/2024 6:20 PM CDT) Bacteria/Lina da Culture, Blood No growth after 5 day/s of incubation. 08/16/2024 7:02 PM CDT [facility] Blood (Blood, Peripheral Draw) 08/11/2024 6:20 PM CDT 08/11/2024 6:27 PM CDT Comment:Specimen Source Site : Blood Gurwinder Magallanes APRN, C.N.P., M.S.N. LAB MICR OBIOLOGY - GENERAL ORDERABLES Performing Organization Address City/[facility]/ZIP Co de Phone Number [facility] [address] [place] [address], [address] [address] * Ethanol Level, Serum (08/11/2024 6:20 PM CDT) Ethanol, P <10 <10 mg/dL 08/11/2024 6:3 5 PM CDT [facility] Blood (Blood, Venous) 08/11/2024 6:20 PM CDT 08/11/2024 6:22 PM CDT Gurwinder Magallanes APRN, C.N.P., M.S.N. LAB BLOO D NON ADD-ON [address] [address], [facility] in [address] [address] * Beta-hydroxybutyrate, Point of Care Testing, Blood (08/11/2024 6:20 PM CDT) Beta-hydroxybut yrate, POCT, B 0.3 0.0 - 0.5 mmol/L 08/11/2024 6:25 PM CDT [facility] Blood (Blood, Venous) 08/11/2024 6:20 PM CDT 08/11/2024 6:22 PM CDT Guanakito Quezada APRNNPatrick., M.S.N. LAB BLOO D NON ADD-ON [address] [address], [facility] in [address] [address] * (ABNORMAL) Blood Gas, Venous, POCT, Blood [...] CDT 08/11/2024 6:22 PM CDT Guanakito Quezada APRNNPatrick., M.S.N. LAB POCT ORDERABLES - DEVICE Performing Organization Address City/[facility] Co de Phone Number [facility] [address] [place] [address], [address] [address] * Magnesium (08/11/2024 6:20 PM CDT) Magnesium, P 1.8 1.7 - 2.3 mg/dL 08/11/2024 6:35 PM CDT CNFL Blood (Blood, Venous) 08/11/2024 6:20 PM CDT 08/11/2024 6:22 PM CDT Guanakito Quezada APRNN.Jas., M.S.N. LAB BLOO D ADD-ON [facility] [address] [place] [address], [place] [address] * ECG 12 Lead (08/11/2024 5:47 PM CDT) Ventricular Rate ECG/Min 88 BPM MUSE IN Interval 162 ms MUSE QRSD Interval 88 ms MUSE QT Interval 440 ms MUSE QTC Interval 532 ms MUSE P [place] -5 degrees MUSE R [place] 12 degrees MUSE T Wave [place] 0 degrees MUSE 08/11/2024 5:47 PM CDT [...] Purdy N Guanakito Magallanes APRNN.P., M.S.N. ECG [facility] Organization Address City/State/ZIP Co de Phone Number [...] narrows the spinal canal. Procedure Note Aidan Agulia M.D. - 08/11/2024 EXAM: CT ABDOMEN PELVIS [...] with Differential, Blood (08/11/2024 4:09 PM CDT) [facility] Hemoglobin 15.2(H) 11.6 - 15.0 g/dL 08/11/2024 [...] CDT 08/11/2024 4:09 PM CDT Micheal Dimas APRN, Roxie.N.P., D.N.P. [place] [address], [place] [address] * Lipase (08/11/2024 3:54 PM CDT) Lipase, P 57 13 - 60 U/L 08/11/2024 4: 46 PM CDT CNFL Blood (Blood, Venous) 08/11/2024 3:54 PM CDT 08/11/2024 3:57 PM CDT Micheal Dimas APRN, Roxie.N.P., D.N.P. [place] [address], [place] [address] [address] * (ABNORMAL) Lactate (08/11/2024 3:54 PM CDT) Lactate, P 2.7(H) 0.5 - 2.2 mmol/L 08/11/2024 4:46 PM CDT CNFL Blood (Blood, Venous) 08/11/2024 3:54 PM CDT 08/11/2024 3:57 PM CDT Roxie Sanon APRN.N.P., D.N.P. LAB BLOOD NON ADD-ON [address] [address], [address] [address] * CRP (C-Reactive Protein) (08/11/2024 3:54 PM CDT) [facility] Signature C-Reactive Protein (CRP), P <3.0 <5.0 mg/L 08/11/2024 4:46 PM CDT CNFL Blood (Blood, Venous) 08/11/2024 3:54 PM CDT 08/11/2024 3:57 PM CDT Roxie Sanon APRN.N.P., D.N.P. LAB BLOOD ADD-ON [address] [address], [address] [address] * (ABNORMAL) Comprehensive Metabolic Panel (08/11/2024 3:54 [...] 3:57 PM CDT Micheal Dimas APRN, C.N.P., Linda LAB BLOOD ADD-ON [facility] [address] [place] [address], [facility] CNFL [facility] in [address] [address] * CBC without Differential (08/11/2024 3:54 PM [...] PM CDT 08/11/2024 3:57 PM CDT Narrative [facility] - 08/11/2024 5:31 PM CDT CBC without Differential was cancelled on 08/11/2024 at 17:31; Per provider's request. Roxie Sanon APRN.N.Jas., D.N.P. LAB BLOOD ADD-ON Performing Organization Address [facility] [place] [address], [place] [address] * Microscopic Manual (08/11/2024 3:52 PM CDT) [...] D.N.P. LAB URINE ORDERABLES Performing Organization Address [facility] Co de Phone Number [address] [address], [place] [address] * Influenza A/B, SARS CoV-2, PCR, Rapid Symptomatic (08/11/2024 3:52 PM CDT) Pathologist [facility] Influenza A, PCR, Rapid, V Negative Negative [...] MICROBIOLOGY - GENERAL ORDERABLES Performing Organization Address City/State/[facility] Co de Phone Number [facility] [address] [place] [address], [facility] CNFL [facility] in [address] [address] * (ABNORMAL) Urinalysis with Microscopic if Indicated (08/11/2024 3:52 PM CDT) Pathologist [facility] Source Urine, Urine, Midstream 08/11/2024 6:25 PM [...] 8.0 08/11/2024 6:28 PM CDT CNFL Specific [place] 1.010 1.001 - 1.035 08/11/2024 6:28 PM CDT CNFL Urobilinogen 0.2 0.2 - 1.0 mg/dL 08/11/2024 6:28 PM CDT CNFL Urine (Urine, Midstream) 08/11/2024 3:52 PM CDT 08/11/2024 6:25 PM CDT Micheal Dimas APRN, C.N.P., D.N.P. LAB URINE ORDERABLES Performing Organization Address City/State/[facility] Co de Phone Number [facility] [address] [place] [address], [facility] CNFL [facility] in [address] [address] documented in this encounter Visit Diagnoses Diagnosis [...] oral, Daily PRN, heartburn, indigestion, Starting on Mon08/11/24 at 2325, Doses listed are in mg of elemental calcium. Take with food. 500 mg calcium carbonate contains 200 mg of elemental calcium. carboxymethylcellulose 1 % ophthalmic solution 1 drop (Refresh LiquigeL) 1 drop, both eyes, 3 times daily PRN, dry eyes, Starting on Mon08/11/24 at 2325 ceFEPIme injection 2 g (Maxipime) [...] PRN, itching, Starting on Mon08/11/24 at 2325 escitalopram tablet 10 mg (Lexapro) [...] mg (ToradoL) 15 mg, intravenous, Once, On Mon08/11/24 at 1547, For 1 dose, Adult IV push rate: Over 15 seconds. Peds IV push rate: Over 1 minute. Doses > 15 mg IV/IM are discouraged due to lack of additional analgesic benefit. Given 08/11/2024 3:57 PM CDT 15 mg melatonin tablet 6 mg 6 mg, oral, Daily at bedtime, First dose on Mon08/11/24 at 2345 Given 08/11/2024 11:49 PM CDT 6 mg metoclopramide injection 10 mg (Reglan) 10 mg, intravenous, Once, On Mon08/11/24 at 1756, For 1 dose Given 08/11/2024 6:18 PM CDT 10 mg metroNIDAZOLE in NaCl (iso osm) IVPB 500 mg (FlagyL) 500 mg, intravenous, at 200 mL/hr, Administer over 30 Minutes, Once, On Mon08/11/24 at 1848, For 1 dose, Drug Monitoring [...] Mon08/11/24 at 1647, For 1 dose New Bag 08/11/2024 5:30 PM CDT 1,000 mL 1000 mL/hr NaCl 0.9% infusion 100 mL/hr, intravenous, Continuous, Starting on Mon08/12/24 at 0915 New Bag 08/12/2024 9:22 AM CDT 100 mL/hr 100 [...] at 1649, For 1 dose, Dissolve per freight broker agent recommendations. Do NOT chew or swallow tablet. Given 08/11/2024 5:05 PM CDT 60 mEq potassium chloride ER tablet 20 mEq (Klor-Con M) 20 mEq, oral, 2 times daily with meals, First dose on Mon08/12/24 at 0800, potassium chloride orderable was interchanged for potassium chloride tablet/capsule Depending on the freight broker agent this tablet may be split on score [...] on Mon08/12/24 at 1100, Depending on the freight broker agent this tablet may be split on score [...] intravenous, As needed, line care, Starting on 9/22/24 at 1544 sodium chloride 0.9 % injection 3 mL 3 mL, intravenous, Every 12 hours scheduled, First dose on Mon08/12/24 at 0900, Peripheral Intravenous Catheter and Rapid Infusion Catheter, when no infusion to maintain patency Given 08/12/2024 8:40 AM CDT 3 mL traZODone tablet 50 mg (DesyreL) 50 mg, oral, Bedtime PRN, sleep, Starting on 08/11/24 at 2325 documented in this encounter Active [...] (Maxipime) (COMPLETED) 2 g, intravenous, Once, On 08/11/24 at 1848, For 1 dose, If needed, [...] (ToradoL) (COMPLETED) 15 mg, intravenous, Once, On Mon08/11/24 at 1547, For 1 dose, Adult IV [...] (Reglan) (COMPLETED) 10 mg, intravenous, Once, On Mon08/11/24 at 1756, For 1 dose 1818 (Given - Provider: Kavitha Faust R.N.) metroNIDAZOLE in NaCl (iso osm) IVPB 500 mg (FlagyL) (COMPLETED) 500 mg, intravenous, at 200 mL/hr, Administer over 30 Minutes, Once, On Mon08/11/24 at 1848, For 1 dose, Drug Monitoring [...] On Mon08/11/24 at 1558, For 1 dose 1557 (New Bag - Provider: Kavitha Faust R.N.)1744 (Stopped - Provider: Kavitha Faust R.N.) NaCl 0.9 % bolus 1,000 mL (COMPLETED) 1,000 mL, intravenous, at 1,000 mL/hr, Administer over 1 Hours, Once, On Mon08/11/24 at 1647, For 1 dose 1730 (New Bag - Provider: Kavitha Faust R.N.)1932 (Stopped - Provider: Patricia Bailey R.N.) ondansetron (PF) injection 4 mg (Zofran) (COMPLETED) 4 mg, intravenous, Once, On Mon08/11/24 at 1547, For 1 dose 1557 (Given [...] at 1649, For 1 dose, Dissolve per freight broker agent recommendations. Do NOT chew or swallow tablet. 1705 (Given - Provider: Kavitha Faust RDelN.) potassium chloride ER tablet 20 mEq (Klor-Con M) (CANCELED) 20 mEq, oral, 2 times daily with meals, First dose on Mon08/12/24 at 0800, potassium chloride orderable was interchanged for potassium chloride tablet/capsule Depending on the freight broker agent this tablet may be split on score and give as partial tablets, or added to an ounce of water and dispersed into a slurry for drinking. It is not recommended that the microburst tablet be crushed as it may cause stomach upset. 0839 (Given - Provid er: Eun Maki RYolande.) potassium chloride ER tablet 40 mEq (Klor-Con M) 40 mEq, oral, 2 times daily with meals, First dose on Mon08/12/24 at 1100, Depending on the freight broker agent this tablet may be split on score [...] 1821 (New Bag - Provider: Kavitha Faust RYolande.)1930 (Stopped - Provider: Patricia Bailey RDelN.) potassium chloride IVPB 10 mEq (CANCELED) 10 mEq, intravenous, at 100 mL/hr, Administer over 60 Minutes, Every 1 hour, First dose on Mon08/12/24 at 0945, For 4 doses, For K 3-3.4 mEq/L - give total of 40 mEq, Monitor the following for replacement: Potassium, Replace Potassium per: Standard Schedule 1012 (New Bag - Provider: Flores Willoughby RYolande.) predniSONE tablet 7.5 mg (Deltasone) 7.5 mg, [...] 3 times daily PRN, cough, Starting on Mon08/11/24 at 2325, Swallow whole. Do NOT crush, chew or open capsule. bisacodyL suppository 10 mg (Dulcolax) 10 mg, rectal, Daily PRN, constipation, Starting on Mon08/11/24 at 2206, Ordered sequence of administration: polyethylene glycol, then bisacodyl until BM achieved. calcium carbonate chewable tablet 200 mg of calcium (Tums) 200 mg of calcium, oral, Daily PRN, heartburn, indigestion, Starting on Mon08/11/24 at 2325, Doses listed are in mg [...] on 08/11/24 at 1617, For 1 dose 1700 (Given - Provider: Kecia Ernandez(R)(CT), R.T.(R)) ipratropium-albuteroL 0.5-2.5 mg/3 mL nebulizer solution 3 mL (DuoNeb) 3 mL, nebulization, Every 6 hours PRN, wheezing, shortness of breath, Starting on 08/11/24 at 2206 ondansetron ODT disintegrating tablet 4 mg (Zofran-ODT) 4 mg, oral, Every 8 hours PRN, nausea, vomiting, Starting on 08/11/24 at 2204, When splitting ODT at bedside, handle with gloves and a pill splitter to prevent moisture contact. polyethylene glycol powder packet 1 packet (Miralax) 1 packet, oral, Daily PRN, constipation, Starting on 08/11/24 at 2206, Ordered sequence of administration: polyethylene glycol, then bisacodyl until BM achieved. Avoid mixing with starch-based thickened liquids. saliva stimulant mucosal spray 1 Application (Biotene Moisturizing Mouth) 1 Application, mouth/throat, As needed, dry mouth, Starting on 08/11/24 at 2325 sennosides-docusate sodium 8.6-50 mg per tablet 2 tablet (Senokot-S) 2 tablet, oral, Bedtime PRN, constipation, Starting on 08/11/24 at 2325 simethicone chewable tablet 80 mg 80 mg, oral, 4 times daily PRN, flatulence, Starting on 08/11/24 at 2325 sodium chloride 0.9 % flush 83 mL (COMPLETED) 83 mL, intravenous, Once in imaging, line care, Starting on 08/11/24 at 1617, For 1 dose 1701 (Given - Provider: Kecia Ernandez(R)(CT), RDelTDel(R)) sodium chloride 0.9 % injection 10 mL 10 mL, intravenous, As needed, line care, Starting on 08/11/24 at 1617 1700 (Given - Provider: Kecia Ernandez(R)(CT), Kecia(R)) sodium chloride 0.9 % injection 10 mL [...] documented as of this encounter Care Teams Property Insurance Agent Relationship Specialty Start Date End Date Elsewhere, Pcp PCP - General Family Medicine 06/07/21 documented as of this encounter
== END 2024-08-22 16:01 | disposition home or self-care (01) ==
LOC: NFLDREF 08-23 08:51
PROVIDERS: PCP Nurse Practitioner Family; Referring Provider Nurse Practitioner Family; Visit Provider Nurse Practitioner Family
DX: E87.6 Hypokalemia (principal); E11.9 Type 2 diabetes mellitus without complications; Z79.4 Long term (current) use of insulin
CPT/HCPCS: 80048

== ENCOUNTER 2024-08-26 12:55 | Outpatient (CLI) | payer OTHER, SELFPAY ==
--- OUTSIDE RECORDS SUMMARY | 2024-08-30 04:37 | XMS_ITS | Clinical Summary ---
Author Organization [facility] er Address [address] [place] [address] Care Team Providers Care Polymer Chemist Name Role Phone Unavailable Primary Care Provider [...] Date Status lidocaine-EPINEPHrin e (XYLOCAINE W/EPI) 1 %-1:346127 injection 5 mLIndications:Rash 5 mL INFILTRATION Once 08/23/2024 08/23/2024 Ende d Encounters Date Type Department Care Team Description 08/23/2024 9:00 AM CDT Lab SE Lab [address] [place] [address] Rash 08/23/2024 8:30 AM CDT Office Visit SE Dermatology [address] [place] [address] Kyra Parsons MD Rash (Primary Dx) from [...] on patient's age to complete this topic Procedures Procedure Name Priority Date/Time Associated Diagnosis Comments CUTANEOUS DIRECT IMMUNOFLUORESCENCE (IFA), BIOPSY Routine 08/23/2024 9:21 AM CDT Rash BP 180 AND 230, S Routine 08/23/2024 9:1 0 AM CDT Rash ALLERGEN GLUTEN IGE Routine 08/23/2024 9 :10 AM CDT Rash TISSUE TRANSGLUTAMINASE, IGA Routine 08/23/2024 9:10 AM CDT Rash TISSUE TRANSGLUTAMINASE, IGG Routine 08/23/2024 9:10 AM CDT Rash from Last 3 Months Results * Cutaneous Direct Immunofluorescence (IFA), Biopsy (08/23/2024 9:21 AM CDT) Interpretation - 08/29/2024 8:34 AM CDT [facility] Comment: A. ??Left posterior thigh, skin punch biopsy, Immunofluorescence: IgG: Negative IgG4: Negative IgM: Negative IgA: Negative C3: Negative Fibrinogen: Negative Impression: Negative study (see comment) Comment: There is no direct immunofluorescence evidence for a specific dermatosis. A final definitive diagnosis should be based on correlation ofthe direct immunofluorescence findings with the clinical presentation, histopathological findings on examination of sections from formalin-fixed, paraffin-embedded tissue and other diagnostic tests. ADDITIONAL INFORMATION This test was developed using an analyte specific reagent. Its performance characteristics were determined by [facility] in a manner consistent with CLIA requirements. This test has not been cleared or approved by the U.S. Food and Drug Administration. CIB Report Electronically signed by SEE BELOW 08/29/2024 8:34 AM CDT [facility] Comment: Kaela Henderson M.D. [facility] 090 08/29/2024 8:34 AM CDT [facility] Comment: Test Performed by: [facility] - [address] [address] Supervisor Sunglasses: Amalia Blackwood Ph.D.; CLIA# [id number] Tissue 08/23/2024 9:21 AM CDT 08/23/2024 12:40 PM CDT Kyra Parsons MD LAB PATHOLOGY ORD ERABLES Performing Organization Address [facility] Co de Phone Number [facility] see result attachment for specific address * BP 180 and 230, Serum (08/23/2024 9:10 AM CDT) BP 180, S <2 <20 RU/mL 08/27/2024 2:30 PM CDT [facility] BP 230, S <2 <20 RU/mL 08/27/2024 2:30 PM CDT [facility] Comment: ADDITIONAL INFORMATION BP180 and BP230 are intended for in vitro diagnostic use as an aid in the diagnosis of pemphigoid and related entities, and should be interpreted in conjunction with other laboratory and clinical findings. This test has been modified from the curling machine operator's instructions. Its performance characteristics were determined by [facility] in a manner consistent with CLIA requirements. This test has not been cleared or approved by the U.S. Food and Drug Administration. Test Performed by: [facility] - [address] [address] Supervisor Sunglasses: Amalia Blackwood Ph.D.; CLIA# [id number] Blood (Blood, Venous) 08/23/2024 9:10 AM CDT 08/23/2024 12:40 PM CDT Kyra Parsons MD LAB BLOOD ORDERAB LES Performing Organization Address [facility]/ZIP Co de Phone Number [facility] see result attachment for specific address * Tissue transglutaminase, IgA (08/23/2024 9:10 AM CDT) Tiss.Transglutami nase Ab, S (IgA) <1.2 <4.0 (Negative ) U/mL 08/26/2024 1:10 PM CDT [facility] Comment: Test Performed by: [facility] - [facility] [address] [place] [address] Supervisor Sunglasses: Amalia Blackwood Ph.D.; CLIA# [id number] (IgA) Blood (Blood, Venous) 08/23/2024 9:10 AM CDT 08/23/2024 12:40 PM CDT Kyra Parsons MD LAB BLOOD ORDERAB LES Performing Organization Address City/[facility]/ZIP Co de Phone Number [facility] see result attachment for specific address * Tissue transglutaminase, IgG (08/23/2024 9:10 AM CDT) Tiss.Transglutami nase Ab, S (IgG) 1.9 <6.0 (Negative ) U/mL 08/26/2024 5:23 PM CDT [facility] Comment: Test Performed by: [place] [address] Supervisor Sunglasses: Amalia Blackwood Ph.D.; CLIA# [id number] Blood (Blood, Venous) 08/23/2024 9:10 AM CDT 08/23/2024 12:40 PM CDT Kyra Parsons MD LAB BLOOD ORDERAB LES Performing Organization Address [facility] de Phone Number [facility] see result attachment for specific address * Gluten IgE (08/23/2024 9:10 AM CDT) Pathologist [facility] Gluten IgE <0.10 <0.70 kU/L 08/26/2024 12:36 PM CDT [facility] Comment: Class 0 (Negative <0.10) Test Performed by: [place] [address] Supervisor Sunglasses: Amalia Blackwood Ph.D.; CLIA# [id number] Blood (Blood, Venous) 08/23/2024 9:10 AM CDT 08/23/2024 12:40 PM CDT Kyra Parsons MD LAB BLOOD ORDERAB LES Performing Organization Address City/[facility]/ZIP Co de Phone Number [facility] see result attachment for specific address from Last 3 Months
--- OUTSIDE RECORDS SUMMARY | 2024-08-30 04:37 | XMS_ITS | Encounter Summary ---
Author Organization [facility] er Address [address] [place] [address] Care Team Providers Care Early Childhood Worker Name Role Phone Unavailable Primary Care Provider Unavailabl e Encounter Details Date Type Department Care Team (Late st Contact Info) Description 08/23/2024 9:00 AM CDT Lab SE Lab [address] [place] [address] Rash Social History Tobacco Use Types Packs/Day Years Used Date Smoking Tobacco: Never Assessed Sex and Gender Information Value Date Recorded Sex Assigned at Not on file Gender Identity Not on file Sexual Orientation Not on file documented as of this encounter Plan of Treatment Not on file documented as of this encounter Procedures Procedure Name Priority Date/Time Associated Diagnosis Comments BP 180 AND 230, S Routine 08/23/2024 9:1 0 AM CDT Rash TISSUE TRANSGLUTAMINASE, IGA Routine 08/23/2024 9:10 AM CDT Rash TISSUE TRANSGLUTAMINASE, IGG Routine 08/23/2024 9:10 AM CDT Rash ALLERGEN GLUTEN IGE Routine 08/23/2024 9 :10 AM CDT Rash documented in this encounter Results * BP 180 and 230, Serum (08/23/2024 9:10 AM CDT) BP 180, S <2 <20 RU/mL 08/27/2024 2:30 PM CDT [facility] BP 230, S <2 <20 RU/mL 08/27/2024 2:30 PM CDT [facility] Comment: ADDITIONAL INFORMATION BP180 and BP230 are intended for in vitro diagnostic use as an aid in the diagnosis of pemphigoid and related entities, and should be interpreted in conjunction with other laboratory and clinical findings. This test has been modified from the completion supervisor's instructions. Its performance characteristics were determined by [facility] in a manner consistent with CLIA requirements. This test has not been cleared or approved by the U.S. Food and Drug Administration. Test Performed by: [facility] [place] [address] Gas Regulator Repairer Helper: Amalia Blackwood Ph.D.; CLIA# [id number] Blood (Blood, Venous) 08/23/2024 9:10 AM CDT 08/23/2024 12:40 PM CDT Kyra Parsons MD LAB BLOOD ORDERAB LES Performing Organization Address City/[facility]/ZIP Co de Phone Number [facility] see result attachment for specific address * Gluten IgE (08/23/2024 9:10 AM CDT) Gluten IgE <0.10 <0.70 kU/L 08/26/2024 12:36 PM CDT [facility] Comment: Class 0 (Negative <0.10) Test Performed by: [facility] [address] [place] [id number] Gas Regulator Repairer Helper: Amalia Blackwood Ph.D.; CLIA# [id number] Blood (Blood, Venous) 08/23/2024 9:10 AM CDT 08/23/2024 12:40 PM CDT Kyra Parsons MD LAB BLOOD ORDERAB LES Performing Organization Address City/[facility]/ZIP Co de Phone Number [facility] see result attachment for specific address * Tissue transglutaminase, IgA (08/23/2024 9:10 AM CDT) Pathologist [facility] Tiss.Transglutami nase Ab, S (IgA) <1.2 <4.0 (Negative ) U/mL 08/26/2024 1:10 PM CDT [facility] Comment: Test Performed by: [facility] [place] [address] Gas Regulator Repairer Helper: Amalia Blackwood Ph.D.; CLIA# [id number] (IgA) Blood (Blood, Venous) 08/23/2024 9:10 AM CDT 08/23/2024 12:40 PM CDT Kyra Parsons MD LAB BLOOD ORDERAB LES [facility] [employer] see result attachment for specific address * Tissue transglutaminase, IgG (08/23/2024 9:10 AM CDT) [facility] Tiss.Transglutami nase Ab, S (IgG) 1.9 <6.0 (Negative ) U/mL 08/26/2024 5:23 PM CDT [facility] Comment: Test Performed by: [facility] [place] [address] Gas Regulator Repairer Helper: Amalia Blackwood Ph.D.; CLIA# [id number] Blood (Blood, Venous) 08/23/2024 9:10 AM CDT 08/23/2024 12:40 PM CDT Kyra Parsons MD LAB BLOOD ORDERAB LES [facility] [employer] see result attachment for specific address documented in this encounter Visit Diagnoses Diagnosis Rash Rash and other nonspecific skin eruption documented in this encounter
--- OUTSIDE RECORDS SUMMARY | 2024-08-30 04:38 | XMS_ITS | Clinical Summary ---
Author Organization [facility] Address [place], [place] [address] Care Team Providers Care Hoisting Pile Driving Engineer Name Role Phone Zulema Moore RN Unavailable [phone] Christina Menchaca MD Unavailable [phone] Jessica Catherine RN Unavailable Unavailable Gail Souza NP Primary Care Provider [phone] Allergies Active Allergy Reactions Criticality Noted Date [...] 2 diabetes mellitus without complication, unspecified whether equipment operator intermodal yard insulin use (HC) To be used to read blood sugars, follow fox raiser directions. Change every 90 days 1 Each [...] 2 diabetes mellitus without complication, unspecified whether group home insulin use (HC) Inject 38 units subcutaneous before bedtime. 15 mL 5 01/05/2023 Active Insulin Jackson, Disposable, (Pen Needle) 32 gauge x Indications:T ype 2 diabetes mellitus without complication, unspecified whether equipment operator intermodal yard insulin use (HC) As directed. Remove the 2 covers on the insulin pen needle before administering insulin dose. 100 Each 01/05/2023 Active ISVS G7 Sewer Pipe Press Operator for continuous blood glucose monitor (CGM)Indications:T ype 2 diabetes mellitus without complication, unspecified whether group home insulin use (HC) To be used to read blood sugars follow fox raiser directions. Change every 10 days 3 Each [...] HPV 16/18 negative 01/18/22 LSIL/HPV+, 16/18 negative. 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8 oz) 10/27/2022 11:12 A M COMMISSARY STEWARD Height 165.1 cm (5' 5) 06/29/2022 7:31 [...] UNI DIAG LEFT SWETHA 10/17/2022 10:45 AM COMMISSARY STEWARD Mass of left breast, unspecified quadrant ANTI [...] 16 Negative Negative 04/13/2023 11:33 AM CDT [facility] LAB[facility] TYPE 18 Negative Negative 04/13/2023 11:33 AM CDT [facility] OTHER HIGH RISK TYPES Positive(A) Negative 04/13/2023 11:33 AM CDT [facility] Other VAGINAL SWAB / Unknown 04/10/2023 9:30 AM CDT 04/11/2023 11:45 AM CDT Narrative [facility] - 04/13/2023 11:33 AM CDT Specimen is positive for the DNA of any one of, or combination of, the following high risk HPV types: 31, 33, 35, 39, 45, 51, 52, 56, 58, 59, 66, 68. HPV types 16 and 18 DNA were undetectable or below the pre-set threshold. ? Methodology: [employer] Jordi 4800 HPV Test Gail Souza NP MICROBIOLOGY [facility] [address] [place] [address], [place] * XR MAMMO ARNULFO UNI DIAG LEFT (10/17/2022 10:45 AM COMMISSARY STEWARD) Anatomical Region Laterality Modality BREASTS, Breast Left Mammography , Radiographic Imaging 10/17/2022 10:4 5 AM COMMISSARY STEWARD Impressions 10/17/2022 12:10 PM COMMISSARY STEWARD ACR BI-RADS Category 2: Benign. Results given [...] your referring provider. Narrative 10/17/2022 12:10 PM COMMISSARY STEWARD For Patients: As a result of the [...] LEFT, US BREAST UNILATERAL LEFT LIMITED LOCATION: [facility] DATE/TIME: 10/17/2022 10:45 AM INDICATION: Mass [...] results, pleasecontact your referring provider. Rachna Westbrook COATING MACHINE HELPER MAMMO * (ABNORMAL) LIPID PANEL W REFLEX MEASURED LDL (06/01/2022 9:54 AM CDT) CHOLESTEROL,TOTAL 220(H) 100 - 199 mg/dL 06/01/2022 9:41 PM CDT [facility] TRAL LABORATORY TRIGLYCERIDES 171(H) <150 mg/dL 06/01/2022 9:41 PM CDT [facility] TRAL LABORATORY HDL CHOLESTEROL 38(L) >40 mg/dL 9:41 PM CDT [facility] TRAL LABOR[facility]ORY NON-HDL CHOLESTEROL 182(H) <145 mg/dl 06/01/2022 9:41 PM CDT [facility] TRAL LABORATORY CHOL/HDL RATIO 5.79(H) <4.50 06/01/2022 9:41 PM CDT [facility] TR[facility] LAB[facility] LDL CHOLESTEROL 148(H) <=130 mg/dL 06/01/2022 9:41 PM CDT [facility] TRAL LAB[facility]ORY VLDL CHOLESTEROL 34(H) <=30 mg/dL 06/01/2022 9:41 PM CDT [facility] TRAL LABORATORY PROVIDER ORDERED STATUS RANDOM 06/01/2022 9:41 PM CDT [facility] TRAL LAB[facility]ATORY Blood BLOOD SPECIMEN / Unknown Venipuncture / Unknown 06/01/2022 9:54 AM CDT 06/01/2022 9:54 AM CDT Jeanette Cortez DO CHEMISTRY [facility] [address] [place] [address], [place] * ANTI HCV (06/01/2022 9:54 AM CDT) HEPATITIS C ANTIBODY Non-React ryan Non-React ryan 06/01/2022 9:35 PM CDT [facility] Comment:Antibodies to HCV no t detected; does not exclude the possibility of exposure to HCV. Blood BLOOD SPECIMEN / Unknown Venipuncture / Unknown 06/01/2022 9:54 AM CDT 06/01/2022 9:54 AM CDT Jeanette Cortez DO SEND OUTS [facility] [address] [place] [address], [place] * COLONOSCOPY (03/01/2022 7:38 AM CDT) [...] adequate candidate for conscious sedation. The [id number]-[id number] was passed through the anus and advanced [...] ve Non-Reacti ve 08/14/2020 7:16 PM CDT [facility] Comment:HIV-1 p24 and HIV-1/ HIV-2 Ab not detected. Blood BLOOD SPECIMEN / Unknown Venipuncture / Unknown 08/14/2020 2:22 PM CDT 08/14/2020 2:23 PM CDT Ruby ROGERS SEND OUTS [facility] [address] [place] [address], [place] from Last 3 Months or Most Recently Relevant to Health Maintenance Advance Directives * Full Code (Latest Code Status on File) Date Activated Date Inactivated Comments 02/12/2019 6:55 AM 02/12/2019 10:02 PM Care Teams Hoisting Pile Driving Engineer Relationship Specialty Start Date End Date Gail Souza, COATING MACHINE HELPER [address] [place] [id number] PCP - General Emergency Medicine 12/28/22 Zulema Moore, MIKE Nurse Navigator - Oncology Registered Nurse 06/14/22 Christina Menchaca MD [address] [facility] [address] [place] [address] Oncology 06/14/22 Jessica Catherine, RN [address] [facility] [place] [address] Client Application Support Engineer Registered Nurse 07/07/22
--- OUTSIDE RECORDS SUMMARY | 2024-08-30 04:38 | XMS_ITS | Encounter Summary ---
Author Organization [facility] Address [address] [place] [address] Care Team Providers Care Etcher Apprentice Photoengraving Name Role Phone Unavailable Primary Care Provider Unavailabl e Reason for Visit * Reason Comments Skin Problem Encounter Details Date Type Department Care Team (Late st Contact Info) Description 08/23/2024 8:30 AM CDT Office Visit [facility] [address] [place] [id number] Kyra Parsons MD [address] [place], [place] [id number] Rash (Primary Dx) Social History Tobacco Use [...] not stop, call the dermatology department at [phone]. If it is after hours, call the emergency department at [phone]. If you have pain, redness, or drainage that gets worse, call the dermatology department at [phone]. documented in this encounter Progress Notes * Kyra Parsons MD - 08/23/2024 8:30 AM CDT CHIEF COMPLAINT / REASON FOR VISIT Lesions on the skin HISTORY OF PRESENT ILLNESS Ms. Karin Dominguez is a 53 y.o. female who presents today for lesions on the lower extremities. The patient reports a history of sarcoidosis, diagnosed in June 2022 following a PET scan that revealed lesions in the liver and lungs initially concerning for malignancy but later confirmed as sarcoidosis. After diagnosis, she was started on prednisone, methotrexate, and Remicade infusions, and she has been on this regimen since then. Approximately 1.5 years ago, the patient began developing very itchy lesions, primarily involving her lower extremities and occasionally her upper extremities, but not the trunk or face. She has beenusing topical steroids, which help alleviate the itching but do not fully resolve the lesions. The p atient denies starting any new medications apart from her sarcoidosis treatment and has no known sensitivity to gluten. She also denies any blistering. Her sql developer expressed concern that the rash might represent skin sarcoidosis and referred her to dermatology for evaluation. The patient does not believe that her current sarcoidosis medications are addressing her rash. The patient denies any other new or changing lesions. No other specific concerns. The following portions of the patient's chart were reviewed in this encounter and updated as appropriate: Tobacco Allergies Meds Problems Med Hx Surg Hx Fam Hx PHYSICAL EXAM General: Awake, alert, in no acute distress, and with appropriate affect. Skin: Focused skin exam was done per patient request. Have examined the patient's bilateral upper and lower extremities abdomen and back. Scattered on the patient's lower extremities especially the feet are excoriated papules. On the patient's left thigh are healing excoriated papules. ASSESSMENT / PLAN Excoriated papules Pruritus History of sarcoidosis on Remicade infusion, methotrexate and prednisone On today's examination, I observed excoriated papules primarily scattered across the lower and upper extremities, as well as the posterior thighs. We discussed several differential diagnoses, including dermatitis herpetiformis, prurigo nodularis, bullous pemphigoid, and sarcoidosis, among others. To further evaluate the patient's rash, we obtained labs including BP 180 and 230, as well as tissue transglutaminase IgA and IgG. Recent labs from outside providers were unremarkable concerning the patient? s pruritus. We also performed two punch biopsies: one for H&E and the other for DIF (direct immunofluorescence). In the meantime, I advised the patient to continue using topical triamcinolone for itch relief and suggested a scheduled antihistamine to help manage the itching. I will follow up with the patient once the lab results and pathology reports are available Biopsies of 2 lesions on the left posterior thigh x2 CONSENT Discussed the risks, benefits, alternatives, and the necessity of other members of the healthcare team participating in the procedure. All questions answered and consent given. UNIVERSAL [employer]OTOCOL Procedural pause conducted to verify: correct patient identity, procedure to be performed, and as applicable, correct side and site, correct patient position, and availability of implants, special equipment, or special requirements. PROCEDURE INFORMATION Punch biopsy. We explained the potential diagnosis and recommended that we obtain a biopsy. The risks and benefits of the procedure were discussed, and the patient consented to these procedures. Using 1% lidocainewith epinephrine for local anesthesia, a 4-mm punch biopsy was obtained from the left posterior thigh. Biopsies submitted to Dermatopathology. Biopsy site closed with a top layer of 4-0 nylon. The skin sutures need to be removed in 10-14 days. Dressing was applied, and wound care instructions were explained. Biopsy results and any further recommendations will be communicated to the patient. It was my pleasure meeting the patient today. Patient has our contact information should any questions or concerns arise, patient is welcomed to send me a message via [facility] or call our department. I personally spent a total of 45 minutes reviewing the medical record, obtaining history and performing examination, counseling, placing orders, and completing documentation/charting. This document was prepared with voice recognition software; while reviewed prior to signature, it may contain unintended minor voice recognition errors. Kyra Parsons MD Dermatology documented in this encounter Plan of Treatment Pending Results Name Type Priority Associated Diagnoses Date /Time [facility] Pathology and Cytology Routine Rash 08/23/2024 9:21 AM CDT [facility] 1 spec Pathology and Cytology Routine 08/23/2024 9:21 AM CDT [facility] Consultation, Wet Tissue Pathology and Cytology Routine 08/23/2024 9:21 AM CDT Scheduled Orders Name Type Priority Associated Diagnoses Orde r Schedule [facility] Pathology and Cytology Routine Rash Ordered: 08/23/2024 documented as of this encounter Procedures Procedure Name Priority Date/Time Associated Diagnosis Comments CUTANEOUS DIRECT IMMUNOFLUORESCENCE (IFA), BIOPSY Routine 08/23/2024 9:21 AM CDT Rash documented in this encounter Results * Cutaneous Direct Immunofluorescence (IFA), Biopsy (08/23/2024 9:21 AM CDT) Interpretation - 08/29/2024 8:34 AM CDT [facility] Comment: A. ??Left posterior thigh, skin punch [...] reagent. Its performance characteristics were determined by [facility] in a manner consistent with CLIA requirements. This test has not been cleared or approved by the U.S. Food and Drug Administration. CIB Report Electronically signed by SEE BELOW 08/29/2024 8:34 AM CDT [facility] Comment: Kaela Henderson M.D. [facility] 090 08/29/2024 8:34 AM CDT [facility] Comment: Test Performed by: [place] [address] Supervisor Curing Room: Amalia Blackwood Ph.D.; CLIA# [id number] Tissue 08/23/2024 9:21 AM CDT 08/23/2024 12:40 PM CDT Kyra Parsons MD LAB PATHOLOGY ORD ERABLES Performing Organization Address City/[facility]/ZIP Co de Phone Number [facility] see result attachment for specific address * Tissue transglutaminase, IgG (08/23/2024 9:10 AM CDT) Tiss.Transglutami nase Ab, S (IgG) 1.9 <6.0 (Negative ) U/mL 08/26/2024 5:23 PM CDT [facility] Comment: Test Performed by: [facility] [place] [address] Supervisor Curing Room: Amalia Blackwood Ph.D.; CLIA# [id number] Blood (Blood, Venous) 08/23/2024 9:10 AM CDT 08/23/2024 12:40 PM CDT Kyra Parsons MD LAB BLOOD ORDERAB LES Performing Organization Address [facility] Co de Phone Number [facility] see result attachment for specific address * Tissue transglutaminase, IgA (08/23/2024 9:10 AM CDT) Tiss.Transglutami nase Ab, S (IgA) <1.2 <4.0 (Negative ) U/mL 08/26/2024 1:10 PM CDT [facility] Comment: Test Performed by: [place] [address] Supervisor Curing Room: Amalia Blackwood Ph.D.; CLIA# [id number] (IgA) Blood (Blood, Venous) 08/23/2024 9:10 AM CDT 08/23/2024 12:40 PM CDT Kyra Parsons MD LAB BLOOD ORDERAB LES Performing Organization Address City/[facility]/ZIP Co de Phone Number [facility] see result attachment for specific address * Gluten IgE (08/23/2024 9:10 AM CDT) Gluten IgE <0.10 <0.70 kU/L 08/26/2024 12:36 PM CDT [facility] Comment: Class 0 (Negative <0.10) Test Performed by: [place] [address] Supervisor Curing Room: Amalia Blackwood Ph.D.; CLIA# [id number] Blood (Blood, Venous) 08/23/2024 9:10 AM CDT 08/23/2024 12:40 PM CDT Kyra Parsons MD LAB BLOOD ORDERAB LES Performing Organization Address [facility]/ZIP Co de Phone Number [facility] see result attachment for specific address * BP 180 and 230, Serum (08/23/2024 9:10 AM CDT) BP 180, S <2 <20 RU/mL 08/27/2024 2:30 PM CDT [facility] BP 230, S <2 <20 RU/mL 08/27/2024 2:30 PM CDT [facility] Comment: ADDITIONAL INFORMATION BP180 and BP230 are intended for in vitro diagnostic use as an aid in the diagnosis of pemphigoid and related entities, and should be interpreted in conjunction with other laboratory and clinical findings. This test has been modified from the product safety technical assistant's instructions. Its performance characteristics were determined by [facility] in a manner consistent with CLIA requirements. This test has not been cleared or approved by the U.S. Food and Drug Administration. Test Performed by: [facility] - [address] [address] Supervisor Curing Room: Amalia Blackwood Ph.D.; CLIA# [id number] Blood (Blood, Venous) 08/23/2024 9:10 AM CDT 08/23/2024 12:40 PM CDT Kyra Parsons MD LAB BLOOD ORDERAB LES [facility] see result attachment for specific address documented in this encounter Visit Diagnoses Diagnosis Rash- Primary Rash and other nonspecific skin eruption documented in this encounter Administered Medications Inactive Administered Medications - up to 3 most recent administrations Medication Order MAR Action Action Date Dose Rate Site lidocaine-EPINEPHrine (XYLOCAINE W/EPI) 1 %-1:680821 injection 5 mL 5 mL, Infiltration, Once, On Mon08/23/24 at 0930, For 1 dose Given 08/23/2024 8:56 AM CDT 5 mL documented in this encounter
--- OUTSIDE RECORDS SUMMARY | 2024-08-30 04:38 | XMS_ITS | Clinical Summary ---
Author Organization [facility] Address [address] [place] [address] Care Team Providers Care Landscape Foreman Name Role Phone Elsewhere, Pcp Primary Care Provider Unavailabl e Source Comments Patient records contain information from all sites at [facility]. For routine questions regarding patient records, call [phone] during business hours, M-F 8:00 AM - 5:00 PM Central Time. Record requests for emergency care only can be directed to [phone] at any time.[facility] Allergies Active Allergy Reactions Criticality Noted Date Comments Lisinopril Cough Low 10/26/2018 [place] Pollen Itching Medium 08/11/2024 Seasonal Allergies: Allergic [...] hours as needed for pain. 25-50 mg g1ipqed PRN Active triamcinolone (Kenalog) 0.1 % cream [...] HPV 16/18 negative 01/18/22 LSIL/HPV+, 16/18 negative. [place]:normal, no biopsy taken Provider plan 01/18/22: Pap/HPV [...] CDT - 08/12/2024 4:57 PM CDT Emergency [facility], Second Floor [address] [place] [phone] Micheal Dimas APRN, C.N.P., D.N.P. Gurwinder Magallanes APRN, C.N.P., M.S.N. Yulisa Mcduffie M.D. Prolonged QT Interval (Primary Dx); Nausea And Vomiting; Diarrhea; Dehydration; Colitis; Failure Renal Acute (Acute Kidney Injury) (HCC); Alkalosis Respiratory; Hypokalemia Discharge Disposition: Home or Self Care 06/14/2024 [facility] [address] [place] [address] Gail Souza, C.N.P. from Last 3 Months Immunizations Name Administration Dates Next Due HepB Adult 06/24/2014,05/19/2014 Tdap 01/17/2012 influenza vaccine quad (FLUZ ONE/FLUARIX) (6 months and older)(PF) 01/20/2020 Social History Tobacco Use Types Packs/Day Years Used Date Smoking Tobacco: Never [facility] Utilities Answer Date Recorded In the past 12 months has e [employer], gas, oil, or water company threatened to [...] your living situation today? I have a [facility] place to live 08/11/2024 Sex and [...] CDT Yulisa Mcduffie M.D. LAB BLOOD ADD-ON [facility] [address] [place] [address], [facility] CNFL [facility] in [address] [address] * Glucose, POCT (08/12/2024 12:16 PM CDT) Only the most recent of5 resultswithin the time period is included. Glucose, POCT, B 99 70 - 140 mg/dL 08/12/2024 12:16 PM CDT CNFL Blood 08/12/2024 12:1 6 PM CDT 08/12/2024 12:23 PM CDT Generic Rals LAB POCT ORDERABLES- MANUAL Performing Organization Address City/[facility]/ZIP Co de Phone Number [facility] [address] [place] [address], [facility] [place] [address] * (ABNORMAL) CBC with Differential, Blood (08/12/2024 [...] CDT Yulisa Mcduffie M.D. LAB BLOOD ADD-ON [facility] [address] [place] [address], [facility] CNFL [facility] [place] [address] * Feet-Nursing Image Exam (08/12/2024 12:13 AM [...] - 5.2 mmol/L 08/11/2024 8:38 PM CDT [facility] Blood (Blood, Venous) 08/11/2024 8:15 PM CDT 08/11/2024 8:26 PM CDT Gurwinder Magallanes APRN, C.N.P., M.S.N. LAB BLOO D ADD-ON Performing Organization Address City/[facility] Co de Phone Number [facility] [address] [place] [address], [facility] in [address] [address] * Bacteria / Kassandra Culture, Blood #2 (08/11/2024 6:49 PM CDT) Only the most recent of2 resultswithin the time period is included. [facility] Bacteria/Lina da Culture, Blood No growth after 5 day/s of incubation. 08/16/2024 8:02 PM CDT [facility] Blood (Blood, Peripheral Draw) 08/11/2024 6:49 PM CDT 08/11/2024 6:53 PM CDT Comment:Specimen Source Site : Blood Gurwinder Magallanes APRN, C.N.P., M.S.N. LAB MICR OBIOLOGY - GENERAL ORDERABLES Performing Organization Address [facility] Co de Phone Number [facility] [address] [place] [address], [facility] in [address] [address] * (ABNORMAL) Lactate (08/11/2024 6:49 PM CDT) Only the most recent of2 resultswithin the time period is included. Lactate, P 2.4(H) 0.5 - 2.2 mmol/L 08/11/2024 7:10 PM CDT [facility] Blood (Blood, Venous) 08/11/2024 6:49 PM CDT 08/11/2024 6:52 PM CDT Gurwinder Magallanes APRN, C.N.P., M.S.N. LAB BLOO D NON ADD-ON [facility] [address] [place] [address], [facility] CNFL [facility] in [address] [address] * Methotrexate Level (08/11/2024 6:48 PM CDT) Methotrexate, S <0.04 <0.10 mcmol/L 08/12/2024 3:08 PM CDT E[facility] Blood (Blood, Venous) 08/11/2024 6:48 PM CDT 08/12/2024 2:36 PM CDT Gurwinder Magallanes APRN, C.N.P., M.S.N. LAB BLOO D ADD-ON Performing Organization Address City/[facility]/ZIP Co de Phone Number [facility] [address] [place] [address], [facility] ECLR [facility] [place] [address] * Beta-hydroxybutyrate, Point of Care Testing, Blood (08/11/2024 6:20 PM CDT) Beta-hydroxybut yrate, POCT, B 0.3 0.0 - 0.5 mmol/L 08/11/2024 6:25 PM CDT CNFL Blood (Blood, Venous) 08/11/2024 6:20 PM CDT 08/11/2024 6:22 PM CDT Gurwinder Magallanes APRN, C.N.P., M.S.N. LAB BLOO D NON ADD-ON [address] [address], [facility] CNFL [facility] in [address] [address] * Ethanol Level, Serum (08/11/2024 6:20 PM CDT) Ethanol, P <10 <10 mg/dL 08/11/2024 6:3 5 PM CDT CN[facility] Blood (Blood, Venous) 08/11/2024 6:20 PM CDT 08/11/2024 6:22 PM CDT Gurwinder Magallanes APRN, C.N.P., M.S.N. LAB BLOO D NON ADD-ON [address] [address], [facility] CNFL [facility] in [address] [address] * (ABNORMAL) Blood Gas, Venous, POCT, Blood [...] POCT ORDERABLES - DEVICE Performing Organization Address [facility] Co de Phone Number [address] [address], [address] [address] * Magnesium (08/11/2024 6:20 PM CDT) Magnesium, P 1.8 1.7 - 2.3 mg/dL 08/11/2024 6:35 PM CDT [facility] Blood (Blood, Venous) 08/11/2024 6:20 PM CDT 08/11/2024 6:22 PM CDT Gurwinder Magallanes APRN, C.N.P., M.S.N. LAB BLOO D ADD-ON Performing Organization Address [facility] Co de Phone Number [address] [address], [address] [address] * ECG 12 Lead (08/11/2024 5:47 PM CDT) Ventricular Rate ECG/Min 88 BPM MUSE IA Interval 162 ms MUSE QRSD Interval 88 ms MUSE QT Interval 440 ms MUSE QTC Interval 532 ms MUSE P [place] -5 degrees MUSE R [place] 12 degrees MUSE T Wave [place] 0 degrees MUSE 08/11/2024 5:47 PM CDT [...] Deni Magallanes APRN, C.N.P., M.S.N. ECG ORDE [facility] MUSE NA * CT Abdomen Pelvis with [...] PM CDT 08/11/2024 3:57 PM CDT Narrative [facility] - 08/11/2024 5:31 PM CDT CBC without Differential was cancelled on 08/11/2024 at 17:31; Per provider's request. Roxie Sanon APRN.N.P., D.N.P. LAB BLOOD ADD-ON Performing Organization Address [facility] Co de Phone Number [facility] [address] [place] [address], [place] [address] * CRP (C-Reactive Protein) (08/11/2024 3:54 PM CDT) [facility] C-Reactive Protein (CRP), P <3.0 <5.0 mg/L 08/11/2024 4:46 PM CDT [facility] Blood (Blood, Venous) 08/11/2024 3:54 PM CDT 08/11/2024 3:57 PM CDT Roxie Sanon APRN.N.P., D.N.P. LAB BLOOD ADD-ON Performing Organization Address City/[facility]/ZIP Co de Phone Number [facility] [address] [place] [address], [address] [address] * Lipase (08/11/2024 3:54 PM CDT) [facility] Lipase, P 57 13 - 60 U/L 08/11/2024 4: 46 PM CDT CNFL Blood (Blood, Venous) 08/11/2024 3:54 PM CDT 08/11/2024 3:57 PM CDT Guanakito Sanon APRNNDelP., D.N.P. LAB BLOOD ADD-ON [facility] [address] [place] [address], [facility] CNFL [facility] [place] [address] * (ABNORMAL) Comprehensive Metabolic Panel (08/11/2024 3:54 [...] Roxie Sanon APRN.N.P., D.N.P. LAB BLOOD ADD-ON [facility] [address] [place] [address], [facility] [place] [address] * Influenza A/B, SARS CoV-2, PCR, Rapid [...] APRN.N.P., D.N.P. LAB MICROBIOLOGY - GENERAL ORDERABLES [facility] [address] [place] [address], [facility] CNFL [facility] in [address] [address] * (ABNORMAL) Urinalysis with Microscopic if Indicated [...] 8.0 08/11/2024 6:28 PM CDT CNFL Specific [place] 1.010 1.001 - 1.035 08/11/2024 6:28 PM CDT CNFL Urobilinogen 0.2 0.2 - 1.0 mg/dL 08/11/2024 6:28 PM CDT CNFL Urine (Urine, Midstream) 08/11/2024 3:52 PM CDT 08/11/2024 6:25 PM CDT Roxie Sanon APRN.N.P., D.N.P. LAB URINE ORDERABLES Performing Organization Address City/[facility]/ZIP Co de Phone Number [facility] [address] [place] [address], [facility] CNFL [facility] in [address] [address] * Microscopic Manual (08/11/2024 3:52 PM CDT) [...] D.N.P. LAB URINE ORDERABLES Performing Organization Address City/[facility]/ZIP Co de Phone Number [facility] [address] [place] [address], [facility] CNFL [facility] in [address] [address] from Last 3 Months Additional Health Concerns Infection Onset Date Last Indicated Protective Environment 08/11/2024 Advance Directives For more information, please contact: [phone] * Full Code (Latest Code Status on File) Date Activated Date Inactivated Comments 08/11/2024 10:11 PM 08/12/2024 7:03 PM Question Answer Comments Full Code: Not Discussed Due to: Patient not available Care Teams Landscape Foreman Relationship Specialty Start Date End Date Elsewhere, Pcp PCP - General Family Medicine 06/07/21
--- OUTSIDE RECORDS SUMMARY | 2024-08-30 04:39 | XMS_ITS | Encounter Summary ---
Author Organization [facility] Address [address] [place] [address] Care Team Providers Care Injection Molder Name Role Phone Elsewhere, Pcp Primary Care Provider Unavailabl e Encounter Details Date Type Department Care Team (Late st Contact Info) Description 08/12/2024 12:20 AM CDT Ancillary Procedure Department of Nursing Social History Tobacco Use Types Packs/Day Years Used Date Smoking Tobacco: Never [facility] Utilities Answer Date Recorded In the [...] your living situation today? I have a [facility] place to live 08/11/2024 Sex [...] documented as of this encounter Care Teams Injection Molder Relationship Specialty Start Date End Date Elsewhere, Pcp PCP - General Family Medicine 06/07/21 documented as of this encounter
--- OUTSIDE RECORDS SUMMARY | 2024-08-30 04:39 | XMS_ITS | Encounter Summary ---
Author Organization [facility] Address [address] [place] [address] Care Team Providers Care Assembly Cleaner Name Role Phone Elsewhere, Pcp Primary Care Provider Unavailabl e Encounter Details Date Type Department Care Team (Late st Contact Info) Description 06/14/2024 [facility] [address] [place] [address] Gail Souza, C.N.P. [address] [place] [phone] Social History Tobacco Use Types Packs/Day Years [...] on filedocumented in this encounter Care Teams Assembly Cleaner Relationship Specialty Start Date End Date Elsewhere, Pcp PCP - General Family Medicine 06/07/21 documented as of this encounter
--- OUTSIDE RECORDS SUMMARY | 2024-08-30 04:39 | XMS_ITS | Encounter Summary ---
Author Organization [facility] Address [address] [place] [address] Care Team Providers Care Bi Architect Name Role Phone Elsewhere, Pcp Primary Care Provider Unavailabl e Encounter Details Date Type Department Care Team (Late st Contact Info) Description 08/12/2024 12:25 AM CDT Ancillary Procedure Department of Nursing Social History Tobacco Use Types Packs/Day Years Used Date Smoking Tobacco: Never [facility] Utilities Answer Date Recorded In [...] your living situation today? I have a [facility] place to live 08/11/2024 Sex and [...] documented as of this encounter Care Teams Bi Architect Relationship Specialty Start Date End Date Elsewhere, Pcp PCP - General Family Medicine 06/07/21 documented as of this encounter
--- OUTSIDE RECORDS SUMMARY | 2024-08-30 04:39 | XMS_ITS | Encounter Summary ---
Author Organization [facility] Address [address] [place] [address] Care Team Providers Care Cable Splicer Assistant Name Role Phone Elsewhere, Pcp Primary Care Provider Unavailabl e Encounter Details Date Type Department Care Team (Late st Contact Info) Description 08/12/2024 12:15 AM CDT Ancillary Procedure Department of Nursing Social History Tobacco Use Types Packs/Day Years Used Date Smoking Tobacco: Never [facility] Utilities Answer Date Recorded In the past [...] documented as of this encounter Care Teams Cable Splicer Assistant Relationship Specialty Start Date End Date Elsewhere, Pcp PCP - General Family Medicine 06/07/21 documented as of this encounter
--- OUTSIDE RECORDS SUMMARY | 2024-08-30 04:39 | XMS_ITS | Referral Summary ---
Author Organization [facility] Address [address] [place] [address] Care Team Providers Care Nail Welter Name Role Phone Elsewhere, Pcp Primary Care Provider Unavailabl e Source Comments Patient records contain information from all sites at [facility]. For routine questions regarding patient records, call [phone] during business hours, M-F 8:00 AM - 5:00 PM Central Time. Record requests for emergency care only can be directed to [phone] at any time.[facility] Encounters Date Type Department Care Team Description 08/12/2024 12:25 AM CDT Ancillary Procedure Department of Nursing 08/12/2024 12:20 AM CDT Ancillary Procedure Department of Nursing 08/12/2024 12:15 AM CDT Ancillary Procedure Department of Nursing 08/11/2024 3:34 PM CDT - 08/12/2024 4:57 PM CDT Emergency [facility], Second Floor [address] [place] [phone] Micheal Dimas APRN, C.N.P., D.N.P. Gurwinder Magallanes APRN, C.N.P., M.S.N. Yulisa Mcduffie M.D. Prolonged QT Interval (Primary Dx); Nausea And Vomiting; Diarrhea; Dehydration; Colitis; Failure Renal Acute (Acute Kidney Injury) (HCC); Alkalosis Respiratory; Hypokalemia Discharge Disposition: Home or Self Care 06/14/2024 Formerly named [facility] [address] [place] [address] Gail Souza, C.N.P. from Last 3 Months Allergies Active Allergy Reactions Criticality Noted Date Comments Lisinopril Cough Low 10/26/2018 [place] Pollen Itching Medium 08/11/2024 Seasonal Allergies: Allergic Rhinitis, Itchy watery eyes, Sneezing Medications Medication Sig Dispensed Refills Start Date End Date Status miscellaneous medical supply [facility] CPAP machine for home use at pressure: [...] hours as needed for pain. 25-50 mg [id number] PRN Active triamcinolone (Kenalog) 0.1 % cream [...] HPV 16/18 negative 01/18/22 LSIL/HPV+, 16/18 negative. [place]:normal, no biopsy taken Provider plan 01/18/22: Pap/HPV [...] Date Smoking Tobacco: Never [facility] Utilities Answer Date Recorded In the past 12 months has e appweevr, gas, oil, or water company threatened to [...] your living situation today? I have a [facility] place to live 08/11/2024 Sex and [...] M.D. LAB BLOOD ADD-ON Performing Organization Address City/[facility]/ZIP Co de Phone Number [facility] [address] [place] [address], [place] [address] * Glucose, POCT (08/12/2024 12:16 PM CDT) Only the most recent of5 resultswithin the time period is included. Glucose, POCT, B 99 70 - 140 mg/dL 08/12/2024 12:16 PM CDT [facility] Blood 08/12/2024 12:1 6 PM CDT 08/12/2024 12:23 PM CDT Generic Rals LAB POCT ORDERABLES- MANUAL Performing Organization Address [facility] Co de Phone Number [facility] [address] [place] [address], [address] [address] * (ABNORMAL) CBC with Differential, Blood (08/12/2024 [...] CDT Yulisa Mcduffie M.D. LAB BLOOD ADD-ON [facility] [address] [place] [address], [facility] [address] [address] * Feet-Nursing Image Exam (08/12/2024 12:13 AM [...] (ABNORMAL) Potassium (08/11/2024 8:15 PM CDT) Pathologist [facility] Potassium, P 3.1(L) 3.6 - 5.2 mmol/L 08/11/2024 8:38 PM CDT [facility] Blood (Blood, Venous) 08/11/2024 8:15 PM CDT 08/11/2024 8:26 PM CDT Gurwinder Magallanes APRN, C.N.P., M.S.N. LAB BLOO D ADD-ON Performing Organization Address City/[facility] Co de Phone Number [address] [place] [address] * Bacteria / Kassandra Culture, Blood #2 (08/11/2024 6:49 PM CDT) Only the most recent of2 resultswithin the time period is included. [facility] Bacteria/Lina da Culture, Blood No growth after 5 day/s of incubation. 08/16/2024 8:02 PM CDT [facility] Blood (Blood, Peripheral Draw) 08/11/2024 6:49 PM CDT 08/11/2024 6:53 PM CDT Comment:Specimen Source Site : Blood Gurwinder Magallanes APRN, C.N.P., M.S.N. LAB MICR OBIOLOGY - GENERAL ORDERABLES Performing Organization Address [facility] [place] [address], [facility] [place] [address] * (ABNORMAL) Lactate (08/11/2024 6:49 PM CDT) Only the most recent of2 resultswithin the time period is included. Pathologist [facility] Lactate, P 2.4(H) 0.5 - 2.2 mmol/L 08/11/2024 7:10 PM CDT [facility] Blood (Blood, Venous) 08/11/2024 6:49 PM CDT 08/11/2024 6:52 PM CDT Gurwinder Magallanes APRN, C.N.P., M.S.N. LAB BLOO D NON ADD-ON Performing Organization Address City/[facility]/ZIP Co de Phone Number [facility] [address] [place] [address], [facility] CNFL [place] [address] * Methotrexate Level (08/11/2024 6:48 PM CDT) Pathologist [facility] Methotrexate, S <0.04 <0.10 mcmol/L 08/12/2024 3:08 PM CDT [facility] Blood (Blood, Venous) 08/11/2024 6:48 PM CDT 08/12/2024 2:36 PM CDT Gurwinder Magallanes APRN, C.N.P., M.S.N. LAB BLOO D ADD-ON Performing Organization Address [facility]/ZIP Co de Phone Number [facility] [address] [place] [address], [facility] ECLR [place] [address] * Beta-hydroxybutyrate, Point of Care Testing, Blood (08/11/2024 6:20 PM CDT) Pathologist [facility] Beta-hydroxybut yrate, POCT, B 0.3 0.0 - 0.5 mmol/L 08/11/2024 6:25 PM CDT [facility] Blood (Blood, Venous) 08/11/2024 6:20 PM CDT 08/11/2024 6:22 PM CDT Gurwinder Magallanes APRN, C.N.P., M.S.N. LAB BLOO D NON ADD-ON [address] [address], [facility] CNFL [facility] in [address] [address] * Ethanol Level, Serum (08/11/2024 6:20 PM CDT) Ethanol, P <10 <10 mg/dL 08/11/2024 6:3 5 PM CDT [facility] Blood (Blood, Venous) 08/11/2024 6:20 PM CDT 08/11/2024 6:22 PM CDT Gurwinder Magallanes APRN, C.N.P., M.S.N. LAB BLOO D NON ADD-ON Performing Organization Address City/[facility]/ZIP Co de Phone Number [address] [address], [place] [address] * (ABNORMAL) Blood Gas, Venous, POCT, Blood [...] POCT ORDERABLES - DEVICE Performing Organization Address [facility] Co de Phone Number [address] [address], [address] [address] * Magnesium (08/11/2024 6:20 PM CDT) Magnesium, P 1.8 1.7 - 2.3 mg/dL 08/11/2024 6:35 PM CDT [facility] Blood (Blood, Venous) 08/11/2024 6:20 PM CDT 08/11/2024 6:22 PM CDT Gurwinder Magallanes APRN, C.N.P., M.S.N. LAB BLOO D ADD-ON Performing Organization Address [facility] Co de Phone Number [address] [address], [address] [address] * ECG 12 Lead (08/11/2024 5:47 PM CDT) Ventricular Rate ECG/Min 88 BPM MUSE [place] Interval 162 ms MUSE QRSD Interval 88 ms MUSE QT Interval 440 ms MUSE QTC Interval 532 ms MUSE P [place] -5 degrees MUSE R [place] 12 degrees MUSE T Wave [place] 0 degrees MUSE 08/11/2024 5:47 PM CDT [...] N Sona ANDERSON C.N.P., M.S.N. ECG ORDE [facility] Organization Address City/State/ZIP Co de Phone Number [...] PM CDT 08/11/2024 3:57 PM CDT Narrative [facility] - 08/11/2024 5:31 PM CDT CBC without Differential was cancelled on 08/11/2024 at 17:31; Per provider's request. Roxie Sanon APRN.N.P., D.N.P. LAB BLOOD ADD-ON Performing Organization Address City/[facility] Co de Phone Number [facility] [address] [place] [address], [place] [address] * CRP (C-Reactive Protein) (08/11/2024 3:54 PM CDT) C-Reactive Protein (CRP), P <3.0 <5.0 mg/L 08/11/2024 4:46 PM CDT [facility] Blood (Blood, Venous) 08/11/2024 3:54 PM CDT 08/11/2024 3:57 PM CDT Roxie Sanon APRN.N.P., D.N.P. LAB BLOOD ADD-ON Performing Organization Address City/[facility]/[place] [address], [facility]FL [address] [place] [address] * Lipase (08/11/2024 3:54 PM CDT) Lipase, P 57 13 - 60 U/L 08/11/2024 4: 46 PM CDT [facility] Blood (Blood, Venous) 08/11/2024 3:54 PM CDT 08/11/2024 3:57 PM CDT Micheal Dimas APRN, C.N.P., D.N.P. LAB BLOOD ADD-ON [facility] [address] [place] [address], [facility] CNFL [place] [address] * (ABNORMAL) Comprehensive Metabolic Panel (08/11/2024 3:54 [...] D.N.P. LAB BLOOD ADD-ON Performing Organization Address City/State/[facility] Co de Phone Number [facility] [address] [place] [address], [facility] in [address] [address] * Influenza A/B, SARS CoV-2, PCR, Rapid [...] APRNNDelP., D.N.P. LAB MICROBIOLOGY - GENERAL ORDERABLES [facility] [address] [place] [address], [facility] CNFL [facility] in [address] [address] * (ABNORMAL) Urinalysis with Microscopic if Indicated [...] 8.0 08/11/2024 6:28 PM CDT [facility] Specific [place] 1.010 1.001 - 1.035 08/11/2024 6:28 PM CDT [facility] Urobilinogen 0.2 0.2 - 1.0 mg/dL 08/11/2024 6:28 PM CDT [facility] Urine (Urine, Midstream) 08/11/2024 3:52 PM CDT 08/11/2024 6:25 PM CDT Roxie Sanon APRN.N.Jas., D.N.P. LAB URINE ORDERABLES Performing Organization Address [facility] Co de Phone Number [address] [address], [address] [address] * Microscopic Manual (08/11/2024 3:52 PM CDT) [...] D.N.P. LAB URINE ORDERABLES Performing Organization Address [facility] Co de Phone Number [address] [address], [facility] in [address] [address] from Last 3 Months Additional Health Concerns Infection Onset Date Last Indicated Protective Environment 08/11/2024 Advance Directives For more information, please contact: [phone] * Full Code (Latest Code Status on File) Date Activated Date Inactivated Comments 08/11/2024 10:11 PM 08/12/2024 7:03 PM Question Answer Comments Full Code: Not Discussed Due to: Patient not available Care Teams Nail Welter Relationship Specialty Start Date End Date Elsewhere, Pcp PCP - General Family Medicine 06/07/21
--- OUTSIDE RECORDS SUMMARY | 2024-08-30 04:39 | XMS_ITS | Encounter Summary ---
Author Organization [facility] Address [address] [place] [address] Care Team Providers Care Splitter Tender Name Role Phone Elsewhere, Pcp Primary Care Provider Unavailabl e Reason for Referral * Outpatient (Routine) - Authorized Specialty Diagnoses / Procedures Referred By Sree nevarez Referred To Contact Yulisa Mcduffie M.D. [address] [place] [address] [facility] Referral ID Status Reason Start Date Expiration Date V isits Requested Visits Authorized [id number] Authorized 08/12/2024 02/11/2026 1 1 Scheduling Instructions [...] Expiration Date Visits Re quested Visits Authorized [id number] 1 1 Encounter Details Date Type Department Care Team (Late st Contact Info) Description 08/11/2024 3:34 PM CDT - 08/12/2024 4:57 PM CDT Emergency [facility], [facility], Second Floor [address] [place] [phone] Micheal Dimas APRN, C.N.P., D.N.P. [address] [place] [address] Gurwinder Magallanes, JUSTIN, CDelNDelP., M.S.N. [address] [place] [address] Yulisa Mcduffei M.D. [address] [place] [address] Prolonged QT Interval (Primary Dx); Nausea And Vomiting; Diarrhea; Dehydration; Colitis; Failure Renal Acute (Acute Kidney Injury) (HCC); Alkalosis Respiratory; Hypokalemia Discharge Disposition: Home or Self Care Social History Tobacco Use Types Packs/Day Years Used Date Smoking Tobacco: Never [facility] Lavante Answer Date Recorded In the past 12 months has [facility] [employer], gas, oil, or water [employer] threatened to shut off services in your [...] your living situation today? I have a [facility] place to live 08/11/2024 Sex and Gender [...] Everywhere. * Action Plan to Manage Nausea (Kazakh) documented in this encounter Medications at Time of Discharge Medication Sig Dispensed Refills Start Date End Date albuterol 90 mcg/actuation inhaler Inhale 2 puffs every 4 (four) hours as needed for shortness of breath. 11/07/2023 amLODIPine (Norvasc) 10 mg tablet Take 10 [...] mg by mouth once a week. 07/24/2024 miscellaneous medical supply misc CPAP machine for home use at pressure: 5-20 cms, nasal mask with cushion x 1, humidifier chamber x 1, humidifier x 1 05/01/2018 omeprazole (PriLOSEC) [address] capsule Take [...] With 2.5 mg = 7.5 mg 07/18/2024 traMADoL (Ultram) 50 mg tablet Take 25 mg by mouth every 6 (six) hours as needed for pain. 25-50 mg [id number] PRN triamcinolone (Kenalog) 0.1 % cream Apply 1 Application topically as needed for rash. 07/12/2022 documented as of this encounter Progress Notes [...] Planning Guide. * Jessica Lopez, Pharm.D., R.Ph., [facility] - 08/12/2024 7:39 AM CDT Images [...] improving- K 3.1 , replacing per protocol VETERINARY PHARMACOLOGIST medications reconciled Hold: chlorthalidone, Levemir, Ozempic, tramadol, [...] 10:36 PM Status Comment 08/11/2024 10:40 PM VETERINARY PHARMACOLOGIST Med Rec completed with patient via Phone. [...] a week. Notes: Mondays miscellaneous medical supply [facility] -- Self 05/01/18 -- CPAP machine for [...] hours as needed for pain. 25-50 mg [id number] PRN triamcinolone (Kenalog) 0.1 % cream Past Week at PRN Self 07/12/22 -- Apply 1 Application topically as needed for rash. . Adherence issues: No concerns: VETERINARY PHARMACOLOGIST Med Rec completed with patient via Phone. [...] mouth 2 (two) times a day. 08/10/2024 [id number] insulin detemir U-100 (Levemir FlexPen) 100 unit/mL [...] breath. Unknown at PRN miscellaneous medical supply [facility] CPAP machine for home use at pressure: 5-20 cms, nasal mask with cushion x 1, humidifier chamber x 1, humidifier x 1 traMADoL (Ultram) 50 mg tablet Take 25 mg by mouth every 6 (six) hours as needed for pain. 25-50 [id number] PRN Unknown at PRN The following portions [...] and medications. All questions and concerns addressed. Brass Plater consult placed. Chicken broth and lemon ice [...] PM CDT Care of patient transferred to nm by ADRIANE Burton. Disposition pending lab and [...] ED COURSE ED Course as of 08/11/241926 [place] Aug 11, 2024 [id number] I performed my initial evaluation of the [...] and vomiting DISPOSITION PENDING Micheal Dimas, LUH, CREATIVE COORDINATOR, AUTO BENCH MECHANIC-C, AGACNP-BC, ENP-C Emergency Medicine Micheal Dimas APRN, [...] CDT Yulisa Mcduffie M.D. LAB BLOOD ADD-ON [address] [address], [address] [address] * Glucose, POCT (08/12/2024 12:16 PM CDT) Glucose, POCT, B 99 70 - 140 mg/dL 08/12/2024 12:16 PM CDT [facility]MO Blood 08/12/2024 12:1 6 PM CDT 08/12/2024 12:23 PM CDT Generic [facility] LAB POCT ORDERABLES- MANUAL [address] [address], [address] [address] * Glucose, POCT (08/12/2024 11:38 AM CDT) Glucose, POCT, B 78 70 - 140 mg/dL 08/12/2024 11:38 AM CDT [facility] Blood 08/12/2024 11:3 8 AM CDT 08/12/2024 11:55 AM CDT Generic [facility]als LAB POCT ORDERABLES- MANUAL [facility] [address] [place] [address], [address] [address] * Glucose, POCT (08/12/2024 7:49 AM CDT) Glucose, POCT, B 85 70 - 140 mg/dL 08/12/2024 7:49 AM CDT [facility]FL Blood 08/12/2024 7:49 AM CDT 08/12/2024 7:58 AM CDT Generic [facility] LAB POCT ORDERABLES- MANUAL [address] [address], [address] [address] * Glucose, POCT (08/12/2024 7:35 AM CDT) Glucose, POCT, B 77 70 - 140 mg/dL 08/12/2024 7:35 AM CDT [facility]FL Blood 08/12/2024 7:35 AM CDT 08/12/2024 7:58 AM CDT Generic [facility] LAB POCT ORDERABLES- MANUAL Performing Organization Address City/[facility] Co de Phone Number [address] [address], [place] [address] * (ABNORMAL) CBC with Differential, Blood (08/12/2024 [...] M.D. LAB BLOOD ADD-ON Performing Organization Address [facility]/State/[facility] Co de Phone Number [facility] [address] [place] [address], [facility] [place] [address] * (ABNORMAL) Basic Metabolic Panel (08/12/2024 6:45 [...] CDT Yulisa Mcduffie M.D. LAB BLOOD ADD-ON [facility] [address] [place] [address], [address] [address] * Glucose, POCT (08/11/2024 11:45 PM CDT) Glucose, POCT, B 90 70 - 140 mg/dL 08/11/2024 11:45 PM CDT [facility]FL Blood 08/11/2024 11:4 5 PM CDT 08/11/2024 11:52 PM CDT Generic [facility] LAB POCT ORDERABLES- MANUAL Performing Organization Address [facility]/ZIP Co de Phone Number [facility] [address] [place] [address], [place] [address] * (ABNORMAL) Potassium (08/11/2024 8:15 PM CDT) Potassium, P 3.1(L) 3.6 - 5.2 mmol/L 08/11/2024 8:38 PM CDT [facility] Blood (Blood, Venous) 08/11/2024 8:15 PM CDT 08/11/2024 8:26 PM CDT Gurwinder Magallanes APRN, C.N.P., M.S.N. [place] [address], [place] [address] * (ABNORMAL) Lactate (08/11/2024 6:49 PM CDT) Lactate, P 2.4(H) 0.5 - 2.2 mmol/L 08/11/2024 7:10 PM CDT [facility]FL Blood (Blood, Venous) 08/11/2024 6:49 PM CDT 08/11/2024 6:52 PM CDT Gurwinder Magallanes APRN, C.N.P., M.S.N. LAB BLOO D NON ADD-ON Performing Organization Address City/[facility]/ZIP Co de Phone Number [facility] [address] [place] [address], [place] [address] * Bacteria / Kassandra Culture, Blood #2 (08/11/2024 6:49 PM CDT) Bacteria/Lina da Culture, Blood No growth after 5 day/s of incubation. 08/16/2024 8:02 PM CDT CNFL Blood (Blood, Peripheral Draw) 08/11/2024 6:49 PM CDT 08/11/2024 6:53 PM CDT Comment:Specimen Source Site : Blood Gurwinder Magallanes APRN, C.N.P., M.S.N. LAB MICR OBIOLOGY - GENERAL ORDERABLES [address] [address], [facility] in [address] [address] * Methotrexate Level (08/11/2024 6:48 PM CDT) Methotrexate, S <0.04 <0.10 mcmol/L 08/12/2024 3:08 PM CDT ECLR Blood (Blood, Venous) 08/11/2024 6:48 PM CDT 08/12/2024 2:36 PM CDT Gurwinder Magallanes APRN, C.N.P., M.S.N. LAB BLOO D ADD-ON Performing Organization Address City/[facility]/ZIP Co de Phone Number [facility] [address] [place] [address], [facility] ECLR [place] [address] * Bacteria / Kassandra Culture, Blood #1 (08/11/2024 6:20 PM CDT) Bacteria/Lina da Culture, Blood No growth after 5 day/s of incubation. 08/16/2024 7:02 PM CDT [facility] Blood (Blood, Peripheral Draw) 08/11/2024 6:20 PM CDT 08/11/2024 6:27 PM CDT Comment:Specimen Source Site : Blood Gurwinder Magallanes APRN, C.N.P., M.S.N. LAB MICR OBIOLOGY - GENERAL ORDERABLES Performing Organization Address City/[facility]/ZIP Co de Phone Number [facility] [address] [place] [address], [address] [address] * Ethanol Level, Serum (08/11/2024 6:20 PM CDT) Ethanol, P <10 <10 mg/dL 08/11/2024 6:3 5 PM CDT [facility] Blood (Blood, Venous) 08/11/2024 6:20 PM CDT 08/11/2024 6:22 PM CDT Gurwinder Magallanes APRN, C.N.P., M.S.N. LAB BLOO D NON ADD-ON [address] [address], [facility] in [address] [address] * Beta-hydroxybutyrate, Point of Care Testing, Blood (08/11/2024 6:20 PM CDT) Beta-hydroxybut yrate, POCT, B 0.3 0.0 - 0.5 mmol/L 08/11/2024 6:25 PM CDT [facility] Blood (Blood, Venous) 08/11/2024 6:20 PM CDT 08/11/2024 6:22 PM CDT Guanakito Quezada APRNNPatrick., M.S.N. LAB BLOO D NON ADD-ON [address] [address], [facility] in [address] [address] * (ABNORMAL) Blood Gas, Venous, POCT, Blood [...] POCT ORDERABLES - DEVICE Performing Organization Address City/[facility] Co de Phone Number [facility] [address] [place] [address], [address] [address] * Magnesium (08/11/2024 6:20 PM CDT) Magnesium, P 1.8 1.7 - 2.3 mg/dL 08/11/2024 6:35 PM CDT CNFL Blood (Blood, Venous) 08/11/2024 6:20 PM CDT 08/11/2024 6:22 PM CDT Guanakito Quezada APRNN.Jas., M.S.N. LAB BLOO D ADD-ON [facility] [address] [place] [address], [place] [address] * ECG 12 Lead (08/11/2024 5:47 PM CDT) Ventricular Rate ECG/Min 88 BPM MUSE AK Interval 162 ms MUSE QRSD Interval 88 ms MUSE QT Interval 440 ms MUSE QTC Interval 532 ms MUSE P [place] -5 degrees MUSE R [place] 12 degrees MUSE T Wave [place] 0 degrees MUSE 08/11/2024 5:47 PM CDT [...] Purdy N Guanakito Magallanes APRNN.P., M.S.N. ECG VEGAE [facility] Organization Address City/State/ZIP Co de Phone Number [...] with Differential, Blood (08/11/2024 4:09 PM CDT) [facility] Hemoglobin 15.2(H) 11.6 - 15.0 [...] Dimas APRN, Roxie.N.P., D.N.P. [place] [address], [place] [address] * Lipase (08/11/2024 3:54 PM CDT) Lipase, P 57 13 - 60 U/L 08/11/2024 4: 46 PM CDT CNFL Blood (Blood, Venous) 08/11/2024 3:54 PM CDT 08/11/2024 3:57 PM CDT Micheal Dimas APRN, Roxie.N.P., D.N.P. [place] [address], [place] [address] [address] * (ABNORMAL) Lactate (08/11/2024 3:54 PM CDT) Lactate, P 2.7(H) 0.5 - 2.2 mmol/L 08/11/2024 4:46 PM CDT CNFL Blood (Blood, Venous) 08/11/2024 3:54 PM CDT 08/11/2024 3:57 PM CDT Roxie Sanon APRN.N.P., D.N.P. LAB BLOOD NON ADD-ON [address] [address], [address] [address] * CRP (C-Reactive Protein) (08/11/2024 3:54 PM CDT) [facility] Signature C-Reactive Protein (CRP), P <3.0 <5.0 mg/L 08/11/2024 4:46 PM CDT CNFL Blood (Blood, Venous) 08/11/2024 3:54 PM CDT 08/11/2024 3:57 PM CDT Roxie Sanon APRN.N.P., D.N.P. LAB BLOOD ADD-ON [address] [address], [address] [address] * (ABNORMAL) Comprehensive Metabolic Panel (08/11/2024 3:54 [...] Dimas APRN, C.N.P., Linda LAB BLOOD ADD-ON [facility] [address] [place] [address], [facility] CNFL [facility] in [address] [address] * CBC without Differential (08/11/2024 3:54 PM [...] PM CDT 08/11/2024 3:57 PM CDT Narrative [facility] - 08/11/2024 5:31 PM CDT CBC without Differential was cancelled on 08/11/2024 at 17:31; Per provider's request. Roxie Sanon APRN.N.Jas., D.N.P. LAB BLOOD ADD-ON Performing Organization Address [facility] [place] [address], [place] [address] * Microscopic Manual (08/11/2024 3:52 PM CDT) [...] D.N.P. LAB URINE ORDERABLES Performing Organization Address [facility] Co de Phone Number [address] [address], [place] [address] * Influenza A/B, SARS CoV-2, PCR, Rapid Symptomatic (08/11/2024 3:52 PM CDT) Pathologist [facility] Influenza A, PCR, Rapid, V Negative Negative [...] MICROBIOLOGY - GENERAL ORDERABLES Performing Organization Address City/State/[facility] Co de Phone Number [facility] [address] [place] [address], [facility] CNFL [facility] in [address] [address] * (ABNORMAL) Urinalysis with Microscopic if Indicated (08/11/2024 3:52 PM CDT) Pathologist [facility] Source Urine, Urine, Midstream 08/11/2024 6:25 PM [...] 8.0 08/11/2024 6:28 PM CDT CNFL Specific [place] 1.010 1.001 - 1.035 08/11/2024 6:28 PM CDT CNFL Urobilinogen 0.2 0.2 - 1.0 mg/dL 08/11/2024 6:28 PM CDT CNFL Urine (Urine, Midstream) 08/11/2024 3:52 PM CDT 08/11/2024 6:25 PM CDT Micheal Dimas APRN, C.N.P., D.N.P. LAB URINE ORDERABLES Performing Organization Address City/State/[facility] Co de Phone Number [facility] [address] [place] [address], [facility] CNFL [facility] in [address] [address] documented in this encounter Visit Diagnoses Diagnosis [...] at 1649, For 1 dose, Dissolve per allergy and immunology specialist recommendations. Do NOT chew or swallow tablet. Given 08/11/2024 5:05 PM CDT 60 mEq potassium chloride ER tablet 20 mEq (Klor-Con M) 20 mEq, oral, 2 times daily with meals, First dose on Mon08/12/24 at 0800, potassium chloride orderable was interchanged for potassium chloride tablet/capsule Depending on the allergy and immunology specialist this tablet may be split on score [...] on Mon08/12/24 at 1100, Depending on the allergy and immunology specialist this tablet may be split on score [...] gynecological infection 0839 (Given - Provid er: uEn Maki R.N.) NaCl 0.9 % bolus 1,000 [...] at 1649, For 1 dose, Dissolve per allergy and immunology specialist recommendations. Do NOT chew or swallow tablet. 1705 (Given - Provider: Kavitha Faust RDelN.) potassium chloride ER tablet 20 mEq (Klor-Con M) (CANCELED) 20 mEq, oral, 2 times daily with meals, First dose on Mon08/12/24 at 0800, potassium chloride orderable was interchanged for potassium chloride tablet/capsule Depending on the allergy and immunology specialist this tablet may be split on score [...] on Mon08/12/24 at 1100, Depending on the allergy and immunology specialist this tablet may be split on score [...] hour each. 1821 (New Bag - Provider: Kavtiha Faust RYolande.)1930 (Stopped - Provider: Patricia Bailey [...] documented as of this encounter Care Teams Splitter Tender Relationship Specialty Start Date End Date Elsewhere, Pcp PCP - General Family Medicine 06/07/21 documented as of this encounter
--- OUTSIDE RECORDS SUMMARY | 2024-08-30 04:39 | XMS_ITS ---
Author Organization [facility] Address [address] [place] [address] Care Team Providers Care Survey Technologist Name Role Phone Unavailable Unavailable Unavailable Surgery Details Not on file Complications Check Surgery Details section. Procedure Estimated Blood Loss Check Surgery Details section. Procedure Findings Check Surgery Details section. Procedure Specimens Taken Check Surgery Details section.
== END 2024-08-26 12:56 | disposition home or self-care (01) ==
LOC: NFLDREF 08-30 04:36
PROVIDERS: PCP Nurse Practitioner Family; Referring Provider Nurse Practitioner Family; Visit Provider Nurse Practitioner Family
DX: E87.6 Hypokalemia (principal)
CPT/HCPCS: 80048

== ENCOUNTER 2024-10-01 11:00 | Outpatient (CLI) | payer OTHER, SELFPAY ==
--- OUTSIDE RECORDS SUMMARY | 2024-10-05 17:44 | XMS_ITS | Clinical Summary ---
Author Organization [facility] Address [place], [place] [address] Care Team Providers Care First Helper Name Role Phone Zulema Moore RN Unavailable Christina Menchaca MD Unavailable [phone] Jessica Catherine RN Unavailable Unavailable Gail Souza NP Primary Care Provider [phone] Allergies Active Allergy Reactions Criticality Noted Date [...] diabetes mellitus without complication, unspecified whether terminal worker insulin use (HC) To be used to read blood sugars, follow insurance adjustor directions. Change every 90 days 1 Each [...] 2 diabetes mellitus without complication, unspecified whether halfway insulin use (HC) Inject 38 units subcutaneous before bedtime. 15 mL 5 01/05/2023 Active Insulin [place], Disposable, (Pen Needle) 32 gauge x Indications:T ype 2 diabetes mellitus without complication, unspecified whether terminal worker insulin use (HC) As directed. Remove the 2 covers on the insulin pen needle before administering insulin dose. 100 Each 01/05/2023 Active NanoCompound G7 Anesthesiology Tech for continuous blood glucose monitor (CGM)Indications:T ype 2 diabetes mellitus without complication, unspecified whether terminal worker insulin use (HC) To be used to read blood sugars follow insurance adjustor directions. Change every 10 days 3 Each [...] HPV 16/18 negative 01/18/22 LSIL/HPV+, 16/18 negative. 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) 01/17/2019 Overview (05/26/2015): colp advised Immunizations Name Administration Dates Next Due Hepatitis [...] Comments Blood Pressure 123/61 10/27/2022 11:12 AM MANAGING PRINCIPAL Pulse 82 10/27/2022 11:12 AM MANAGING PRINCIPAL Temperature 35.8 ??C (96.4 ??F) 10/27/2022 11:[address] Respiratory Rate 16 10/27/2022 11:12 AM MANAGING PRINCIPAL Oxygen Saturation 96% 10/27/2022 11:12 AM MANAGING PRINCIPAL Inhaled Oxygen Concentration - - Weight 109 kg (240 lb 4.8 oz) 10/27/2022 11:12 A M MANAGING PRINCIPAL Height 165.1 cm (5' 5) 06/29/2022 7:31 [...] exists Pap test for age 21-65 04/10/2024 3, 04/10/2023, 01/18/2022, Additional history exists COVID-19 vaccine [...] UNI DIAG LEFT SWETHA 10/17/2022 10:45 AM MANAGING PRINCIPAL Mass of left breast, unspecified quadrant ANTI [...] 16 Negative Negative 04/13/2023 11:33 AM CDT [facility] TYPE 18 Negative Negative 04/13/2023 11:33 AM CDT [facility] OTHER HIGH RISK TYPES Positive(A) Negative 04/13/2023 11:33 AM CDT [facility] Other VAGINAL SWAB / Unknown 04/10/2023 9:30 AM CDT 04/11/2023 11:45 AM CDT Narrative [facility] - 04/13/2023 11:33 AM CDT Specimen is positive for the DNA of any one of, or combination of, the following high risk HPV types: 31, 33, 35, 39, 45, 51, 52, 56, 58, 59, 66, 68. HPV types 16 and 18 DNA were undetectable or below the pre-set threshold. ? Methodology: [facility] Jordi 4800 HPV Test Gail Souza NP [facility] [address] [place] [address], [place] * XR MAMMO ARNULFO UNI DIAG LEFT (10/17/2022 10:45 AM MANAGING PRINCIPAL) Anatomical Region Laterality Modality BREASTS, Breast Left Mammography , Radiographic Imaging 10/17/2022 10:4 5 AM MANAGING PRINCIPAL Impressions 10/17/2022 12:10 PM MANAGING PRINCIPAL ACR BI-RADS Category 2: Benign. Results given [...] your referring provider. Narrative 10/17/2022 12:10 PM MANAGING PRINCIPAL For Patients: As a result of the Century Cures Act, medical imaging exams and procedure reports are released immediately into your electronic medical record. You may view this report before your referring provider. If you have questions, please contact your health care provider. EXAM: XR MAMMO ARNULFO UNI DIAG LEFT, US BREAST UNILATERAL LEFT LIMITED LOCATION: [facility] DATE/TIME: 10/17/2022 10:45 AM INDICATION: Mass Of [...] LEFT, US BREAST UNILATERAL LEFT LIMITED LOCATION: [facility] DATE/TIME: 10/17/2022 10:45 AM INDICATION: Mass [...] your results, pleasecontact your referring provider. Rachna Sanches Pietro FIELD SERVICES ANALYST MAMMO * (ABNORMAL) LIPID PANEL W REFLEX MEASURED LDL (06/01/2022 9:54 AM CDT) CHOLESTEROL,TOTAL 220(H) 100 - 199 mg/dL 06/01/2022 9:41 PM CDT [facility] TRIGLYCERIDES 171(H) <150 mg/dL 06/01/2022 9:41 PM CDT [facility] HDL CHOLESTEROL 38(L) >40 mg/dL 9:41 PM CDT [facility] NON-HDL CHOLESTEROL 182(H) <145 mg/dl 06/01/2022 9:41 PM CDT [facility] CHOL/HDL RATIO 5.79(H) <4.50 06/01/2022 9:41 PM CDT [facility] LDL CHOLESTEROL 148(H) <=130 mg/dL 06/01/2022 9:41 PM CDT [facility] VLDL CHOLESTEROL 34(H) <=30 mg/dL 06/01/2022 9:41 PM CDT [facility] PROVIDER ORDERED STATUS RANDOM 06/01/2022 9:41 PM CDT [facility] Blood BLOOD SPECIMEN / Unknown Venipuncture / Unknown 06/01/2022 9:54 AM CDT 06/01/2022 9:54 AM CDT Jeanette Cortez DO CHEMISTRY [facility] [address] [place] [address], * ANTI HCV (06/01/2022 9:54 AM CDT) HEPATITIS C ANTIBODY Non-React ryan Non-React ryan 06/01/2022 9:35 PM CDT [facility] Comment:Antibodies to HCV no t detected; does not exclude the possibility of exposure to HCV. Blood BLOOD SPECIMEN / Unknown Venipuncture / Unknown 06/01/2022 9:54 AM CDT 06/01/2022 9:54 AM CDT Jeanette Cortez DO SEND OUTS [facility] [address] [place] [address], [place] * COLONOSCOPY (03/01/2022 7:38 AM CDT) [...] adequate candidate for conscious sedation. The [id number]-[id number] was passed through the anus and advanced [...] ve Non-Reacti ve 08/14/2020 7:16 PM CDT [facility] [email or web address] [facility]ORATORY Comment:HIV-1 p24 and HIV-1/ HIV-2 Ab not detected. Blood BLOOD SPECIMEN / Unknown Venipuncture / Unknown 08/14/2020 2:22 PM CDT 08/14/2020 2:23 PM CDT Ruby ROGERS SEND OUTS [facility] [email or web address] [facility]OR[facility]AL LABORATORY [address] [place] [address], [place] from Last 3 Months or Most Recently Relevant to Health Maintenance Advance Directives * Full Code (Latest Code Status on File) Date Activated Date Inactivated Comments 02/12/2019 6:55 AM 02/12/2019 10:02 PM Care Teams First Helper Relationship Specialty Start Date End Date Gail Souza, FIELD SERVICES ANALYST [address] [place] [address] PCP - General Emergency Medicine 12/28/22 Zulema Moore, MIKE Nurse Navigator - Oncology Registered Nurse 06/14/22 Christina Menchaca MD [address] [place] [address] Oncology 06/14/22 Jessica Catherine RN [address] [address] Border Machine Operator Registered Nurse 07/07/22
--- OUTSIDE RECORDS SUMMARY | 2024-10-05 17:44 | XMS_ITS | Encounter Summary ---
Author Organization [facility] er Address [address] [place] [address] Care Team Providers Care Bead Machine Operator Name Role Phone Unavailable Primary Care Provider Unavailabl e Reason for Visit * Reason Comments Skin Problem Encounter Details Date Type Department Care Team (Late st Contact Info) Description 08/23/2024 8:30 AM CDT Office Visit [facility] [address] [place] [address] [phone] Kyra Parsons MD [address] [place], [place] [phone] Rash (Primary Dx) Social History Tobacco Use Types Packs/Day Years Used Date Smoking Tobacco: Never Assessed Comments Unknown Sex and Gender Information Value Date Recorded Sex Assigned at Not on file Legal Sex Female 6:37 PM CDT Gender Identity Not on file Sexual Orientation [...] encounter Patient Instructions * Patient Instructions* Sunday Castorena LPN - 08/23/2024 8:30 AM CDT Incision wound [...] not stop, call the dermatology department at [phone]. If it is after hours, call the emergency department at [phone]. If you have pain, redness, or drainage that gets worse, call the dermatology department at [phone]. documented in this encounter Progress Notes * [...] gluten. She also denies any blistering. Her naval special warfare medic expressed concern that the rash might represent [...] welcomed to send me a message via [employer] or call our department. I personally spent a total of 45 minutes reviewing the medical record, obtaining history and performing examination, counseling, placing orders, and completing documentation/charting. This document was prepared with voice recognition software; while reviewed prior to signature, it may contain unintended minor voice recognition errors. Kyra Parsons MD Dermatology Addendum August 30, 2024, All the above workup was negative. 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 I recommended patient to continue using topical triamcinolone I added her clobetasol to apply on the thick stubborn area we discussed following up in 4 weeks for possible initiation of phototherapy in addition to the topical treatments. documented in this encounter Plan of Treatment Pending Results Name Type Priority Associated Diagnoses Date /Time [facility] Pathology and Cytology Routine Rash 08/23/2024 9:21 AM CDT [facility] 1 spec Pathology and Cytology Routine 08/23/2024 9:21 AM CDT documented as of this encounter Procedures Procedure Name Priority Date/Time Associated Diagnosis Comments DERMPATH CONSULTATION, WET TISSUE Routine 08/23/2024 9:21 AM CDT CUTANEOUS DIRECT IMMUNOFLUORESCENCE (IFA), BIOPSY Routine 08/23/2024 9:21 AM CDT Rash documented in this encounter Results * DermPath Consultation, Wet Tissue (08/23/2024 9:21 AM CDT) Interpretation - 08/30/2024 3:15 PM CDT [facility] Comment: FINAL DIAGNOSIS B. ??DermPath Consult Wet Tissue; Left posterior thigh, Skin punch biopsy: ??Epidermal hyperplasia with healing skin response and prurigo nodule-like changes COMMENT Clinical note was reviewed. ??The corresponding direct immunofluorescence study [id number]) is a negative study. Digital imaging was used in the diagnostic assessment of this case. Derm Report Electronically signed by SEE BELOW 08/30/2024 3:15 PM CDT [facility] [employer] Comment: Ronald Rodriguez M.D. Gross description: - 2023 3:15 PM CDT [facility] Comment: Received in formalin labeled with the patient's name, medical record number, and left posterior thigh is a 0.5 cm in diameter pale tanskin punch biopsy excised to a depth of 0.6 cm. No discrete lesion is grossly identified on the skin surface. The specimen is bisected andsubmitted entirely in cassette B1. ??Grossed by NW. Derm Disclaimer - 3:15 PM CDT [facility] Comment: This test was developed using an analyte specific reagent. Its performance characteristics were determined by [facility] in a manner consistent with CLIA requirements. This test has not been cleared or approved by the U.S. Food and Drug Administration. Derm 90 08/30/2024 3:15 PM CDT [facility] Comment: Test Performed by: [place] [address] Application Development Liaison: Amalia Blackwood Ph.D.; CLIA# [id number] 08/23/2024 9:21 AM CDT 08/23/2024 12:40 PM CDT Kyra Parsons MD LAB PATHOLOGY ORDERABLES Final Result [facility] see result attachment for specific address * Cutaneous Direct Immunofluorescence (IFA), Biopsy (08/23/2024 9:21 AM CDT) Interpretation - 08/29/2024 8:34 AM CDT [facility] Comment: A. ??Left posterior thigh, skin [...] reagent. Its performance characteristics were determined by [facility] in a manner consistent with CLIA requirements. This test has not been cleared or approved by the U.S. Food and Drug Administration. [facility] Report Electronically signed by SEE BELOW 08/29/2024 8:34 AM CDT [facility] Comment: Kaela Henderson M.D. [facility] 090 08/29/2024 8:34 AM CDT [facility] Comment: Test Performed by: [facility] [place] [address] Application Development Liaison: Amalia Blackwood Ph.D.; CLIA# [id number] Tissue 08/23/2024 9:21 AM CDT 08/23/2024 12:40 PM CDT Kyra Parsons MD LAB PATHOLOGY ORDERABLES Final Result Performing Organization Address [facility] Co de Phone Number [facility] see result attachment for specific address * Tissue transglutaminase, IgG (08/23/2024 9:10 AM CDT) Tiss.Transglutami nase Ab, S (IgG) 1.9 <6.0 (Negative ) U/mL 08/26/2024 5:23 PM CDT [facility] Comment: Test Performed by: [facility] [address] [place] [address] Application Development Liaison: Amalia Blackwood Ph.D.; CLIA# [id number] Blood (Blood, Venous) 08/23/2024 9:10 AM CDT 08/23/2024 12:40 PM CDT Kyra Parsons MD LAB BLOOD ORDERABLES Katya l Result Performing Organization Address City/[facility]/ZIP Co de Phone Number [facility] see result attachment for specific address * Tissue transglutaminase, IgA (08/23/2024 9:10 AM CDT) Tiss.Transglutami nase Ab, S (IgA) <1.2 <4.0 (Negative ) U/mL 08/26/2024 1:10 PM CDT [facility] Comment: Test Performed by: [place] [address] Application Development Liaison: Amalia Blackwood Ph.D.; CLIA# [id number] (IgA) Blood (Blood, Venous) 08/23/2024 9:10 AM CDT 08/23/2024 12:40 PM CDT Kyra Parsons MD LAB BLOOD ORDERABLES Katya l Result Performing Organization Address [facility]/ZIP Co de Phone Number [facility] see result attachment for specific address * Gluten IgE (08/23/2024 9:10 AM CDT) Gluten IgE <0.10 <0.70 kU/L 08/26/2024 12:36 PM CDT [facility] Comment: Class 0 (Negative <0.10) Test Performed by: [place] [address] Application Development Liaison: Amalia Blackwood Ph.D.; CLIA# [id number] Blood (Blood, Venous) 08/23/2024 9:10 AM CDT 08/23/2024 12:40 PM CDT Kyra Parsons MD LAB BLOOD ORDERABLES Katya l Result Performing Organization Address City/[facility]/ZIP Co de Phone Number [facility] see result attachment for specific address * BP 180 and 230, Serum (08/23/2024 9:10 AM CDT) BP 180, S <2 <20 RU/mL 08/27/2024 2:30 PM CDT [facility] BP 230, S <2 <20 RU/mL 08/27/2024 2:30 PM CDT [facility] Comment: ADDITIONAL INFORMATION BP180 and BP230 are intended for in vitro diagnostic use as an aid in the diagnosis of pemphigoid and related entities, and should be interpreted in conjunction with other laboratory and clinical findings. This test has been modified from the director media's instructions. Its performance characteristics were determined by [facility] in a manner consistent with CLIA requirements. This test has not been cleared or approved by the U.S. Food and Drug Administration. Test Performed by: [facility] [place] [address] Application Development Liaison: Amalia Blackwood Ph.D.; CLIA# [id number] Blood (Blood, Venous) 08/23/2024 9:10 AM CDT 08/23/2024 12:40 PM CDT Kyra Parsons MD LAB BLOOD ORDERABLES Katya bernard Result [facility] see result attachment for specific address documented in this encounter Visit Diagnoses Diagnosis Rash- Primary Rash and other nonspecific skin eruption documented in this encounter Administered Medications Inactive Administered Medications - up to 3 most recent administrations Medication Order MAR Action Action Date Dose Rate Site lidocaine-EPINEPHrine (XYLOCAINE W/EPI) 1 %-1:115200 injection 5 mL 5 mL, Infiltration, Once, On Mon08/23/24 at 0930, For 1 doseIndications:Rash Given 08/23/2024 8:56 AM CDT 5 mL documented in this encounter
--- OUTSIDE RECORDS SUMMARY | 2024-10-05 17:44 | XMS_ITS | Encounter Summary ---
Author Organization [facility] er Address [address] [place] [address] Care Team Providers Care Security Sales Manager Name Role Phone Unavailable Primary Care Provider Unavailabl e Encounter Details Date Type Department Care Team (Late st Contact Info) Description 08/23/2024 9:00 AM CDT Lab [facility] [address] [place] [address] Rash Social History Tobacco Use Types Packs/Day [...] <2 <20 RU/mL 08/27/2024 2:30 PM CDT [facility] BP 230, S <2 <20 RU/mL 08/27/2024 2:30 PM CDT [facility] Comment: ADDITIONAL INFORMATION BP180 and BP230 are intended for in vitro diagnostic use as an aid in the diagnosis of pemphigoid and related entities, and should be interpreted in conjunction with other laboratory and clinical findings. This test has been modified from the cloud consultant's instructions. Its performance characteristics were determined by [facility] in a manner consistent with CLIA requirements. This test has not been cleared or approved by the U.S. Food and Drug Administration. Test Performed by: [place] [address] Space Planner: Amalia Blackwood Ph.D.; CLIA# [id number] Blood (Blood, Venous) 08/23/2024 9:10 AM CDT 08/23/2024 12:40 PM CDT Kyra Parsons MD LAB BLOOD ORDERABLES Katya l Result Performing Organization Address [facility] Co de Phone Number [facility] see result attachment for specific address * Gluten IgE (08/23/2024 9:10 AM CDT) Gluten IgE <0.10 <0.70 kU/L 08/26/2024 12:36 PM CDT [facility] Comment: Class 0 (Negative <0.10) Test Performed by: [facility] [address] [place] [id number] Space Planner: Amalia Blackwood Ph.D.; CLIA# [id number] Blood (Blood, Venous) 08/23/2024 9:10 AM CDT 08/23/2024 12:40 PM CDT Kyra Parsons MD LAB BLOOD ORDERABLES Katya l Result Performing Organization Address [facility] Co de Phone Number [facility] see result attachment for specific address * Tissue transglutaminase, IgA (08/23/2024 9:10 AM CDT) Tiss.Transglutami nase Ab, S (IgA) <1.2 <4.0 (Negative ) U/mL 08/26/2024 1:10 PM CDT [facility] Comment: Test Performed by: [facility] [place] [address] Space Planner: Amalia Blackwood Ph.D.; CLIA# [id number] (IgA) Blood (Blood, Venous) 08/23/2024 9:10 AM CDT 08/23/2024 12:40 PM CDT Kyra Parsons MD LAB BLOOD ORDERABLES Katya l Result Performing Organization Address [facility] Co de Phone Number [facility] see result attachment for specific address * Tissue transglutaminase, IgG (08/23/2024 9:10 AM CDT) Pathologist [facility] Tiss.Transglutami nase Ab, S (IgG) 1.9 <6.0 (Negative ) U/mL 08/26/2024 5:23 PM CDT [facility] Comment: Test Performed by: [facility] [place] [address] Space Planner: Amalia Blackwood Ph.D.; CLIA# [id number] Blood (Blood, Venous) 08/23/2024 9:10 AM CDT 08/23/2024 12:40 PM CDT Kyra Parsons MD LAB BLOOD ORDERABLES Katya l Result [facility] see result attachment for specific address documented in this encounter Visit Diagnoses Diagnosis Rash Rash and other nonspecific skin eruption documented in this encounter
--- OUTSIDE RECORDS SUMMARY | 2024-10-05 17:44 | XMS_ITS | Clinical Summary ---
Author Organization [facility] er Address [address] [place] [address] Care Team Providers Care Inspector Outside Production Name Role Phone Unavailable Primary Care Provider Unavailabl e Allergies Active Allergy Reactions Criticality Noted Date Comments Lisinopril Cough Low 10/26/2018 Medications amLODIPine (NORVASC) 10 MG tablet Take 1 tablet (10 mg total) by mouth 4 Active atorvastatin (LIPITOR) 20 MG tablet Take 1 tablet (20 mg total) by mouth 4 Active Blood Glucose Monitoring Suppl (Accu-Chek Guide Me) w/Device kit See administration instructions 4 Active docusate sodium (COLACE) 100 MG capsule Take 1 capsule (100 mg total) by mouth 1 (one) time each day 4 Active escitalopram (LEXAPRO) 10 MG tablet 1 tablet (10 mg total) 4 Active folic acid (FOLVITE) 1 MG tablet Take 1 tablet (1 mg total) by mouth daily 4 Active clobetasol (Temovate) 0.05 % ointmentIndica tions:Rash Apply twice day on the thick area 3-4 weeks 60 g 3 4 Active Encounters Date Type Department Care Team Description 08/30/2024 Orders Only [facility] Plastic Surgery [address] [place] [address] Kyra Parsons MD Rash (Primary Dx) 08/23/2024 9:00 AM CDT Lab SE Lab [address] [place] [address] Rash 08/23/2024 8:30 AM CDT Office Visit [facility] [address] [place] [address] Kyra Parsons MD Rash (Primary Dx) from [...] Rash from Last 3 Months Results * DermPath Consultation, Wet Tissue (08/23/2024 9:21 AM CDT) Interpretation - 08/30/2024 3:15 PM CDT [facility] Comment: FINAL DIAGNOSIS B. ??DermPath Consult Wet Tissue; Left posterior thigh, Skin punch biopsy: ??Epidermal hyperplasia with healing skin response and prurigo nodule-like changes COMMENT Clinical note was reviewed. ??The corresponding direct immunofluorescence study ([id number]) is a negative study. Digital imaging was used in the diagnostic assessment of this case. Derm Report Electronically signed by SEE BELOW 08/30/2024 3:15 PM CDT [facility] Comment: Ronald Rodriguez M.D. Gross description: - 2023 3:15 PM CDT [facility] Comment: Received in formalin labeled with the patient's name, medical record number, and left posterior thigh is a 0.5 cm in diameter pale tanskin punch biopsy excised to a depth of 0.6 cm. No discrete lesion is grossly identified on the skin surface. The specimen is bisected andsubmitted entirely in cassette B1. ??Grossed by NW. Derm Disclaimer - 3:15 PM CDT [facility] Comment: This test was developed using an analyte specific reagent. Its performance characteristics were determined by [facility] in a manner consistent with CLIA requirements. This test has not been cleared or approved by the U.S. Food and Drug Administration. Derm 90 08/30/2024 3:15 PM CDT [facility] Comment: Test Performed by: [place] [id number] Material Worker: Amalia Blackwood Ph.D.; CLIA# [id number] 08/23/2024 9:21 AM CDT 08/23/2024 12:40 PM CDT Kyra Parsons MD LAB PATHOLOGY ORDERABLES Final Result [facility] see result attachment for specific address * Cutaneous Direct Immunofluorescence (IFA), Biopsy (08/23/2024 9:21 AM CDT) Interpretation - 08/29/2024 8:34 AM CDT [facility] Comment: A. ??Left posterior thigh, skin punch [...] reagent. Its performance characteristics were determined by [facility] in a manner consistent with CLIA requirements. This test has not been cleared or approved by the U.S. Food and Drug Administration. CIB Report Electronically signed by SEE BELOW 08/29/2024 8:34 AM CDT [facility] Comment: Kaela Henderson M.D. CIB 090 08/29/2024 8:34 AM CDT [facility] Comment: Test Performed by: [address] [address] Material Worker: Amalia Blackwood Ph.D.; CLIA# [id number] Tissue 08/23/2024 9:21 AM CDT 08/23/2024 12:40 PM CDT Kyra Parsons MD LAB PATHOLOGY ORDERABLES Final Result Performing Organization Address [facility] de Phone Number [facility] see result attachment for specific address * BP 180 and 230, Serum (08/23/2024 9:10 AM CDT) BP 180, S <2 <20 RU/mL 08/27/2024 2:30 PM CDT [facility] BP 230, S <2 <20 RU/mL 08/27/2024 2:30 PM CDT [facility] Comment: ADDITIONAL INFORMATION BP180 and BP230 are intended for in vitro diagnostic use as an aid in the diagnosis of pemphigoid and related entities, and should be interpreted in conjunction with other laboratory and clinical findings. This test has been modified from the recyclable materials sorter's instructions. Its performance characteristics were determined by [facility] in a manner consistent with CLIA requirements. This test has not been cleared or approved by the U.S. Food and Drug Administration. Test Performed by: [address] [address] Material Worker: Amalia Blackwood Ph.D.; CLIA# [id number] Blood (Blood, Venous) 08/23/2024 9:10 AM CDT 08/23/2024 12:40 PM CDT Kyra Parsons MD LAB BLOOD ORDERABLES Katya l Result Performing Organization Address [facility] Co de Phone Number [facility] see result attachment for specific address * Tissue transglutaminase, IgA (08/23/2024 9:10 AM CDT) Tiss.Transglutami nase Ab, S (IgA) <1.2 <4.0 (Negative ) U/mL 08/26/2024 1:10 PM CDT [facility] Comment: Test Performed by: [place] [address] Material Worker: Amalia Blackwood Ph.D.; CLIA# [id number] (IgA) Blood (Blood, Venous) 08/23/2024 9:10 AM CDT 08/23/2024 12:40 PM CDT Kyra Parsons MD LAB BLOOD ORDERABLES Katya l Result Performing Organization Address City/[facility]/ZIP Co de Phone Number [facility] see result attachment for specific address * Tissue transglutaminase, IgG (08/23/2024 9:10 AM CDT) Pathologist [facility] Tiss.Transglutami nase Ab, S (IgG) 1.9 <6.0 (Negative ) U/mL 08/26/2024 5:23 PM CDT [facility] Comment: Test Performed by: [place] [address] Material Worker: Amalia Blackwood Ph.D.; CLIA# [id number] Blood (Blood, Venous) 08/23/2024 9:10 AM CDT 08/23/2024 12:40 PM CDT Kyra Parsons MD LAB BLOOD ORDERABLES Katya l Result Performing Organization Address City/[facility]/ZIP Co de Phone Number [facility] see result attachment for specific address * Gluten IgE (08/23/2024 9:10 AM CDT) [facility] Gluten IgE <0.10 <0.70 kU/L 08/26/2024 12:36 PM CDT [facility] Comment: Class 0 (Negative <0.10) Test Performed by: [place] [address] Material Worker: Amalia Blackwood Ph.D.; CLIA# [id number] Blood (Blood, Venous) 08/23/2024 9:10 AM CDT 08/23/2024 12:40 PM CDT Kyra Parsons MD LAB BLOOD ORDERABLES Katya beranrd Result [facility] see result attachment for specific address from Last 3 Months Insurance [facility] [employer]
--- OUTSIDE RECORDS SUMMARY | 2024-10-05 17:44 | XMS_ITS | Encounter Summary ---
Author Organization [facility] er Address [address] [place] [address] Care Team Providers Care Hosiery Mender Name Role Phone Unavailable Primary Care Provider Unavailabl e Encounter Details Date Type Department Care Team (Late st Contact Info) Description 08/30/2024 Orders Only [facility] Plastic Surgery [address] [place] [id number] Kyra Parsons MD [address] [place], [place] [phone] Rash (Primary Dx) Social History Tobacco Use [...]
--- OUTSIDE RECORDS SUMMARY | 2024-10-05 17:45 | XMS_ITS | Encounter Summary ---
Author Organization [facility] Address [address] [place] [address] Care Team Providers Care Tube Blower Name Role Phone Elsewhere, Pcp Primary Care Provider Unavailabl e Encounter Details Date Type Department Care Team (Late st Contact Info) Description 08/12/2024 12:25 AM CDT Ancillary Procedure Department of Nursing Social History Tobacco Use Types Packs/Day Years Used Date Smoking Tobacco: Never [facility] Utilities Answer Date Recorded In the past 12 months has e electric, gas, oil, or water [employer] threatened to shut off services in your [...] your living situation today? 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 us Provider Not In System IMG NON RAD IMAGING PROCE DURES Final Result [facility]IMS NA documented in this encounter Visit Diagnoses Not on filedocumented in this encounter Additional Health Concerns Infection Onset Date Last Indicated Resolved Time Protective Environment 08/11/2024 08/11/2024 documented as of this encounter Care Teams Tube Blower Relationship Specialty Start Date End Date Elsewhere, Pcp PCP - General Family Medicine 06/07/21 documented as of this encounter
--- OUTSIDE RECORDS SUMMARY | 2024-10-05 17:45 | XMS_ITS | Referral Summary ---
Author Organization [facility] Address [address] [place] [address] Care Team Providers Care Dough Machine Operator Name Role Phone Elsewhere, Pcp Primary Care Provider Unavailabl e Source Comments Patient records contain information from all sites at [facility]. For routine questions regarding patient records, call [phone] during business hours, M-F 8:00 AM - 5:00 PM Central Time. Record requests for emergency care only can be directed to [phone] at any time.[facility] Encounters Date Type Department Care Team Description 09/30/2024 [facility] [address] [place] [address] Gail Souza, C.N.PDel Sarcoidosis (Primary Dx) 08/12/2024 12:25 AM CDT Ancillary Procedure Department of Nursing 08/12/2024 12:20 AM CDT Ancillary Procedure Department of Nursing 08/12/2024 12:15 AM CDT Ancillary Procedure Department of Nursing 08/11/2024 3:34 PM CDT - 08/12/2024 4:57 PM CDT Emergency [facility], Second Floor [address] [place] [phone] Micheal Dimas APRN, C.N.P., D.N.P. Gurwinder Magallanes APRN, C.N.P., M.S.N. Yulisa Mcduffie M.D. Prolonged QT Interval (Primary Dx); Nausea And Vomiting; Diarrhea; Dehydration; Colitis; Failure Renal Acute (Acute Kidney Injury) (HCC); Alkalosis Respiratory; Hypokalemia Discharge Disposition: Home or Self Care from Last 3 Months Allergies Active Allergy Reactions Criticality Noted Date Comments Lisinopril Cough Low 10/26/2018 Live [place] Pollen Itching Medium 08/11/2024 Seasonal Allergies: Allergic Rhinitis, Itchy watery eyes, Sneezing Medications * This document contains information received from the source organization and may not represent a complete record from that organization. miscellaneous medical supply misc CPAP machine for home use at pressure: 5-20 cms, nasal mask with cushion x 1, humidifier chamber x 1, humidifier x 1 05/01/20 18 Active amLODIPine (Norvasc) 10 mg tablet Take 10 mg by mouth at bedtime. 11/30/19 24 Active atorvastatin (Lipitor) 20 mg tablet Take 20 mg by mouth at bedtime. 11/21/19 24 Active albuterol 90 mcg/actuation inhaler Inhale 2 puffs every 4 (four) hours as needed for shortness of breath. 11/07/20 23 Active escitalopram (Lexapro) 10 mg tablet Take 10 mg by mouth at bedtime. 06/30/20 23 Active losartan (Cozaar) 25 mg tablet Take 25 mg by mouth at bedtime. 11/27/19 24 Active omeprazole (PriLOSEC) [address] capsule Take 40 mg by mouth daily before morning meal. 06/14/20 23 Active predniSONE (Deltasone) 2.5 mg tablet Take 7.5 mg by mouth daily. 10/27/20 22 Active insulin detemir U-100 (Levemir FlexPen) 100 [...] hours as needed for pain. 25-50 mg t3xmgpf PRN Active triamcinolone (Kenalog) 0.1 % cream Apply 1 Application topically as needed for rash. 07/12/20 22 Active Dexcom G6 Transmitter device 1 each as directed. 05/16/20 24 Active Dexcom G6 Sensor device Place 1 each on the skin every 10 (ten) days. 07/30/20 Active folic acid 1 mg tablet Take 1 mg by mouth at bedtime. 07/10/20 Active hydroxychloroquine (PlaqueniL) 200 mg tablet Take 200 mg by mouth 2 (two) times a day. 07/18/20 Active predniSONE (Deltasone) 5 mg tablet Take 5 mg by mouth daily. With 2.5 mg = 7.5 mg 07/18/20 Active Ozempic 2 mg/dose (8 mg/3 mL) injection Inject 2 mg under the skin every 7 (seven) days. 08/07/20 Active methotrexate (TrexalL) 2.5 mg tablet Take 20 mg by mouth once a week. 07/24/20 Active chlorthalidone (Hygroton) 50 mg tablet Take 1 tablet (50 mg total) by mouth daily. Hold till seen by PCP 08/12/20 Active potassium chloride (K-Tab) 20 mEq ER tablet Take 2 tabs twice daily x 2 days then 1 tab twice daily 08/12/20 Active Active Problems Problem Noted Date Diagnosed [...] HPV 16/18 negative 01/18/22 LSIL/HPV+, 16/18 negative. [place]:normal, no biopsy taken Provider plan 01/18/22: Pap/HPV [...] Packs/Day Years Used Date Smoking Tobacco: Never Share Some Style Answer Date Recorded In the past 12 months has [facility] [place], oil, or water [employer] threatened to shut off services in your [...] your living situation today? 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 LAB BLOOD ADD-ON Final R esult [facility] [address] [place] [id number], [facility] CNFL [facility] in [address] [address] * Glucose, POCT (08/12/2024 12:16 PM CDT) Only the most recent of5 resultswithin the time period is included. Glucose, POCT, B 99 70 - 140 mg/dL 08/12/2024 12:16 PM CDT CNFL Blood 08/12/2024 12:1 6 PM CDT 08/12/2024 12:23 PM CDT us Generic Rals LAB POCT ORDERABLES-MANUAL Final Result [facility] [address] [place] [address], [facility] CNFL [facility] in [address] [address] * (ABNORMAL) CBC with Differential, Blood (08/12/2024 [...] 6:45 AM CDT 08/12/2024 7:06 AM CDT us Yulisa Mcduffie M.D. LAB BLOOD ADD-ON Final R esult Performing Organization Address [facility]/ZIP Co de Phone Number [address] [address], [facility] [address] [address] * Feet-Nursing Image Exam (08/12/2024 12:13 AM [...] NON RAD IMAGING PROCE DURES Final Result Performing Organization Address [facility] Co de Phone Number IIAR NA * (ABNORMAL) Potassium (08/11/2024 8:15 PM CDT) Potassium, P 3.1(L) 3.6 - 5.2 mmol/L 08/11/2024 8:38 PM CDT CNFL Blood (Blood, Venous) 08/11/2024 8:15 PM CDT 08/11/2024 8:26 PM CDT us Gurwinder Magallanes APRN C.N.P., M.S.N. LAB BLOOD ADD-ON Final Result Performing Organization Address [facility] Co de Phone Number [facility] [address] [place] [phone], [facility] CNFL [address] [address] * Bacteria / Kassandra Culture, Blood #2 (08/11/2024 6:49 PM CDT) Only the most recent of2 resultswithin the time period is included. Pathologist [facility] Bacteria/Lina da Culture, Blood No growth after 5 day/s of incubation. 08/16/2024 8:02 PM CDT [facility] Blood (Blood, Peripheral Draw) 08/11/2024 6:49 PM CDT 08/11/2024 6:53 PM CDT Comment:Specimen Source Site : Blood Guanakito Quezada APRNN.Jas., M.S.N. LAB MICROBIOLOGY - GENERAL ORDERABLES Final Result Performing Organization Address [facility] [place] [address] * (ABNORMAL) Lactate (08/11/2024 6:49 PM CDT) Only the most recent of2 resultswithin the time period is included. [facility] Lactate, P 2.4(H) 0.5 - 2.2 mmol/L 08/11/2024 7:10 PM CDT [facility] Blood (Blood, Venous) 08/11/2024 6:49 PM CDT 08/11/2024 6:52 PM CDT Roxie Quezada APRN.N.P., M.S.N. LAB BLOOD NON AD D-ON Final Result Performing Organization Address City/[facility]/[place] [address], [place] [address] * Methotrexate Level (08/11/2024 6:48 PM CDT) [facility] Methotrexate, S <0.04 <0.10 mcmol/L 08/12/2024 3:08 PM CDT ECLR Blood (Blood, Venous) 08/11/2024 6:48 PM CDT 08/12/2024 2:36 PM CDT Roxie Quezada APRN.NPatrick., M.S.N. LAB BLOOD ADD-ON Final Result Performing Organization Address City/[facility]/ZIP Co de Phone Number [facility] [address] [place] [address], [facility] ECLR [facility] [place] [address] * Beta-hydroxybutyrate, Point of Care Testing, Blood (08/11/2024 6:20 PM CDT) Beta-hydroxybut yrate, POCT, B 0.3 0.0 - 0.5 mmol/L 08/11/2024 6:25 PM CDT CNFL Blood (Blood, Venous) 08/11/2024 6:20 PM CDT 08/11/2024 6:22 PM CDT us Roxie Quezada APRN.N.Jas., M.S.N. LAB BLOOD NON AD D-ON Final Result Performing Organization Address City/[facility]/ZIP Co de Phone Number [facility] [address] [place] [address], [facility] CNFL [facility] in [address] [address] * Ethanol Level, Serum (08/11/2024 6:20 PM CDT) Ethanol, P <10 <10 mg/dL 08/11/2024 6:3 5 PM CDT CNFL Blood (Blood, Venous) 08/11/2024 6:20 PM CDT 08/11/2024 6:22 PM CDT us Roxie Quezada APRN.N.Jas., M.S.N. LAB BLOOD NON AD D-ON Final Result [facility] [address] [place] [address], [facility] [address] [address] * (ABNORMAL) Blood Gas, Venous, POCT, Blood [...] 6:20 PM CDT 08/11/2024 6:22 PM CDT [facility] Deni Magallanes APRN, C.N.P., M.S.N. LAB POCT ORDERAB LES - DEVICE Final Result [facility] [address] [place] [address], [place] [facility] [address] [address] * Magnesium (08/11/2024 6:20 PM CDT) Magnesium, P 1.8 1.7 - 2.3 mg/dL 08/11/2024 6:35 PM CDT CNFL Blood (Blood, Venous) 08/11/2024 6:20 PM CDT 08/11/2024 6:22 PM CDT us Roxie Quezada APRN.N.Jas., M.S.N. LAB BLOOD ADD-ON Final Result Performing Organization Address [facility] Co de Phone Number [facility] [address] [place] [address], [facility] CNFL [facility] in [address] [address] * ECG 12 Lead (08/11/2024 5:47 PM CDT) Ventricular Rate ECG/Min 88 BPM MUSE FL Interval 162 ms MUSE QRSD Interval 88 ms MUSE QT Interval 440 ms MUSE QTC Interval 532 ms MUSE P Zwingle -5 degrees MUSE R Zwingle 12 degrees MUSE T Wave Zwingle 0 degrees MUSE 08/11/2024 5:47 PM CDT [...] change was found Reviewed by GURWINDER Peralta us Roxie Quezada APRN.N.P., M.S.N. ECG ORDERABLES Final Result Performing Organization Address [facility] Co de Phone Number MUSE NA * [...] acuteinfectious/inflammatory enteritis. Micheal Dimas APRN, C.N.P., D.N.P. [facility] [place] GILES Final Result * CBC without Differential (08/11/2024 3:54 PM [...] PM CDT 08/11/2024 3:57 PM CDT Narrative [facility] - 08/11/2024 5:31 PM CDT CBC without Differential was cancelled on 08/11/2024 at 17:31; Per provider's request. Roxie Sanon APRN.N.P., D.N.P. LAB BLOOD AD D-ON Edited Result - Final Performing Organization Address City/[facility]/ZIP Co de Phone Number [address] [address], [address] [address] * CRP (C-Reactive Protein) (08/11/2024 3:54 PM CDT) C-Reactive Protein (CRP), P <3.0 <5.0 mg/L 08/11/2024 4:46 PM CDT CNFL Blood (Blood, Venous) 08/11/2024 3:54 PM CDT 08/11/2024 3:57 PM CDT us Roxie Sanon APRN.N.P., D.N.P. LAB BLOOD AD D-ON Final Result Performing Organization Address [facility] Co de Phone Number [address] [address], [address] [address] * Lipase (08/11/2024 3:54 PM CDT) Lipase, P 57 13 - 60 U/L 08/11/2024 4: 46 PM CDT CNFL Blood (Blood, Venous) 08/11/2024 3:54 PM CDT 08/11/2024 3:57 PM CDT us Roxie Sanon APRN.N.P., D.N.P. LAB BLOOD AD D-ON Final Result Performing Organization Address City/[facility]/ZIP Co de Phone Number [address] [address], [facility] CNFL [facility] [place] [address] * (ABNORMAL) Comprehensive Metabolic Panel (08/11/2024 3:54 [...] 3:54 PM CDT 08/11/2024 3:57 PM CDT us Roxie Sanon APRN.N.P., D.N.P. LAB BLOOD AD D-ON Final Result [facility] [address] [place] [address], [facility] in [address] [address] * Influenza A/B, SARS CoV-2, PCR, Rapid [...] 3:52 PM CDT 08/11/2024 3:57 PM CDT us Roxie Sanon APRN.N.P., D.N.P. LAB MICROBIOLOGY - GENERAL ORDERABLES Final Result [facility] [address] [place] [address], [facility] in [address] [address] * (ABNORMAL) Urinalysis with Microscopic if Indicated [...] 8.0 08/11/2024 6:28 PM CDT CNFL Specific [place] 1.010 1.001 - 1.035 08/11/2024 6:28 PM CDT CNFL Urobilinogen 0.2 0.2 - 1.0 mg/dL 08/11/2024 6:28 PM CDT CNFL Urine (Urine, Midstream) 08/11/2024 3:52 PM CDT 08/11/2024 6:25 PM CDT us Micheal Dimas APRN C.N.P., D.N.P. LAB URINE OR DERABLES Final Result [facility] [address] [place] [address], [facility] CNFL [facility] in [address] [address] * Microscopic Manual (08/11/2024 3:52 PM CDT) White Blood Cells None Seen /hpf 08/11/2024 6:45 PM CDT CNFL Comment: ----REFERENCE VALUE---- Males: 0-3 Females: 0-10 Unknown: 0-10 Red Blood Cells Occ-2 0 - 2 /hpf 08/11/2024 6:45 PM CDT CNFL Squamous Cells 11-20 /hpf 08/11/2024 6:45 PM CDT CNFL Urine 08/11/2024 3:52 PM CDT 08/11/2024 6:25 PM CDT us Micheal Dimas APRN, C.N.P., D.N.P. LAB URINE OR DERABLES Final Result [facility] [address] [place] [address], [place] CNFL [facility] in [address] [address] from Last 3 Months Additional Health Concerns Infection Onset Date Last Indicated Protective Environment 08/11/2024 Insurance [facility] [address] [place] [id number] Advance Directives For more information, please contact: [phone] * Full Code (Latest Code Status on File) Date Activated Date Inactivated Comments 08/11/2024 10:11 PM 08/12/2024 7:03 PM Question Answer Comments Full Code: Not Discussed Due to: Patient not available Care Teams Dough Machine Operator Relationship Specialty Start Date End Date Elsewhere, Pcp PCP - General Family Medicine 06/07/21
--- OUTSIDE RECORDS SUMMARY | 2024-10-05 17:45 | XMS_ITS | Encounter Summary ---
Author Organization [facility] Address [address] [place] [address] Care Team Providers Care Geophysical Prospector Name Role Phone Elsewhere, Pcp Primary Care Provider Unavailabl e Encounter Details Date Type Department Care Team (Late st Contact Info) Description 08/12/2024 12:15 AM CDT Ancillary Procedure Department of Nursing Social History Tobacco Use Types Packs/Day Years Used Date Smoking Tobacco: Never [facility] Utilities Answer Date Recorded In the past 12 months has e electric, gas, oil, or water [employer] threatened to shut off services in your [...] your living situation today? 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
--- OUTSIDE RECORDS SUMMARY | 2024-10-05 17:45 | XMS_ITS | Encounter Summary ---
Author Organization [facility] Address [address] [place] [address] Care Team Providers Care New Grad Rn Name Role Phone Elsewhere, Pcp Primary Care Provider Unavailabl e Reason for Referral * Outpatient (Routine) - Authorized Specialty Diagnoses / Procedures Referred By Sree nevarez Referred To Contact Yulisa Mcduffie M.D. [address] [place] [phone] Phone: tel: fax: [facility] Referral ID Status Reason Start Date Expiration Date V isits Requested Visits Authorized [id number] Authorized 08/12/2024 02/11/2026 1 1 Scheduling Instructions [...] Expiration Date Visits Re quested Visits Authorized [id number] 1 1 Encounter Details Date Type Department Care Team (Late st Contact Info) Description 08/11/2024 3:34 PM CDT - 08/12/2024 4:57 PM CDT Emergency [facility], [facility], Second Floor [address] [place] [phone] Micheal Dimas APRN, C.N.P., D.N.P. [address] [place] [phone] Gurwinder Magallanes APRN, C.NAlex, M.S.N. [address] [place] [phone] Yulisa Mcduffie M.D. [address] [place] [address] Prolonged QT Interval (Primary Dx); Nausea And Vomiting; Diarrhea; Dehydration; Colitis; Failure Renal Acute (Acute Kidney Injury) (HCC); Alkalosis Respiratory; Hypokalemia Discharge Disposition: Home or Self Care Social History Tobacco Use Types Packs/Day Years Used Date Smoking Tobacco: Never [facility] [employer] Answer Date Recorded In the past 12 months has [facility] You Software, gas, oil, or water [employer] threatened to shut off services in your [...] your living situation today? 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 * Action Plan to Manage Nausea (Danish) documented in this encounter Medications at Time of Discharge albuterol 90 mcg/actuation inhaler Inhale 2 puffs [...] hours as needed for pain. 25-50 mg [id number] PRN triamcinolone (Kenalog) 0.1 % cream Apply [...] Planning Guide. * Jessica Lopez, Pharm.D., R.Ph., [facility] - 08/12/2024 7:39 AM CDT Images [...] (TrexalL) 2.5 mg tablet miscellaneous medical supply mis Ozempic 2 mg/dose (8 mg/3 mL) injection [...] improving- K 3.1 , replacing per protocol ACTIVE DIRECTORY ADMINISTRATOR medications reconciled Hold: chlorthalidone, Levemir, Ozempic, tramadol, triamcinolone cream, methotrexate Resume: prednisone,atorvastatin, escitalopram, folic acid, hydroxychloroquine, omeprazole sub with pantoprazole Changes to medications anticipated at discharge: TBD Jessica Lopez Pharm.D., R.Ph., BCPS The information and recommendations contained in this note are based on information available at the time of documentation. * Rodger Marquez, R.Ph. - 08/11/2024 10:41 PM CDT Images from the original note were not included. Admission Medication History Note Prior to Admission Medications Med List Status: Pharmacy Complete Set By: Rodger Marquez, R.Ph. at 08/11/2024 10:36 PM Status Comment 08/11/2024 10:40 PM ACTIVE DIRECTORY ADMINISTRATOR Med Rec completed with patient via Phone. [...] chlorthalidone (Hygroton) 50 mg tablet 08/10/2024 at 08 Self 02/20/24 -- Take 50 mg by [...] methotrexate (TrexalL) 2.5 mg tablet 08/05/2024 at 08 Self 07/24/24 -- Take 20 mg by mouth once a week. Notes: Mondays miscellaneous medical supply [facility] -- Self 05/01/18 -- CPAP machine for [...] hours as needed for pain. 25-50 mg [id number] PRN triamcinolone (Kenalog) 0.1 % cream Past Week at PRN Self 07/12/22 -- Apply 1 Application topically as needed for rash. . Adherence issues: No concerns: ACTIVE DIRECTORY ADMINISTRATOR Med Rec completed with patient via Phone. [...] mouth 2 (two) times a day. 08/10/2024 [id number] insulin detemir U-100 (Levemir FlexPen) 100 unit/mL [...] 20 mEq by mouth daily. 08/10/2024 at 2000 predniSONE (Deltasone) 2.5 mg tablet Take 7.5 [...] breath. Unknown at PRN miscellaneous medical supply [facility] CPAP machine for home use at pressure: 5-20 cms, nasal mask with cushion x 1, humidifier chamber x 1, humidifier x 1 traMADoL (Ultram) 50 mg tablet Take 25 mg by mouth every 6 (six) hours as needed for pain. 25-50 [id number] PRN Unknown at PRN The following portions [...] safe environment 08/12/2024 05 by Taryn Foss RYolande. Outcome: Progressing 08/12/2024540 by Taryn Foss R.N. Outcome: Progressing Identify [...] and medications. All questions and concerns addressed. Value Stream Coach consult placed. Chicken broth and lemon ice [...] PM CDT Care of patient transferred to [place] by ADRIANE Burton. Disposition pending lab and [...] Injury) (HCC) Alkalosis Respiratory Hypokalemia Gurwinder Magallanes APRN C.N.PDel, M.S.N. 08/15/24 1516 * Micheal Dimas APRN, C.NAlex, D.N.P. - 08/11/2024 3:44 PM CDT Images [...] ED COURSE ED Course as of 08/11/241926 [place] Aug 11, 2024 1535 I performed my initial evaluation of the [...] 10 mL (10 mL intravenous Given 08/11/24 1700) metroNIDAZOLE in NaCl (iso osm) IVPB 500 mg (FlagyL) (500 mg intravenous New Bag 08/11/241925) ondansetron (PF) injection 4 mg (Zofran) (4 mg intravenous Given 08/11/24 155) ketorolac injection 15 mg (ToradoL) (15 mg intravenous Given 08/11/24 155) NaCl 0.9 % bolus 1,000 mL (0 mL intravenous Stopped 08/11/241743) iohexoL 300 mg iodine/mL solution 130 mL (Omnipaque) (130 mL intravenous Given 08/11/241699) sodium chloride 0.9 % flush 83 mL [...] and vomiting DISPOSITION PENDING Micheal Dimas, L[facility], POST ANESTHESIA NURSE, HVAC ENGINEER-C, AGACNP-BC, ENP-C Emergency Medicine Micheal Dimas APRN, [...] - 140 mg/dL 08/12/2024 3:30 PM CDT [facility] Blood (Blood, Venous) 08/12/2024 3:04 PM CDT 08/12/2024 3:09 PM CDT us Yulisa Mcduffie M.D. LAB BLOOD [place] [address], [place] [address] * Glucose, POCT (08/12/2024 12:16 PM CDT) Glucose, POCT, B 99 70 - 140 mg/dL 08/12/2024 12:16 PM CDT [facility] Blood 08/12/2024 12:1 6 PM CDT 08/12/2024 12:23 PM CDT us Generic Rals LAB POCT ORDERABLES-MANUAL Final Result Performing Organization Address [facility]/ZIP Co de Phone Number [address] [address], [address] [address] * Glucose, POCT (08/12/2024 11:38 AM CDT) Glucose, POCT, B 78 70 - 140 mg/dL 08/12/2024 11:38 AM CDT [facility] Blood 08/12/2024 11:3 8 AM CDT 08/12/2024 11:55 AM CDT us Generic Rals LAB POCT ORDERABLES-MANUAL Final Result [facility] [address] [place] [address], [facility] in [address] [address] * Glucose, POCT (08/12/2024 7:49 AM CDT) Glucose, POCT, B 85 70 - 140 mg/dL 08/12/2024 7:49 AM CDT [facility] Blood 08/12/2024 7:49 AM CDT 08/12/2024 7:58 AM CDT us Generic Rals LAB POCT ORDERABLES-MANUAL Final Result [address] [address], [facility] [address] [address] * Glucose, POCT (08/12/2024 7:35 AM CDT) Glucose, POCT, B 77 70 - 140 mg/dL 08/12/2024 7:35 AM CDT [facility] Blood 08/12/2024 7:35 AM CDT 08/12/2024 7:58 AM CDT us Generic Rals LAB POCT ORDERABLES-MANUAL Final Result [address] [address], [facility] in [address] [address] * (ABNORMAL) CBC with Differential, Blood (08/12/2024 [...] M.D. LAB BLOOD ADD-ON Final R esult [facility] [address] [place] [address], [facility] in [address] [address] * (ABNORMAL) Basic Metabolic Panel (08/12/2024 6:45 [...] 6:45 AM CDT 08/12/2024 7:05 AM CDT us Yulisa Mcduffie M.D. LAB BLOOD ADD-ON Final R esult [facility] [address] [place] [address], [facility] CNFL [facility] in [address] [address] * Glucose, POCT (08/11/2024 11:45 PM CDT) Glucose, POCT, B 90 70 - 140 mg/dL 08/11/2024 11:45 PM CDT [facility] Blood 08/11/2024 11:4 5 PM CDT 08/11/2024 11:52 PM CDT us Generic Rals LAB POCT ORDERABLES-MANUAL Final Result Performing Organization Address [facility]/ZIP Co de Phone Number [address] [address], [address] [address] * (ABNORMAL) Potassium (08/11/2024 8:15 PM CDT) Potassium, P 3.1(L) 3.6 - 5.2 mmol/L 08/11/2024 8:38 PM CDT [facility] Blood (Blood, Venous) 08/11/2024 8:15 PM CDT 08/11/2024 8:26 PM CDT us Roxie Quezada APRN.N.P., M.S.N. LAB BLOOD ADD-ON Final Result Performing Organization Address City/[facility]/ZIP Co de Phone Number [address] [address], [address] [address] * (ABNORMAL) Lactate (08/11/2024 6:49 PM CDT) Lactate, P 2.4(H) 0.5 - 2.2 mmol/L 08/11/2024 7:10 PM CDT [facility] Blood (Blood, Venous) 08/11/2024 6:49 PM CDT 08/11/2024 6:52 PM CDT us Gurwinder Magallanes APRN C.N.P., M.S.N. LAB BLOOD NON AD D-ON Final Result [address] [address], [address] [address] * Bacteria / Kassandra Culture, Blood #2 (08/11/2024 6:49 PM CDT) Bacteria/Lina da Culture, Blood No growth after 5 day/s of incubation. 08/16/2024 8:02 PM CDT [facility] Blood (Blood, Peripheral Draw) 08/11/2024 6:49 PM CDT 08/11/2024 6:53 PM CDT Comment:Specimen Source Site : Blood us Roxie Quezada APRN.N.Jas., M.S.N. LAB MICROBIOLOGY - GENERAL ORDERABLES Final Result Performing Organization Address [facility]/ZIP Co de Phone Number [facility] [address] [place] [address], [facility] CNFL [facility] [place] [address] * Methotrexate Level (08/11/2024 6:48 PM CDT) Methotrexate, S <0.04 <0.10 mcmol/L 08/12/2024 3:08 PM CDT ECLR Blood (Blood, Venous) 08/11/2024 6:48 PM CDT 08/12/2024 2:36 PM CDT us Roxie Quezada APRN.N.P., M.S.N. LAB BLOOD ADD-ON Final Result [facility] [address] [place] [address], [facility] ECLR [facility] in [address] [address] * Bacteria / Kassandra Culture, Blood #1 (08/11/2024 6:20 PM CDT) Bacteria/Lina da Culture, Blood No growth after 5 day/s of incubation. 08/16/2024 7:02 PM CDT [facility] Blood (Blood, Peripheral Draw) 08/11/2024 6:20 PM CDT 08/11/2024 6:27 PM CDT Comment:Specimen Source Site : Blood Gurwinder Magallanes APRN, C.N.P., M.S.N. LAB MICROBIOLOGY - GENERAL ORDERABLES Final Result [address] [address], [place] [address] * Ethanol Level, Serum (08/11/2024 6:20 PM CDT) Ethanol, P <10 <10 mg/dL 08/11/2024 6:3 5 PM CDT [facility] Blood (Blood, Venous) 08/11/2024 6:20 PM CDT 08/11/2024 6:22 PM CDT Gurwinder Magallanes APRN, C.N.P., M.S.N. LAB BLOOD NON AD D-ON Final Result Performing Organization Address [facility]/ZIP Co de Phone Number [address] [address], [address] [address] * Beta-hydroxybutyrate, Point of Care Testing, Blood (08/11/2024 6:20 PM CDT) Beta-hydroxybut yrate, POCT, B 0.3 0.0 - 0.5 mmol/L 08/11/2024 6:25 PM CDT [facility] Blood (Blood, Venous) 08/11/2024 6:20 PM CDT 08/11/2024 6:22 PM CDT Guanakito Quezada APRNNAlex, M.S.N. LAB BLOOD NON AD D-ON Final Result [facility] [address] [place] [address], [facility] CNFL [address] [address] * (ABNORMAL) Blood Gas, Venous, POCT, Blood [...] 6:20 PM CDT 08/11/2024 6:22 PM CDT [facility] N Sona ANDERSON, C.N.P., M.S.N. LAB POCT ORDERAB LES - DEVICE Final Result [facility] [address] [place] [address], [facility] CNFL [facility] in [address] [address] * Magnesium (08/11/2024 6:20 PM CDT) Magnesium, P 1.8 1.7 - 2.3 mg/dL 08/11/2024 6:35 PM CDT [facility] Blood (Blood, Venous) 08/11/2024 6:20 PM CDT 08/11/2024 6:22 PM CDT us Gurwinder Magallanes APRN, C.N.P., M.S.N. LAB BLOOD ADD-ON Final Result Performing Organization Address [facility] Co de Phone Number [facility] [address] [place] [address], [facility] CNFL [facility] in [address] [address] * ECG 12 Lead (08/11/2024 5:47 PM CDT) Ventricular Rate ECG/Min 88 BPM MUSE DE Interval 162 ms MUSE QRSD Interval 88 ms MUSE QT Interval 440 ms MUSE QTC Interval 532 ms MUSE P Aniwa -5 degrees MUSE R Aniwa 12 degrees MUSE T Wave Aniwa 0 degrees MUSE 08/11/2024 5:47 PM CDT [...] was found Reviewed by GURWINDER Peralta us Gurwinder Magallanes APRN, C.N.P., M.S.N. ECG ORDERABLES Final Result Performing Organization Address City/[facility]/ZIP Co de Phone Number MUSE NA * [...] without a transition point suggesting acuteinfectious/inflammatory enteritis. us Micheal Dimas APRN, C.N.P., D.N.P. IMG CT TAMEKA GILES Final Result * (ABNORMAL) CBC with Differential, Blood (08/11/2024 [...] 4:09 PM CDT 08/11/2024 4:09 PM CDT us Micheal Dimas APRN C.N.P., D.N.P. LAB BLOOD AD D-ON Final Result [facility] [address] [place] [address] [address] in [address] [address] * Lipase (08/11/2024 3:54 PM CDT) Lipase, P 57 13 - 60 U/L 08/11/2024 4: 46 PM CDT CN[facility] Blood (Blood, Venous) 08/11/2024 3:54 PM CDT 08/11/2024 3:57 PM CDT Micheal Dimas APRN, C.N.P., D.N.P. LAB BLOOD AD D-ON Final Result Performing Organization Address [facility] [place] [address], [place] [address] * (ABNORMAL) Lactate (08/11/2024 3:54 PM CDT) Lactate, P 2.7(H) 0.5 - 2.2 mmol/L 08/11/2024 4:46 PM CDT [facility] Blood (Blood, Venous) 08/11/2024 3:54 PM CDT 08/11/2024 3:57 PM CDT Micheal Dimas APRN, C.N.P., D.N.P. LAB BLOOD NO N ADD-ON Final Result Performing Organization Address [facility] [place] [address], [place] [address] * CRP (C-Reactive Protein) (08/11/2024 3:54 PM CDT) C-Reactive Protein (CRP), P <3.0 <5.0 mg/L 08/11/2024 4:46 PM CDT CN[facility] Blood (Blood, Venous) 08/11/2024 3:54 PM CDT 08/11/2024 3:57 PM CDT Micheal Dimas APRN, C.N.P., ElenaNDelP. LAB BLOOD AD D-ON Final Result [facility] [address] [place] [address], [facility] CNFL [facility] [place] [address] * (ABNORMAL) Comprehensive Metabolic Panel (08/11/2024 3:54 PM CDT) [facility] Potassium, P 2.5(CL) 3.6 - 5.2 mmol/L [...] PM CDT 08/11/2024 3:57 PM CDT us Micheal Dimas APRN, C.N.P., D.N.P. LAB BLOOD AD D-ON Final Result [facility] [address] [place] [address], [facility] CNFL [facility] in [address] [address] * CBC without Differential (08/11/2024 3:54 PM [...] PM CDT 08/11/2024 3:57 PM CDT Narrative [facility] - 08/11/2024 5:31 PM CDT CBC without Differential was cancelled on 08/11/2024 at 17:31; Per provider's request. us Micheal Dimas APRN, C.N.P., D.N.P. LAB BLOOD AD D-ON Edited Result - Final [facility] [address] [place] [address], [facility] CNFL [facility] in [address] [address] * Microscopic Manual (08/11/2024 3:52 PM CDT) White Blood Cells None Seen /hpf 08/11/2024 6:45 PM CDT CNFL Comment: ----REFERENCE VALUE---- Males: 0-3 Females: 0-10 Unknown: 0-10 Red Blood Cells Occ-2 0 - 2 /hpf 08/11/2024 6:45 PM CDT CNFL Squamous Cells 11-20 /hpf 08/11/2024 6:45 PM CDT CN[facility] Urine 08/11/2024 3:52 PM CDT 08/11/2024 6:25 PM CDT us Roxie Sanon APRN.N.P., D.N.P. LAB URINE OR DERABLES Final Result [facility] [address] [place] [address], [facility] in [address] [address] * Influenza A/B, SARS CoV-2, PCR, Rapid [...] PM CDT 08/11/2024 3:57 PM CDT us Micheal Dimas APRN, Roxie.N.P., D.N.P. LAB MICROBIOLOGY - GENERAL ORDERABLES Final Result [address] [address], [facility] [address] [address] * (ABNORMAL) Urinalysis with Microscopic if Indicated [...] 8.0 08/11/2024 6:28 PM CDT CNFL Specific [place] 1.010 1.001 - 1.035 08/11/2024 6:28 PM CDT CNFL Urobilinogen 0.2 0.2 - 1.0 mg/dL 08/11/2024 6:28 PM CDT CN[facility] Urine (Urine, Midstream) 08/11/2024 3:52 PM CDT 08/11/2024 6:25 PM CDT Micheal Dimas APRN, C.N.P., D.N.P. LAB URINE OR DERABLES Final Result [facility] [address] [place] [address], [facility] CNFL [facility] in [address] [address] documented in this encounter Visit Diagnoses Diagnosis [...] g (Maxipime) 2 g, intravenous, Once, On 08/11/24 at 1848, For 1 dose, If needed, reconstitute vial per package insert instructions. See IVAG for administration guidelines., Drug Monitoring Program: Pharmacist to adjust medication dosing based on indication and drug clearance factors., Indications: colitisIndications:colitis Given 08/11/2024 7:21 PM CDT 2 g [...] on indication and drug clearance factors., Indications: colitisIndications:coliti s New Bag 08/11/2024 7:26 PM CDT 500 mg 200 mL/hr metroNIDAZOLE tablet 500 mg (FlagyL) 500 mg, oral, 3 times daily, First dose on Mon08/12/24 at 0900, Drug Monitoring Program: Pharmacist to adjust medication dosing based on indication and drug clearance factors., Indications: Intra-abdominal infection, community acquired, Obstetric or gynecological infectionIndications:Intr a-abdominal infection, community acquired,Obstetric or gynecological infection Given 08/12/2024 8:39 AM CDT 500 mg NaCl 0.9 % bolus 1,000 mL 1,000 mL, intravenous, at 1,000 mL/hr, Administer over 1 Hours, Once, On Mon08/11/24 at 1558, For 1 dose New 08/11/2024 3:57 PM CDT 1,000 mL 1000 mL/hr NaCl 0.9 % bolus 1,000 mL 1,000 mL, intravenous, at 1,000 mL/hr, Administer over 1 Hours, Once, On Mon08/11/24 at 1647, For 1 dose 08/11/2024 5:30 PM CDT 1,000 mL 1000 [...] at 1649, For 1 dose, Dissolve per labor law professor recommendations. Do NOT chew or swallow tablet. Given 08/11/2024 5:05 PM CDT 60 mEq potassium chloride ER tablet 20 mEq (Klor-Con M) 20 mEq, oral, 2 times daily with meals, First dose on Mon08/12/24 at 0800, potassium chloride orderable was interchanged for potassium chloride tablet/capsule Depending on the labor law professor this tablet may be split on score [...] on Mon08/12/24 at 1100, Depending on the labor law professor this tablet may be split on score [...] line care, Starting on 08/11/24 at 1617 Given 08/11/2024 5:00 PM CDT [...] colitis 1920 (Given - Provider: Patricia Bailey R.N.) enoxaparin injection 40 mg (Lovenox) 40 mg, [...] above prescribing guidelines for details): Rheumatologic condition 2348 (Given - Provider: Taryn Foss R.N.) 0839 [...] (ToradoL) (COMPLETED) 15 mg, intravenous, Once, On Sun /22/24 at 1547, For 1 dose, Adult IV [...] bedtime, First dose on Mon08/11/24 at 2345 2349 (Given - Provider: Taryn Foss R.N.) metoclopramide injection 10 mg (Reglan) (COMPLETED) 10 mg, intravenous, Once, On Mon08/11/24 at 1756, For 1 dose 1818 (Given - Provider: Maribell ShahN.) metroNIDAZOLE in NaCl (iso osm) IVPB 500 mg (FlagyL) (COMPLETED) 500 mg, intravenous, at 200 mL/hr, Administer over 30 Minutes, Once, On Mon08/11/24 at 1848, For 1 dose, Drug Monitoring Program: Pharmacist to adjust medication dosing based on indication and drug clearance factors., Indications: colitis 1925 (New Bag - Provider: Patricia Bailey RCoty)2022 (Stopped - Provider: Patricia Bailey RDelN.) metroNIDAZOLE tablet 500 mg (FlagyL) (CANCELED) 500 mg, oral, 3 times daily, First dose on Mon08/12/24 at 0900, Drug Monitoring Program: Pharmacist to adjust medication dosing based on indication and drug clearance factors., Indications: Intra-abdominal infection, community acquired, Obstetric or gynecological infection 0839 (Given - Provid er: Maribell AdlerNDel) NaCl 0.9 % bolus 1,000 mL (COMPLETED) 1,000 mL, intravenous, at 1,000 mL/hr, Administer over 1 Hours, Once, On Mon08/11/24 at 1558, For 1 dose 1557 (New Bag - Provider: Kavitha Faust R.N.)1744 (Stopped - Provider: Maribell ShahNDel) NaCl 0.9 % bolus 1,000 mL (COMPLETED) 1,000 mL, intravenous, at 1,000 mL/hr, Administer over 1 Hours, Once, On 08/11/24 at 1647, For 1 dose 1730 (New Bag - Provider: Kavitha Faust RYolande.)1932 (Stopped - Provider: Patricia Bailey RDelN.) ondansetron (PF) injection 4 mg (Zofran) (COMPLETED) [...] 0633 (Given - Provid er: Taryn Foss RDelN.) potassium bicarb-citric acid disintegrating tablet 60 mEq (Effer-K) (COMPLETED) 60 mEq, oral, Once, On Mon08/11/24 at 1649, For 1 dose, Dissolve per labor law professor recommendations. Do NOT chew or swallow tablet. 1705 (Given - Provider: Kavitha Faust R.N.) potassium chloride ER tablet 20 mEq (Klor-Con M) (CANCELED) 20 mEq, oral, 2 times daily with meals, First dose on Mon08/12/24 at 0800, potassium chloride orderable was interchanged for potassium chloride tablet/capsule Depending on the labor law professor this tablet may be split on score and give as partial tablets, or added to an ounce of water and dispersed into a slurry for drinking. It is not recommended that the microburst tablet be crushed as it may cause stomach upset. 0839 (Given - Provid er: Eun Maki R.N.) potassium chloride ER tablet 40 mEq (Klor-Con M) 40 mEq, oral, 2 times daily with meals, First dose on Mon08/12/24 at 1100, Depending on the labor law professor this tablet may be split on score [...] mEq per bag over 1 hour each. 182 (New Bag - Provider: Kavitha Faust RDelNDel)193 (Stopped - Provider: Patricia Bailey RDelNDel) potassium chloride IVPB 10 mEq (CANCELED) 10 [...] 0839 (Given - Provid er: Eun Maki RCoty) sodium chloride 0.9 % injection 3 mL [...] (New Bag - Prov ider: Eun Maki RCoty)1612 (Stopped - Provider: Flores Willoughby R.N.) PRN [...] dry eyes, Starting on 08/11/24 at 2325 dextrose 40% gel 15 g [...] dose 1701 (Given - Provider: Kecia Ernandez(R)(CT), R.TDel(R)) sodium chloride 0.9 % injection 10 mL 10 mL, intravenous, As needed, line care, Starting on 08/11/24 at 1617 1700 (Given - Provider: Maribell ErnandezTDel(R)(CT), R.TDel(R)) sodium chloride 0.9 % injection 10 [...] documented as of this encounter Care Teams New Grad Rn Relationship Specialty Start Date End Date Elsewhere, Pcp PCP - General Family Medicine 06/07/21 documented as of this encounter
--- OUTSIDE RECORDS SUMMARY | 2024-10-05 17:45 | XMS_ITS | Clinical Summary ---
Author Organization [facility] Address [address] [place] [address] Care Team Providers Care Commission Associate Name Role Phone Elsewhere, Pcp Primary Care Provider Unavailabl e Source Comments Patient records contain information from all sites at [facility]. For routine questions regarding patient records, call [phone] during business hours, M-F 8:00 AM - 5:00 PM Central Time. Record requests for emergency care only can be directed to [phone] at any time.[facility] Allergies Active Allergy Reactions Criticality Noted Date Comments Lisinopril Cough Low 10/26/2018 Rebuck Pollen Itching Medium 08/11/2024 Seasonal Allergies: Allergic Rhinitis, Itchy watery eyes, Sneezing Medications * This document contains information received from the source organization and may not represent a complete record from that organization. miscellaneous medical supply [facility] for [facility] use at pressure: [...] by mouth daily before morning meal. 06/14/20 Active predniSONE (Deltasone) 2.5 mg tablet Take 7.5 mg by mouth daily. 10/27/20 Active insulin detemir U-100 (Levemir FlexPen) 100 [...] hours as needed for pain. 25-50 mg [id number] PRN Active triamcinolone (Kenalog) 0.1 % cream Apply 1 Application topically as needed for rash. 07/12/20 Active Dexcom G6 Transmitter device 1 each as directed. 05/16/20 Active Dexcom G6 Sensor device Place 1 each on the skin every 10 (ten) days. 07/30/20 24 Active folic acid 1 mg tablet Take 1 mg by mouth at bedtime. 07/10/20 24 Active hydroxychloroquine (PlaqueniL) 200 mg tablet Take 200 mg by mouth 2 (two) times a day. 07/18/20 24 Active predniSONE (Deltasone) 5 mg tablet Take 5 mg by mouth daily. With 2.5 mg = 7.5 mg 07/18/20 Active Ozempic 2 mg/dose (8 mg/3 mL) injection Inject 2 mg under the skin every 7 (seven) days. 08/07/20 24 Active methotrexate (TrexalL) 2.5 mg tablet Take 20 mg by mouth once a week. 07/24/20 24 Active chlorthalidone (Hygroton) 50 mg tablet Take 1 tablet (50 mg total) by mouth daily. Hold till seen by PCP 08/12/20 Active potassium chloride (K-Tab) 20 mEq ER tablet Take 2 tabs twice daily x 2 days then 1 tab twice daily 08/12/20 24 Active Active Problems Problem Noted Date Diagnosed [...] HPV 16/18 negative 01/18/22 LSIL/HPV+, 16/18 negative. [place]:normal, no biopsy taken Provider plan 01/18/22: Pap/HPV due 01/2023 Obesity Body Mass Index 30-39.9 Adult 01/17/2012 Resolved Problems Problem Noted Date Diagnosed Date Resolved Date Prolonged QT Interval 08/11/20242023 Hyperuricemia 06/16/2021 08/11/2024 Overview (05/29/2022): Patient stopped allopurinol. Encounters Date Type Department Care Team Description 09/30/[address] [address] Gail Souza C.N.P. Sarcoidosis (Primary Dx) 08/12/2024 12:25 AM CDT Ancillary Procedure Department of Nursing 08/12/2024 12:20 AM CDT Ancillary Procedure Department of Nursing 08/12/2024 12:15 AM CDT Ancillary Procedure Department of Nursing 08/11/2024 3:34 PM CDT - 08/12/2024 4:57 PM CDT Emergency [facility], [facility], Second Floor [address] [place] [phone] Micheal Dimas APRN, C.N.P., D.N.P. Gurwinder Magallanes APRN C.N.P., M.S.N. Yulisa Mcduffie M.D. Prolonged QT Interval (Primary Dx); Nausea And Vomiting; Diarrhea; Dehydration; Colitis; Failure Renal Acute (Acute Kidney Injury) (HCC); Alkalosis Respiratory; Hypokalemia Discharge Disposition: Home or Self Care from Last 3 Months Immunizations Name Administration Dates Next Due HepB Adult 06/24/2014,05/19/2014 Tdap 01/17/2012 influenza vaccine quad (FLUZ ONE/FLUARIX) (6 months and older)(PF) 01/20/2020 Social History Tobacco Use Types Packs/Day Years Used Date Smoking Tobacco: Never [facility] HotLink Answer Date Recorded In the past 12 months has [facility] [employer], gas, oil, or water [employer] threatened to shut off services in your [...] your living situation today? 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 Gender Identity Not on file Sexual Orientation [...] C Screening 1970 Office Visit for Blood Pressure Check / Re-check 1970 Pneumococcal vaccine (0-64 years) (1 of 2 - PCV) 1976 Zoster Vaccines (1 of 2) 1989 Hepatitis B Vaccines (3 of 3 - 19+ 3-dose series) 11/18/2014 06/24/2014, 05/19/2014 COVID-19 Vaccine (2 - Moderna risk series) 03/11/2022 02/11/2022 Mammogram 10/17/2023 10/17/2022, 09/21, 03/02/2022 Depression Screening (Annual PHQ-2) 11/20/2023 Influenza Vaccine (#1) 2024 01/20/2020 Creatinine Level (Kidney Function Test) 08/12/2025 08/12/2024, 08/12/2024, 08/11/2024, Additional history exists Potassium Level 08/12/2025 08/12/2024, 07/22, 08/11/2024, Additional history exists Sodium Level 08/12/2025 08/12/2024, 07/22, 08/11/2024, Additional history exists Colonoscopy 03/01/2027 03/01/2022 Colorectal Cancer Surveillance 03/01/2027 Lipid (Cholesterol) Screening 06/01/2027 06/01/2022, 06/16/2021, 10/12/2020 Fasting Glucose for Diabetes Screening 08/12/2027 08/12/2024, 08/12/2024, 08/12/2024, Additional history exists DTaP,Tdap,and Td Vaccines (3 - Td or Tdap) 06/01/2032 06/01/2022, 01/17/2012 Cervical/Vaginal Cancer Screening Discontinued 06/16/2021, 05/15/2015, 01/17/2012 IPV Vaccines Aged Out No longer eligi ble [...] ADD-ON Final R esult Performing Organization Address [facility]/State/[facility] Co de Phone Number [facility] [place] [address], [facility] in [address] [address] * Glucose, POCT (08/12/2024 12:16 PM CDT) Only the most recent of5 resultswithin the time period is included. Glucose, POCT, B 99 70 - 140 mg/dL 08/12/2024 12:16 PM CDT CNFL Blood 08/12/2024 12:1 6 PM CDT 08/12/2024 12:23 PM CDT us Generic Rals LAB POCT ORDERABLES-MANUAL Final Result [facility] [address] [place] [address], [facility] CNFL [facility] in [address] [address] * (ABNORMAL) CBC with Differential, Blood (08/12/2024 [...] ADD-ON Final R esult Performing Organization Address [facility] [place] [address], [place] [address] * Feet-Nursing Image Exam (08/12/2024 12:13 AM [...] PROCE DURES Final Result Performing Organization Address [facility] Co de Phone Number IIKY NA * (ABNORMAL) Potassium (08/11/2024 8:15 PM CDT) Potassium, P 3.1(L) 3.6 - 5.2 mmol/L 08/11/2024 8:38 PM CDT [facility] Blood (Blood, Venous) 08/11/2024 8:15 PM CDT 08/11/2024 8:26 PM CDT us Gurwinder Magallanes APRN C.N.P., M.S.N. LAB BLOOD ADD-ON Final Result Performing Organization Address [facility] Co de Phone Number [facility] [address] [place] [phone], [facility] [place] [address] * Bacteria / Kassandra Culture, Blood #2 (08/11/2024 6:49 PM CDT) Only the most recent of2 resultswithin the time period is included. Pathologist [facility] Bacteria/Lina da Culture, Blood No growth after 5 day/s of incubation. 08/16/2024 8:02 PM CDT [facility] Blood (Blood, Peripheral Draw) 08/11/2024 6:49 PM CDT 08/11/2024 6:53 PM CDT Comment:Specimen Source Site : Blood Roxie Quezada APRN.NPatrick., M.S.N. LAB MICROBIOLOGY - GENERAL ORDERABLES Final Result Performing Organization Address [facility] [place] [address], [place] [address] * (ABNORMAL) Lactate (08/11/2024 6:49 PM CDT) Only the most recent of2 resultswithin the time period is included. [facility] Lactate, P 2.4(H) 0.5 - 2.2 mmol/L 08/11/2024 7:10 PM CDT [facility] Blood (Blood, Venous) 08/11/2024 6:49 PM CDT 08/11/2024 6:52 PM CDT Roxie Quezada APRN.N.P., M.S.N. LAB BLOOD NON AD D[place] [address], [facility] [place] [address] * Methotrexate Level (08/11/2024 6:48 PM CDT) Pathologist [facility] Methotrexate, S <0.04 <0.10 mcmol/L 08/12/2024 3:08 PM CDT ECLR Blood (Blood, Venous) 08/11/2024 6:48 PM CDT 08/12/2024 2:36 PM CDT us Guanakito Quezada APRNNAlex, M.S.N. LAB BLOOD ADD-ON Final Result [facility] [address] [place] [address], [facility] ECLR [facility] [place] [address] * Beta-hydroxybutyrate, Point of Care Testing, Blood (08/11/2024 6:20 PM CDT) Beta-hydroxybut yrate, POCT, B 0.3 0.0 - 0.5 mmol/L 08/11/2024 6:25 PM CDT CNFL Blood (Blood, Venous) 08/11/2024 6:20 PM CDT 08/11/2024 6:22 PM CDT us Guanakito Quezada APRNNPatrick., M.S.N. LAB BLOOD NON AD D-ON Final Result Performing Organization Address City/[facility]/ZIP Co de Phone Number [facility] [address] [place] [address], [facility] CNFL [facility] in [address] [address] * Ethanol Level, Serum (08/11/2024 6:20 PM CDT) Ethanol, P <10 <10 mg/dL 08/11/2024 6:3 5 PM CDT CNFL Blood (Blood, Venous) 08/11/2024 6:20 PM CDT 08/11/2024 6:22 PM CDT us Guanakito Quezada APRNNPatrick., M.S.N. LAB BLOOD NON AD D-ON Final Result [facility] [address] [place] [address], [facility] CNFL [address] [address] * (ABNORMAL) Blood Gas, Venous, POCT, Blood [...] 6:20 PM CDT 08/11/2024 6:22 PM CDT [facility] Deni Magallanes APRN, C.N.P., M.S.N. LAB POCT ORDERAB LES - DEVICE Final Result [facility] [address] [place] [address], [facility] CNFL [facility] in [address] [address] * Magnesium (08/11/2024 6:20 PM CDT) Magnesium, P 1.8 1.7 - 2.3 mg/dL 08/11/2024 6:35 PM CDT CNFL Blood (Blood, Venous) 08/11/2024 6:20 PM CDT 08/11/2024 6:22 PM CDT us Gurwinder Magallanes APRN, C.N.P., M.S.N. LAB BLOOD ADD-ON Final Result Performing Organization Address [facility] Co de Phone Number [facility] [address] [place] [address], [facility] CNFL [facility] in [address] [address] * ECG 12 Lead (08/11/2024 5:47 PM CDT) Ventricular Rate ECG/Min 88 BPM MUSE CA Interval 162 ms MUSE QRSD Interval 88 ms MUSE QT Interval 440 ms MUSE QTC Interval 532 ms MUSE P Thermal -5 degrees MUSE R Thermal 12 degrees MUSE T Wave Thermal 0 degrees MUSE 08/11/2024 5:47 PM CDT [...] ECG ORDERABLES Final Result Performing Organization Address City/[facility]/ZIP Co de Phone Number MUSE NA * [...] IMG CT TAMEKA GILES Final Result * CBC [...] PM CDT 08/11/2024 3:57 PM CDT Narrative [facility] - 08/11/2024 5:31 PM CDT CBC without Differential was cancelled on 08/11/2024 at 17:31; Per provider's request. Guanakito Sanon APRNN.P., D.N.P. LAB BLOOD AD D-ON Edited Result - Final [address] [address], [address] [address] * CRP (C-Reactive Protein) (08/11/2024 3:54 PM CDT) C-Reactive Protein (CRP), P <3.0 <5.0 mg/L 08/11/2024 4:46 PM CDT CNFL Blood (Blood, Venous) 08/11/2024 3:54 PM CDT 08/11/2024 3:57 PM CDT us Roxie Sanon APRN.N.P., D.N.P. LAB BLOOD AD D-ON Final Result [address] [address], [address] [address] * Lipase (08/11/2024 3:54 PM CDT) Lipase, P 57 13 - 60 U/L 08/11/2024 4: 46 PM CDT CNFL Blood (Blood, Venous) 08/11/2024 3:54 PM CDT 08/11/2024 3:57 PM CDT us Roxie Sanon APRN.N.P., D.N.P. LAB BLOOD AD D-ON Final Result [address] [address], [facility] in [address] [address] * (ABNORMAL) Comprehensive Metabolic Panel (08/11/2024 3:54 [...] us Micheal Dimas APRN, Roxie.N.P., D.N.P. LAB BLOOD AD D-ON Final Result [address] [address], [address] [address] * Influenza A/B, SARS CoV-2, PCR, Rapid [...] us Micheal Dimas APRN, C.N.P., D.N.P. LAB MICROBIOLOGY - GENERAL ORDERABLES Final Result Performing Organization Address City/[facility]/ZIP Co de Phone Number [facility] [address] [place] [address], [address] [address] * (ABNORMAL) Urinalysis with Microscopic if Indicated [...] 8.0 08/11/2024 6:28 PM CDT CNFL Specific [place] 1.010 1.001 - 1.035 08/11/2024 6:28 PM CDT CNFL Urobilinogen 0.2 0.2 - 1.0 mg/dL 08/11/2024 6:28 PM CDT CNFL Urine (Urine, Midstream) 08/11/2024 3:52 PM CDT 08/11/2024 6:25 PM CDT Micheal Dimas APRN, C.N.P., D.N.P. LAB URINE OR DERABLES Final Result [facility] [address] [place] [address], [facility] CNFL [facility] in [address] [address] * Microscopic Manual (08/11/2024 3:52 PM CDT) [...] D.N.P. LAB URINE OR DERABLES Final Result [facility] [address] [place] [address] [address] [place] [address], [facility] CNFL [facility] in [address] [place] [address] from Last 3 Months Additional Health Concerns Infection Onset Date Last Indicated Protective Environment 08/11/2024 Insurance [facility] [place] [address] [place] [address] Advance Directives For more information, please contact: [phone] * Full Code (Latest Code Status on File) Date Activated Date Inactivated Comments 08/11/2024 10:11 PM 08/12/2024 7:03 PM Question Answer Comments Full Code: Not Discussed Due to: Patient not available Care Teams Commission Associate Relationship Specialty Start Date End Date Elsewhere, Pcp PCP - General Family Medicine 06/07/21
--- OUTSIDE RECORDS SUMMARY | 2024-10-05 17:45 | XMS_ITS | Encounter Summary ---
Author Organization [facility] Address [address] [place] [address] Care Team Providers Care Diamond Blender Name Role Phone Elsewhere, Pcp Primary Care Provider Unavailabl e Reason for Referral * Outpatient (Routine) - Authorized Specialty Diagnoses / Procedures Referred By Sree t Referred To Contact Rheumatology Diagnoses Sarcoidosis Gail Souza, C.N.P. [address] [place] [address] Phone: tel: fax: [facility] Referral ID Status Reason Start Date Expiration Date V isits Requested Visits Authorized [id number] Authorized 09/30/2024 04/01/2026 1 1 DLE COOK Encounter Details Date Type Department Care Team (Late st Contact Info) Description 09/30/2024 [facility] [address] [place] [address] Gail Souza, C.N.P. [address] [place] [address] Sarcoidosis (Primary Dx) Social History Tobacco Use Types Packs/Day Years Used Date Smoking Tobacco: Never [facility] Utilities Answer Date Recorded In the past [...] Date Recorded Dental: Regular Dentist Unknown 01/22/20 Housing Stability Answer Date Recorded What is your living situation today? I have a [facility] place to live 08/11/2024 Comments No Sex and Gender Information Value Date Recorded Sex Assigned at Not on file Legal Sex Female 5:33 AM GRIDDLE COOK Gender Identity Not on file Sexual Orientation Not on file documented as of this encounter Plan of Treatment Scheduled Referrals Name Type Priority Associated Diagnoses Order Schedule Rheumatology Referral Outpatient Referral Routine Sarcoidosis Expected: 09/30/2024 (Approximate), Expires: 12/31/2025 documented as of this encounter Visit Diagnoses Diagnosis Sarcoidosis- Primary documented in this encounter Additional Health Concerns Infection Onset Date Last Indicated Resolved Time Protective Environment 08/11/2024 08/11/2024 documented as of this encounter Care Teams Diamond Blender Relationship Specialty Start Date End Date Elsewhere, Pcp PCP - General Family Medicine 06/07/21 documented as of this encounter
--- OUTSIDE RECORDS SUMMARY | 2024-10-05 17:45 | XMS_ITS | Encounter Summary ---
Author Organization [facility] Address [address] [place] [address] Care Team Providers Care Laundry Washer Name Role Phone Elsewhere, Pcp Primary Care Provider Unavailabl e Encounter Details Date Type Department Care Team (Late st Contact Info) Description 08/12/2024 12:20 AM CDT Ancillary Procedure Department of Nursing Social History Tobacco Use Types Packs/Day Years Used Date Smoking Tobacco: Never [facility] Utilities Answer Date Recorded In the past 12 months has e electric, gas, oil, or water [address] [employer] threatened to shut off services in your [...] your living situation today? 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
== END 2024-10-01 11:01 | disposition home or self-care (01) ==
LOC: NFLDREF 10-05 17:42
PROVIDERS: PCP Nurse Practitioner Family; Referring Provider Nurse Practitioner Family; Visit Provider Nurse Practitioner Family
DX: E87.6 Hypokalemia (principal)
CPT/HCPCS: 80048

== ENCOUNTER 2024-12-12 13:40 | Outpatient (CLI) | payer OTHER, SELFPAY ==
[2024-12-13 01:06] LABS: Chlamydia DNA Amplified* NOT DETECTED (No Detected); GC DNA Amplified* NOT DETECTED (No Detected)
== END 2024-12-12 13:41 | disposition home or self-care (01) ==
PROVIDERS: PCP Nurse Practitioner Family; Visit Provider Nurse Practitioner Family
DX: Z11.3 Encounter for screening for infections with a predominantly sexual mode of transmission (principal); Z11.59 Encounter for screening for other viral diseases; Z11.4 Encounter for screening for human immunodeficiency virus [HIV]
CPT/HCPCS: 86592; 86703; 86706; 86803; 87491; 87529; 87591

== ENCOUNTER 2025-01-31 15:02 | Outpatient (CLI) | payer OTHER, SELFPAY ==
--- NOTE | 2025-01-31 15:00 | CRLHL7_ITS ---
For Patients: As a result of the Century Cures Act, medical imaging exams and procedure reports are released immediately into your electronic medical record. You may view this report before your referring provider. If you have questions, please contact your health care provider. Indication: Submandibular lump Technique: Grayscale and color Doppler ultrasound of the neck soft tissues performed in the midline corresponding to the area of concern. Comparison: None Findings: Normal subcutaneous lymph node is present containing a normal central fatty hilum and normal internal blood flow. This lymph node measures 9 x 5 x 6 millimeters. No shadowing lesion or fluid collection. Impression: Normal subcutaneous lymph node. No suspicious findings. Dictated by Micheal Harper MD @ 01/31/2025 3:35:20 PM (Electronically Signed)
== END 2025-01-31 15:03 | disposition home or self-care (01) ==
LOC: US 15:02
PROVIDERS: PCP Nurse Practitioner Family; Visit Provider Nurse Practitioner Family
DX: K11.8 Other diseases of salivary glands (principal)
CPT/HCPCS: 76536

== ENCOUNTER 2025-03-24 09:23 | Outpatient (CLI) | payer OTHER, SELFPAY | END 2025-03-24 09:24 | disposition home or self-care (01) | PROVIDERS: PCP Nurse Practitioner Family; Visit Provider Nurse Practitioner Family | DX: R79.89 Other specified abnormal findings of blood chemistry (principal); I10 Essential (primary) hypertension; E11.9 Type 2 diabetes mellitus without complications; Z79.4 Long term (current) use of insulin; Z01.818 Encounter for other preprocedural examination | CPT/HCPCS: 80053; 80061; 82043; 82570; 82607; 84443; 85025 ==

== ENCOUNTER 2025-04-03 11:31 | Outpatient (CLI) | payer OTHER, SELFPAY ==
[2025-04-06 18:53] LABS: HSV 1 Subtype by PCR Not Detected; HSV 2 Subtype by PCR Detected; Herpes Simplex Subtype Source Genital
[2025-04-09 08:37] LABS: HPV Source Vaginal; HPV, High Risk by TMA Not Detected
[2025-04-18 17:18] LABS: Pap Test Reviewed by Path Done
== END 2025-04-03 11:32 | disposition home or self-care (01) ==
PROVIDERS: PCP Nurse Practitioner Family; Visit Provider Nurse Practitioner Family
DX: E87.6 Hypokalemia (principal); L98.6 Other infiltrative disorders of the skin and subcutaneous tissue; Z90.710 Acquired absence of both cervix and uterus; Z12.72 Encounter for screening for malignant neoplasm of vagina; Z11.51 Encounter for screening for human papillomavirus (HPV)
CPT/HCPCS: 80048; 87529; 87624; 87625; 88141; 88142

== ENCOUNTER 2025-04-07 15:45 | Outpatient (CLI) | payer OTHER, SELFPAY ==
--- NOTE | 2025-04-07 15:45 | CRLHL7_ITS ---
For Patients: As a result of the Century Cures Act, medical imaging exams and procedure reports are released immediately into your electronic medical record. You may view this report before your referring provider. If you have questions, please contact your health care provider. INDICATION: elevated LFTs COMPARISON: none TECHNIQUE: Real time keller scale imaging and color Doppler analysis was performed of the right upper quadrant. FINDINGS: Liver echotexture is diffusely increased and coarsened. No intrahepatic mass. Liver measures 16.4 cm. There is a normal appearance of the hepatic IVC and proximal abdominal aorta. There is no evidence of ascites. The gallbladder is of normal size and there is no evidence of intraluminal stones or sludge. The gallbladder wall measures 2.8 mm in thickness. The common bile duct is of normal size and measures 2.2 mm in diameter at the level of the simran hepatis. The pancreas appears normal. There is no evidence of a stone or hydronephrosis within the right kidney. The right kidney measures 9.9 cm in length. IMPRESSION: Diffusely coarsened and increased hepatic echotexture consistent with severe steatosis. Remainder unremarkable. Dictated by Micheal Harper MD @ 04/08/2025 9:45:41 AM (Electronically Signed)
== END 2025-04-07 15:46 | disposition home or self-care (01) ==
LOC: US 15:45
PROVIDERS: PCP Nurse Practitioner Family; Visit Provider Nurse Practitioner Family
DX: R79.89 Other specified abnormal findings of blood chemistry (principal); K76.0 Fatty (change of) liver, not elsewhere classified; R74.8 Abnormal levels of other serum enzymes
CPT/HCPCS: 76705

== ENCOUNTER 2025-07-01 15:43 | Outpatient (CLI) | payer OTHER, SELFPAY | END 2025-07-01 15:44 | disposition home or self-care (01) | LOC: KYNREF 15:43 | PROVIDERS: PCP Nurse Practitioner Family; Visit Provider Nurse Practitioner Family | DX: R74.8 Abnormal levels of other serum enzymes (principal); E87.6 Hypokalemia; Z51.81 Encounter for therapeutic drug level monitoring | CPT/HCPCS: 80076 ==

== ENCOUNTER 2025-10-09 15:06 | Outpatient (CLI) | payer OTHER, SELFPAY | END 2025-10-09 15:07 | disposition home or self-care (01) | PROVIDERS: PCP Nurse Practitioner Family; Visit Provider Nurse Practitioner Family | DX: E11.9 Type 2 diabetes mellitus without complications (principal); R61 Generalized hyperhidrosis; Z79.4 Long term (current) use of insulin | CPT/HCPCS: 80048; 81001; 85025; 87086 ==

== ENCOUNTER 2025-11-04 06:01 | Day surgery (SDC) | payer OTHER, SELFPAY ==
[2025-11-04] VITALS (10 sets, daily range): BP systolic 117–144; BP diastolic 78–86; PULSE 63–78; RESP 14–18; TEMP 36.4; O2SAT 94–98; BMI 33.3
--- NOTE | 2025-11-04 07:08 | W.PM.H&PU ---
History & Physical Update History & Physical Update H&P Reviewed and patient assessed: No changes noted
[2025-11-04] MEDS: ETHYL CHLORIDE 1 APPLICATION 1 APPLIC TOPICAL (07:10)
[2025-11-04] MEDS: BUPIVACAINE 0.5% 30 ML INJECTION (07:10)
[2025-11-04] MEDS: BACITRACIN OINTMENT BULK TUBE 1 APPLIC TOPICAL (07:54)
--- NOTE | 2025-11-04 07:55 | PM.ORPRC ---
Procedure Note Date of procedure: 11/04/25 Procedure: PREOPERATIVE DIAGNOSIS: 1. Right carpal tunnel syndrome POSTOPERATIVE DIAGNOSIS: 1. Right carpal tunnel syndrome PROCEDURE: 1. Right open carpal tunnel release SURGEON: Tyrel Arcos MD. INFANT AND TODDLER TEACHER: Fabi Childerss P.A.-C. An middle school assistant principal was critical for this case to aid in patient positioning, tissue retraction, limb manipulation/positioning, and closure. ANESTHESIA: Local anesthetic IMPLANTS: None ESTIMATED BLOOD LOSS: 1 mL TOURNIQUET: Not utilized COMPLICATIONS: None INDICATIONS: The patient is a pleasant 54-year-old female with history of right hand numbness and tingling. Symptoms were not improving with conservative treatment, and patient elected to proceed with surgical intervention consisting of right carpal tunnel release. Prior to surgery, the risks and benefits of the procedure were discussed with patient, all questions were answered, and informed consent was obtained. DESCRIPTION OF PROCEDURE: Patient was seen preoperatively and operative site was marked. The subcutaneous tissues overlying the right carpal tunnel were injected with a combination of 0.5% bupivacaine and 1% lidocaine with epinephrine. Patient was then brought to the operating room and placed in the supine position on the OR table. A tourniquet was placed on the patient's right arm, and right upper extremity was prepped and draped in usual sterile fashion. A surgical time-out was performed confirming patient name, procedure, and location. A skin incision measuring approximately 3-4 cm was made in line with the ring finger extending from the distal wrist flexion crease to Haider's cardinal line. Blunt dissection was used to dissect through subcutaneous tissues and palmar fascia. Hemostasis was achieved with bipolar electrocautery. Transverse carpal ligament was identified and was sharply incised proximally with care taken to protect the underlying median nerve. The transverse carpal ligament was then sharply divided along its ulnar border using tenotomy scissors and a [place] blade with care taken to protect the underlying median nerve. Once the transverse carpal ligament was divided, the antebrachial fascia was released proximally. The wound was then irrigated with normal saline. The skin incision was closed with 4-0 nylon horizontal mattress sutures, and a sterile dressing was applied. Patient was then transferred to the recovery room in stable condition. POSTOPERATIVE PLAN: 1. Patient will be discharged to home day of surgery. 2. Ice and elevation as needed for pain and swelling. 3. Tylenol and/or ibuprofen as needed for pain. 4. They were given instructions for wound care and finger range of motion exercises. 5. Return to the clinic for follow-up evaluation in 10-14 days for wound check and suture removal.
--- NOTE | 2025-11-04 08:33 | SUR.PHASEII ---
Patient returned to Phase II via wheelchair and sat directly in the recliner chair. Patient tolerated coke, verbalized readiness to be discharged, verbalized understanding of her discharge instructions and knowledge of when her post op appointment is and who to contact with questions.
== END 2025-11-04 08:17 | disposition home or self-care (01) ==
PROVIDERS: PCP Nurse Practitioner Family; Visit Provider Orthopaedic Surgery
PROC: (CPT 64721; principal; 2025-11-04 07:15)
DX: G56.01 Carpal tunnel syndrome, right upper limb (principal)
CPT/HCPCS: 64721; J0665

== ENCOUNTER 2025-11-14 06:22 | Day surgery (SDC) | payer OTHER, SELFPAY ==
[2025-11-14] VITALS (9 sets, daily range): BP systolic 126–173; BP diastolic 77–100; PULSE 67–82; RESP 16; TEMP 36.4–36.7; O2SAT 99; BMI 33.3
[2025-11-14] MEDS: BUPIVACAINE 0.5% 30 ML INJECTION (07:10)
[2025-11-14] MEDS: ETHYL CHLORIDE 1 APPLICATION 1 APPLIC TOPICAL (07:10)
--- NOTE | 2025-11-14 07:11 | W.PM.H&PU ---
History & Physical Update History & Physical Update H&P Reviewed and patient assessed: No changes noted
--- NOTE | 2025-11-14 07:13 | P.ORPRC_ITS ---
Procedure Note Date of procedure: 11/14/25 Procedure: PREOPERATIVE DIAGNOSIS: 1. Left carpal tunnel syndrome POSTOPERATIVE DIAGNOSIS: 1. Left carpal tunnel syndrome PROCEDURE: 1. Left open carpal tunnel release SURGEON: Tyrel Arcos MD. RIVERBOAT CAPTAIN: Eun Vann P.A.-C. An market research assistant was critical for this case to aid in patient positioning, tissue retraction, limb manipulation/positioning, and closure. ANESTHESIA: Local anesthetic IMPLANTS: None ESTIMATED BLOOD LOSS: 0 mL TOURNIQUET: 11 min at 250 mmHg COMPLICATIONS: None INDICATIONS: The patient is a pleasant 54 with history of left hand numbness and tingling. Symptoms were not improving with conservative treatment, and patient elected to proceed with surgical intervention consisting of left carpal tunnel release. Prior to surgery, the risks and benefits of the procedure were discussed with patient, all questions were answered, and informed consent was obtained. DESCRIPTION OF PROCEDURE: Patient was seen preoperatively and operative site was marked. The subcutaneous tissues overlying the left carpal tunnel were injected with a combination of 0.5% bupivacaine and 1% lidocaine with epinephrine. Patient was then brought to the operating room and placed in the supine position on the OR table. A tourniquet was placed on the patient's left arm, and left upper extremity was prepped and draped in usual sterile fashion. A surgical time-out was performed confirming patient name, procedure, and location. The operative extremity was then elevated and exsanguinated with an Esmarch, and the tourniquet was inflated to 200 mmHg. A skin incision measuring approximately 3-4 cm was made in line with the ring finger extending from the distal wrist flexion crease to Haider's cardinal line. Blunt dissection was used to dissect through subcutaneous tissues and palmar fascia. Transverse carpal ligament was identified and was sharply incised proximally with care taken to protect the underlying median nerve. The transverse carpal ligament was then sharply divided along its ulnar border using tenotomy scissors and a southern ute blade with care taken to protect the underlying median nerve. Once the transverse carpal ligament was divided, the antebrachial fascia was released proximally. The wound was then irrigated with normal saline, and the tourniquet was released. Total tourniquet time was 11 minutes. Hemostasis was achieved with bipolar electrocautery. The skin incision was closed with 4-0 nylon horizontal mattress sutures, and a sterile dressing was applied. Patient was then transferred to the recovery room in stable condition. POSTOPERATIVE PLAN: 1. Patient will be discharged to home day of surgery. 2. Ice and elevation as needed for pain and swelling. 3. Tylenol and/or ibuprofen as needed for pain. 4. They were given instructions for wound care and finger range of motion exercises. 5. Return to the clinic for follow-up evaluation in 10-14 days for wound check and suture removal.
--- NOTE | 2025-11-14 07:38 | SUR.OPER ---
PATIENT QUESTIONS ANSWERED SATISFACTORILY PREOPERATIVELY. PATIENT BROUGHT TO OR #3 PER WHEELCHAIR. Patient positioned supine on OR #3 bed. The perioperative team supported right arm bilaterally on arm boards. Final approval of positioning by surgeon.
[2025-11-14] MEDS: BACITRACIN OINTMENT BULK TUBE 1 APPLIC TOPICAL (07:54)
== END 2025-11-14 08:15 | disposition home or self-care (01) ==
PROVIDERS: PCP Nurse Practitioner Family; Visit Provider Orthopaedic Surgery
PROC: (CPT 64721; principal; 2025-11-14 07:15)
DX: G56.02 Carpal tunnel syndrome, left upper limb (principal)
CPT/HCPCS: 64721; J0665